=== PATIENT | female | born 1940 | race Caucasian/White ===

== ENCOUNTER 2018-07-17 14:32 | Emergency (ER) | payer OTHER, BC ==
--- OUTSIDE RECORDS SUMMARY | 2018-07-17 14:36 | XMS REPORT | Clinical Summary ---
:1940 Author Organization [facility] Address [address] [place] [address] Phone Support Name Relationship Address Phone [place]available [place] [address] Unavailable Unavailable [address] [place] [address] Care Team Providers Name Role Phone Unavailable Primary Care Provider Unavailable Allergies Active Allergy Reactions Severity Noted Date Comments [place] Anaphylaxis, Rash High 07/11/2017 Venom-Honey Bee Anaphylaxis High 07/11/2017 Shellfish Containing Products Swelling 11/29/2014 Sulfa (Sulfonamide Antibiotics) Other (See Comments) 11/29/2014 As a child Current Medications Prescription Sig. Disp. Refills Start Date End Date Status ALBUTEROL SULFATE Inhale by mouth via Active (PROAIR HFA INHL) inhaler. predniSONE (DELTASONE) Take 30 mg by mouth Active 20 MG tablet daily. aspirin 81 MG EC tablet Take 81 mg by mouth Active daily. FLUTICASONE/VILANTEROL Inhale 1 puff by Active (BREO ELLIPTA INHL) mouth via inhaler daily. ferrous sulfate 325 (65 Take 325 mg by mouth Active FE) MG tablet daily with breakfast. HYDROcodone-acetaminophe Take 1 tablet by Active n (NORCO 10-325) 10-325 mouth every 6 (six) mg per tablet hours as needed for Pain. ZOLEDRONIC Inject Active ACID/MANNITOL-WATER intravenously. (RECLAST IV) folic acid (FOLVITE) 400 Take 400 mcg by Active MCG tablet mouth daily. naproxen Take 220 mg by mouth Active (ALEVE,ANAPROX,MIDOL) 2 (two) times daily 220 MG tablet with breakfast and dinner. 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
--- OUTSIDE RECORDS SUMMARY | 2018-07-17 14:36 | XMS REPORT | Clinical Summary ---
:1940 Author Organization [facility] Address [address] [place] [address] Care Team Providers Name Role Phone Asked, No Pcp Primary Care Provider Unavailable Allergies Active Allergy Reactions Severity Noted Date Comments Bee Venom Protein (Honey Bee) Swelling 05/24/2017 Shrimp 04/09/2017 [place] 04/09/2017 Sulfa (Sulfonamide Antibiotics) 04/09/2017 Current Medications Prescription Sig. Disp. Refills Start Date End Date Status albuterol (PROAIR Inhale 2 puffs Active HFA,PROVENTIL every 6 (six) hours HFA,VENTOLIN HFA) as needed for 90 mcg/actuation wheezing. inhaler esomeprazole Take 40 mg by mouth Active (NexIUM) 40 MG daily before capsule breakfast. ferrous sulfate Take 325 mg by Active 325 (65 FE) MG mouth daily with tablet breakfast. naproxen sodium Take 220 mg by Active (ALEVE) 220 MG mouth nightly. tablet folic acid TAKE 1 TABLET EVERY 30 tablet 2 01/27/2018 Active (FOLVITE) 1 MG DAY tablet ACTEMRA 162 INJECT 1 SYRINGE 1.8 mL 0 03/31/2018 Active mg/0.9 mL syringe (162MG) SUBCUTANEOUSLY EVERY OTHER WEEK BREO ELLIPTA 03/26/2017 11/01/20 Discontinued 100-25 mcg/dose 17 blister with device powder for inhalation folic acid Take 1 tablet (1 mg 30 tablet 2 05/24/2017 08/22/20 (FOLVITE) 1 MG total) by mouth 17 tablet daily for 90 days. predniSONE Take 20 mg by mouth 11/01/20 Discontinued (DELTASONE) 20 mg daily. 1 1/2 po 17 tablet daily aspirin (ECOTRIN) Take 81 mg by mouth 02/15/20 Discontinued 81 MG enteric daily. 18 coated tablet gabapentin Take 300 mg by 11/01/20 Discontinued (NEURONTIN) 300 mouth daily. 17 mg capsule folic acid TAKE 1 TABLET EVERY 30 tablet 2 08/31/2017 01/27/20 Discontinued (FOLVITE) 1 MG DAY 18 tablet predniSONE Take 5 mg by mouth 05/09/20 Discontinued (DELTASONE) 5 mg daily. 2 1/ tab 18 tablet qod ACTEMRA 162 INJECT 162 MG (1 1.8 mL 1 12/31/2017 02/26/20 Discontinued mg/0.9 mL syringe SYRINGE) 18 SUBCUTANEOUSLY EVERY OTHER WEEK ACTEMRA 162 inject 1 syringe 1.8 mL 0 02/25/2018 03/31/20 Discontinued mg/0.9 mL syringe (162 mg) 18 subcutaneously every other week predniSONE Take 2.5 mg by 05/09/20 Discontinued (DELTASONE) 2.5 mouth daily. QOD 18 mg tablet Active Problems Problem Noted Date Osteoporosis 06/20/2017 Encounters Date Type Specialty Care Team Description 06/13/2018 Orders Only Infusion Therapy Radha Edwards RN 06/13/2018 Telephone Infusion Therapy Radha Edwards RN 05/09/2018 Office Visit Rheumatology Adolph Jones, Temporal arteritis (Primary Dx); Steroid side effects, subsequent encounter; Visit for monitoring Actemra therapy; Age-related osteoporosis without current pathological fracture 04/04/2018 Office Visit Rheumatology Adolph Jones, Temporal arteritis (Primary Dx); Steroid side effects, subsequent encounter; Visit for monitoring Actemra therapy; Age-related osteoporosis without current pathological fracture 03/31/2018 Refill Rheumatology Adolph Jones MD 02/25/2018 Refill Rheumatology Adolph Jones MD 02/14/2018 Office Visit Rheumatology Adolph Jones, Temporal arteritis (Primary Dx); Steroid side effects, subsequent encounter; Visit for monitoring Actemra therapy; Age-related osteoporosis without current pathological fracture 02/14/2018 Refill Rheumatology Devang Farfan MA 01/27/2018 Refill Rheumatology Adolph Jones MD 01/10/2018 Office Visit Rheumatology Adolph Jones, Temporal arteritis (Primary Dx); Steroid side effects, subsequent encounter; Visit for monitoring Actemra therapy 12/31/2017 Refill Rheumatology Adolph Jones MD 11/01/2017 Office Visit Rheumatology Adolph Jones, Temporal arteritis (Primary Dx); Age-related osteoporosis without current pathological fracture; Steroid side effects, subsequent encounter; Visit for monitoring Actemra therapy 08/31/2017 Refill Rheumatology Adolph Jones MD 08/09/2017 Office Visit Rheumatology Adolph Jones Temporal arteritis (Primary Dx); Osteoporosis; Steroid side effects, subsequent encounter; Visit for monitoring Actemra therapy; Dysuria-frequency syndrome after 07/16/2017 Family History Medical History Relation Name Comments Diabetes Maternal Aunt Glaucoma Maternal Aunt Diabetes Maternal Grandmother Heart disease Maternal Grandmother Cancer Mother Relation Name Status Comments Maternal Aunt Maternal Grandmother Mother Social History Tobacco Use Types Packs/Day Years Used Date Former Smoker 2 Smokeless Tobacco: Never Used Comments: quit at 52 - previous 2 packs a day Alcohol Use Drinks/Week oz/Week Comments No Sex Assigned at Date Recorded Not on file Last Filed Vital Signs Vital Sign Reading Time Taken Blood Pressure 148/79 05/09/2018 11:14 AM CDT Pulse 90 05/09/2018 11:14 AM CDT Temperature - - Respiratory Rate - - Oxygen Saturation - - Inhaled Oxygen Concentration - - Weight 57.6 kg (127 lb) 04/04/2018 9:33 AM CDT Height 152.4 cm (5') 11/01/2017 9:02 AM [employer]GRAM[employer] Body Mass Index 24.8 04/04/2018 9:33 AM CDT Plan of Treatment Date Type Specialty Care Team Description 07/18/2018 Office Visit Rheumatology Adolph Jones MD [address] [address] [phone] 07/18/2018 Infusion Infusion Therapy Health Maintenance Due Date Last Done Comments BREAST CANCER SCREENING 1992 COLON CANCER SCREENING 1992 SHINGRIX VACCINE (#1) 1992 ZOSTER VACCINE 2002 PNEUMOCOCCAL POLYSACCHARIDE VACCINE AGE 65 AND OVER 2007 INFLUENZA VACCINE 07/02/2018 09/27/2016 PNEUMOCOCCAL-13 Completed 07/04/2015 Procedures Procedure Name Priority Date/Time Associated Diagnosis Comments C-REACTIVE PROTEIN Routine 07/16/2018 10:09 Temporal arteritis AM CDT Steroid side effects, subsequent encounter Visit for monitoring Actemra therapy Age-related osteoporosis without current pathological fracture SEDIMENTATION RATE Routine 07/16/2018 10:09 Temporal arteritis Results for this AM CDT Steroid side procedure are in effects, subsequent the results encounter section. Visit for monitoring Actemra therapy Age-related osteoporosis without current pathological fracture COMPREHENSIVE Routine 07/16/2018 10:09 Temporal arteritis Results for this METABOLIC PANEL AM CDT Steroid side procedure are in effects, subsequent the results encounter section. Visit for monitoring Actemra therapy Age-related osteoporosis without current pathological fracture CBC WITH PLATELET AND Routine 07/16/2018 10:09 Temporal arteritis Results for this DIFFERENTIAL AM CDT Steroid side procedure are in effects, subsequent the results encounter section. Visit for monitoring Actemra therapy Age-related osteoporosis without current pathological fracture C-REACTIVE PROTEIN Routine 05/08/2018 2:55 Temporal arteritis Results for this PM CDT Steroid side procedure are in effects, subsequent the results encounter section. Visit for monitoring Actemra therapy Age-related osteoporosis without current pathological fracture SEDIMENTATION RATE Routine 05/08/2018 2:55 Temporal arteritis Results for this PM CDT Steroid side procedure are in effects, subsequent the results encounter section. Visit for monitoring Actemra therapy Age-related osteoporosis without current pathological fracture COMPREHENSIVE Routine 05/08/2018 2:55 Temporal arteritis Results for this METABOLIC PANEL PM CDT Steroid side procedure are in effects, subsequent the results encounter section. Visit for monitoring Actemra therapy Age-related osteoporosis without current pathological fracture CBC WITH PLATELET AND Routine 05/08/2018 2:55 Temporal arteritis Results for this DIFFERENTIAL PM CDT Steroid side procedure are in effects, subsequent the results encounter section. Visit for monitoring Actemra therapy Age-related osteoporosis without current pathological fracture COMPREHENSIVE Routine 03/24/2018 1:14 Temporal arteritis Results for this METABOLIC PANEL PM CDT Steroid side procedure are in effects, subsequent the results encounter section. Visit for monitoring Actemra therapy Age-related osteoporosis without current pathological fracture CBC WITH PLATELET AND Routine 03/24/2018 1:14 Temporal arteritis Results for this DIFFERENTIAL PM CDT Steroid side procedure are in effects, subsequent the results encounter section. Visit for monitoring Actemra therapy Age-related osteoporosis without current pathological fracture SEDIMENTATION RATE Routine 03/24/2018 1:14 Temporal arteritis Results for this PM CDT Steroid side procedure are in effects, subsequent the results encounter section. Visit for monitoring Actemra therapy Age-related osteoporosis without current pathological fracture C-REACTIVE PROTEIN Routine 03/24/2018 1:14 Temporal arteritis Results for this PM CDT Steroid side procedure are in effects, subsequent the results encounter section. 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 Visit for monitoring Actemra therapy SEDIMENTATION RATE Routine 01/10/2018 10:08 Temporal arteritis Results for this AM [employer]GRAMMER Steroid side procedure are in effects, subsequent the results encounter section. Visit for monitoring Actemra therapy COMPREHENSIVE Routine 01/10/2018 10:08 Temporal arteritis Results for this METABOLIC PANEL AM [employer] PROGRAMMER Steroid side procedure are in effects, subsequent the results encounter section. Visit for monitoring Actemra therapy CBC WITH PLATELET AND Routine 01/10/2018 10:08 Temporal arteritis Results for this DIFFERENTIAL AM [employer]GRAMMER Steroid side procedure are in effects, subsequent the results encounter section. Visit for monitoring Actemra therapy URINALYSIS, COMPLETE, Routine 08/12/2017 7:18 Dysuria-frequency Results for this WITH REFLEX TO CULTURE AM CDT syndrome procedure are in the results section. C-REACTIVE PROTEIN Routine 08/12/2017 7:18 Temporal arteritis Results for this AM CDT Steroid side procedure are in effects, subsequent the results encounter section. Visit for monitoring Actemra therapy SEDIMENTATION RATE Routine 08/12/2017 7:18 Temporal arteritis Results for this AM CDT Steroid side procedure are in effects, subsequent the results encounter section. Visit for monitoring Actemra therapy COMPREHENSIVE Routine 08/12/2017 7:18 Temporal arteritis Results for this METABOLIC PANEL AM CDT Steroid side procedure are in effects, subsequent the results encounter section. Visit for monitoring Actemra therapy CBC WITH PLATELET AND Routine 08/12/2017 7:18 Temporal arteritis Results for this DIFFERENTIAL AM CDT Steroid side procedure are in effects, subsequent the results encounter section. Visit for monitoring Actemra therapy URINE CULTURE Routine 08/12/2017 7:18 Results for this AM CDT procedure are in the results section. after 07/16/2017 Results Sedimentation rate (07/16/2018 10:09 AM)Only the most recent of5 resultswithin the time period is included. Sedimentation rate 2 < OR=30 mm/h [facility] [place] Specimen Blood Narrative Performed At FASTING:YES [facility] FASTING: YES Resulting Agency Comment Performing Organization Information: Site ID: [id number] Name: [facility] Address: [address] [place] [id number] Director: Mia Morelos Performing Organization Address City/[facility] [place] Phone Number [place] [facility] [place] [address] [place] [phone] CBC with platelet and differential (07/16/2018 10:09 AM)Only the most recent of5 resultswithin the time period is included. WBC 10.4 3.8 - 10.8 Thousand/uL [facility] [place] RBC 5.17 (H) 3.80 - 5.10 Million/uL [facility] [place] HGB 13.5 11.7 - 15.5 g/dL [facility] [place] HCT 41.7 35.0 - 45.0 % [facility] [place] MCV 80.7 80.0 - 100.0 fL [facility] [place] MCH 26.1 (L) 27.0 - 33.0 pg [facility] [place] MCHC 32.4 32.0 - 36.0 g/dL [facility] [place] RDW 12.8 11.0 - 15.0 % [facility] [place] Platelet count 213 140 - 400 Thousand/uL [facility] [employer] [place] MPV 11.7 7.5 - 12.5 fL [facility] [place] Neutrophils, absolute 6,895 1,500 - 7,800 cells/uL [facility] [place] Lymphocytes, absolute 1,882 850 - 3,900 cells/uL [facility] [place] Monocytes, absolute 1,227 (H) 200 - 950 cells/uL [facility] [place] Eosinophils, absolute 343 15 - 500 cells/uL [facility] [place] Basophils, absolute 52 0 - 200 cells/uL [facility] [place] Neutrophils 66.3 % [facility] [place] Lymphocytes 18.1 % [facility] [place] Monocytes 11.8 % [facility] [place] Eosinophils 3.3 % [facility] [place] Basophils + RC 0.5 % [facility] [place] Specimen Blood Narrative Performed At FASTING:YES [facility] FASTING: YES Resulting Agency Comment Performing Organization Information: Site ID: [id number] Name: [facility] Address: [address] [place] [phone] Director: Mia Morelos Performing Organization Address City/[facility]/Zipcode Phone Number [facility] [place] [address] [place] [address] Comprehensive metabolic panel (07/16/2018 10:09 AM)Only the most recent of5 resultswithin the time period is included. Glucose 77 65 - 99 mg/dL [facility] Comment: [place] Fasting reference interval BUN, whole blood 12 7 - 25 mg/dL [facility] [place] Creatinine 0.55 (L) 0.60 - 0.93 [facility] Comment: mg/dL [place] For patients >49 years of age, the reference limit for Creatinine is approximately 13% higher for people identified as -Togolese. EGFR Non-Afr. [place]og[place]ese 92 > OR=60 [facility] mL/min/1.73m2 [place] EGFR 106 > OR=60 [facility] mL/min/1.73m2 [place] BUN/creatinine ratio 22 6 - 22 (calc) [facility] [place] Sodium 140 135 - 146 mmol/L [facility] [place] Potassium 4.0 3.5 - 5.3 mmol/L [facility] [place] Chloride 102 98 - 110 mmol/L [facility] [place] CO2 28 20 - 32 mmol/L [facility] [place] Calcium 9.5 8.6 - 10.4 mg/dL [facility] [place] Protein 6.4 6.1 - 8.1 g/dL [facility] [place] Albumin, S 4.6 3.6 - 5.1 g/dL [facility] [place] Globulin, total 1.8 (L) 1.9 - 3.7 g/dL [facility] (calc) [place] Albumin/globulin ratio 2.6 (H) 1.0 - 2.5 (calc) [facility] [place] Total bilirubin 1.5 (H) 0.2 - 1.2 mg/dL [facility] [place] Alkaline phosphatase 77 33 - 130 U/L [facility] [place] AST 20 10 - 35 U/L [facility] [place] ALT 15 6 - 29 U/L [facility] [place] Specimen Blood Narrative Performed At FASTING:YES [facility] FASTING: YES Resulting Agency Comment Performing Organization Information: Site ID: [id number] Name: [facility] Address: [address] [place] [address] Director: Mia Morelos Performing Organization Address City/State/Zipcode Phone Number [facility] [place] [address] [place] [address] C-reactive protein (05/08/2018 2:55 PM)Only the most recent of4 resultswithin the time period is included. CRP 0.6 <8.0 mg/L [facility] [place] Specimen Blood Narrative Performed At FASTING:NO [facility] FASTING: NO Resulting Agency Comment Performing Organization Information: Site ID: [id number] Name: [facility] Address: [address] [place] [phone] Director: Mia Morelos Performing Organization Address City/[facility] Phone Number [facility] [address] [address] URINALYSIS, COMPLETE, WITH REFLEX TO CULTURE (08/12/2017 7:18 AM) Color, UA YELLOW YELLOW [facility] [place] Appearance CLEAR CLEAR [facility] [place] Specific gravity, urine 1.020 1.001 - 1.035 [facility] [place] pH, urine 5.5 5.0 - 8.0 [facility] [place] Glucose, urine NEGATIVE NEGATIVE [facility] [place] Bilirubin, UA NEGATIVE NEGATIVE [facility] [place] Ketones, UA NEGATIVE NEGATIVE [facility] [place] Occult blood, urine NEGATIVE NEGATIVE [facility] [place] Protein, UA NEGATIVE NEGATIVE [facility] [place] Nitrite, UA NEGATIVE NEGATIVE [facility] [place] Leukocyte esterase, UA 2+ (A) NEGATIVE [facility] [place] WBC, UA 40-60 (A) < OR=5 /HPF [facility] [place] RBC, UA 0-2 < OR=2 /HPF [facility] [place] Squamous epithelial 6-10 (A) < OR=5 /HPF [facility] cells, [facility] [place] Bacteria, UA FEW (A) NONE SEEN /HPF [facility] [place] Calcium oxalate FEW NONE OR FEW /HPF [facility] crystals, [facility] [place] Hyaline casts, UA NONE SEEN NONE SEEN /LPF [facility] [place] Comment FEW MUCOUS THREADS [facility] [place] Reflex CULTURE INDICATED - [facility] RESULTS TO FOLLOW [place] Narrative Performed At FASTING:NO [facility] Resulting Agency Comment Performing Organization Information: Site ID: [id number] Name: [facility] Address: [address] [place] [phone] Director: Mia Morelos MD Performing Organization Address City/[facility]/Zipcode Phone Number [facility] [place] [address] [place] [phone] Urine culture (08/12/2017 7:18 AM) Urine culture SEE NOTE [facility] [place] Comment: CULTURE, URINE, ROUTINE MICRO NUMBER:[id number] TEST STATUS: FINAL SPECIMEN SOURCE: URINE SPECIMEN QUALITY:ADEQUATE RESULT:Three or more organisms present, each greater than 10,000 cu/mL. May represent normal germania contamination from external genitalia. No further testing is required. Narrative Performed At FASTING:NO [facility] Resulting Agency Comment Performing Organization Information: Site ID: [id number] Name: [facility] Address: [address] [place] [phone] Director: Mia Morelos MD Performing Organization Address City/State/[facility] Phone Number [facility] [place] [phone] after 07/16/2017 Insurance Payer Benefit Plan / Group Subscriber ID Type Phone Address MEDICARE MEDICARE PART A AND B xxxxxxxxxx Medicare [place], [place] BCBS BCBS CHOICE PPO/[employer]ER[employer] EMPL PPO xxxxxxxxxxxx PPO Home: [phone] [place] [id number]
--- NOTE | 2018-07-17 16:00 | RAD REPORT ---
EXAM DESCRIPTION: CT - Stone Protocol - 07/17/2018 3:48 pm CLINICAL HISTORY: Flank pain. ABD PAIN COMPARISON: CTSTONE PROTOCOL dated 07/15/2014 TECHNIQUE: Axial images were obtained without oral or IV contrast. Lack of contrast limits solid org an and vascular assessment. The [id number] spans the entirety of the system partially obscuring uppermost abdomen and lung bases. Coronal reformatted images were obtained and reviewed. All CT scans are performed using dose optimization technique as appropriate and may include automated exposure control or mA/KV adjustment according to patient size. FINDINGS: The lower lung calle are clear. Small to moderate hiatal hernia. Imaged portions of the liver and spleen show no suspicious findings on non-contrast imaging.Cholecyst ectomy clips are seen. The pancreas and adrenal glands are normal. No pathologic lymphadenopathy in t he abdomen or pelvis. 5 mm stone (900 HU) is present at the left UVJ with moderate left hydronephrosis. No bowel obstruction, free air, free fluid or abscess. Appendectomy noted. High-grade compression deformity, chronic, is noted at T12 with prominent kyphosis and degenerative l evoscoliosis of the lumbar spine. IMPRESSION: 5 mm stone (900 HU) at the left UVJ resulting moderate left hydronephrosis.
--- NOTE | 2018-07-17 16:11 | EDPHYS ---
Physician Documentation [facility] Name: Lisa Cordero Age: 77 yrs Sex: Female : 1940 Arrival Date: 07/17/2018 Time: 14:35 Bed 26 Private MD: Unknown, Unknown ED Physician Isac Pérez HPI: 07/17 16:08 This 77 yrs old Female presents to ER via Wheelchair with complaints of gs Abdominal Pain - LOW. 17:18 The patient presents with abdominal pain. Onset: The symptoms/episode began/occurred gs yesterday. The symptoms do not radiate. Associated signs and symptoms: Pertinent positives: dysuria. The symptoms are described as sharp. Modifying factors: The symptoms are alleviated by nothing, the symptoms are aggravated by nothing. Severity of pain: At its worst the pain was moderate in the emergency department the pain has improved mildly. The patient has not experienced similar symptoms in the past. The patient has not recently seen a physician. Historical: - Allergies: 15:19 SHELLFISH; ed1 15:19 Strawberries; ed1 15:19 Sulfa (Sulfonamide Antibiotics); ed1 - Home Meds: 15:19 Aspirin Oral [Active]; Nexium 20 mg Oral cpDR [Active]; Prednisone Oral [Active]; ed1 ProAir HFA 90 mcg/actuation inhalation HFAA [Active]; - PMHx: 15:19 Arthritis; COPD; ed1 - PSHx: 15:19 hemrrhoid removal; R knee replacement; Cholecystectomy; Appendectomy; Hysterectomy; ed1 facial surgery; - Immunization history:: Adult Immunizations up to date. - Social history:: Smoking status: Patient/guardian denies using tobacco. - Ebola Screening: : Patient negative for fever greater than or equal to 101.5 degrees Fahrenheit, and additional compatible Ebola Virus Disease symptoms Patient denies exposure to infectious person Patient denies travel to an Ebola-affected area in the 21 days before illness onset No symptoms or risks identified at this time. ROS: 17:18 All other systems are negative. gs Exam: 17:18 Head/Face: Normocephalic, atraumatic. Eyes: Pupils equal round and reactive to light, gs extra-ocular motions intact. Lids and lashes normal. Conjunctiva and sclera are non-icteric and not injected. Cornea within normal limits. Periorbital areas with no swelling, redness, or edema. ENT: Nares patent. No nasal discharge, no septal abnormalities noted. Tympanic membranes are normal and external auditory canals are clear. Oropharynx with no redness, swelling, or masses, exudates, or evidence of obstruction, uvula midline. Mucous membranes moist. Neck: Trachea midline, no thyromegaly or masses palpated, and no cervical lymphadenopathy. Supple, full range of motion without nuchal rigidity, or vertebral point tenderness. No Meningismus. Chest/axilla: Normal chest wall appearance and motion. Nontender with no deformity. No lesions are appreciated. Cardiovascular: Regular rate and rhythm with a normal S1 and S2. No gallops, murmurs, or rubs. Normal PMI, no JVD. No pulse deficits. Respiratory: Lungs have equal breath sounds bilaterally, clear to auscultation and percussion. No rales, rhonchi or wheezes noted. No increased work of breathing, no retractions or nasal flaring. Back: No spinal tenderness. No costovertebral tenderness. Full range of motion. Skin: Warm, dry with normal turgor. Normal color with no rashes, no lesions, and no evidence of cellulitis. MS/ Extremity: Pulses equal, no cyanosis. Neurovascular intact. Full, normal range of motion. Neuro: Awake and alert, GCS 15, oriented to person, place, time, and situation. Cranial nerves II-XII grossly intact. Motor strength 5/5 in all extremities. Sensory grossly intact. Cerebellar exam normal. Normal gait. 17:18 Constitutional: The patient appears alert, awake. 17:18 Abdomen/GI: Palpation: mild abdominal tenderness, in the left lower quadrant. Vital Signs: 14:48 BP 153 / 84; Pulse 86; Resp 17; Temp 97.(TE); Pulse Ox 97% on R/A; Pain 5/10; tw2 16:21 BP 138 / 74; Pulse 86; Resp 17; Pulse Ox 100% on R/A; Pain 5/10; ed1 MDM: 15:16 Patient medically screened. gs 17:18 Differential diagnosis: diverticulitis, non-specific abd pain, Ureterolithiasis, gs urinary tract infection. Data reviewed: vital signs, nurses notes. Counseling: I had a detailed discussion with the patient and/or guardian regarding: lab results, radiology results, the need for outpatient follow up, a urologist. Response to treatment: the patient's symptoms have markedly improved after treatment, and as a result, I will discharge patient. 07/17 15:16 Order name: Urine Microscopic Only 07/17 15:26 Order name: CBC with Diff 07/17 15:16 Order name: Urine Dipstick-Ancillary (obtain specimen); Complete Time: 15:27 07/17 15:26 Order name: Basic Metabolic Panel 07/17 15:26 Order name: CT Stone Protocol; Complete Time: 16:02 07/17 15:55 Order name: Urine Dipstick--Ancillary (enter results) bd Administered Medications: No medications were administered Disposition: 07/17/18 16:10 Discharged to Home. Impression: Hydronephrosis with renal and ureteral calculous obstruction. - Condition is Stable. - Discharge Instructions: Kidney Stones, Hydronephrosis. - Prescriptions for Naprosyn 500 mg Oral Tablet - take 1 tablet by ORAL route 2 times per day As needed take with food; 30 tablet. Tylenol- Codeine #3 300-30 mg Oral Tablet - take 1 tablet by ORAL route every 6 hours As needed; 12 tablet. - Medication Reconciliation Form, Thank You Letter, Antibiotic Education, Prescription Opioid Use form. - Follow up: Dontrell Gomes MD; When: 2 - 3 days; Reason: Re-evaluation by your physician. Signatures: Dispatcher [employer] EDMS Yulisa Araujo, CHECKER CASHIER CHECKER CASHIER ed1 Isac Pérez MD MD gs Corrections: (The following items were deleted from the chart) 16:24 16:10 07/17/2018 16:10 Discharged to Home. Impression: Hydronephrosis with renal and ed1 ureteral calculous obstruction. Condition is Stable. Forms are Medication Reconciliation Form, Thank You Letter, Antibiotic Education, Prescription Opioid Use. Follow up: Dontrell Gomes; When: 2 - 3 days; Reason: Re-evaluation by your physician. gs
--- NOTE | 2018-07-17 16:11 | ER ---
Nurse's Notes [facility] Name: Lisa Cordero Age: 77 yrs Sex: Female : 1940 Arrival Date: 07/17/2018 Time: 14:35 Bed 26 Private MD: Unknown, Unknown Diagnosis: Hydronephrosis with renal and ureteral calculous obstruction Presentation: 07/17 14:48 Presenting complaint: Patient states: i am dry heaving and nauseous and having stomach tw2 pain that started around lunch. Transition of care: patient was not received from another setting of care. Onset of symptoms was July 17, 2018. Risk Assessment: Do you want to hurt yourself or someone else? Patient reports no desire to harm self or others. Initial Sepsis Screen: Does the patient meet any 2 criteria? No. Patient's initial sepsis screen is negative. Does the patient have a suspected source of infection? No. Patient's initial sepsis screen is negative. Care prior to arrival: None. 14:48 Method Of Arrival: Wheelchair tw2 14:48 Acuity: SAMUEL 3 tw2 Historical: - Allergies: 15:19 SHELLFISH; ed1 15:19 Strawberries; ed1 15:19 Sulfa (Sulfonamide Antibiotics); ed1 - Home Meds: 15:19 Aspirin Oral [Active]; Nexium 20 mg Oral cpDR [Active]; Prednisone Oral [Active]; ed1 ProAir HFA 90 mcg/actuation inhalation HFAA [Active]; - PMHx: 15:19 Arthritis; COPD; ed1 - PSHx: 15:19 hemrrhoid removal; R knee replacement; Cholecystectomy; Appendectomy; Hysterectomy; ed1 facial surgery; - Immunization history:: Adult Immunizations up to date. - Social history:: Smoking status: Patient/guardian denies using tobacco. - Ebola Screening: : Patient negative for fever greater than or equal to 101.5 degrees Fahrenheit, and additional compatible Ebola Virus Disease symptoms Patient denies exposure to infectious person Patient denies travel to an Ebola-affected area in the 21 days before illness onset No symptoms or risks identified at this time. Screenin:19 Abuse screen: Denies threats or abuse. Denies injuries from another. Nutritional ed1 screening: No deficits noted. Tuberculosis screening: No symptoms or risk factors identified. Fall Risk None identified. Assessment: 15:17 General: Appears uncomfortable, Behavior is calm, cooperative. Pain: Complains of pain ed1 in suprapubic area Pain does not radiate. Pain currently is 5 out of 10 on a pain scale. Quality of pain is described as burning, Pain began 2-3 days ago. Is continuous. Neuro: Level of Consciousness is awake, alert, obeys commands, Oriented to person, place, time, situation. Cardiovascular: Denies chest pain, Heart tones S1 S2 present. Respiratory: Airway is patent Respiratory effort is even, unlabored, Respiratory pattern is regular, symmetrical, Breath sounds are clear bilaterally. GI: Abdomen is non-distended, Bowel sounds present X 4 quads. Abd is soft and non tender X 4 quads. Reports lower abdominal pain, nausea, Patient currently denies diarrhea, vomiting. : Reports burning with urination, inability to void, urgency, urinary frequency. EENT: No signs and/or symptoms were reported regarding the EENT system. Derm: Skin is pink, warm \T\ dry. Musculoskeletal: Circulation, motion, and sensation intact. 15:20 Reassessment: I agree with previous assessment. hb 16:21 Reassessment: Patient appears in no apparent distress at this time. No changes from ed1 previously documented assessment. Patient and/or family updated on plan of care and expected duration. Pain level reassessed. Patient is alert, oriented x 3, equal unlabored respirations, skin warm/dry/pink. Vital Signs: 14:48 BP 153 / 84; Pulse 86; Resp 17; Temp 97.(TE); Pulse Ox 97% on R/A; Pain 5/10; tw2 16:21 BP 138 / 74; Pulse 86; Resp 17; Pulse Ox 100% on R/A; Pain 5/10; ed1 ED Course: 14:35 Patient arrived in ED. sb2 14:36 Unknown, Unknown is Private Physician. sb2 14:48 Triage completed. tw2 14:49 Arm band placed on. tw2 14:52 Isac Pérez MD is Attending Physician. gs 15:16 Yulisa Araujo LVN is Primary Nurse. ed1 15:19 Patient has correct armband on for positive identification. Placed in gown. Bed in low ed1 position. Call light in reach. Adult w/ patient. Pulse ox on. NIBP on. 15:30 Inserted saline lock: 20 gauge in left forearm, using aseptic technique. rv 15:48 CT Stone Protocol In Process Unspecified. EDMS 16:10 Dontrell Gomes MD is Referral Physician. gs 16:21 No provider procedures requiring assistance completed. IV discontinued, intact, ed1 bleeding controlled, No redness/swelling at site. Pressure dressing applied. Administered Medications: No medications were administered Outcome: 16:10 Discharge ordered by MD. gs 16:21 Discharged to home ambulatory, with family. ed1 16:21 Condition: good 16:21 Discharge instructions given to patient, family, Instructed on discharge instructions, follow up and referral plans. medication usage, Demonstrated understanding of instructions, follow-up care, medications, Prescriptions given X 2. 16:24 Patient left the ED. ed1 Signatures: Dispatcher [employer] EDMS Yulisa Araujo, SUBSTANCE ABUSE TECHNICIAN SUBSTANCE ABUSE TECHNICIAN ed1 Federica Cisneros, RN RN Eneida Argueta RN RN tw2 Isac Pérez MD MD Saira Kaye sb2 Lambert Jon RN RN rv
[2018-07-17 16:19] LABS: Absolute Lymphocytes (CBC) 1.4 K/uL (0.7-4.9); Absolute Monocytes 1.5 K/uL (0.1-1.3); Absolute Neutrophil 12.5 K/uL (1.8-8.0); Basophils % 0.3 % (0-1.3); Eosinophils % 1.2 % (0-4.4); Hematocrit 43.6 % (36.0-45.0); Lymphocytes % 8.7 % (15.3-44.8); MCH 26.3 pg (27.0-35.0); MCV 81.4 fL (80-100); MPV 10.7 fL (7.6-11.3); Monocytes % 9.5 % (3.3-12.3); RBC Red Blood Cell Count 5.36 M/uL (3.86-4.86)
[2018-07-17 16:35] LABS: Potassium 3.8 mmol/L (3.5-5.1)
[2018-07-17 16:44] LABS: Urine Blood 1+ (NEG); Urine Glucose NEGATIVE (NEG); Urine Protein NEGATIVE (NEG); Urine Specific Gravity 1.025 (1.005-1.030); Urine pH 5.5 (5.0-7.0)
[2018-07-17 16:44] LABS: Urine Amorphous Sediment 3+ /HPF (NONE SEEN); Urine Bacteria 20-50 /HPF (<20); Urine Culture Reflex Order REFLEXED; Urine Mucus 1+ /HPF (NONE SEEN)
== END 2018-07-17 16:24 | disposition home or self-care (01) ==
LOC: ER 14:32
DX: N13.2 Hydronephrosis with renal and ureteral calculous obstruction (principal); J44.9 Chronic obstructive pulmonary disease, unspecified; Z79.82 Long term (current) use of aspirin; Z88.2 Allergy status to sulfonamides; Z91.013 Allergy to seafood; Z91.018 Allergy to other foods
CPT/HCPCS: 36415; 74176; 76377; 80048; 81003; 81015; 85025; 87086; 87088; 99284

== ENCOUNTER 2019-04-10 08:57 | Emergency (ER) | payer OTHER, BC ==
--- OUTSIDE RECORDS SUMMARY | 2019-04-10 09:00 | XMS REPORT | Clinical Summary ---
:1940 Author Organization [facility] Address [address] [place] [address] Care Team Providers Name Role Phone Asked, No Pcp Primary Care Provider Unavailable Allergies Active Allergy Reactions Severity Noted Date Comments Bee Venom Protein (Honey Bee) Swelling 05/24/2017 Shrimp 04/09/2017 [place]oa 04/09/2017 Sulfa (Sulfonamide Antibiotics) 04/09/2017 Medications Medication Sig Dispensed Refills Start Date End Date Status esomeprazole Take 20 mg by mouth 0 Active (NexIUM) 40 MG daily before capsule breakfast. naproxen sodium Take 220 mg by 0 Active (ALEVE) 220 MG mouth nightly. tablet zoledronic Infuse 5 mg into a 0 Active acid/mannitol-zoe venous catheter. er (RECLAST IV) albuterol (PROAIR Inhale 2 puffs 0 07/18/20 Discontinued HFA,PROVENTIL every 6 (six) hours 18 HFA,VENTOLIN HFA) as needed for 90 mcg/actuation wheezing. inhaler ferrous sulfate Take 325 mg by 0 11/14/20 Discontinued 325 (65 FE) MG mouth daily with 18 tablet breakfast. predniSONE Take 5 mg by mouth 0 05/09/20 Discontinued (DELTASONE) 5 mg daily. 2 1/2 tab 18 tablet qod folic acid TAKE 1 TABLET EVERY 30 tablet 2 01/27/2018 11/14/20 Discontinued (FOLVITE) 1 MG DAY 18 tablet ACTEMRA 162 INJECT 1 SYRINGE 1.8 mL 0 03/31/2018 02/14/20 Discontinued mg/0.9 mL syringe (162MG) 19 SUBCUTANEOUSLY EVERY OTHER WEEK predniSONE Take 2.5 mg by 0 05/09/20 Discontinued (DELTASONE) 2.5 mouth daily. QOD 18 mg tablet Active Problems Problem Noted Date Osteoporosis 06/20/2017 Encounters Date Type Specialty Care Team Description 02/13/2019 Office Visit Rheumatology Adolph Jones Temporal arteritis ( [facility]) (Primary Dx); MD Davide Age-related osteoporosis without current pathological fracture; History of total right knee replacement; Primary osteoarthritis of left knee 11/14/2018 Office Visit Rheumatology Adolph Jones Temporal arteritis ( [facility]) (Primary Dx); MD Davide Visit for monitoring Actemra therapy; Age-related osteoporosis without current pathological fracture 09/22/2018 Orders Only Rheumatology Devang Farfan MA 09/19/2018 Office Visit Rheumatology Adolph Jones Temporal arteritis ( [facility]) (Primary Dx); MD Davide Visit for monitoring Actemra therapy; Age-related osteoporosis without current pathological fracture; Dysuria-frequency syndrome 07/18/2018 Infusion Infusion Therapy Age-related osteoporosis without current pathological fracture (Primary Dx) 07/18/2018 Office Visit Rheumatology Adolph Jones Temporal arterisheila ( Primary Dx); MD Davide Steroid side effects, subsequent encounter; Visit for monitoring Actemra therapy; Age-related osteoporosis without current pathological fracture 07/18/2018 Refill Rheumatology Devang Farfan MA 06/13/2018 Orders Only Infusion Therapy Radha Edwards RN 06/13/2018 Telephone Infusion Therapy Radha Edwards RN 05/09/2018 Office Visit Rheumatology Adolph Jones ( Primary Dx); MD Davide Steroid side effects, subsequent encounter; Visit for monitoring Actemra therapy; Age-related osteoporosis without current pathological fracture after 04/09/2018 Family History Medical History Relation Name Comments [...] Assigned at Date Recorded Not on file Job Start Date Occupation Industry Not on file Not on file Not on file Travel History Travel Start Travel End No recent travel history available. Last Filed Vital Signs Vital Sign Reading Time Taken Blood Pressure 154/82 02/13/2019 9:38 AM CDT Pulse 85 02/13/2019 9:38 AM CDT Temperature - - Respiratory Rate - - Oxygen Saturation - - Inhaled Oxygen Concentration - - Weight 52.2 kg (115 lb) 02/13/2019 9:38 AM CDT Height - - Body Mass Index 22.46 02/13/2019 9:38 AM CDT Plan of Treatment Date Type Specialty Care Team Description 06/05/2019 Office Visit Rheumatology Adolph Jones MD [address] [place] [address] [phone] Health Maintenance Due Date Last Done Comments SHINGLES VACCINES (#1) 1992 65+ PNEUMOCOCCAL VACCINE (2 of 2 - PPSV23) 2007 07/04/2015 PNEUMOCOCCAL POLYSACCHARIDE VACCINE AGE 65 AND OVER 2007 INFLUENZA VACCINE 07/02/2019 09/27/2016 Procedures Procedure Name Priority Date/Time Associated Diagnosis Comments C-REACTIVE PROTEIN Routine 02/13/2019 10:04 Temporal arteritis Results for this AM CDT (HCC) procedure are in Age-related the results osteoporosis without section. current pathological fracture History of total right knee replacement Primary osteoarthritis of left knee SEDIMENTATION RATE Routine 02/13/2019 10:04 Temporal arteritis Results for this AM CDT (HCC) procedure are in Age-related the results osteoporosis without section. current pathological fracture History of total right knee replacement Primary osteoarthritis of left knee COMPREHENSIVE Routine 02/13/2019 10:04 Temporal arteritis Results for this METABOLIC PANEL AM CDT (HCC) procedure are in Age-related the results osteoporosis without section. current pathological fracture History of total right knee replacement Primary osteoarthritis of left knee CBC WITH PLATELET AND Routine 02/13/2019 10:04 Temporal arteritis Results for this DIFFERENTIAL AM CDT (HCC) procedure are in Age-related the results osteoporosis without section. current pathological fracture History of total right knee replacement Primary osteoarthritis of left knee C-REACTIVE PROTEIN Routine 11/14/2018 10:19 Temporal arteritis Results for this AM [employer] (HCC) procedure are in Visit for monitoring the results Actemra therapy section. Age-related osteoporosis without current pathological fracture SEDIMENTATION RATE Routine 11/14/2018 10:19 Temporal arteritis Results for this AM [employer] (HCC) procedure are in Visit for monitoring the results Actemra therapy section. Age-related osteoporosis without current pathological fracture COMPREHENSIVE Routine 11/14/2018 10:19 Temporal arteritis Results for this METABOLIC PANEL AM [employer] (HCC) procedure are in Visit for monitoring the results Actemra therapy section. Age-related osteoporosis without current pathological fracture CBC WITH PLATELET AND Routine 11/14/2018 10:19 Temporal arteritis Results for this DIFFERENTIAL AM [employer] (HCC) procedure are in Visit for monitoring the results Actemra therapy section. Age-related osteoporosis without current pathological fracture C-REACTIVE PROTEIN Routine 09/19/2018 11:22 Temporal arteritis Results for this AM CDT (HCC) procedure are in Visit for monitoring the results Actemra therapy section. Age-related osteoporosis without current pathological fracture Dysuria-frequency syndrome SEDIMENTATION RATE Routine 09/19/2018 11:22 Temporal arteritis Results for this AM CDT (HCC) procedure are in Visit for monitoring the results Actemra therapy section. Age-related osteoporosis without current pathological fracture Dysuria-frequency syndrome COMPREHENSIVE Routine 09/19/2018 11:22 Temporal arteritis Results for this METABOLIC PANEL AM CDT (HCC) procedure are in Visit for monitoring the results Actemra therapy section. Age-related osteoporosis without current pathological fracture Dysuria-frequency syndrome CBC WITH PLATELET AND Routine 09/19/2018 11:22 Temporal arteritis Results for this DIFFERENTIAL AM CDT (HCC) procedure are in Visit for monitoring the results Actemra therapy section. Age-related osteoporosis without current pathological fracture Dysuria-frequency syndrome C-REACTIVE PROTEIN Routine 07/16/2018 10:09 Temporal arteritis Results for this AM CDT Steroid side effects, procedure are in subsequent encounter the results Visit for monitoring section. Actemra therapy Age-related osteoporosis without current pathological fracture SEDIMENTATION RATE Routine 07/16/2018 10:09 Temporal arteritis Results for this AM CDT Steroid side effects, procedure are in subsequent encounter the results Visit for monitoring section. Actemra therapy Age-related osteoporosis without current pathological fracture COMPREHENSIVE Routine 07/16/2018 10:09 Temporal arteritis Results for this METABOLIC PANEL AM CDT Steroid side effects, procedure are in subsequent encounter the results Visit for monitoring section. Actemra therapy Age-related osteoporosis without current pathological fracture CBC WITH PLATELET AND Routine 07/16/2018 10:09 Temporal arteritis Results for this DIFFERENTIAL AM CDT Steroid side effects, procedure are in subsequent encounter the results Visit for monitoring section. Actemra therapy Age-related osteoporosis without current pathological fracture C-REACTIVE PROTEIN Routine 05/08/2018 2:55 Temporal arteritis Results for this PM CDT Steroid side effects, procedure are in subsequent encounter the results Visit for monitoring section. Actemra therapy Age-related osteoporosis without current pathological fracture SEDIMENTATION RATE Routine 05/08/2018 2:55 Temporal arteritis Results for this PM CDT Steroid side effects, procedure are in subsequent encounter the results Visit for monitoring section. Actemra therapy Age-related osteoporosis without current pathological fracture COMPREHENSIVE Routine 05/08/2018 2:55 Temporal arteritis Results for this METABOLIC PANEL PM CDT Steroid side effects, procedure are in subsequent encounter the results Visit for monitoring section. Actemra therapy Age-related osteoporosis without current pathological fracture CBC WITH PLATELET AND Routine 05/08/2018 2:55 Temporal arteritis Results for this DIFFERENTIAL PM CDT Steroid side effects, procedure are in subsequent encounter the results Visit for monitoring section. Actemra therapy Age-related osteoporosis without current pathological fracture after 04/09/2018 Results Sedimentation rate (02/13/2019 10:04 AM CDT)Only the most recent of5 resultswithin the time period is included. Sedimentation rate 2 < OR=30 mm/h [facility] Fetch MD [place] Specimen Blood Narrative Performed At FASTING:YES [facility] FASTING: YES Resulting Agency Comment Performing Organization Information: Site ID: [id number] [facility] Address: [address] [place] [id number] Director: Mia Morelos Performing Organization Address City/State/Zipcode Phone Number [phone] [place] [phone] CBC with platelet and differential (02/13/2019 10:04 AM CDT)Only the most recent of5 resultswithin the time period is included. WBC 10.2 3.8 - 10.8 Thousand/uL [facility] RBC 5.42 (H) 3.80 - 5.10 Million/uL [facility] HGB 13.3 11.7 - 15.5 g/dL [employer] [facility] HCT 43.2 35.0 - 45.0 % [employer] [facility] MCV 79.7 (L) 80.0 - 100.0 fL [employer] [facility] MCH 24.5 (L) 27.0 - 33.0 pg [facility] MCHC 30.8 (L) 32.0 - 36.0 g/dL [facility] RDW 14.0 11.0 - 15.0 % [facility] Platelet count 312 140 - 400 Thousand/uL [employer] [place] MPV 11.2 7.5 - 12.5 fL [employer] [place] Neutrophils, absolute 6,681 1,500 - 7,800 cells/uL [employer] [place] Lymphocytes, absolute 2,040 850 - 3,900 cells/uL [employer] [place] Monocytes, absolute 1,265 (H) 200 - 950 cells/uL [employer] [place] Eosinophils, absolute 173 15 - 500 cells/uL [employer] [place] Basophils, absolute 41 0 - 200 cells/uL [employer] [place] Neutrophils 65.5 % [employer] [place] Lymphocytes 20.0 % [employer] [place] Monocytes 12.4 % [employer] [place] Eosinophils 1.7 % [employer] [place] Basophils + RC 0.4 % [employer] [place] Specimen Blood Narrative Performed At FASTING:YES [facility] FASTING: YES Resulting Agency Comment Performing Organization Information: Site ID: [id number] Name: [facility] Address: [address] [place] [address] Director: Mia Morelos Performing Organization Address [facility] Phone Number [phone] [place] [address] C-reactive protein (02/13/2019 10:04 AM CDT)Only the most recent of5 resultswithin the time period is included. CRP 0.7 <8.0 mg/L [employer] [place] Specimen Blood Narrative Performed At FASTING:YES [facility] FASTING: YES Resulting Agency Comment Performing Organization Information: Site ID: [id number] [facility]: [facility] Address: [address] [place] [id number] Director: Mia Morelos Performing Organization Address [facility] Phone Number [phone] [place] [address] Comprehensive metabolic panel (02/13/2019 10:04 AM CDT)Only the most recent of5 resultswithin the time period is included. Glucose 85 65 - 99 mg/dL [employer] Comment: [place] Fasting reference interval BUN, whole blood 15 7 - 25 mg/dL [employer] [place] Creatinine 0.55 (L) 0.60 - 0.93 [employer] Comment: mg/dL [place] For patients >49 years of age, the reference limit for Creatinine is approximately 13% higher for people identified as -Slovenian. EGFR Non-Afr. Slovenian 91 > OR=60 [employer] mL/min/1.73m2 [place] EGFR 106 > OR=60 [facility] mL/min/1.73m2 [place] BUN/creatinine ratio 27 (H) 6 - 22 (calc) [facility] [place] Sodium 139 135 - 146 mmol/L [employer] [place] Potassium 4.2 3.5 - 5.3 mmol/L [facility] [place] Chloride 103 98 - 110 mmol/L [employer] [place] CO2 30 20 - 32 mmol/L [facility] [place] Calcium 9.3 8.6 - 10.4 mg/dL [facility] [place] Protein 6.6 6.1 - 8.1 g/dL [facility] [place] Albumin, S 4.3 3.6 - 5.1 g/dL [facility] [place] Globulin, total 2.3 1.9 - 3.7 g/dL [employer] (calc) [place] Albumin/globulin ratio 1.9 1.0 - 2.5 (calc) [facility] [place] Total bilirubin 1.4 (H) 0.2 - 1.2 mg/dL [employer] [place] Alkaline phosphatase 74 33 - 130 U/L [employer] [place] AST 15 10 - 35 U/L [employer] [place] ALT 9 6 - 29 U/L [employer] [place] Specimen Blood Narrative Performed At FASTING:YES [facility] FASTING: YES Resulting Agency Comment Performing Organization Information: Site ID: [id number] [facility] Address: [address] [place] [phone] Director: Mia Morelos Performing Organization Address City/State/Zipcode Phone Number [phone] [place] [address] [place] [address] after 04/09/2018 Insurance Payer Benefit Plan / Group Subscriber ID Type Phone Address MEDICARE MEDICARE PART A AND B xxxxxxxxxx Medicare [place], [place] BCBS BCBS CHOICE PPO/[employer] PPO xxxxxxxxxxxx PPO Advance Directives Patient has advance care planning documents on file. For more information, please contact:[place] [address]
--- OUTSIDE RECORDS SUMMARY | 2019-04-10 09:01 | XMS REPORT | Clinical Summary ---
:1940 Author Organization [facility] Address [address] [place] [address] Care Team Providers Name Role Phone Gloria Saundra Parrish Primary Care Provider Charles Alcantara Unavailable Allergies Active Allergy Reactions Severity Noted Date Comments Shellfish Containing Products Swelling 11/29/2014 [place] Anaphylaxis, Rash High 07/11/2017 Sulfa (Sulfonamide Antibiotics) Other (See Comments) 11/29/2014 As a child Venom-Honey Bee Anaphylaxis High 07/11/2017 Medications Medication Sig Dispensed Refills Start Date End Date Status naproxen Take 220 mg by 0 Active (ALEVE,ANAPROX,MID mouth 2 (two) OL) 220 MG tablet times daily with breakfast and dinner. esomeprazole Take by mouth 0 Active magnesium (NEXIUM daily. ORAL) ALBUTEROL SULFATE Inhale by mouth 0 09/05/2018 Discontinued (PROAIR HFA INHL) via inhaler. predniSONE Take 30 mg by 0 09/05/2018 Discontinued (DELTASONE) 20 MG mouth daily. tablet aspirin 81 MG EC Take 81 mg by 0 09/05/2018 Discontinued tablet mouth daily. FLUTICASONE/VILANT Inhale 1 puff 0 09/05/2018 Discontinued VERA (BREO ELLIPTA by mouth via INHL) inhaler daily. ferrous sulfate Take 325 mg by 0 09/05/2018 Discontinued 325 (65 FE) MG mouth daily tablet with breakfast. HYDROcodone-acetam Take 1 tablet 0 09/05/2018 Discontinued inophen (NORCO by mouth every 10-325) 10-325 mg 6 (six) hours per tablet as needed for Pain. ZOLEDRONIC Inject 0 09/05/2018 Discontinued ACID/MANNITOL-WATE intravenously. R (RECLAST IV) folic acid Take 400 mcg by 0 09/05/2018 Discontinued (FOLVITE) 400 MCG mouth daily. 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 Trigger finger of left hand 11/15/2015 Trigger finger of both hands 11/30/2014 Encounters Date Type Specialty Care Team Description 12/05/2018 Hospital Encounter Magnetic Resonance Wilberto Cowart Low back pain , unspecified back pain laterality, unspecified chronicity, with sciatica presence unspecified; Imaging MD Johann Osteoporosis with pathological fracture, with delayed healing, subsequent encounter 1.5, [facility] 12/05/2018 Hospital Encounter Radiology Wilberto Cowart Right hip pain MD Johann 12/01/2018 Outside Orders Central Scheduling Wilberto Cowart Low back pain, unspecified back pain laterality, unspecified chronicity, with sciatica presence unspecified (Primary Dx); MD Johann Osteoporosis with pathological fracture, with delayed healing, subsequent encounter; Right hip pain 09/08/2018 Anesthesia Event Miri Vitale, FUEL ATTENDANT 09/08/2018 Surgery Wilberto Cowart ABLATION,RADIOFREQUE MD Johann NCY PERIPHERAL NERVE-LOWER EXTREMITY 09/08/2018 Hospital Encounter Wilberto Cowart MD 09/05/2018 Hospital Encounter Pre-Admission Wilberto Cowart Chronic pain of both Testing MD Johann knees (Primary Dx) 09/05/2018 Hospital Encounter Pre-Admission Wilberto Cowart Testing MD Johann [facility] Preadmit Phone 09/05/2018 Orders Only General Internal Medicine after 04/09/2018 Social History Tobacco Use Types Packs/Day Years [...] Vital Sign Reading Time Taken Blood Pressure 167/84 09/08/2018 11:45 AM CDT Pulse 66 09/08/2018 11:45 AM CDT Temperature 36.7 C (98 F) 09/08/2018 11:45 AM CDT Respiratory Rate 18 09/08/2018 11:45 AM CDT Oxygen Saturation 99% 09/08/2018 11:45 AM CDT Inhaled Oxygen Concentration - - Weight 55.2 kg (121 lb 11.2 oz) 09/08/2018 8:02 AM CDT Height 152.4 cm (5') 09/08/2018 8:02 AM CDT Body Mass Index 23.77 09/08/2018 8:02 AM CDT Plan of Treatment Not on file Implants Implanted Type Area Manager Client Service Device Shelf Model / Identifier Expiration Serial / Date Lot Cement Bone Kyphx Hv-R C01a - [id number] Cement/F N/A: [employer]:SPINAL C01A / Implanted: Qty: 1 on 07/15/2017 by Wilberto Cowart MD iller/Ad Sacrum BIOLOGICS / hesive [id number] Procedures Procedure Name Priority Date/Time Associated Diagnosis Comments MR SPINE LUMBAR Routine 12/05/2018 10:20 Low back pain, Results for this WITHOUT IV CONTRAST AM CARPET JACK unspecified back pain procedure are in laterality, the results unspecified section. chronicity, with sciatica presence unspecified Osteoporosis with pathological fracture, with delayed healing, subsequent encounter XR HIP RIGHT 2 VIEW Routine 12/05/2018 10:18 Right hip pain Results for this AM CARPET JACK procedure are in the results section. FL DIRECTOR CARDIOLOGY IN OR Routine 09/08/2018 10:38 Results for this 30 MINUTE AM CDT procedure are in INCREMENTS the results section. PROCEDURE W/ C-ARM 09/08/2018 8:39 Chronic pain of both AM CDT knees Special Needs (C-ARM/TECH) ABLATION,RADIOFREQUENCY PERIPHERAL 09/08/2018 8:39 AM CDT Chronic pain of both NERVE-LOWER EXTREMITY knees Special Needs (C-ARM/TECH) PLATELET COUNT Routine 09/08/2018 8:28 AM CDT ECG 12-LEAD Routine 09/05/2018 2:08 PM CDT Procedure Note - Interface, External Ris In - 09/05/2018 4:28 PM CDT Ventricular Rate 83 BPM Atrial Rate 83 BPM P-R Interval 108 ms QRS Duration 86 ms Q-T Interval 390 ms QTC Calculation(Bazett) 458 ms R Ona -13 degrees T Ona 31 degrees Sinus rhythm with short FL with frequent Premature ventricular complexes Cannot rule out Inferior infarct , age undetermined Abnormal ECG No previous ECGs available ECG 12-LEAD Routine 09/05/2018 2:08 PM CDT ELECTROLYTE PANEL Routine 09/05/2018 2:02 PM CDT GLUCOSE Routine 09/05/2018 2:02 PM CDT BUN AND CREATININE Routine 09/05/2018 2:02 PM CDT HEMOGLOBIN Routine 09/05/2018 2:02 PM CDT after 04/09/2018 Results MR spine lumbar without IV contrast (12/05/2018 10:20 AM CARPET JACK) Specimen Narrative Performed At FINAL REPORT [facility] Exam: Lumbar spine MRI without IV contrast History: Evaluate for worsening compression fracture L5. Comparison studies: MR spine MRI 10/21. Technique: Sagittal and axial T2 , sagittal T1 and IR, axialspin density oblique coronal T2. Intravenous contrast: None Findings: Number of lumbar vertebral bodies: 5. Alignment: Thoracolumbar kyphoscoliosis with apex centered at L1-L2. Mild hyperlordotic curvature. Unchanged grade 1 anterolisthesis of L5 on S1 due to chronic bilateral L5 pars interarticularis defects. Soft tissues: No T2 hyperintense inflammatory changes. Paraspinal muscles: Severe paraspinal muscle atrophy, slightly greater on the right to the L3 level and symmetrically from L4 to the sacrum. Lower thoracic cord: Normal in signal and morphology. The tip of the conus is at L1-L2. Cauda equina: No masses.No arachnoiditis. Vertebrae: No new compression fracture, evidence of infection or neoplasm. Chronic T12 compression fracture with approximately 80% height loss; no marrow edema. Chronic L5 compression fracture with minimal edema along the superior endplate and approximately 50% height loss, unchanged. No significant retropulsion. Degenerative changes: Partially imaged thoracic spine: Moderately degenerated T10-T11 and T12-L1 discs. L1-L2: Severely degenerated disc on the right due to curvature. Minimal retrolisthesis of L1 on L2 with associated disc osteophyte complex asymmetric to the right and facet arthrosis with moderate right foraminal stenosis. No significant canal or left foraminal stenosis. L2-L3: Moderately degenerated disc on the right due to curvature.. Minimal retrolisthesis of L2 on L3 with associated uncovered disc/disc osteophyte complex asymmetric to the right and facet arthrosis with moderate right foraminal stenosis. No significant canal or left foraminal stenosis. L3-L4: Loss of T2 disc signal. Minimal retrolisthesis of L3 on L4 with associated uncovered disc/disc bulge, thickened ligamentum flavum and bilateral facet arthrosis with mild bilateral foraminal stenosis. No significant canal stenosis. L4-L5: Moderately degenerated disc on the left due to curvature. Disc bulge with left foraminal disc osteophyte complex, thickened ligamentum flavum and severe left facet arthrosis with severe left foraminal stenosis. No significant canal or right foraminal stenosis. L5-S1: Loss of T2 disc signal. Grade 1 anterolisthesis of L5 on S1 with associated uncovered disc/disc bulge and severe left facet arthrosis with severe left foraminal stenosis. Pain canal and right foramen. Sacroiliac joints: Sclerotic changes in the bilateral sacral ala as sequela of previous sacral fractures status post sacral plasty. Additional findings: Subcentimeter T2 hyperintense lesions in both kidneys, likely cysts. IMPRESSION: 1.Unchanged chronic L5 and T12 compression fractures. 2.No new compression fracture. 3.Chronic sacral fracture status post sacral plasty. 4.Moderate thoracolumbar kyphoscoliosis. 5.Unchanged Grade 1 L5 isthmic spondylolisthesis. 6.Multilevel degenerative changes as detailed above with multilevel disc degeneration, listhesis, facet arthrosis and multilevel foraminal stenosis (moderate right at L1-L2 and at L2-L3 and severe left L4-5 and at L5-S1. No significant canal stenosis Signed: Farzad Carroll MD Report Verified Date/Time:12/05/2018 14:47:37 Procedure Note Interface, External Ris In - 12/05/2018 2:49 PM CARPET JACK FINAL REPORT Exam: Lumbar spine MRI without IV contrast History: Evaluate for worsening compression fracture L5. Comparison studies: MR spine MRI 10/21. Technique: Sagittal and axial T2 , sagittal T1 and IR, axial spin density oblique coronal T2. Intravenous contrast: None Findings: Number of lumbar vertebral bodies: 5. Alignment: Thoracolumbar kyphoscoliosis with apex centered at L1-L2. Mild hyperlordotic curvature. Unchanged grade 1 anterolisthesis of L5 on S1 due to chronic bilateral L5 pars interarticularis defects. Soft tissues: No T2 hyperintense inflammatory changes. Paraspinal muscles: Severe paraspinal muscle atrophy, slightly greater on the right to the L3 level and symmetrically from L4 to the sacrum. Lower thoracic cord: Normal in signal and morphology. The tip of the conus is at L1-L2. Cauda equina: No masses. No arachnoiditis. Vertebrae: No new compression fracture, evidence of infection or neoplasm. Chronic T12 compression fracture with approximately 80% height loss; no marrow edema. Chronic L5 compression fracture with minimal edema along the superior endplate and approximately 50% height loss, unchanged. No significant retropulsion. Degenerative changes: Partially imaged thoracic spine: Moderately degenerated T10-T11 and T12-L1 discs. L1-L2: Severely degenerated disc on the right due to curvature. Minimal retrolisthesis of L1 on L2 with associated disc osteophyte complex asymmetric to the right and facet arthrosis with moderate right foraminal stenosis. No significant canal or left foraminal stenosis. L2-L3: Moderately degenerated disc on the right due to curvature.. Minimal retrolisthesis of L2 on L3 with associated uncovered disc/disc osteophyte complex asymmetric to the right and facet arthrosis with moderate right foraminal stenosis. No significant canal or left foraminal stenosis. L3-L4: Loss of T2 disc signal. Minimal retrolisthesis of L3 on L4 with associated uncovered disc/disc bulge, thickened ligamentum flavum and bilateral facet arthrosis with mild bilateral foraminal stenosis. No significant canal stenosis. L4-L5: Moderately degenerated disc on the left due to curvature. Disc bulge with left foraminal disc osteophyte complex, thickened ligamentum flavum and severe left facet arthrosis with severe left foraminal stenosis. No significant canal or right foraminal stenosis. L5-S1: Loss of T2 disc signal. Grade 1 anterolisthesis of L5 on S1 with associated uncovered disc/disc bulge and severe left facet arthrosis with severe left foraminal stenosis. Pain canal and right foramen. Sacroiliac joints: Sclerotic changes in the bilateral sacral ala as sequela of previous sacral fractures status post sacral plasty. Additional findings: Subcentimeter T2 hyperintense lesions in both kidneys, likely cysts. IMPRESSION: 1.Unchanged chronic L5 and T12 compression fractures. 2.No new compression fracture. 3.Chronic sacral fracture status post sacral plasty. 4.Moderate thoracolumbar kyphoscoliosis. 5.Unchanged Grade 1 L5 isthmic spondylolisthesis. 6.Multilevel degenerative changes as detailed above with multilevel disc degeneration, listhesis, facet arthrosis and multilevel foraminal stenosis (moderate right at L1-L2 and at L2-L3 and severe left L4-5 and at L5-S1. No significant canal stenosis Signed: Farzad Carroll MD Report Verified Date/Time: 12/05/2018 14:47:37 Performing Organization Address City/State/Zipcode Phone Number [facility] XR hip 2 views right (12/05/2018 10:18 AM CARPET JACK) Specimen Narrative Performed At FINAL REPORT [facility] RIGHT HIP - TWO IMAGES HISTORY:Pain COMPARISON: None available. FINDINGS: Bones: Diffusely decreased mineralization of the osseous structures limits bone detail. Radiopaque densities bilaterally at the sacral alar, correlate for prior placement of augmentation cement. No acute displaced fracture. Joints: Mild degenerative changes of the right hip. The joint spaces are well-maintained. Soft tissues: A 6 mm nonspecific calcific density projects inferior to the right initial tuberosity. Metallic surgical clips project near the right femoral neck. IMPRESSION: 1.No acute radiographic abnormality. 2.Diffuse osseous demineralization. If there is persistent or worsening acute to subacute pain, a MRI without contrast would provide a more sensitive evaluation for an evolving insufficiency fracture. Signed: Alok Dennison MD Report Verified Date/Time:12/05/2018 11:26:48 Procedure Note Interface, External Ris In - 12/05/2018 11:28 AM CARPET JACK FINAL REPORT RIGHT HIP - TWO IMAGES HISTORY: Pain COMPARISON: None available. FINDINGS: Bones: Diffusely decreased mineralization of the osseous structures limits bone detail. Radiopaque densities bilaterally at the sacral alar, correlate for prior placement of augmentation cement. No acute displaced fracture. Joints: Mild degenerative changes of the right hip. The joint spaces are well-maintained. Soft tissues: A 6 mm nonspecific calcific density projects inferior to the right initial tuberosity. Metallic surgical clips project near the right femoral neck. IMPRESSION: 1. No acute radiographic abnormality. 2. Diffuse osseous demineralization. If there is persistent or worsening acute to subacute pain, a MRI without contrast would provide a more sensitive evaluation for an evolving insufficiency fracture. Signed: Alok Dennison MD Report Verified Date/Time: 12/05/2018 11:26:48 Performing Organization Address City/[facility] Phone Number [facility] [place] radio engineering teacher in or 30 minute increments (09/08/2018 10:38 AM CDT) Specimen Narrative Performed At FINAL REPORT [facility] Fluoroscopy nonspecific dated September 08, 2018 Comment: Fluoroscopy was provided to Dr. Cowart for intraoperative procedure. No radiologist was present during the examination. Total fluoroscopy time was 36.5 seconds. Total number of fluoroscopic images were 5. Signed: Teja Leonardo MD Report Verified Date/Time:09/08/2018 12:53:53 Reading Location: [address] Radiology Reading Room Procedure Note Interface, External Ris In - 09/08/2018 12:56 PM CDT FINAL REPORT Fluoroscopy nonspecific dated September 08, 2018 Comment: Fluoroscopy was provided to Dr. Cowart for intraoperative procedure. No radiologist was present during the examination. Total fluoroscopy time was 36.5 seconds. Total number of fluoroscopic images were 5. Signed: Teja Leonardo MD Report Verified Date/Time: 09/08/2018 12:53:53 Reading Location: [address] Radiology Reading Room Performing Organization Address City/[facility] Phone Number [employer] Platelet count (09/08/2018 8:28 AM CDT) Platelets 200 150 - 450 K/CU MM [facility] Specimen Blood Performing Organization Address City/[facility]/Zipcode Phone Number [facility] [address] CENTER ECG 12 lead (09/05/2018 2:08 PM CDT) Specimen Narrative Performed At Ventricular Rate 83 BPM GE MUSE Atrial Rate 83 BPM P-R Interval 108 ms QRS Duration 86 ms Q-T Interval 390 ms QTC Calculation(Bazett) 458 ms R Ona -13 degrees T Ona 31 degrees Sinus rhythm with short FL with frequent Premature ventricular complexes Cannot rule out Inferior infarct , age undetermined Abnormal ECG No previous ECGs available Confirmed by MD TAI MEHDI ([id number]) on 09/06/2018 4:07:01 PM Procedure Note Interface, External Ris In - 09/06/2018 4:07 PM CDT Ventricular Rate 83 BPM Atrial Rate 83 BPM P-R Interval 108 ms QRS Duration 86 ms Q-T Interval 390 ms QTC Calculation(Bazett) 458 ms R Ona -13 degrees T Ona 31 degrees Sinus rhythm with short FL with frequent Premature ventricular complexes Cannot rule out Inferior infarct , age undetermined Abnormal ECG No previous ECGs available Confirmed by MD TAI MEHDI ([id number]) on 09/06/2018 4:07:01 PM Performing Organization Address City/State/[facility] Phone Number [facility] BUN and Creatinine (09/05/2018 2:02 PM CDT) BUN 15 7 - 21 mg/dL [facility] Creatinine 0.67Comment: Specimen 0.57 - 1.25 mg/dL [facility] slightly hemolyzed [facility] EGFR 86Comment: ESTIMATED GFR IS mL/min/1.73 sq m [facility] NOT ACCURATE CREATININE [facility] CLEARANCE IN PREDICTING GLOMERULAR FILTRATION RATE. ESTIMATED GFR IS NOT APPLICABLE FOR DIALYSIS PATIENTS. Specimen Blood Performing Organization Address City/State/Zipcode Phone Number [address] [address] CENTER Hemoglobin (09/05/2018 2:02 PM CDT) Hemoglobin 13.3 11.2 - 15.7 GM/DL [facility] Specimen Blood Performing Organization Address City/[facility]/Zipcode Phone Number [address] [address] ANNA MARIA Glucose (09/05/2018 2:02 PM CDT) Glucose 84 70 - 105 mg/dL [facility] Specimen Blood Performing Organization Address City/State/Zipcode Phone Number [facility] [address] [place] [address] C[place] Electrolytes (09/05/2018 2:02 PM CDT) Sodium 138 136 - 145 meq/L [facility] Potassium 4.4Comment: Specimen slightly 3.5 - 5.1 meq/L [facility] hemolyzed [facility] Chloride 102 98 - 107 meq/L [facility] CO2 27 22 - 29 meq/L [facility] Specimen Blood Performing Organization Address City/State/Zipcode Phone Number [address] [address] CENTER after 04/09/2018 Insurance Payer Benefit Plan / Subscriber ID Type Phone Address Group MEDICARE MEDICARE A B xxxxxxxxxxx Medicare BLUE CROSS/BLUE BS INDEMNITY [place] xxxxxxxxxxxx [facility] [phone] [address] [place] [address] Advance Directives For more information, please contact:[place] [address] [address] MessiAiramLake [place], [place] [phone] Code Status Date Activated Date Inactivated Comments Full Code 07/15/2017 11:59 AM 07/15/2017 5:06 PM This code status was determined by: Patient Full Code 11/15/2015 8:57 AM 11/15/2015 3:43 PM This code status was determined by: Patient Full Code 11/30/2014 7:44 AM 11/30/2014 1:22 PM This code status was determined by: Patient
--- OUTSIDE RECORDS SUMMARY | 2019-04-10 09:01 | XMS REPORT ---
:1940 [facility] Address [address] [place] [address] Dr. Shirley [address] [place] [address] Care Team Providers Name Role Phone ROB MCDONALD Unavailable Unavailable Problems This patient has no known problems. Allergies, Adverse Reactions, Alerts This patient has no known allergies or adverse reactions. Medications This patient has no known medications. Results Test Description Test Time Test Comments Text Results Atomic Results Result Comments MR SPINE, 2018-12-05 FINAL REPORT PATIENT ID: LUMBAR, WITHOUT 14:47:00 [id number] Exam: Lumbar spine MRI IV CONTRAST without IV contrastHistory: Evaluate for worsening compression fracture L5.Comparison studies: MR spine MRI 10/21. Technique: Sagittal and axial T2 , sagittal T1 and IR, axial spin density oblique coronal T2.Intravenous contrast: None Findings: Number of lumbar vertebral [...] L1-L2. Cauda equina: No masses. No arachnoiditis. Vertebrae:No new compression fracture, evidence of infection or neoplasm. Chronic T12 compression fracture with approximately 80% height loss; no marrow edema. Chronic L5 compression fracture with minimal edema along the superior endplate and approximately 50% height loss, unchanged. No significant retropulsion. Degenerative changes: Partially imaged thoracic spine: Moderately degenerated T10-T11 and T12-L1 discs. L1-L2:Severely degenerated disc on the right due to [...] No significant canal or left foraminal stenosis. L3-L4:Loss of T2 disc signal. Minimal retrolisthesis of L3 on L4 with associated uncovered disc/disc bulge, thickened ligamentum flavum and bilateral facet arthrosis with mild bilateral foraminal stenosis. No significant canal stenosis. L4-L5:Moderately degenerated disc on the left due to curvature. Disc bulge with left foraminal disc osteophyte complex, thickened ligamentum flavum and severe left facet arthrosis with severe left foraminal stenosis. No significant canal or right foraminal stenosis. L5-S1:Loss of T2 disc signal. Grade 1 anterolisthesis of L5 on S1 with associated uncovered disc/disc bulge and severe left facet arthrosis with severe left foraminal stenosis. Pain canal and right foramen. Sacroiliac joints:Sclerotic changes in the bilateral sacral ala as sequela of previous sacral fractures status post sacral plasty. Additional findings:Subcentimeter T2 hyperintense lesions in both kidneys, likely cysts. 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 No significant canal stenosis Signed: Farzad [place] [facility] Verified Date/Time: 12/05/2018 14:47:37 , HIP, 2 2018-12-05 Reason for FINAL REPORT PATIENT ID: VIEWS, RIGHT 11:26:00 Exam:->PAIN OF [id number] RIGHT HIP - TWO IMAGES RIGHT HIP JOINT HISTORY: Pain COMPARISON: None available. FINDINGS:Bones:Diffusely decreased mineralization of the osseous structures limits bone detail.Radiopaque densities bilaterally at the sacral alar, correlate for prior placement of augmentation cement.No acute displaced fracture. Joints:Mild degenerative changes of the right hip.The joint spaces are well-maintained. Soft tissues:A 6 mm nonspecific calcific density projects inferior to the right initial tuberosity.Metallic surgical clips project near the right femoral neck. IMPRESSION: 1. No acute radiographic abnormality.2. Diffuse osseous demineralization. If there is persistent or worsening acute to subacute pain, a MRI without contrast would provide a more sensitive evaluation for an evolving insufficiency fracture. Signed: Alok Dennison Verified Date/Time: 12/05/2018 11:26:48 [facility] IN 2018-09-08 Reason for FINAL REPORT PATIENT ID: OR/30 MINUTE 12:53:00 exam:->BILATERAL [id number] Fluoroscopy nonspecific INCREMENTS GEINCULAR dated September 08, 2018 Comment: RADIOABLATION Fluoroscopy was provided to Dr. Mcdonald for intraoperative procedure. No radiologist was present during the examination. Total fluoroscopy time was 36.5 seconds. Total number of fluoroscopic images were 5. Signed: Teja Leonardo Verified Date/Time: 09/08/2018 12:53:53 Reading Location: [address] Radiology Reading Room ELET COUNT 2018-09-08 09:06:00 Test Item Value Reference Range Comments PLATELET COUNT (BEAKER) (test fzqm=460) 200 K/CU MM 150-450 [id number] 17:13:00 Test Item Value Reference Range Comments SODIUM (BEAKER) (test ygqs=346) 138 meq/L 136-145 POTASSIUM (BEAKER) (test 4.4 meq/L 3.5-5.1 Specimen slightly hemolyzed vjdw=478) CHLORIDE (BEAKER) (test 102 meq/L 98-107 quxr=877) CO2 (BEAKER) (test bvcf=395) 27 meq/L 22-29 [id number] 14:42:00 Test Item Value Reference Range Comments GLUCOSE RANDOM (BEAKER) (test ffzc=212) 84 mg/dL 70-105 BUN AND [id number] 14:42:00 Test Item Value Reference Range Comments BLOOD UREA NITROGEN 15 mg/dL 7-21 (BEAKER) (test lmqd=413) CREATININE (BEAKER) (test 0.67 mg/dL 0.57-1.25 Specimen slightly cwwk=998) hemolyzed EGFR (BEAKER) (test 86 mL/min/1.73 sq m ESTIMATED GFR IS NOT foma=9744) ACCURATE CREATININE CLEARANCE IN PREDICTING GLOMERULAR FILTRATION RATE. ESTIMATED GFR IS NOT APPLICABLE FOR DIALYSIS PATIENTS. [id number] 14:31:00 Test Item Value Reference Range Comments HEMOGLOBIN (BEAKER) (test iduk=959) 13.3 GM/DL 11.2-15.7
[2019-04-10] MEDS ORDERED: FAMOTIDINE 20 MG TAB ONE (10:19)
[2019-04-10] MEDS ORDERED: ALBUTEROL 2.5 MG/3 ML NEB SOL ONE (10:19)
[2019-04-10] MEDS ORDERED: IPRATROPIUM BROM 0.5MG/2.5ML ONE (10:19)
[2019-04-10] MEDS ORDERED: predniSONE 20 MG TAB ONE (10:23)
[2019-04-10 10:39] LABS: Absolute Lymphocytes (CBC) 1.2 K/uL (0.7-4.9); Absolute Monocytes 0.7 K/uL (0.1-1.3); Absolute Neutrophil 1.9 K/uL (1.8-8.0); Basophils % 0.9 % (0-1.3); Eosinophils % 0.3 % (0-4.4); Hematocrit 41.2 % (36.0-45.0); Lymphocytes % 32.1 % (15.3-44.8); MPV 9.3 fL (7.6-11.3); Monocytes % 17.5 % (3.3-12.3); RBC Red Blood Cell Count 5.29 M/uL (3.86-4.86)
[2019-04-10 10:50] LABS: Protime INR 1.04
[2019-04-10 10:57] LABS: ALT/SGPT 28 U/L (12-78); AST/SGOT 33 U/L (15-37); Albumin 3.8 g/dL (3.4-5.0); Alkaline Phosphatase 72 U/L (45-117); BUN Blood Urea Nitrogen 17 mg/dL (7-18); Bicarbonate 27 mmol/L (21-32); Bilirubin Direct 0.2 mg/dL (0-0.2); Bilirubin Total 0.6 mg/dL (0.2-1.0); Glucose Level 82 mg/dL (74-106); Magnesium 2.2 mg/dL (1.8-2.4); NT PRO-BNP 67 pg/mL (<450); Potassium 3.8 mmol/L (3.5-5.1); Protein, Total 6.7 g/dL (6.4-8.2); Sodium Level 136 mmol/L (136-145); Troponin (Emerg Dept Use Only) < 0.02 ng/mL (0.0-0.045)
[2019-04-10] MEDS ORDERED: ACETAMINOPHEN 325 MG TABLET ONE (11:13)
--- NOTE | 2019-04-10 11:35 | RAD REPORT ---
EXAM DESCRIPTION: RAD - Chest Single View - 04/10/2019 11:29 am CLINICAL HISTORY: COUGH Chest pain. COMPARISON: Chest Single View dated 07/18/2017; Chest Pa And Lat (2 Views) dated 02/28/2017; Chest Sin gle View dated 09/18/2016; CHEST PA AND LAT 2 VIEW dated 05/04/2015 FINDINGS: Portable technique limits examination quality. The lungs are emphysematous. Small nodular opacity in the right mid lung is unchanged. The heart is m ildly prominent size. No displaced fractures. IMPRESSION: Prominent COPD.
--- NOTE | 2019-04-10 12:46 | ER ---
Nurse's Notes [facility] Name: Lisa Cordero Age: 78 yrs Sex: Female : 1940 Arrival Date: 04/10/2019 Time: 09:00 Bed 17 Private MD: out of town, doctor Diagnosis: Influenza due to certain identified influenza viruses-B;Chronic obstructive pulmonary disease, unspecified Presentation: 04/10 09:23 Presenting complaint: Patient states: pain to right side of chest, cough, headache, iw dizziness, symptoms started Saturday, cough is nonproductive, was in bed all day Saturday and Saturday, denies fever. Transition of care: patient was not received from another setting of care. Onset of symptoms was April 08, 2019. Risk Assessment: Do you want to hurt yourself or someone else? Patient reports no desire to harm self or others. Initial Sepsis Screen: Does the patient meet any 2 criteria? No. Patient's initial sepsis screen is negative. Does the patient have a suspected source of infection? No. Patient's initial sepsis screen is negative. Care prior to arrival: None. 09:23 Method Of Arrival: Wheelchair iw 09:23 Acuity: SAMUEL 2 iw Historical: - Allergies: 09:25 SHELLFISH; iw 09:25 Strawberries; iw 09:25 Sulfa (Sulfonamide Antibiotics); iw - PMHx: 09:26 Arthritis; COPD; iw - PSHx: 09:26 hemrrhoid removal; R knee replacement; Cholecystectomy; Appendectomy; Hysterectomy; iw facial surgery; - Immunization history:: Adult Immunizations up to date. - Social history:: Smoking status: Patient/guardian denies using tobacco. - Ebola Screening: : Patient negative for fever greater than or equal to 101.5 degrees Fahrenheit, and additional compatible Ebola Virus Disease symptoms Patient denies exposure to infectious person Patient denies travel to an Ebola-affected area in the 21 days before illness onset No symptoms or risks identified at this time. Screenin:20 Abuse screen: Denies threats or abuse. Nutritional screening: No deficits noted. em Tuberculosis screening: No symptoms or risk factors identified. Fall Risk None identified. Assessment: 10:20 General: Appears in no apparent distress. comfortable, Behavior is calm, cooperative, em Denies fever. Pain: Complains of pain in diaphragm Pain currently is 10 out of 10 on a pain scale. Neuro: Level of Consciousness is awake, alert, obeys commands, Oriented to person, place, time, situation, Reports dizziness, headache weakness. Cardiovascular: Heart tones S1 S2 present Capillary refill < 3 seconds Patient's skin is warm and dry. Respiratory: Reports shortness of breath at rest cough that is non-productive, pain with cough Airway is patent Respiratory effort is even, unlabored, Respiratory pattern is regular, symmetrical, Breath sounds with wheezes in right posterior upper lobe, right posterior middle lobe and right posterior lower lobe. GI: Patient currently denies nausea, vomiting. Derm: Skin is intact, is healthy with good turgor, Skin is pink, warm \T\ dry. Musculoskeletal: Capillary refill < 3 seconds, Range of motion: intact in all extremities. 10:35 Reassessment: I agree with previous assessment. hb 10:50 Reassessment: request pain medication for headache, provider notified, new medication em orders received. 11:55 Reassessment: Patient and/or family updated on plan of care and expected duration. Pain em level reassessed. Patient is alert, oriented x 3, equal unlabored respirations, skin warm/dry/pink. headache has resolved prior to being medicated, provider notified Patient states feeling better. Patient states symptoms have improved. 13:00 Reassessment: Patient appears in no apparent distress at this time. Patient and/or em family updated on plan of care and expected duration. Pain level reassessed. Patient is alert, oriented x 3, equal unlabored respirations, skin warm/dry/pink. Vital Signs: 09:25 BP 108 / 58; Pulse 87; Resp 20 S; Temp 98.8(TE); Pulse Ox 97% on R/A; Weight 50.8 kg; iw Height 5 ft. (152.40 cm); Pain 10/10; 11:08 BP 126 / 59; Pulse 79; Resp 16; Pulse Ox 98% on R/A; em 13:13 BP 111 / 49; Pulse 71; Resp 18; Pulse Ox 93% on R/A; Pain 0/10; em 09:25 Body Mass Index 21.87 (50.80 kg, 152.40 cm) iw ED Course: 09:00 Patient arrived in ED. mr 09:01 out of town, doctor is Private Physician. mr 09:25 Triage completed. iw 09:25 Arm band placed on. iw 09:53 Uziel Linares LVN is Primary Nurse. em 09:57 Chip Lazo NP is PHCP. pm1 09:57 Edwin Cheney MD is Attending Physician. pm1 10:15 Initial lab(s) drawn, by me, sent to lab. First set of blood cultures drawn by me. ms Inserted saline lock: 20 gauge in left antecubital area, using aseptic technique. Blood collected. 10:20 Patient has correct armband on for positive identification. Bed in low position. Call em light in reach. Pulse ox on. NIBP on. 10:30 Second set of blood cultures drawn by me, Flu and/or RSV swab sent to lab. ms 11:07 EKG done, by ED staff, by technology adoption manager. reviewed by Edwin Cheney MD. ms 11:28 X-ray completed. Portable x-ray completed in exam room. Patient tolerated procedure mh1 well. 11:31 XRAY Chest (1 view) In Process Unspecified. EDMS 13:15 No provider procedures requiring assistance completed. IV discontinued, intact, em bleeding controlled, No redness/swelling at site. Pressure dressing applied. Administered Medications: 10:10 Drug: predniSONE 60 mg Route: PO; em 10:35 Drug: Albuterol 2.5 mg Route: Inhalation; em 11:56 Follow up: Response: No adverse reaction; Marked relief of symptoms em 10:35 Drug: AtroVENT Aerosol 0.5 mg Route: Inhalation; em 11:56 Follow up: Response: No adverse reaction; Marked relief of symptoms em 13:02 Not Given (Patient Refused): Tylenol 650 mg PO once em 13:05 Drug: Rocephin 1 grams Route: IV; Rate: calculated rate; Site: left antecubital; iw 13:16 Follow up: Response: No adverse reaction; IV Status: Completed infusion; IV Intake: 10mlem Intake: 13:16 IV: 10ml; Total: 10ml. em Outcome: 12:45 Discharge ordered by MD. pm1 13:15 Discharged to home ambulatory, with family. em 13:15 Condition: good 13:15 Discharge instructions given to patient, family, Instructed on discharge instructions, follow up and referral plans. medication usage, Demonstrated understanding of instructions, follow-up care, medications, Prescriptions given X 3. 13:17 Patient left the ED. em Signatures: Dispatcher [employer] ED Eitan Tere mr Khadar Jeanne mh1 Uziel Linares, QUALITY ASSURANCE MONITOR FINAL QUALITY ASSURANCE MONITOR FINAL em Vannessa Carver, TONIA RN iw Ruma Galvan ms LazoChip, CONTAINER CRANE OPERATOR CONTAINER CRANE OPERATOR pm1 Federica Cisneros RN RN Corrections: (The following items were deleted from the chart) 09:26 09:23 Acuity: SAMUEL 3 [facility]
--- NOTE | 2019-04-10 12:46 | EDPHYS ---
Physician Documentation [facility] Name: Lisa Cordero Age: 78 yrs Sex: Female : 1940 Arrival Date: 04/10/2019 Time: 09:00 Bed 17 Private MD: out of town, doctor ED Physician Edwin Cheney HPI: 04/10 11:02 This 78 yrs old Female presents to ER via Wheelchair with complaints of pm1 Cough, Headache, Dizziness, Breathing Difficulty. 11:02 The patient or guardian reports cough, with no sputum, flu symptoms. Onset: The pm1 symptoms/episode began/occurred 3 day(s) ago. Severity of symptoms: in the emergency department the symptoms are unchanged. Modifying factors: The symptoms are alleviated by nothing, the symptoms are aggravated by nothing. Associated signs and symptoms: Pertinent positives: chills, headache, right sided chest pain with coughing, Pertinent negatives: diarrhea, fever, sore throat, vomiting. The patient has not experienced similar symptoms in the past. The patient has not recently seen a physician. Patient presenting with dry cough, shortness of breath, headache, and dizziness. Has a history of COPD. She does not take any medications for COPD. Historical: - Allergies: 09:25 SHELLFISH; iw 09:25 Strawberries; iw 09:25 Sulfa (Sulfonamide Antibiotics); iw - PMHx: 09:26 Arthritis; COPD; iw - PSHx: 09:26 hemrrhoid removal; R knee replacement; Cholecystectomy; Appendectomy; Hysterectomy; iw facial surgery; - Immunization history:: Adult Immunizations up to date. - Social history:: Smoking status: Patient/guardian denies using tobacco. - Ebola Screening: : Patient negative for fever greater than or equal to 101.5 degrees Fahrenheit, and additional compatible Ebola Virus Disease symptoms Patient denies exposure to infectious person Patient denies travel to an Ebola-affected area in the 21 days before illness onset No symptoms or risks identified at this time. ROS: 11:02 Eyes: Negative for injury, pain, redness, and discharge, ENT: Negative for injury, pm1 pain, and discharge, Neck: Negative for injury, pain, and swelling. 11:02 Abdomen/GI: Negative for abdominal pain, nausea, vomiting, diarrhea, and constipation, Back: Negative for injury and pain, : Negative for injury, bleeding, discharge, and swelling, MS/Extremity: Negative for injury and deformity, Skin: Negative for injury, rash, and discoloration. 11:02 Constitutional: Positive for body aches, chills, Negative for poor PO intake. 11:02 Cardiovascular: Positive for chest pain, with cough, Negative for edema, palpitations. 11:02 Respiratory: Positive for cough, with no reported sputum, shortness of breath, Negative for sputum production. 11:02 Neuro: Positive for dizziness, headache, Negative for numbness, tingling, weakness. Exam: 11:02 Constitutional: This is a well developed, well nourished patient who is awake, alert, pm1 and in no acute distress. Head/Face: Normocephalic, atraumatic. Eyes: Pupils equal round and reactive to light, extra-ocular motions intact. Lids and lashes normal. Conjunctiva and sclera are non-icteric and not injected. Cornea within normal limits. Periorbital areas with no swelling, redness, or edema. ENT: Nares patent. No nasal discharge, no septal abnormalities noted. Tympanic membranes are normal and external auditory canals are clear. Oropharynx with no redness, swelling, or masses, exudates, or evidence of obstruction, uvula midline. Mucous membranes moist. Neck: Trachea midline, no thyromegaly or masses palpated, and no cervical lymphadenopathy. Supple, full range of motion without nuchal rigidity, or vertebral point tenderness. No Meningismus. Chest/axilla: Normal chest wall appearance and motion. Nontender with no deformity. No lesions are appreciated. Cardiovascular: Regular rate and rhythm with a normal S1 and S2. No gallops, murmurs, or rubs. Normal PMI, no JVD. No pulse deficits. Respiratory: Lungs have equal breath sounds bilaterally, clear to auscultation and percussion. No rales, rhonchi or wheezes noted. No increased work of breathing, no retractions or nasal flaring. Abdomen/GI: Soft, non-tender, with normal bowel sounds. No distension or tympany. No guarding or rebound. No evidence of tenderness throughout. Back: No spinal tenderness. No costovertebral tenderness. Full range of motion. Skin: Warm, dry with normal turgor. Normal color with no rashes, no lesions, and no evidence of cellulitis. MS/ Extremity: Pulses equal, no cyanosis. Neurovascular intact. Full, normal range of motion. 11:02 Neuro: Orientation: is normal, Cranial nerves: CN II- XII are normal as tested, Cerebellar function: normal finger to nose testing, Motor: is normal, moves all fours, Sensation: is normal, no obvious gross deficits. Vital Signs: 09:25 BP 108 / 58; Pulse 87; Resp 20 S; Temp 98.8(TE); Pulse Ox 97% on R/A; Weight 50.8 kg; iw Height 5 ft. (152.40 cm); Pain 10/10; 11:08 BP 126 / 59; Pulse 79; Resp 16; Pulse Ox 98% on R/A; em 13:13 BP 111 / 49; Pulse 71; Resp 18; Pulse Ox 93% on R/A; Pain 0/10; em 09:25 Body Mass Index 21.87 (50.80 kg, 152.40 cm) iw MDM: 09:57 Patient medically screened. pm1 12:44 Data reviewed: vital signs. Data interpreted: Pulse oximetry: on room air is 97 %. pm1 Interpretation: normal. Counseling: I had a detailed discussion with the patient and/or guardian regarding: the historical points, exam findings, and any diagnostic results supporting the discharge/admit diagnosis, lab results, radiology results, the need for outpatient follow up, to return to the emergency department if symptoms worsen or persist or if there are any questions or concerns that arise at home. 04/10 10:05 Order name: Basic Metabolic Panel; Complete Time: 10:59 pm1 04/10 10:05 Order name: CBC with Diff; Complete Time: 18:04 pm1 04/10 10:05 Order name: LFT's; Complete Time: 10:59 pm1 04/10 10:05 Order name: Magnesium; Complete Time: 10:59 pm1 04/10 10:05 Order name: NT PRO-BNP; Complete Time: 10:59 pm1 04/10 10:05 Order name: PT-INR; Complete Time: 11:05 pm1 04/10 10:05 Order name: Troponin (emerg Dept Use Only); Complete Time: 10:59 pm1 04/10 10:05 Order name: XRAY Chest (1 view); Complete Time: 12:00 pm1 04/10 10:05 Order name: Flu; Complete Time: 10:49 pm1 04/10 10:05 Order name: Blood Culture Adult (2) pm1 04/10 13:07 Order name: CBC Smear Scan; Complete Time: 18:04 EDMS 04/10 10:05 Order name: EKG; Complete Time: 10:07 pm1 04/10 10:05 Order name: Cardiac monitoring; Complete Time: 10:34 pm1 04/10 10:05 Order name: EKG - Nurse/Tech; Complete Time: 11:07 pm1 04/10 10:05 Order name: IV Saline Lock; Complete Time: 10:34 pm1 04/10 10:05 Order name: Labs collected and sent; Complete Time: 10:34 pm1 04/10 10:05 Order name: O2 Per Protocol; Complete Time: 10:34 pm1 04/10 10:05 Order name: O2 Sat Monitoring; Complete Time: 10:34 pm1 Administered Medications: 10:10 Drug: predniSONE 60 mg Route: PO; em 10:35 Drug: Albuterol 2.5 mg Route: Inhalation; em 11:56 Follow up: Response: No adverse reaction; Marked relief of symptoms em 10:35 Drug: AtroVENT Aerosol 0.5 mg Route: Inhalation; em 11:56 Follow up: Response: No adverse reaction; Marked relief of symptoms em 13:02 Not Given (Patient Refused): Tylenol 650 mg PO once em 13:05 Drug: Rocephin 1 grams Route: IV; Rate: calculated rate; Site: left antecubital; iw 13:16 Follow up: Response: No adverse reaction; IV Status: Completed infusion; IV Intake: 10mlem Disposition: 04/10/19 12:45 Discharged to Home. Impression: Influenza due to certain identified influenza viruses - B, Chronic obstructive pulmonary disease, unspecified. - Condition is Stable. - Discharge Instructions: Chronic Obstructive Pulmonary Disease, Influenza, Adult, How to Use an Inhaler. - Prescriptions for Zithromax Z- Jonh 250 mg Oral Tablet - take 1 tablet by ORAL route as directed for 5 days Day 1 - take two (2) tablets one time. Day 2, 3, 4 , 5 take one (1) tablet once daily.; 6 tablet. Medrol (Jonh) 4 mg Oral Tablets, Dose Pack - take 1 tablet by ORAL route as directed - follow package instructions; 1 packet. Albuterol Sulfate 90 mcg/actuation - inhale 1-2 puff by INHALATION route every 4-6 hours; 1 Inhaler. - Medication Reconciliation Form, Thank You Letter, Antibiotic Education, Prescription Opioid Use form. - Follow up: Emergency Department; When: As needed; Reason: Worsening of condition. Follow up: Private Physician; When: 2 - 3 days; Reason: Recheck today's complaints, Continuance of care, Re-evaluation by your physician. - Problem is new. - Symptoms have improved. Addendum: 04/11/2019 19:25 Co-signature as Attending Physician, Edwin Cheney MD I agree with the assessment and k dr plan of care. Signatures: Dispatcher [employer] EDMS Edwin Cheney MD MD [facility] Uziel Linares, ASSISTANT OCEANOGRAPHER ASSISTANT OCEANOGRAPHER em Vannessa Carver RN RN iw Chip Lazo, TONG CATALYST MANUFACTURING OPERATOR pm1 Corrections: (The following items were deleted from the chart) 04/10 13:17 12:45 04/10/2019 12:45 Discharged to Home. Impression: Influenza due to certain em identified influenza viruses - B; Chronic obstructive pulmonary disease, unspecified. Condition is Stable. Forms are Medication Reconciliation Form, Thank You Letter, Antibiotic Education, Prescription Opioid Use. Follow up: Emergency Department; When: As needed; Reason: Worsening of condition. Follow up: Private Physician; When: 2 - 3 days; Reason: Recheck today's complaints, Continuance of care, Re-evaluation by your physician. Problem is new. Symptoms have improved. pm1
[2019-04-10 13:06] LABS: Platelet Estimate DECR; Urine White Blood Cell Casts OK
[2019-04-10 13:07] LABS: Anisocytosis 1+; Blood Morphology Comment NOTED (NOT SEEN)
[2019-04-10] MEDS ORDERED: CEFTRIAXONE/SWI 1gm 1 GM/10 ML SYR ONE (13:12)
--- NOTE | 2019-04-10 14:42 | EKG ---
Test Date: 2019-04-10 Test Time: 10:59:41 Vacuum System Tester: MEASUREMENT RESULTS: Intervals: Rate: 80 CA: 152 QRSD: 96 QT: 386 QTc: 445 [place]: P: CA: 152 QRS: -39 T: 58 INTERPRETIVE STATEMENTS: Normal sinus rhythm Left axis deviation Abnormal ECG Compared to ECG 07/18/2017 15:41:09 Left-axis deviation now present Ventricular premature complex(es) no longer present Myocardial infarct finding no longer present Electronically Signed On 04-10-19 14:40:50 CDT by Ori Marshall
== END 2019-04-10 13:17 | disposition home or self-care (01) ==
LOC: ER 08:57
DX: J10.1 Influenza due to other identified influenza virus with other respiratory manifestations (principal); J44.9 Chronic obstructive pulmonary disease, unspecified; Z91.013 Allergy to seafood; Z88.2 Allergy status to sulfonamides; Z91.018 Allergy to other foods
CPT/HCPCS: 93005; 87040 ×2; 85025; 80048; 36415; 83735; 85610; 80076; 84484; 83880; 87804 ×2; 71045; 96374; 99284; J0696; J7512

== ENCOUNTER 2019-09-27 08:33 | Emergency (ER) | payer OTHER, BC ==
[2019-09-27] MEDS ORDERED: ONDANSETRON 4 MG/2 ML VIAL ONE (09:06)
[2019-09-27] MEDS ORDERED: METHYLPREDNISOLONE 125 MG INJ ONE (09:06)
[2019-09-27] MEDS ORDERED: DIPHENHYDRAMINE 50 MG/ML VIAL ONE (09:06)
[2019-09-27] MEDS ORDERED: FAMOTIDINE 20 MG/2 ML VIAL IV ONE (09:07)
[2019-09-27] MEDS ORDERED: NA CHLORIDE 0.9% 1,000 ML ONE (09:07)
--- NOTE | 2019-09-27 11:38 | ER ---
Nurse's Notes [facility] Name: Lisa Cordero Age: 79 yrs Sex: Female : 1940 Arrival Date: 09/27/2019 Time: 08:36 Bed 17 Private MD: Diagnosis: Vomiting;Allergy to seafood Presentation: 09/27 08:48 Presenting complaint: Patient states: COUGH AND FB SENSATION IN THROAT AFTER EATING bp FOOD POSSIBLY CONTAINING SHRIMP LAST PM. Transition of care: patient was not received from another setting of care. Onset of symptoms was September 27, 2019. Risk Assessment: Do you want to hurt yourself or someone else? Patient reports no desire to harm self or others. Initial Sepsis Screen: Does the patient meet any 2 criteria? No. Patient's initial sepsis screen is negative. Does the patient have a suspected source of infection? No. Patient's initial sepsis screen is negative. Care prior to arrival: None. 08:48 Method Of Arrival: Ambulatory bp 08:48 Acuity: SAMUEL 3 bp Triage Assessment: 08:57 General: Appears in no apparent distress. comfortable, Behavior is. Pain: Denies pain. bp EENT: No deficits noted. Neuro: No deficits noted. Cardiovascular: No deficits noted. Respiratory: Reports cough that is Denies cough. GI: Reports vomiting. : No signs and/or symptoms were reported regarding the genitourinary system. Derm: No deficits noted. Musculoskeletal: No deficits noted. Historical: - Allergies: 08:57 SHELLFISH; bp 08:57 Strawberries; bp 08:57 Sulfa (Sulfonamide Antibiotics); bp - Home Meds: 08:57 aspirin 81 mg oral TbEC [Active]; Nexium 20 mg Oral cpDR [Active]; ProAir HFA 90 bp mcg/actuation inhalation HFAA [Active]; Prednisone Oral [Active]; - PMHx: 08:57 Arthritis; COPD; bp - Immunization history:: Adult Immunizations up to date. - Social history:: Smoking status: Patient/guardian denies using tobacco. - Ebola Screening: : No symptoms or risks identified at this time. Screenin:00 Abuse screen: Denies threats or abuse. Denies injuries from another. Nutritional bp screening: No deficits noted. Tuberculosis screening: No symptoms or risk factors identified. Fall Risk None identified. Assessment: 08:57 General: SEE TRIAGE NOTE. GI: Abdomen is non-distended. bp 11:04 Reassessment: ALL CURRENT ORDERS COMPLETED, NO S/S ACUTE DISTRESS. bp 12:16 Reassessment: PT D/C HOME VIA W/C WITH FAMILY, DX WITH ALLERGY TO SEAFOOD. Respiratory: bp Airway is patent Respiratory effort is even, unlabored, Respiratory pattern is regular, symmetrical. Vital Signs: 08:48 BP 140 / 84; Pulse 98; Resp 19; Temp 97.6; Pulse Ox 98% ; Weight 51.71 kg; bp 09:15 BP 137 / 92; Pulse 91; Resp 14; Pulse Ox 95% ; bp 10:00 BP 133 / 87; Pulse 80; Resp 16; Pulse Ox 98% ; bp 11:00 BP 119 / 69; Pulse 83; Resp 14; Pulse Ox 95% ; bp ED Course: 08:36 Patient arrived in ED. rg4 08:41 Chip Lazo NP is PHCP. pm1 08:42 Brock Singh MD is Attending Physician. pm1 08:43 Wilberto Zuniga RN is Primary Nurse. bp 08:50 Triage completed. bp 08:59 Arm band placed on. bp 09:00 Patient has correct armband on for positive identification. Bed in low position. Call bp light in reach. Side rails up X2. Adult w/ patient. bus driver/monitor on. Pulse ox on. NIBP on. 09:00 Inserted saline lock: 20 gauge in right forearm, using aseptic technique. bp 12:16 No provider procedures requiring assistance completed. IV discontinued, intact, bp bleeding controlled, No redness/swelling at site. Pressure dressing applied. Administered Medications: 09:00 Drug: Zofran 4 mg Route: IVP; Site: right forearm; bp 12:18 Follow up: Response: Nausea is decreased bp 09:00 Drug: Pepcid 20 mg Route: IVP; Site: right forearm; bp 12:18 Follow up: Response: No adverse reaction bp 09:00 Drug: SOLU-Medrol 125 mg Route: IVP; Site: right forearm; bp 12:18 Follow up: Response: No adverse reaction bp 09:00 Drug: Benadryl 25 mg Route: IVP; Site: right forearm; bp 12:19 Follow up: Response: No adverse reaction bp 09:00 Drug: NS 0.9% 1000 ml Route: IV; Rate: 1000 ml; Site: right forearm; bp 12:17 Follow up: IV Status: Completed infusion; IV Intake: 1000ml bp Intake: 12:17 IV: 1000ml; Total: 1000ml. bp Outcome: 11:38 Discharge ordered by . pm1 12:16 Discharged to home via wheelchair, with family. bp 12:16 Condition: stable 12:16 Discharge instructions given to patient, family, Instructed on discharge instructions, follow up and referral plans. medication usage, Demonstrated understanding of instructions, follow-up care, medications, Prescriptions given X 4. 12:19 Patient left the ED. bp Signatures: Chip Lazo NP G[employer] APPLIANCE REPAIRER pm1 Zuleyma Perez rg4 Wilberto Zuniga, RN RN bp Corrections: (The following items were deleted from the chart) 09:19 09:18 BP 137 / 92; Pulse 91bpm; Resp 14bpm; Pulse Ox 95%; bp bp
--- NOTE | 2019-09-27 11:38 | EDPHYS ---
Physician Documentation [facility] Name: Lisa Cordero Age: 79 yrs Sex: Female : 1940 Arrival Date: 09/27/2019 Time: 08:36 Bed 17 Private MD: ED Physician Brock Singh HPI: 09/27 09:06 This 79 yrs old Female presents to ER via Ambulatory with complaints of pm1 Vomiting, Cough. 09:06 The patient presents to the emergency department with vomiting, foreign body sensation pm1 in throat, allergic reaction to shrimp. Onset: The symptoms/episode began/occurred last night. Possible causes: shrimp. The symptoms are aggravated by nothing. The symptoms are alleviated by. Associated signs and symptoms: Pertinent negatives: abdominal pain, fever, shortness of breath. Severity of symptoms: in the emergency department the symptoms are worse. Patient ate at a [employer] restaurant last night and ate a piece of sushi that has shrimp chopped into small piece inside of it. Patient presenting with complaints of foreign body sensation in her throat and vomiting. No shortness of breath. Historical: - Allergies: 08:57 SHELLFISH; bp 08:57 Strawberries; bp 08:57 Sulfa (Sulfonamide Antibiotics); bp - Home Meds: 08:57 aspirin 81 mg oral TbEC [Active]; Nexium 20 mg Oral cpDR [Active]; ProAir HFA 90 bp mcg/actuation inhalation HFAA [Active]; Prednisone Oral [Active]; - PMHx: 08:57 Arthritis; COPD; bp - Immunization history:: Adult Immunizations up to date. - Social history:: Smoking status: Patient/guardian denies using tobacco. - Ebola Screening: : No symptoms or risks identified at this time. ROS: 09:06 Constitutional: Negative for fever, chills, and weight loss, Eyes: Negative for injury, pm1 pain, redness, and discharge. 09:06 Neck: Negative for injury, pain, and swelling, Cardiovascular: Negative for chest pain, palpitations, and edema, Respiratory: Negative for shortness of breath, cough, wheezing, and pleuritic chest pain. 09:06 Back: Negative for injury and pain, MS/Extremity: Negative for injury and deformity, Skin: Negative for injury, rash, and discoloration. 09:06 Neuro: Negative for headache, weakness, numbness, tingling, and seizure. 09:06 ENT: Positive for foreign body sensation, Negative for difficulty swallowing, difficulty handling secretions, hoarseness. 09:06 Abdomen/GI: Positive for nausea and vomiting, Negative for abdominal pain, diarrhea, constipation. Exam: 09:06 Constitutional: This is a well developed, well nourished patient who is awake, alert, pm1 and in no acute distress. Head/Face: Normocephalic, atraumatic. ENT: Nares patent. No nasal discharge, no septal abnormalities noted. Tympanic membranes are normal and external auditory canals are clear. Oropharynx with no redness, swelling, or masses, exudates, or evidence of obstruction, uvula midline. Mucous membranes moist. Neck: Trachea midline, no thyromegaly or masses palpated, and no cervical lymphadenopathy. Supple, full range of motion without nuchal rigidity, or vertebral point tenderness. No Meningismus. Chest/axilla: Normal chest wall appearance and motion. Nontender with no deformity. No lesions are appreciated. Cardiovascular: Regular rate and rhythm with a normal S1 and S2. No gallops, murmurs, or rubs. Normal PMI, no JVD. No pulse deficits. Respiratory: Lungs have equal breath sounds bilaterally, clear to auscultation and percussion. No rales, rhonchi or wheezes noted. No increased work of breathing, no retractions or nasal flaring. Abdomen/GI: Soft, non-tender, with normal bowel sounds. No distension or tympany. No guarding or rebound. No evidence of tenderness throughout. Back: No spinal tenderness. No costovertebral tenderness. Full range of motion. Skin: Warm, dry with normal turgor. Normal color with no rashes, no lesions, and no evidence of cellulitis. MS/ Extremity: Pulses equal, no cyanosis. Neurovascular intact. Full, normal range of motion. 09:06 Neuro: Orientation: is normal, Motor: is normal, moves all fours. Vital Signs: 08:48 BP 140 / 84; Pulse 98; Resp 19; Temp 97.6; Pulse Ox 98% ; Weight 51.71 kg; bp 09:15 BP 137 / 92; Pulse 91; Resp 14; Pulse Ox 95% ; bp 10:00 BP 133 / 87; Pulse 80; Resp 16; Pulse Ox 98% ; bp 11:00 BP 119 / 69; Pulse 83; Resp 14; Pulse Ox 95% ; bp MDM: 08:43 Patient medically screened. pm1 10:32 ED course: Patient reports improvement and is drinking water without any vomiting. Will pm1 comeback to reevaluate the patient. 11:35 ED course: Patient feels ready to go home. No vomiting and foreign body sensation in pm1 throat. 11:35 Data reviewed: vital signs. Data interpreted: Pulse oximetry: on room air is 95 %. pm1 Interpretation: normal. Counseling: I had a detailed discussion with the patient and/or guardian regarding: the historical points, exam findings, and any diagnostic results supporting the discharge/admit diagnosis, the need for outpatient follow up, to return to the emergency department if symptoms worsen or persist or if there are any questions or concerns that arise at home. 09/27 08:58 Order name: IV Saline Lock; Complete Time: 09:15 pm1 Administered Medications: 09:00 Drug: Zofran 4 mg Route: IVP; Site: right forearm; bp 12:18 Follow up: Response: Nausea is decreased bp 09:00 Drug: Pepcid 20 mg Route: IVP; Site: right forearm; bp 12:18 Follow up: Response: No adverse reaction bp 09:00 Drug: SOLU-Medrol 125 mg Route: IVP; Site: right forearm; bp 12:18 Follow up: Response: No adverse reaction bp 09:00 Drug: Benadryl 25 mg Route: IVP; Site: right forearm; bp 12:19 Follow up: Response: No adverse reaction bp 09:00 Drug: NS 0.9% 1000 ml Route: IV; Rate: 1000 ml; Site: right forearm; bp 12:17 Follow up: IV Status: Completed infusion; IV Intake: 1000ml bp Disposition: 13:53 Co-signature as Attending Physician, Brock Singh MD. rn Disposition: 09/27/19 11:38 Discharged to Home. Impression: Allergy to seafood, Vomiting. - Condition is Stable. - Discharge Instructions: Nausea and Vomiting, Adult, Seafood Allergy. - Prescriptions for Pepcid 20 mg Oral Tablet - take 1 tablet by ORAL route every 12 hours for 10 days; 20 tablet. Prednisone 20 mg Oral Tablet - take 3 tablet by ORAL route once daily for 5 days; 15 tablet. Zofran 4 mg Oral Tablet - take 1 tablet by ORAL route every 12 hours As needed; 20 tablet. Benadryl 25 mg Oral Capsule - take 1 capsule by ORAL route every 6 hours As needed; 30 tablet. - Medication Reconciliation Form, Thank You Letter, Antibiotic Education, Prescription Opioid Use form. - Follow up: Emergency Department; When: As needed; Reason: Worsening of condition. Follow up: Private Physician; When: 2 - 3 days; Reason: Recheck today's complaints, Continuance of care, Re-evaluation by your physician. - Problem is new. - Symptoms have improved. Signatures: Brock Singh MD MD rn Chip Lazo NP MAGAZINE EDITOR pm1 Wilberto Zuniga RN RN bp Corrections: (The following items were deleted from the chart) 12:19 11:38 09/27/2019 11:38 Discharged to Home. Impression: Allergy to seafoodVomiting. bp Condition is Stable. Forms are Medication Reconciliation Form, Thank You Letter, Antibiotic Education, Prescription Opioid Use. Follow up: Emergency Department; When: As needed; Reason: Worsening of condition. Follow up: Private Physician; When: 2 - 3 days; Reason: Recheck today's complaints, Continuance of care, Re-evaluation by your physician. Problem is new. Symptoms have improved. pm1
[2019-09-27 12:24] VITALS: TEMP 97.6
[2019-09-27 12:28] VITALS: BP 119/69; O2SAT 95
== END 2019-09-27 12:19 | disposition home or self-care (01) ==
LOC: ER 08:33
DX: R11.10 Vomiting, unspecified (principal); J44.9 Chronic obstructive pulmonary disease, unspecified; Z79.82 Long term (current) use of aspirin; Z88.2 Allergy status to sulfonamides; Z91.013 Allergy to seafood; Z91.018 Allergy to other foods
CPT/HCPCS: 96361; 96375; 96374; 99284; J1200; J7030; J2930; J2405

== ENCOUNTER 2021-12-29 14:01 | Emergency (ER) | payer OTHER, BC ==
--- OUTSIDE RECORDS SUMMARY | 2021-12-29 14:08 | XMS REPORT | Continuity of Care Document ---
:1940 Author Organization [facility] t Address [address] [place] [address] Care Team Providers Name Role Phone SUSAN Primary Care Physician Unavailable MARY COOPER Attending Clinician Unavailable JANET CRUZ Attending Clinician Unavailable SOHAN MACK JR. Attending Clinician Unavailable GUANAKO Attending Clinician Unavailable REBECCA Attending Clinician Unavailable CHARISSE YOUNG Attending Clinician Unavailable TONA Attending Clinician Unavailable SOHAN MACK Attending Clinician Unavailable Staci TRAN Attending Clinician STACI Attending Clinician Unavailable Inderjit ANDERSEN Attending Clinician Sohan Mack MD Attending Clinician Rd Patterson MD Attending Clinician Rafael ANDERSEN Attending Clinician C-Arm, Siemens Attending Clinician Nely ANDERSEN Attending Clinician Daron Walters MD Attending Clinician Susan ANDERSEN Attending Clinician Festus Mcdonald MD Attending Clinician Adonay WALTERS Attending Clinician Unavailable FESTUS MCDONALD Attending Clinician Unavailable MARY COOPER Admitting Clinician Unavailable JANET CRUZ Admitting Clinician Unavailable Adonay WALTERS Admitting Clinician Unavailable FESTUS MCDONALD Admitting Clinician Unavailable Payers Payer Name Policy Type Policy Number Effective Date Expiration Date S khari MEDICARE A B [id number] 2007 00:00:00 [place] [id number] 2010 OS 00:00:[address] [facility] REVIEW [id number] 2020 00:00:00 MEDICARE PART A \\T\\ [id number] 2014 B - MEDICARE 00:00:00 MEDICARE SUPPLEMENT [id number] - BCBS Problems Condition Condition Condition Status Onset Resolution Last Treating Co mments Source Name Details Category Date Date Treatment Clinician Date Hiatal Hiatal Disease Active [facility] hernia hernia 9-25 College 00:00: of 00 Medicin e Chronic Chronic Disease Active [facility] diarrhea diarrhea 17 Colleg e 00:00: of 00 Medicin e Gastroesop Gastroesop Disease Active [facility] hageal hageal 517 College reflux reflux 00:00: of disease disease 00 Medicin e Numerous Numerous Disease Active [facility] skin moles skin moles 5-17 Co llege 00:00: of 00 Medicin e Incontinen Incontinen Disease Active [facility] ce of ce of 4-10 College feces with feces with 00:00: of fecal fecal 00 Medicin urgency urgency e Meningioma Meningioma Disease Active [facility] (HCCode) (HCCode) 3-19 Colleg e 00:00: of 00 Medicin e History of 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 00:00: of 00 Medicin e History of 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 00:00: of 00 Medicin e Meningioma Meningioma Disease Recurre [facility] (HCCode) (HCCode) nce 3-19 Colleg e 00:00: of 00 Medicin e 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 [facility] osteoarthr osteoarthr nce 2-10 Co llege itis of itis of 00:00: of both first both first 00 Me dicin carpometac carpometac e arpal arpal joints joints Osteoporos Osteoporos Disease Recurre [facility] is is nce 8-14 College 00:00: of 00 Medicin e History of History of Disease Recurre 2015-12 [facility] melanoma melanoma nce 12-02 Colleg e 00:00: of 00 Medicin e 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 Quit smoking at age 52, had 40 pk-yrsCXR - 04/15- vertebral comp fracture & kyphosis- ratio 65%. 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 4- [place] 00:00: of 00 Medicin e Lumbar Lumbar Disease Active [facility] radiculiti radiculiti 09 Co llege s s 00:00: of 00 Medicin e Lumbar Lumbar Disease Active [facility] radiculiti radiculiti 4-09 Co llege s s 00:00: of 00 Medicin e Spondylart Spondylart Disease Active [facility] hrosis hrosis 4 [place] 00:00: of 00 Medicin e Allergies, Adverse Reactions, Alerts Allergy Allergy Status Severity Reaction(s) Onset Inactive Treating Comm ents Source Name Type Date Date Clinician Gabapent Propensi Active Hallucinatio Other [facility] in ty to ns 08-29 reaction( [place] adverse 00:00: s): Other of reaction 00 (See Medicin s to Comments) e drug Hallucina tions Tramadol Propensi Active Other (See Hallucina [facility] ty to Comments) 08-29 tions College adverse 00:00: of reaction 00 Medicin s to e drug GABAPENT Allergy Active Other [facility] TRAMADOL Allergy Active Other 2020-[address] [facility]- [facility] PROPOXYP Allergy Active N\\T\\V 2019-[address] [facility] HENE 08-25 [facility] HYDROCOD Allergy Active N\\T\\V 2020-[address] [facility] ONE-ACET 08-25 [facility] AMINOPHE [facility] N 00 Center Codeine Propensi Active Nausea And 2020-0 [place] [facility] ty to Vomiting 08-25 College adverse 00:00: of reaction 00 Medicin s to e drug Hydrocod Propensi Active Nausea And 2020-0 [facility] one-Acet ty to Vomiting 08-25 Colleg e aminophe adverse 00:00: of n reaction 00 Medicin s to e drug Propoxyp Propensi Active Nausea And 2020-0 [facility] hene And ty to Vomiting 08-25 Colleg e Methadon adverse 00:00: of e reaction 00 Medicin s to e drug CODEINE Allergy Active N\\T\\V 2019-[address] [facility] TREE NUT Allergy Active 2020-[address] [facility] Nuts Propensi Active Anaphylaxis 2020-0 Anaphylax [facility] ty to 820 is College adverse 00:00: (Pistachi of reaction 00 os) Medicin s to e food Venomil Propensi Active Swelling 2020-0 [facility] ty to 1-24 [facility] Bee adverse 00:00: of reaction 00 Medicin s to e drug Pistachi Propensi Active Anaphylaxis 2020-0 [facility] Nut ty to 124 College (Diagnos adverse 00:00: of tic) reaction 00 Medicin s to e drug STRAWBER Allergy Active High Anaphylaxis 2017-[address] [facility] [address] [facility]10 [facility] VENOM-HO Allergy Active High Anaphylaxis 2017-[address] ANTONIO BEE 8-10 [facility] Strawber Propensi Active Rash 2017-0 [facility] ry ty to 5-09 College (Diagnos adverse 00:00: of tic) reaction 00 Medicin s to e drug Shrimp Propensi Active Other (See 2015-12 swelling [facility] ty to Comments) 0-27 College adverse 00:00: of reaction 00 Medicin s to e food Honey Propensi Active Swelling [facility] Bee ty to 08-22 College Venom adverse 00:00: of reaction 00 Medicin s to e drug SHELLFIS Allergy Active Swelling 2013-12 [facility] NG 00 Center PRODUCTS SULFA Allergy Active Other 2013-[address] [facility] (SULFONA [facility] MIDE 00:00[facility] Medical ANTIBIOT 00 Center ICS) Other Propensi Active Swelling 2013-12 [facility] ty to [place] adverse 00:00: of reaction 00 Medicin s e Zina Propensi Active Rash 2013-12 [facility] Canina ty to [place] Extract adverse 00:00: of reaction 00 Medicin s to e drug Sulfa Propensi Active Other (See As a [facility] Antibiot ty to Comments) 12-29 child [facility] ge ics adverse 00:00: of reaction 00 Medicin s to e drug Social History Social Habit Start Date Stop Date Quantity Comments Source Exposure to Not sure [facility] e SARS-CoV-2 (event) of Med icine History of tobacco Cigarette Smoker [facility] use of Medicine History [facility] Alcohol Comment of Medici ne Alcohol intake 2021-12-26 2021-12-26 .14 /d [facility] Col lege 00:00:00 00:00:00 of Medicine History [facility] 2020-06-23 2020-06-23 2 [facility] Alcohol Frequency 00:00:00 00:00:00 of Medi cine History [facility] 2020-06-23 2020-06-23 1 [facility] Alcohol Std Drinks 00:00:00 00:00:00 of Med icine History [facility] 2020-06-23 2020-06-23 1 [facility] Alcohol Binge 00:00:00 00:00:00 of Medicine Tobacco Comment 2015-04-01 2015-04-01 quit at age 52 [facility] 00:00:00 00:00:00 of Medicine Cigarettes smoked 2012-12-29 2012-12-29 [facility] current (pack per 00:00:00 00:00:00 of Medi cine day) - Reported Cigarette 2012-12-29 2012-12-29 [facility] pack-years 00:00:00 00:00:00 of Medicine Tobacco use and 2012-12-29 2012-12-29 Smokeless tobacco [facility] [place] exposure 00:00:00 00:00:00 non-user of Medicine Sex [birth year] F [facility] Co l[facility] 00:00:00 00:00:00 of Medicine Smoking Status Start Date Stop Date Source Ex-smoker 2012-12-29 00:00:00 2012-12-29 00:00:00 [facility] C ollege of Medicine Medications Ordered Filled Start Stop Current Ordering Indication Dosage Frequency Signature Comments Components Source Medication Medication Date Date Medication? Clinician (SIG) Name Name methocarbam Yes 500mg Take 1 [place] [facility] ol 1-25 Tablet by [place] (ROBAXIN) 00:00: mouth 2 of 500 MG 00 times Medicin tablet daily as e needed. rifAXIMin Yes 550mg Take 550 [place] [facility] 550 MG TABS 1-10 mg by [place] 00:00: mouth 3 of 00 times Medicin daily. e rifAXIMin 2020-12 Yes 550mg Take 550 [place] [facility] 550 MG TABS 2-30 mg by [place] 00:00: mouth 3 of 00 times Medicin daily. e dicyclomine 2020-12 Yes 10mg Take 1 [facility] (BENTYL) 10 2-30 capsule by Co llege MG capsule 00:00: mouth 4 of 00 times Medicin daily e (before meals and nightly). 1 by mouth four times a day ondansetron 2020-12 Yes 4mg Take 1 [facility] (ZOFRAN-ODT 2-30 Tablet by Col lege ) 4 mg 00:00: mouth of disintegrat 00 every 8 Medic in ing tablet hours as e needed for Nausea. dicyclomine 2020-12 Yes 10mg Take 1 [facility] (BENTYL) 10 2-30 capsule by Co llege MG capsule 00:00: mouth 4 of 00 times Medicin daily e (before meals and nightly). 1 by mouth four times a day ondansetron 2020-12 Yes 4mg Take 1 [facility] (ZOFRAN-ODT 2-30 Tablet by Col lege ) 4 mg 00:00: mouth of disintegrat 00 every 8 Medic in ing tablet hours as e needed for Nausea. diphenoxyla 2020-12 Yes [id number] 1{tbl} Take 1 [facility] te-atropine 2-10 Tablet by Col [facility] (LOMOTIL) 00:00: mouth 4 of 2.5-0.025 00 times Medicin MG per daily as e tablet needed for Diarrhea. diphenoxyla 2020-12 Yes [id number] 1{tbl} Take 1 [facility] te-atropine 2-10 Tablet by Col lege (LOMOTIL) 00:00: mouth 4 of 2.5-0.025 00 times Medicin MG per daily as e tablet needed for Diarrhea. Acetaminoph 2020-12 Yes Take by [facility] en (TYLENOL 0-29 mouth as [facility] OR) 10:13: needed. of 10 Medicin e ketotifen 2020-12 Yes 1[drp] Apply 1 [place] [facility] (ZADITOR) 0-29 Drop to College 0.025 % 10:13: eye daily. of ophthalmic 10 Medicin solution e Ascorbic 2020-12 Yes 500mg Take 500 [facility] Acid 500 MG 0-29 mg by College CHEW 10:13: mouth of 10 daily. Medicin e Cholecalcif 2020-12 Yes Take by [facility] megan 25 MCG 0-29 mouth College (1000 UT) 10:13: daily. of CHEW 10 Medicin e Multiple 2020-12 Yes 1{tbl} Take 1 [facility] Vit[facility]-Mi 0-29 Tablet by Col lege nerals 10:13: mouth of (ONCOVITE) 10 daily. Medicin TABS e Acetaminoph 2020-12 Yes Take by [facility] en (TYLENOL 0-29 mouth as [facility] OR) 10:13: needed. of 10 Medicin e ketotifen 2020-12 Yes 1[drp] Apply 1 [place] [facility] (ZADITOR) 0-29 Drop to College 0.025 % 10:13: eye daily. of ophthalmic 10 Medicin solution e Ascorbic 2020-12 Yes 500mg Take 500 [facility] Acid 500 MG 0-29 mg by College CHEW 10:13: mouth of 10 daily. Medicin e Cholecalcif 2020-12 Yes Take by [facility] megan 25 MCG 0-29 mouth College (1000 UT) 10:13: daily. of CHEW 10 Medicin e Multiple 2020-12 Yes 1{tbl} Take 1 [facility] 0-29 Tablet by Col lege nerals 10:13: mouth of (ONCOVITE) 10 daily. Medicin TABS e Acetaminoph 2020-12 Yes Take by Michi archibaldor en (TYLENOL 0-29 mouth as [facility] OR) 10:13: needed. of 10 Medicin e ketotifen 2020-12 Yes 1[drp] Apply 1 [place] [facility] (ZADITOR) 0-29 Drop to [place] 0.025 % 10:13: eye daily. of ophthalmic 10 Medicin solution e Ascorbic 2020-12 Yes 500mg Take 500 [facility] Acid 500 MG 0-29 mg by College CHEW 10:13: mouth of 10 daily. Medicin e Cholecalcif 2020-12 Yes Take by [facility] y[facility] megan 25 MCG 0-29 mouth [place] (1000 UT) 10:13: daily. of CHEW 10 Medicin e Multiple 2020-12 Yes 1{tbl} Take 1 [facility]-Mi 0-29 Tablet by Col lege nerals 10:13: mouth of (ONCOVITE) 10 daily. Medicin TABS e Acetaminoph 2020-12 Yes Take by Michi blankenship en (TYLENOL 0-25 mouth as [facility] OR) 09:46: needed. of 52 Medicin e ketotifen 2020-12 Yes 1[drp] Apply 1 [place] [facility] (ZADITOR) 0-25 Drop to [place] 0.025 % 09:46: eye daily. of ophthalmic 52 Medicin solution e Ascorbic 2020-12 Yes 500mg Take 500 [facility] Acid 500 MG 0-25 mg by [place] CHEW 09:46: mouth of 52 daily. Medicin e Cholecalcif 2020-12 Yes Take by [facility]i ylor megan 25 MCG 0-25 mouth [place] (1000 UT) 09:46: daily. of CHEW 52 Medicin e Multiple 2020-12 Yes 1{tbl} Take 1 [facility]-Mi 0-25 Tablet by Col lege nerals 09:46: mouth of (ONCOVITE) 52 daily. Medicin TABS e diphenoxyla Yes [id number] 1{tbl} Take 1 [facility] te-atropine 8-26 Tablet by Col lege (LOMOTIL) 00:00: mouth 4 of 2.5-0.025 00 times Medicin MG per daily as e tablet needed for Diarrhea. diphenoxyla Yes [id number] 1{tbl} Take 1 [facility] te-atropine 8-26 Tablet by Col lege (LOMOTIL) 00:00: mouth 4 of 2.5-0.025 00 times Medicin MG per daily as e tablet needed for Diarrhea. cholestyram 0 2020- No [id number] 1{packe Take 1 [facility] ine 8-19 10-25 t} Packet by [place] (QUESTRAN) 00:00: 00:00 mouth two o f 4 g packet 00 :00 times Medicin daily. e Acetaminoph 2019-12 Yes Take by pattie en (TYLENOL 0-14 mouth as [facility] OR) 16:30: needed. of 40 Medicin e ketotifen 2019-12 Yes 1[drp] Apply 1 [place] [facility] (ZADITOR) 0-14 Drop to College 0.025 % 16:30: eye daily. of ophthalmic 40 Medicin solution e Ascorbic 2019-12 Yes 500mg Take 500 [facility] Acid 500 MG 0-14 mg by [place] CHEW 16:30: mouth. of 40 Medicin e Cholecalcif 2019-12 Yes 1{capsu Take 1 Cap [facility] megan 25 MCG 0-14 le} by mouth. Col lege (1000 UT) 16:30: of CHEW 40 Medicin e Acetaminoph 2019-12 Yes Take by Michi archibaldor en (TYLENOL 0-14 mouth as [facility] OR) 16:30: needed. of 40 Medicin e ketotifen 2019-12 Yes 1[drp] Apply 1 [place] [facility] (ZADITOR) 0-14 Drop to [place] 0.025 % 16:30: eye daily. of ophthalmic 40 Medicin solution e Ascorbic 2019-12 Yes 500mg Take 500 [facility] Acid 500 MG 0-14 mg by College CHEW 16:30: mouth. of 40 Medicin e Cholecalcif 2019- Yes 1{capsu Take 1 Cap [facility] megan 25 MCG 0-14 le} by mouth. Col lege (1000 UT) 16:30: of CHEW 40 Medicin e famotidine 2019-12 2020- No 20mg Take 20 mg [facility] (PEPCID) 20 0-08 10-08 by mouth Col [facility]ge MG tablet 18:20: 00:00 two times of 50 :00 daily. Medicin e Lidocaine 4 2020-0 Yes 1{patch Place 1 [facility] % PTCH 9-28 } Patch onto College 00:00: the skin. of 00 Medicin e Lidocaine 4 2020-0 Yes 1{patch Place 1 [facility] % PTCH 9-28 } Patch onto College 00:00: the skin. of 00 Medicin e FAMOTIDINE 2020-0 2020- No Take by [facility] OR 9-10 09-10 mouth. College 18:19: 00:00 of 49 :00 Medicin e famotidine 2020-0 Yes 20mg Take 20 mg [facility] (PEPCID) 20 9-10 by mouth [facility] MG tablet 18:16: two times of 14 daily. Medicin e Acetaminoph 2020-0 Yes Take by [facility] en (TYLENOL 9-10 mouth as [facility] OR) 18:16: needed. of 14 Medicin e famotidine 2020-0 Yes 20mg Take 20 mg [facility] (PEPCID) 20 9-10 by mouth [facility] MG tablet 16:04: two times of 25 daily. Medicin e Acetaminoph 2020-0 Yes Take by [facility] en (TYLENOL 9-10 mouth as [facility] OR) 16:04: needed. of 25 Medicin e Acetaminoph 2020-0 Yes Take by [facility] en (TYLENOL 7-23 mouth as [facility] OR) 14:29: needed. of 18 Medicin e Acetaminoph 2020-0 Yes Take by [facility] en (TYLENOL 7-23 mouth as [facility] OR) 14:29: needed. of 18 Medicin e famotidine 2020-0 Yes 20mg Take 20 mg [facility] (PEPCID) 20 7-23 by mouth [facility] MG tablet 14:27: two times of 35 daily. Medicin e famotidine 2020-0 Yes 20mg Take 20 mg [facility] (PEPCID) 20 7-23 by mouth [facility] MG tablet 14:27: two times of 35 daily. Medicin e famotidine 2020-0 Yes 20mg Take 20 mg [facility] (PEPCID) 20 5-22 by mouth [facility] MG tablet 12:24: two times of 10 daily. Medicin e famotidine 2020-0 Yes 20mg Take 20 mg [facility] (PEPCID) 20 5-22 by mouth [facility] MG tablet 12:24: two times of 10 daily. Medicin e triamcinolo 2019-2019- No [id number] [facility] ne 04-15 [place] acetonide 13:45: 13:39 of (KENALOG-40 00 :00 Medicin ) 40 mg/mL e 40 mg, bupivacaine (PF) (MARCAINE) 0.5 % 2 mL iohexol No [id number] 1mL [facility] (OMNIPAQUE) 04-15 [place] 300 MG/ML 13:45: 13:39 of injection 1 00 :00 Medicin mL e iohexol 2019- No [id number] 1mL 1 mL, [place] [facility] (OMNIPAQUE) 04-15 Epidural, Co llege 300 MG/ML 13:45: 13:39 ONCE, 1 of injection 1 00 :00 dose, Fri Med icin mL 04/15/20 at e 0845 triamcinolo 2019- No [id number] Epidural, [facility] 04-15 ONCE, 1 [place] acetonide 13:45: 13:39 dose, Fri of (KENALOG-40 00 :00 04/15/20 at Ne dicin ) 40 mg/mL 0845 e 40 mg, bupivacaine (PF) (MARCAINE) 0.5 % 2 mL HYALGAN 20 2019- No [id number] 20mg [facility] MG/2ML 02-01 9109 College injection 18:30: 18:18 of 20 mg 00 :00 Medicin e HYALGAN 20 2019- No [id number] 2mL 20 mg (2 [facility] MG/2ML 02-01 9109 mL), [place] injection 18:30: 18:18 Intra-leslie o f 20 mg 00 :00 cular, Medicin ONCE, 1 e dose, 02/02/20 at 1230 HYALGAN 20 2019- No [id number] 20mg [facility] MG/2ML 01-25 9109 College injection 15:45: 15:43 of 20 mg 00 :00 Medicin e HYALGAN 20 2019- No [id number] 2mL 20 mg (2 [facility] MG/2ML 01-25 9109 mL), [place] injection 15:45: 15:43 Intra-leslie o f 20 mg 00 :00 culkamron, Medicin ONCE, 1 e dose, 01/25/20 at 0945 zoledronic 2020-0 2020- No [id number] Inject [facility] foley like 01-25 91 into the [facility] RECLAST, 5 15:09: 00:00 vein. of MG/100ML 05 :00 Medicin infusion e famotidine 2020-0 Yes 20mg Take 20 mg [facility] (PEPCID) 20 2-10 by mouth [facility] MG tablet 18:56: two times of 08 daily. Medicin e famotidine 2020-0 Yes 20mg Take 20 mg [facility] (PEPCID) 20 2-10 by mouth [facility] MG tablet 18:56: two times of 08 daily. Medicin e famotidine 2020-0 Yes 20mg Take 20 mg [facility] (PEPCID) 20 2-10 by mouth [facility] MG tablet 18:56: two times of 08 daily. Medicin e famotidine 2020-0 Yes 20mg Take 20 mg [facility] (PEPCID) 20 2-10 by mouth [facility] MG tablet 18:56: two times of 08 daily. Medicin e Dexlansopra 2020-0 Yes 1{capsu Take 1 Cap [facility] zole 60 MG 2-10 le} by mouth Colle ge CPDR 00:00: daily. of 00 Medicin e Dexlansopra 2020-0 2020- No 1{capsu Take 1 Cap [facility] zole 60 MG 2-10 02-24 le} by mouth [facility] CPDR 00:00: 00:00 daily. of 00 :00 Medicin e Ergocalcife 2020-0 Yes Take one [facility] rol 1.25 MG 2-04 tablet Colleg e ([id number] UT) 00:00: weekly of CAPS 00 Medicin e Ergocalcife 2020-0 2020- No Take one [facility] 1.25 MG 2-04 02-24 tablet Colle ge ([id number] UT) 00:00: 00:00 weekly of CAPS 00 :00 Medicin e olopatadine 2020-0 Yes [id number] 1[drp] 1 Drop [facility] HCl 2-03 daily. For [place] ([facility]) 00:00: allergies, of 0.2 % 00 stop if Medicin ophthalmic eyes drum drier e solution olopatadine 2020-0 Yes [id number] 1[drp] 1 Drop [facility] HCl 2-03 daily. For [place] () 00:00: allergies, of 0.2 % 00 stop if Medicin ophthalmic eyes drum drier e solution olopatadine 2020-0 Yes [id number] 1[drp] 1 Drop [facility] HCl 2-03 daily. For [place] () 00:00: allergies, of 0.2 % 00 stop if Medicin ophthalmic eyes drum drier e solution olopatadine 2020-0 Yes [id number] 1[drp] 1 Drop [facility] HCl 2-03 daily. For [place] () 00:00: allergies, of 0.2 % 00 stop if Medicin ophthalmic eyes drum drier e solution olopatadine 2020-0 Yes [id number] 1[drp] 1 Drop [facility] HCl 2-03 daily. For [place] () 00:00: allergies, of 0.2 % 00 stop if Medicin ophthalmic eyes drum drier e solution olopatadine 2020-0 Yes [id number] 1[drp] 1 Drop [facility] HCl 2-03 daily. For [place] () 00:00: allergies, of 0.2 % 00 stop if Medicin ophthalmic eyes drum drier e solution olopatadine 2020-0 Yes [id number] 1[drp] 1 Drop [facility] HCl 2-03 daily. For [place] () 00:00: allergies, of 0.2 % 00 stop if Medicin ophthalmic eyes drum drier e solution olopatadine 2020-0 Yes [id number] 1[drp] 1 Drop [facility] HCl 2-03 daily. For [place] () 00:00: allergies, of 0.2 % 00 stop if Medicin ophthalmic eyes drum drier e solution olopatadine 2020-0 Yes [id number] 1[drp] 1 Drop [facility] HCl 2-03 daily. For [place] () 00:00: allergies, of 0.2 % 00 stop if Medicin ophthalmic eyes drum drier e solution olopatadine 2020-0 Yes [id number] 1[drp] 1 Drop [facility] HCl 2-03 daily. For [place] ([facility]) 00:00: allergies, of 0.2 % 00 stop if Medicin ophthalmic eyes drum drier e solution olopatadine 2020-0 Yes [id number] 1[drp] 1 Drop [facility] HCl 2-03 daily. For [place] ([facility]) 00:00: allergies, of 0.2 % 00 stop if Medicin ophthalmic eyes drum drier e solution olopatadine 2019-0 2020- No [id number] 1[drp] 1 Drop [facility] HCl 2-03 10-08 daily. For [place] ([facility]) 00:00: 00:00 allergies, o f 0.2 % 00 :00 stop if Medicin ophthalmic eyes drum drier e solution omeprazole 2020- No 40mg Take 1 Cap [facility] (PRILOSEC) 01-01 by mouth [facility] 40 MG 00:00: 00:00 daily. of capsule 00 :00 Medicin e triamcinolo 2020- No [id number] Intra-leslie [facility] ne 12-25 [facility] acetonide 17:45: 17:35 ONCE, 1 of (KENALOG-40 00 :00 dose, Fri Med icin ) 40 mg/mL 12/25/19 at e 60 mg, 1145 lidocaine 1% (10 mg/mL) 3.5 mL triamcinolo 2020- No [id number] [facility] ne 12-25 [place] acetonide 17:45: 17:35 of (KENALOG-40 00 :00 Medicin ) 40 mg/mL e 60 mg, lidocaine 1% (10 mg/mL) 3.5 mL DUREZOL 2018-12 Yes [facility] 0.05 % 01-13 [place] ophthalmic 00:00: of emulsion 00 Medicin e DUREZOL 2018-12 2020- No [facility] 0.05 % 01-13 [place] ophthalmic 00:00: 00:00 of emulsion 00 :00 Medicin e Naproxen 2019- No Take by [facility] Sodium 08-1716 mouth. [place] (ALEVE) 220 18:04: 00:00 of MG TABS 30 :00 Medicin e methylPREDN 2018- Yes 4mg Take 1 Tab [facility] ISolone 7-17 by mouth [place] (MEDROL 00:00: See Admin of DOSEPACK) 4 00 Instructio Me dicin MG tablet ns. e methylPREDN 2019- No 4mg Take 1 Tab [facility] ISolone 7-17 09-16 by mouth [place] (MEDROL 00:00: 00:00 See Admin of DOSEPACK) 4 00 :00 Instructio Me dicin MG tablet ns. e Famotidine Yes 1{tbl} Take 1 Tab [facility] 20 MG CHEW 6-28 by mouth Colle ge 18:26: daily. of 22 Medicin e Famotidine Yes 1{tbl} Take 1 Tab [facility] 20 MG CHEW 6-28 by mouth Colle ge 18:26: daily. of 22 Medicin e Famotidine Yes 1{tbl} Take 1 Tab [facility] 20 MG CHEW 6-28 by mouth Colle ge 18:26: daily. of 22 Medicin e zoledronic Yes [id number] Inject [facility] acid, like 6-28 9102 into the Colle ge RECLAST, 5 18:24: vein. of MG/100ML 35 Medicin infusion e zoledronic Yes [id number] Inject [facility] acid, like 6-28 9102 into the [facility] RECLAST, 5 18:24: vein. of MG/100ML 35 Medicin infusion e Naproxen Yes Take by [facility] Sodium 6-28 mouth. [place] (ALEVE) 220 18:24: of MG TABS 35 Medicin e zoledronic Yes [id number] Inject [facility] acid, like 6-28 9102 into the [facility] RECLAST, 5 18:24: vein. of MG/100ML 35 Medicin infusion e zoledronic Yes [id number] Inject [facility] acid, like 6-28 9102 into the [facility] RECLAST, 5 18:24: vein. of MG/100ML 35 Medicin infusion e zoledronic Yes [id number] Inject [facility] acid, like 6-28 9102 into the [facility] RECLAST, 5 18:24: vein. of MG/100ML 35 Medicin infusion e Na 2019- No [id number] Use as [facility] Sulfate-K - 08-30 directed [facility] Sulfate-Mg 00:00: 04:59 of Sulf 00 :00 Medicin (SUPREP e BOWEL PREP KIT) 17.5-3.13-1 .6 GM/177ML SOLN ranitidine, 2018- Yes [id number] 150mg Take 1 Tab [facility] ZANTAC, 150 5-17 by mouth [facility] MG tablet 00:00: two times of 00 daily. Medicin e ranitidine, Yes [id number] 150mg Take 1 Tab [facility] ZANTAC, 150 5-17 by mouth Kem[facility] e[facility] MG tablet 00:00: two times of 00 daily. Medicin e ranitidine, 2020- No [id number] 150mg Take 1 Tab [facility] ZANTAC, 150 5-17 01-24 by mouth [facility] MG tablet 00:00: 00:00 two times of 00 :00 daily. Medicin e Lif[facility] Yes [id number] 1[drp] Place 1 [facility] 5 % SOLN 4-25 Drop into [facility] 00:00: both eyes of 00 two times Medicin daily. e Discard single use container after using. Remove contact lenses prior use and may be reinserted 15 minutes following. [facility] 2019- No [id number] 1[drp] Place 1 [facility] 5 % SOLN 4-25 09-16 Drop into [facility] 00:00: 00:00 both eyes of 00 :00 two times Medicin daily. e Discard single use container after using. Remove contact lenses prior use and may be reinserted 15 minutes following. Immunizations Ordered Immunization Filled Immunization Date Status Commen ts Source Name Name Influenza Hd 2021-09-25 Completed [facility] 00:00:00 of Medicine Influenza Hd 2021-09-25 Completed [facility] 00:00:00 of Medicine Influenza Hd 2021-09-25 Completed [facility] 00:00:00 of Medicine Influenza Hd 2021-09-25 Completed [facility] 00:00:00 of Medicine Pneumococcal 2020-09-14 Completed [facility] Polysaccharide 00:00:00 of Medicin e Pneumococcal 2020-09-14 Completed [facility] Colle ge Polysaccharide 00:00:00 of Medicin e Pneumococcal 2020-09-14 Completed [facility] Colle ge Polysaccharide 00:00:00 of Medicin e Pneumococcal 2020-09-14 Completed [facility] Colle ge Polysaccharide 00:00:00 of Medicin e Pneumococcal 2020-09-14 Completed [facility] Colle ge Polysaccharide 00:00:00 of Medicin e Influenza Hd 2020-08-29 Completed [facility] Colle ge 00:00:00 of Medicine Influenza Hd 2020-08-29 Completed [facility] 00:00:00 of Medicine Influenza Hd 2020-08-29 Completed [facility] 00:00:00 of Medicine Influenza Hd 2020-08-29 Completed [facility] 00:00:00 of Medicine Influenza Hd 2020-08-29 Completed [facility] Colle ge 00:00:00 of Medicine Influenza Hd 2020-08-29 Completed [facility] ge 00:00:00 of Medicine Influenza Hd 2020 Completed [facility] 00:00:00 of Medicine Influenza Hd 2020 Completed [facility] 00:00:00 of Medicine Influenza Hd 2020 Completed [facility] ge 00:00:00 of Medicine Influenza Hd 2020 Completed [facility] ge 00:00:00 of Medicine Influenza Hd 2020 Completed [facility] 00:00:00 of Medicine Influenza Hd 2020 Completed [facility] Colle ge 00:00:00 of Medicine Influenza Hd 2019-08-29 Completed [facility]le ge 00:00:00 of Medicine Influenza Hd 2019-08-29 Completed [facility]le ge 00:00:00 of Medicine Influenza Hd 2019-08-29 Completed [facility] ge 00:00:00 of Medicine Influenza Hd 2019-08-29 Completed [facility] ge 00:00:00 of Medicine Influenza Hd 2019-08-29 Completed [facility] ge 00:00:00 of Medicine Influenza Hd 2019-08-29 Completed [facility] ge 00:00:00 of Medicine Influenza Hd 2019-08-29 Completed [facility] 00:00:00 of Medicine Influenza Hd 2019-08-29 Completed [facility] ge 00:00:00 of Medicine Influenza Hd 2019-08-29 Completed [facility]le ge 00:00:00 of Medicine Influenza Hd 2019-08-29 Completed [facility] ge 00:00:00 of Medicine Influenza Hd 2019-08-29 Completed [facility]le ge 00:00:00 of Medicine Influenza Hd 2019-08-29 Completed [facility] 00:00:00 of Medicine Influenza Hd 2019-08-29 Completed [facility]le ge 00:00:00 of Medicine Influenza Hd 2019-08-29 Completed [facility] ge 00:00:00 of Medicine Influenza Hd 2019-08-29 Completed [facility]le ge 00:00:00 of Medicine Influenza Hd 2019-08-29 Completed [facility] Colle ge 00:00:00 of Medicine Influenza Hd 2019-08-29 Completed [facility] 00:00:00 of Medicine Influenza Hd 2019-08-29 Completed [facility] 00:00:00 of Medicine Tdap 2019-02-17 Completed [facility] 00:00:00 of Medicine Tdap 2019-02-17 Completed [facility] 00:00:00 of Medicine Tdap 2019-02-17 Completed [facility] 00:00:00 of Medicine Tdap 2019-02-17 Completed [facility] 00:00:00 of Medicine Tdap 2019-02-17 Completed [facility] 00:00:00 of Medicine Tdap 2019-02-17 Completed [facility] 00:00:00 of Medicine Tdap 2019-02-17 Completed [facility] 00:00:00 of Medicine [facility] 2019[facility]02-17 [facility]02[facility]17 [facility]ap 2019-02-17 [facility] Tdap 2019-02-17 Completed [facility] 00:00:00 of Medicine Tdap 2019-02-17 Completed [facility] 00:00:00 of Medicine Tdap 2019-02-17 Completed [facility] 00:00:00 of Medicine [facility]dap 2019[facility]02-17 [facility] Tdap 2019-02-17 Completed [facility] 00:00:00 of Medicine Tdap 2019-02-17 Completed [facility] 00:00:00 of Medicine Tdap 2019-02-17 Completed [facility] 00:00:00 of Medicine Tdap 2019-02-17 Completed [facility] 00:00:00 of Medicine Tdap 2019-02-17 Completed [facility] [employer] 00:00:00 of Medicine Influenza Quad-PF 2018-10-02 Completed [employer] 00:00:00 of Medicine Influenza Quad-PF 2018-10-02 Completed [facility] 00:00:00 of Medicine Influenza Quad-PF 2018-10-02 Completed [facility] 00:00:00 of Medicine Influenza Quad-PF 2018-10-02 Completed [facility] 00:00:00 of Medicine Influenza Quad-PF 2018-10-02 Completed [facility] 00:00:00 of Medicine Influenza Quad-PF 2018-10-02 Completed [facility] 00:00:00 of Medicine Influenza Quad-PF 2018-10-02 Completed [facility] 00:00:00 of Medicine Influenza Quad-PF 2018-10-02 Completed [facility] 00:00:00 of Medicine Influenza Quad-PF 2018-10-02 Completed [facility] 00:00:00 of Medicine Influenza Quad-PF 2018-10-02 Completed [facility] 00:00:00 of Medicine Influenza Quad-PF 2018-10-02 Completed [facility] 00:00:00 of Medicine Influenza Quad-PF 2018-10-02 Completed [facility] 00:00:00 of Medicine Influenza Quad-PF 2018-10-02 Completed [facility] 00:00:00 of Medicine Influenza Quad-PF 2018-10-02 Completed [facility] 00:00:00 of Medicine Influenza Quad-PF 2018-10-02 Completed [facility] 00:00:00 of Medicine Influenza Quad-PF 2018-10-02 Completed [facility] 00:00:00 of Medicine Influenza Quad-PF 2018-10-02 Completed [facility] 00:00:00 of Medicine Influenza Quad-PF 2018-10-02 Completed [facility] 00:00:00 of Medicine Influenza Quad-PF 2018-10-02 Completed [facility] 00:00:00 of Medicine Influenza Quad-PF 2018-10-02 Completed [facility] 00:00:00 of Medicine Influenza Hd 2016-09-27 Completed [facility] 00:00:00 of Medicine Influenza Hd 2016-09-27 Completed [facility]le ge 00:00:00 of Medicine Influenza Hd 2016-09-27 Completed [facility] 00:00:00 of Medicine Influenza Hd 2016-09-27 Completed [facility] ge 00:00:00 of Medicine Influenza Hd 2016-09-27 Completed [facility] 00:00:00 of Medicine Influenza Hd 2016-09-27 Completed [facility] ge 00:00:00 of Medicine Influenza Hd 2016-09-27 Completed [facility] 00:00:00 of Medicine Influenza Hd 2016-09-27 Completed [facility] 00:00:00 of Medicine Influenza Hd 2016-09-27 Completed [facility] 00:00:00 of Medicine Influenza Hd 2016-09-27 Completed [facility] 00:00:00 of Medicine Influenza Hd 2016-09-27 Completed [facility] 00:00:00 of Medicine Influenza Hd 2016-09-27 Completed [facility] 00:00:00 of Medicine Influenza Hd 2016-09-27 Completed [facility] 00:00:00 of Medicine Influenza Hd 2016-09-27 Completed [facility] ge 00:00:00 of Medicine Influenza Hd 2016-09-27 Completed [facility] 00:00:00 of Medicine Influenza Hd 2016-09-27 Completed [facility] 00:00:00 of Medicine Influenza Hd 2016-09-27 Completed [facility] 00:00:00 of Medicine Influenza Hd 2016-09-27 Completed [facility]le ge 00:00:00 of Medicine Influenza Hd 2016-09-27 Completed [facility] ge 00:00:00 of Medicine Influenza Hd 2016-09-27 Completed [facility] Colle ge 00:00:00 of Medicine Pneumococcal 2015-07-04 Completed [facility] Colle ge Conjugate 00:00:00 of Medicine Pneumococcal 2015-07-04 Completed [facility] Conjugate 00:00:00 of Medicine Pneumococcal 2015-07-04 Completed [facility] Colle ge Conjugate 00:00:00 of Medicine Pneumococcal 2015-07-04 Completed [facility]le ge Conjugate 00:00:00 of Medicine Pneumococcal 2015-07-04 Completed [facility] Colle ge Conjugate 00:00:00 of Medicine Pneumococcal 2015-07-04 Completed [facility] Conjugate 00:00:00 of Medicine Pneumococcal 2015-07-04 Completed [facility] Conjugate 00:00:00 of Medicine Pneumococcal 2015-07-04 Completed [facility] Colle ge Conjugate 00:00:00 of Medicine Pneumococcal 2015-07-04 Completed [facility] Conjugate 00:00:00 of Medicine Pneumococcal 2015-07-04 Completed [facility] Colle ge Conjugate 00:00:00 of Medicine Pneumococcal 2015-07-04 Completed [facility] Conjugate 00:00:00 of Medicine Pneumococcal 2015-07-04 Completed [facility] Conjugate 00:00:00 of Medicine Pneumococcal 2015-07-04 Completed [facility] Colle [facility] Conjugate 00:00:00 of Medicine Pneumococcal 2015-07-04 Completed [facility] Colle ge Conjugate 00:00:00 of Medicine Pneumococcal 2015-07-04 Completed [facility] Conjugate 00:00:00 of Medicine Pneumococcal 2015-07-04 Completed [facility] Colle ge Conjugate 00:00:00 of Medicine Pneumococcal 2015-07-04 Completed [facility] Colle ge Conjugate 00:00:00 of Medicine Pneumococcal 2015-07-04 Completed [facility] Colle ge Conjugate 00:00:00 of Medicine Pneumococcal 2015-07-04 Completed [facility] Colle [facility] Conjugate 00:00:00 of Medicine Pneumococcal 2015-07-04 Completed [facility] Colle [facility] Conjugate 00:00:00 of Medicine Vital Signs Vital Name Observation Time Observation Value Comments Source HEIGHT 2020-08-12 00:00:00 149.9 cm WEIGHT 2020-08-12 00:00:00 59.6 kg HEIGHT 2020-06-30 00:00:00 149.9 cm WEIGHT 2020-06-30 00:00:00 55.43 kg Systolic blood 2021-11-30 16:18:00 125 mm[Hg] [facility] Medicine Diastolic blood 2021-11-30 16:18:00 81 mm[Hg] [facility] Medicine Heart rate 2021-11-30 16:18:00 93 /min [facility] ol[facility] Body temperature 2021-11-30 16:18:00 36 Sudha [facility] Respiratory rate 2021-11-30 16:18:00 14 /min [facility] Body height 2021-11-30 16:18:00 152.4 cm [facility] Body weight 2021-11-30 16:18:00 47.174 [facility] 2021-11-30 16:18:00 20.31 kg/m2 [facility] Body temperature 2021-09-29 14:59:00 36.5 Sudha [facility] Respiratory rate 2021-09-29 14:59:00 15 /min [facility] Body height 2021-09-29 14:59:00 152.4 cm [facility] Body weight 2021-09-29 14:59:00 49.896 kg [facility] BMI 2021-09-29 14:59:00 21.48 kg/m2 [facility] Systolic blood 2021-09-25 14:54:00 140 mm[Hg] [facility] pressure Medicine Diastolic blood 2021-09-25 14:54:00 81 mm[Hg] [facility] pressure Medicine Heart rate 2021-09-25 14:54:00 78 /min [facility] Body temperature 2021-09-25 14:54:00 36.61 Sudha [facility] Respiratory rate 2021-09-25 14:54:00 15 /min [facility] Body height 2021-09-25 14:54:00 152.4 cm [facility] Body weight 2021-09-25 14:54:00 49.896 kg [facility] BMI 2021-09-25 14:54:00 21.48 kg/m2 [facility] Systolic blood 2020-09-14 16:28:00 128 mm[Hg] [facility] Diastolic blood 2020-09-14 16:28:00 68 mm[Hg] [facility] Medicine Heart rate 2020-09-14 16:28:00 68 /min [facility] Body temperature 2020-09-14 16:28:00 36.78 Sudha [facility] Respiratory rate 2020-09-14 16:28:00 16 /min [facility] Body height 2020-09-14 16:28:00 154.9 cm [facility] Body weight 2020-09-14 16:28:00 54.341 kg [facility] BMI 2020-09-14 16:28:00 22.64 kg/m2 [facility] Oxygen saturation in 2020-09-14 16:28:00 97 /min [facility] Arterial blood by [facility] Pulse oximetry Systolic blood 2020-09-08 18:01:00 154 mm[Hg] [facility] of pressure Medicine Diastolic blood 2020-09-08 18:01:00 77 mm[Hg] [facility] pressure Medicine Heart rate 2020-09-08 18:01:00 96 /min [facility] Body temperature 2020-09-08 18:01:00 36.89 Sudha [facility] Body height 2020-09-08 18:01:00 154.9 cm [facility] C [facility]lege of Medicine Body weight 2020-09-08 18:01:00 54.885 kg [facility] C [facility] of Medicine BMI 2020-09-08 18:01:00 22.86 kg/m2 [facility] C [facility]lege of Medicine HEIGHT 2020-08-12 00:00:00 149.9 cm WEIGHT 2020-08-12 00:00:00 59.6 kg Systolic blood 2020-08-11 18:13:00 128 mm[Hg] [facility] of pressure Medicine Diastolic blood 2020-08-11 18:13:00 69 mm[Hg] [facility] pressure Medicine Heart rate 2020-08-11 18:13:00 89 /min [facility] C ollege of [facility] Body temperature 2020-08-11 18:13:00 36.56 Sudha [facility] Body height 2020-08-11 18:13:00 154.9 cm [facility] C ollege of Medicine Body weight 2020-08-11 18:13:00 53.978 kg [facility] Medicine BMI 2020-08-11 18:13:00 22.48 kg/m2 [facility] Medicine Systolic blood 2020-08-11 16:04:00 120 mm[Hg] [facility] of pressure Medicine Diastolic blood 2020-08-11 16:04:00 74 mm[Hg] [facility] Medicine Heart rate 2020-08-11 16:04:00 68 /min [facility] C [facility] of Medicine Body temperature 2020-08-11 16:04:00 36.83 Sudha [facility] Body height 2020-08-11 16:04:00 152.4 cm [facility] C [facility]lege of Medicine Body weight 2020-08-11 16:04:00 55.339 kg [facility] C [facility]lege of Medicine BMI 2020-08-11 16:04:00 23.83 kg/m2 [facility] C [facility]lege of Medicine HEIGHT 2020-06-30 00:00:00 149.9 cm WEIGHT 2020-06-30 00:00:00 55.43 kg Systolic blood 2020-07-12 18:26:00 128 mm[Hg] [facility] of pressure Medicine Diastolic blood 2020-07-12 18:26:00 74 mm[Hg] [facility] pressure Medicine Heart rate 2020-07-12 18:26:00 93 /min [facility] C [facility]lege of Medicine Body temperature 2020-07-12 18:26:00 37.28 Sudha [facility] Body height 2020-07-12 18:26:00 152.4 cm [facility] C [facility] of Medicine Body weight 2020-07-12 18:26:00 55.702 kg [facility] Medicine BMI 2020-07-12 18:26:00 23.98 kg/m2 [facility] of Medicine Systolic blood 2020-06-23 14:29:00 153 mm[Hg] [facility] of pressure Medicine Diastolic blood 2020-06-23 14:29:00 80 mm[Hg] [facility] Medicine Heart rate 2020-06-23 14:29:00 85 /min [facility] Medicine Body temperature 2020-06-23 14:29:00 36.83 Sudha [facility] Body height 2020-06-23 14:29:00 152.4 cm [facility] Medicine Body weight 2020-06-23 14:29:00 54.885 kg [facility] Medicine BMI 2020-06-23 14:29:00 23.63 kg/m2 [facility] of Medicine Systolic blood 2020-06-23 14:29:00 153 mm[Hg] [facility] of pressure Medicine Diastolic blood 2020-06-23 14:29:00 80 mm[Hg] [facility] Medicine Heart rate 2020-06-23 14:29:00 85 /min [facility] Medicine Body temperature 2020-06-23 14:29:00 36.83 Sudha [facility] Body height 2020-06-23 14:29:00 152.4 cm [facility] C [facility] of Medicine Body weight 2020-06-23 14:29:00 54.885 kg [facility] of Medicine BMI 2020-06-23 14:29:00 23.63 kg/m2 [facility] of Medicine Systolic blood 2020-06-02 18:56:00 147 mm[Hg] [facility] of pressure Medicine Diastolic blood 2020-06-02 18:56:00 85 mm[Hg] [facility] pressure Medicine Heart rate 2020-06-02 18:56:00 88 /min [facility] C [facility] of Medicine Body temperature 2020-06-02 18:56:00 36.72 Sudha [facility] Body height 2020-06-02 18:56:00 152.4 cm [facility] C [facility] of Medicine Body weight 2020-06-02 18:56:00 56.065 kg [facility] C [facility] of Medicine BMI 2020-06-02 18:56:00 24.14 kg/m2 [facility] C ol[facility] of Medicine Systolic blood 2020-06-02 18:56:00 147 mm[Hg] [facility] of pressure Medicine Diastolic blood 2020-06-02 18:56:00 85 mm[Hg] [facility] pressure Medicine Heart rate 2020-06-02 18:56:00 88 /min [facility] C [facility]lege of Medicine Body temperature 2020-06-02 18:56:00 36.72 Sudha [facility] Body height 2020-06-02 18:56:00 152.4 cm [facility] C [facility] of Medicine Body weight 2020-06-02 18:56:00 56.065 kg [facility] of Medicine BMI 2020-06-02 18:56:00 24.14 kg/m2 [facility] of Medicine Systolic blood 2020-04-22 12:22:00 122 mm[Hg] [facility] of pressure Medicine Diastolic blood 2020-04-22 12:22:00 73 mm[Hg] [facility] pressure Medicine Heart rate 2020-04-22 12:22:00 94 /min [facility] C [facility] of Medicine Body height 2020-04-22 12:22:00 152.4 cm [facility] C [facility] of Medicine Body weight 2020-04-22 12:22:00 53.071 kg [facility] C [facility] of Medicine BMI 2020-04-22 12:22:00 22.85 kg/m2 [facility] C [facility] of Medicine Systolic blood 2020-04-22 12:22:00 122 mm[Hg] [facility] of pressure Medicine Diastolic blood 2020-04-22 12:22:00 73 mm[Hg] [facility] of pressure Medicine Heart rate 2020-04-22 12:22:00 94 /min [facility] Body height 2020-04-22 12:22:00 152.4 cm [facility] Body weight 2020-04-22 12:22:00 53.071 kg [facility] C [facility] of Medicine BMI 2020-04-22 12:22:00 22.85 kg/m2 [facility] C [facility] of Medicine Systolic blood 2020-04-15 13:04:00 120 mm[Hg] [facility] of pressure Medicine Diastolic blood 2020-04-15 13:04:00 74 mm[Hg] [facility] of pressure Medicine Heart rate 2020-04-15 13:04:00 70 /min [facility] C [facility] of Medicine Body temperature 2020-04-15 13:04:00 36.44 Sudha [facility] Body height 2020-04-15 13:04:00 152.4 cm [facility] C [facility] of Medicine Body weight 2020-04-15 13:04:00 52.164 kg [facility] C [facility] of Medicine BMI 2020-04-15 13:04:00 22.46 kg/m2 [facility] C [facility] of Medicine Systolic blood 2020-04-15 13:04:00 120 mm[Hg] [facility] of pressure Medicine Diastolic blood 2020-04-15 13:04:00 74 mm[Hg] [facility] of pressure Medicine Heart rate 2020-04-15 13:04:00 70 /min [facility] C [facility] of Medicine Body temperature 2020-04-15 13:04:00 36.44 Sudha [facility] Body height 2020-04-15 13:04:00 152.4 cm [facility] C [facility] of Medicine Body weight 2020-04-15 13:04:00 52.164 kg [facility] C [facility] of Medicine BMI 2020-04-15 13:04:00 22.46 kg/m2 [facility] C [facility] of Medicine Systolic blood 2020-02-02 17:10:00 114 mm[Hg] [facility] of pressure Medicine Diastolic blood 2020-02-02 17:10:00 70 mm[Hg] [facility] of pressure Medicine Heart rate 2020-02-02 17:10:00 88 /min [facility] C [facility] of Medicine Body temperature 2020-02-02 17:10:00 36.78 Sudha [facility] Body height 2020-02-02 17:10:00 152.4 cm [facility] C [facility] of Medicine Body weight 2020-02-02 17:10:00 52.617 kg [facility] C [facility] of Medicine BMI 2020-02-02 17:10:00 22.65 kg/m2 [facility] C [facility] of Medicine Systolic blood 2020-02-02 17:10:00 114 mm[Hg] [facility] pressure Medicine Diastolic blood 2020-02-02 17:10:00 70 mm[Hg] [facility] of pressure Medicine Heart rate 2020-02-02 17:10:00 88 /min [facility] C [facility] of Medicine Body temperature 2020-02-02 17:10:00 36.78 Sudha [facility] Body height 2020-02-02 17:10:00 152.4 cm [facility] C [facility] of Medicine Body weight 2020-02-02 17:10:00 52.617 kg [facility] of Medicine BMI 2020-02-02 17:10:00 22.65 kg/m2 [facility] of Medicine Systolic blood 2020-01-25 15:08:00 112 mm[Hg] [facility] pressure Medicine Diastolic blood 2020-01-25 15:08:00 69 mm[Hg] [facility] of pressure Medicine Heart rate 2020-01-25 15:08:00 86 /min [facility] C [facility] of Medicine Body temperature 2020-01-25 15:08:00 36.83 Sudha [facility] Body height 2020-01-25 15:08:00 152.4 cm [facility] C [facility]lege of [facility] Body weight 2020-01-25 15:08:00 52.617 kg [facility] of Medicine BMI 2020-01-25 15:08:00 22.65 kg/m2 [facility] Systolic blood 2020-01-25 15:08:00 112 mm[Hg] [facility] of pressure Medicine Diastolic blood 2020-01-25 15:08:00 69 mm[Hg] [facility] pressure Medicine Heart rate 2020-01-25 15:08:00 86 /min [facility] Body temperature 2020-01-25 15:08:00 36.83 Sudha [facility] Body height 2020-01-25 15:08:00 152.4 cm [facility] Body weight 2020-01-25 15:08:00 52.617 kg [facility] BMI 2020-01-25 15:08:00 22.65 kg/m2 [facility] Systolic blood 2020-01-11 18:56:00 110 mm[Hg] [facility] pressure Medicine Diastolic blood 2020-01-11 18:56:00 70 mm[Hg] [facility] Medicine Heart rate 2020-01-11 18:56:00 89 /min [facility] Body temperature 2020-01-11 18:56:00 36.72 Sudha [facility] Respiratory rate 2020-01-11 18:56:00 16 /min [facility] Body height 2020-01-11 18:56:00 152.4 cm [facility] Body weight 2020-01-11 18:56:00 50.803 kg [facility] BMI 2020-01-11 18:56:00 21.87 kg/m2 [facility] Systolic blood 2020-01-11 18:56:00 110 mm[Hg] [facility] pressure Medicine Diastolic blood 2020-01-11 18:56:00 70 mm[Hg] [facility] Medicine Heart rate 2020-01-11 18:56:00 89 /min [facility] Body temperature 2020-01-11 18:56:00 36.72 Sudha [facility] Respiratory rate 2020-01-11 18:56:00 16 /min [facility] Body height 2020-01-11 18:56:00 152.4 cm [facility] Body weight 2020-01-11 18:56:00 50.803 kg [facility] BMI 2020-01-11 18:56:00 21.87 kg/m2 [facility] Systolic blood 2020-01-04 14:32:00 110 mm[Hg] [facility] pressure Medicine Diastolic blood 2020-01-04 14:32:00 62 mm[Hg] [facility] Medicine Heart rate 2020-01-04 14:32:00 101 /min [facility] Body temperature 2020-01-04 14:32:00 36.56 Sudha [facility] Respiratory rate 2020-01-04 14:32:00 18 /min [facility] Body height 2020-01-04 14:32:00 152.4 cm [facility] Oxygen saturation in 2020-01-04 14:32:00 96 /min [facility] of Arterial blood by Medicine Pulse oximetry Systolic blood 2020-01-04 14:32:00 110 mm[Hg] [facility] Medicine Diastolic blood 2020-01-04 14:32:00 62 mm[Hg] [facility] Medicine Heart rate 2020-01-04 14:32:00 101 /min [facility] Body temperature 2020-01-04 14:32:00 36.56 Sudha [facility] Respiratory rate 2020-01-04 14:32:00 18 /min [facility] Body height 2020-01-04 14:32:00 152.4 cm [facility] Oxygen saturation in 2020-01-04 14:32:00 96 /min [facility] Arterial blood by Medicine Pulse oximetry Systolic blood 2019-12-25 16:26:00 126 mm[Hg] [facility] pressure Medicine Diastolic blood 2019-12-25 16:26:00 74 mm[Hg] [facility] Medicine Heart rate 2019-12-25 16:26:00 88 /min [facility] Body temperature 2019-12-25 16:26:00 36.78 Sudha [facility] Body height 2019-12-25 16:26:00 152.4 cm [facility] Body weight 2019-12-25 16:26:00 52.617 kg [facility] BMI 2019-12-25 16:26:00 22.65 kg/m2 [facility] Systolic blood 2019-12-25 16:26:00 126 mm[Hg] [facility] pressure Medicine Diastolic blood 2019-12-25 16:26:00 74 mm[Hg] [facility] pressure Medicine Heart rate 2019-12-25 16:26:00 88 /min [facility] Body temperature 2019-12-25 16:26:00 36.78 Sudha [facility] Body height 2019-12-25 16:26:00 152.4 cm [facility] Body weight 2019-12-25 16:26:00 52.617 kg [facility] BMI 2019-12-25 16:26:00 22.65 kg/m2 [facility] Systolic blood 2019-08-17 17:58:00 129 mm[Hg] [facility] pressure Medicine Diastolic blood 2019-08-17 17:58:00 78 mm[Hg] [facility] of pressure Medicine Heart rate 2019-08-17 17:58:00 95 /min [facility] Body temperature 2019-08-17 17:58:00 36.44 Sudha [facility] Body height 2019-08-17 17:58:00 152.4 cm [facility] Body weight 2019-08-17 17:58:00 49.896 kg [facility] BMI 2019-08-17 17:58:00 21.48 kg/m2 [facility] Systolic blood 2019-08-17 17:58:00 129 mm[Hg] [facility] pressure Medicine Diastolic blood 2019-08-17 17:58:00 78 mm[Hg] [facility] pressure Medicine Heart rate 2019-08-17 17:58:00 95 /min [facility] Body temperature 2019-08-17 17:58:00 36.44 Sudha [facility] Body height 2019-08-17 17:58:00 152.4 cm [facility] Body weight 2019-08-17 17:58:00 49.896 kg [facility] BMI 2019-08-17 17:58:00 21.48 kg/m2 [facility] Systolic blood 2019-07-24 15:43:00 154 mm[Hg] [facility] pressure Medicine Diastolic blood 2019-07-24 15:43:00 81 mm[Hg] [facility] of pressure Medicine Heart rate 2019-07-24 15:43:00 94 /min [facility] Body height 2019-07-24 15:43:00 152.4 cm [facility] Body weight 2019-07-24 15:43:00 52.164 kg [facility] BMI 2019-07-24 15:43:00 22.46 kg/m2 [facility] Systolic blood 2019-07-24 15:43:00 154 mm[Hg] [facility] pressure Medicine Diastolic blood 2019-07-24 15:43:00 81 mm[Hg] [facility] Medicine Heart rate 2019-07-24 15:43:00 94 /min [facility] Body height 2019-07-24 15:43:00 152.4 cm [facility] Body weight 2019-07-24 15:43:00 52.164 kg [facility] BMI 2019-07-24 15:43:00 22.46 kg/m2 [facility] Procedures Procedure Date / Time Performing Clinician Source Performed POCT URINALYSIS DIPSTICK 2021-09-25 00:00:00 [facility] COMPREHENSIVE METABOLIC 2020-01-04 15:32:00 Susan [facility] PANEL Medicine LIPID PANEL 2020-01-04 15:32:00 Susan [facility] VITAMIN B12 2020-01-04 [facility]-04 [facility] 2020-01-04 [facility]Y 2020-01-04 15:32:00 [facility] TSH REFLEX TO FREE T4 2020-01-04 [facility] Planned Activity Planned Date Details Comments Source Future Scheduled 2021-12-26 COVID-19 Vaccine (1) [facility] Test 13:07:41 [code = COVID-19 of Medicine Vaccine (1)] Future Scheduled 2021-12-26 Hepatitis C [facility] [employer] Test 13:07:41 screening of Medicine (procedure) [code = 896215991] Future Scheduled 2021-12-26 ZOSTER VACCINE (1 of [employer] Test 13:07:41 2) [code = ZOSTER of Medicin e VACCINE (1 of 2)] Future Scheduled 2021-12-26 Screening for [facility] [employer] Test 13:07:41 malignant neoplasm of Medici ne of breast (procedure) [code = 570259963] Future Scheduled 2021-12-26 MEDICARE AWV [facility] [employer] Test 13:07:41 (Subsequent) [code = of Medi cine MEDICARE AWV (Subsequent)] Future Scheduled 2021-12-26 FALL SCREEN [code = [employer] Test 13:07:41 FALL SCREEN] of Medicine Future Scheduled 2021-12-26 Screening for [facility] [employer] Test 13:07:41 malignant neoplasm of Medici ne of colon (procedure) [code = 376905940] Future Scheduled 2021-12-26 TETANUS SHOT (ADULT) [employer] Test 13:07:41 [code = TETANUS SHOT of Medi cine (ADULT)] Future Scheduled 2021-12-26 MRI LUMBAR SPINE WO 1 Occurrences [employer] Test 11:29:48 CONTRAST [code = starting of Medicine 48095-8] 12/26/2021 until 12/26/2022 Future Scheduled 2021-12-26 MRI THORACIC SPINE 1 Occurrences [employer] Test 11:29:48 WO CONTRAST [code = starting of Medic ine 04402-6] 12/26/2021 until 12/26/2022 Future Scheduled 2021-11-30 CBC W/O DIFF W PLT Ordered: [employer] Test 11:06:41 [code = 6690-2] 11/30/2021 of Medicine Future Scheduled 2021-11-30 COMPREHENSIVE Ordered: [facility] [employer] Test 11:06:41 METABOLIC PANEL 11/30/2021 of Medicine [code = 09148-4] Future Scheduled 2021-11-30 SEDIMENTATION RATE Ordered: [employer] Test 11:06:41 MODIFIED TOVA 11/30/2021 of Medic ine [code = 4537-7] Future Scheduled 2021-11-30 C-REACTIVE PROTEIN Ordered: [employer] Test 11:06:41 [code = 1987-5] 11/30/2021 of Medicine Future Scheduled 2021-11-30 VITAMIN D 25 HYDROXY Ordered: [facility] Test 11:06:41 [code = 1989-3] 11/30/2021 of Medicine Future Scheduled 2021-11-30 VITAMIN B12 [code = Ordered: [facility] [place] Test 11:06:41 2131-9] 11/30/2021 of Medicine Future Scheduled 2021-11-30 FERRITIN [code = Ordered: [facility] Test 11:06:41 29472-4] 11/30/2021 of Medicine Future Scheduled 2021-11-30 IRON+TIBC+%SAT [code Ordered: [facility] Test 11:06:41 = NOCPT] 11/30/2021 of Medicine Future Scheduled 2021-11-30 CLOSTRIDIUM Ordered: [facility] Test 10:44:58 DIFFICILE TOXIN/GDH 11/30/2021 of Medic ine WITH REFLEX TO PCR [code = 79383-2] Future Scheduled 2021-11-30 CALPROTECTIN, FECAL Ordered: [facility] Test 10:44:58 [code = 26010-3] 11/30/2021 of Medicine Future Scheduled 2021-11-30 CULTURE, STOOL [code Ordered: [facility] Test 10:44:58 = 625-4] 11/30/2021 of Medicine Future Scheduled 2021-11-30 OVA AND PARASITE Ordered: [facility] Test 10:44:58 EXAMINATION [code = 11/30/2021 of Medic ine 55257] Future Scheduled 2021-11-30 COVID-19 Vaccine (1) [facility] Test 10:20:28 [code = COVID-19 of Medicine Vaccine (1)] Future Scheduled 2021-11-30 Hepatitis C [facility] [employer] Test 10:20:28 screening of Medicine (procedure) [code = 202288476] Future Scheduled 2021-11-30 ZOSTER VACCINE (1 of [facility] Test 10:20:28 2) [code = ZOSTER of Medicin e VACCINE (1 of 2)] Future Scheduled 2021-11-30 Screening for [facility] [employer] Test 10:20:28 malignant neoplasm of Medici ne of breast (procedure) [code = 594490089] Future Scheduled 2021-11-30 MEDICARE AWV [facility] [employer] Test 10:20:28 (Subsequent) [code = of Medi cine MEDICARE AWV (Subsequent)] Future Scheduled 2021-11-30 FALL SCREEN [code = [employer] Test 10:20:28 FALL SCREEN] of Medicine Future Scheduled 2021-11-30 Screening for [facility] [employer] Test 10:20:28 malignant neoplasm of Medici ne of colon (procedure) [code = 269233490] Future Scheduled 2021-11-30 TETANUS SHOT (ADULT) [employer] Test 10:20:28 [code = TETANUS SHOT of Medi cine (ADULT)] Future Scheduled 2021-09-29 MEDICARE AWV [facility] [employer] Test 11:06:58 (Subsequent) [code = of Medi cine MEDICARE AWV (Subsequent)] Future Scheduled 2021-09-29 Hepatitis C [facility] [employer] Test 10:56:45 screening of Medicine (procedure) [code = 031921254] Future Scheduled 2021-09-29 ZOSTER VACCINE (1 of [employer] Test 10:56:45 2) [code = ZOSTER of Medicin e VACCINE (1 of 2)] Future Scheduled 2021-09-29 Screening for [facility] [employer] Test 10:56:45 malignant neoplasm of Medici ne of breast (procedure) [code = 202020064] Future Scheduled 2021-09-29 COVID-19 Vaccine (1) Postponed from [employer] Test 10:56:45 [code = COVID-19 1952 of Medicine Vaccine (1)] (Postpone Reason: Patient declined today) Future Scheduled 2021-09-29 FALL SCREEN [code = [employer] Test 10:56:45 FALL SCREEN] of Medicine Future Scheduled 2021-09-29 Screening for [facility] [employer] Test 10:56:45 malignant neoplasm of Medici ne of colon (procedure) [code = 308785063] Future Scheduled 2021-09-29 TETANUS SHOT (ADULT) [employer] Test 10:56:45 [code = TETANUS SHOT of Medi cine (ADULT)] Future Scheduled 2021-09-25 Screening for [facility] [employer] Test 10:39:57 malignant neoplasm of Medici ne of breast (procedure) [code = 173741575] Future Scheduled 2021-09-25 Hepatitis C [facility] [employer] Test 10:38:19 screening of Medicine (procedure) [code = 772149973] Future Scheduled 2021-09-25 ZOSTER VACCINE (1 of [facility] Test 10:38:19 2) [code = ZOSTER of Medicin e VACCINE (1 of 2)] Future Scheduled 2021-09-25 MEDICARE AWV [facility] [employer] Test 10:38:19 (Subsequent) [code = of Medi cine MEDICARE AWV (Subsequent)] Future Scheduled 2021-09-25 COVID-19 Vaccine (1) Postponed from [facility] [employer] Test 10:38:19 [code = COVID-19 1952 of Medicine Vaccine (1)] (Postpone Reason: Patient declined today) Future Scheduled 2021-09-25 FALL SCREEN [code = [employer] Test 10:38:19 FALL SCREEN] of Medicine Future Scheduled 2021-09-25 Screening for [facility] [employer] Test 10:38:19 malignant neoplasm of Medici ne of colon (procedure) [code = 220247931] Future Scheduled 2021-09-25 TETANUS SHOT (ADULT) [facility] Test 10:38:19 [code = TETANUS SHOT of Medi cine (ADULT)] Future Scheduled 2021-09-25 URINALYSIS, COMPLETE Ordered: [facility] Test 10:38:17 W/REFLEX TO CULTURE 09/25/2021 of Medic ine [code = 59145-6] Diagnostic Test 2021-09-25 MAMMO 3D SCREENING Expected: [facility] Pending 00:00:00 BILATERAL [code = 09/25/2021, of Medicin e 13122] Expires: 03/26/2023 Future Scheduled MAMMOGRAM EVERY 2 [facility] Test YEARS [code = of Medicine MAMMOGRAM EVERY 2 YEARS] Future Scheduled MEDICARE AWV [code = [employer] Test MEDICARE AWV] of Medicine Future Scheduled PNEUMOVAX >=65 [facility] [employer] Test (PPSV23) [code = of Medicine PNEUMOVAX >=65 (PPSV23)] Future Scheduled MEDICARE AWV [facility] [employer] Test (Subsequent) [code = of Medi cine MEDICARE AWV (Subsequent)] Future Scheduled FALL SCREEN [code = [employer] [facility] FALL SCREEN] of Medicine Future Scheduled COLON CANCER [facility] [employer] Test SCREENING: of Medicine COLONOSCOPY [code = COLON CANCER SCREENING: COLONOSCOPY] Future Scheduled TETANUS SHOT (ADULT) [facility] Test [code = TETANUS SHOT of Medi cine (ADULT)] Future Scheduled MAMMOGRAM EVERY 2 [facility] Test YEARS [code = of Medicine MAMMOGRAM EVERY 2 YEARS] Future Scheduled PNEUMOVAX >=65 [facility] [employer] Test (PPSV23) [code = of Medicine PNEUMOVAX >=65 (PPSV23)] Future Scheduled MEDICARE AWV [facility] [employer] Test (Subsequent) [code = of Medi cine MEDICARE AWV (Subsequent)] Future Scheduled FALL SCREEN [code = [employer] [facility] FALL SCREEN] of Medicine Future Scheduled COLON CANCER [facility] [employer] Test SCREENING: of Medicine COLONOSCOPY [code = COLON CANCER SCREENING: COLONOSCOPY] Future Scheduled TETANUS SHOT (ADULT) [employer] Test [code = TETANUS SHOT of Medi cine (ADULT)] Future Scheduled MAMMOGRAM EVERY 2 [facility] Test YEARS [code = of Medicine MAMMOGRAM EVERY 2 YEARS] Future Scheduled PNEUMOVAX >=65 [facility] [employer] Test (PPSV23) [code = of Medicine PNEUMOVAX >=65 (PPSV23)] Future Scheduled MEDICARE AWV [facility] [employer] Test (Subsequent) [code = of Medi cine MEDICARE AWV (Subsequent)] Future Scheduled FALL SCREEN [code = [employer] [facility] FALL SCREEN] of Medicine Future Scheduled COLON CANCER [facility] [employer] Test SCREENING: of Medicine COLONOSCOPY [code = COLON CANCER SCREENING: COLONOSCOPY] Future Scheduled TETANUS SHOT (ADULT) [employer] Test [code = TETANUS SHOT of Medi cine (ADULT)] Future Scheduled MAMMOGRAM EVERY 2 [facility] Test YEARS [code = of Medicine MAMMOGRAM EVERY 2 YEARS] Future Scheduled PNEUMOVAX >=65 [facility] [employer] Test (PPSV23) [code = of Medicine PNEUMOVAX >=65 (PPSV23)] Future Scheduled MEDICARE AWV [facility] [employer] Test (Subsequent) [code = of Medi cine MEDICARE AWV (Subsequent)] Future Scheduled FALL SCREEN [code = [employer] [facility] FALL SCREEN] of Medicine Future Scheduled COLON CANCER [facility] [employer] Test SCREENING: of Medicine COLONOSCOPY [code = COLON CANCER SCREENING: COLONOSCOPY] Future Scheduled TETANUS SHOT (ADULT) [employer] Test [code = TETANUS SHOT of Medi cine (ADULT)] Future Scheduled MAMMOGRAM EVERY 2 [facility] Test YEARS [code = of Medicine MAMMOGRAM EVERY 2 YEARS] Future Scheduled PNEUMOVAX >=65 [facility] [employer] Test (PPSV23) [code = of Medicine PNEUMOVAX >=65 (PPSV23)] Future Scheduled MEDICARE AWV [facility] [employer] Test (Subsequent) [code = of Medi cine MEDICARE AWV (Subsequent)] Future Scheduled FALL SCREEN [code = [employer] [facility] FALL SCREEN] of Medicine Future Scheduled COLON CANCER [facility] [employer] Test SCREENING: of Medicine COLONOSCOPY [code = COLON CANCER SCREENING: COLONOSCOPY] Future Scheduled TETANUS SHOT (ADULT) [employer] Test [code = TETANUS SHOT of Medi cine (ADULT)] Future Scheduled MAMMOGRAM EVERY 2 [facility] Test YEARS [code = of Medicine MAMMOGRAM EVERY 2 YEARS] Future Scheduled PNEUMOVAX >=65 [facility] [employer] Test (PPSV23) [code = of Medicine PNEUMOVAX >=65 (PPSV23)] Future Scheduled MEDICARE AWV [facility] [employer] Test (Subsequent) [code = of Medi cine MEDICARE AWV (Subsequent)] Future Scheduled FLU VACCINE > 6 [facility] Test MONTHS [code = FLU of Medici ne VACCINE > 6 MONTHS] Future Scheduled FALL SCREEN [code = [employer] [facility] FALL SCREEN] of Medicine Future Scheduled COLON CANCER [facility] [employer] Test SCREENING: of Medicine COLONOSCOPY [code = COLON CANCER SCREENING: COLONOSCOPY] Future Scheduled TETANUS SHOT (ADULT) [employer] Test [code = TETANUS SHOT of Medi cine (ADULT)] Future Scheduled OR DESTRUC Ordered: [facility] [employer] Test PREMALIGNANT, FIRST 04/22/2020 of Medic ine LESION(48359) [code = 59682] Future Scheduled MAMMOGRAM EVERY 2 [facility] Test YEARS [code = of Medicine MAMMOGRAM EVERY 2 YEARS] Future Scheduled PNEUMOVAX >=65 [facility] [employer] Test (PPSV23) [code = of Medicine PNEUMOVAX >=65 (PPSV23)] Future Scheduled MEDICARE AWV [facility] [employer] Test (Subsequent) [code = of Medi cine MEDICARE AWV (Subsequent)] Future Scheduled FLU VACCINE > 6 [facility] Test MONTHS [code = FLU of Medici ne VACCINE > 6 MONTHS] Future Scheduled FALL SCREEN [code = [employer] [facility] FALL SCREEN] of Medicine Future Scheduled COLON CANCER [facility] [employer] Test SCREENING: of Medicine COLONOSCOPY [code = COLON CANCER SCREENING: COLONOSCOPY] Future Scheduled TETANUS SHOT (ADULT) [employer] Test [code = TETANUS SHOT of Medi cine (ADULT)] Future Scheduled OR ESOPHAGEAL Ordered: [facility] [employer] [facility] MOTILITY STUDY, 06/02/2020 of Medicine MANOMETRY [code = 73287] Future Scheduled OR GERD TST W/ MUCOS Ordered: [facility] Test IMPEDE ELECTROD,>1HR 06/02/2020 of [email or web address] [code = 09964] Future Scheduled MAMMOGRAM EVERY 2 [facility] Test YEARS [code = of Medicine MAMMOGRAM EVERY 2 YEARS] Future Scheduled PNEUMOVAX >=65 [facility] [employer] Test (PPSV23) [code = of Medicine PNEUMOVAX >=65 (PPSV23)] Future Scheduled MEDICARE AWV [facility] [employer] Test (Subsequent) [code = of Medi cine MEDICARE AWV (Subsequent)] Future Scheduled FLU VACCINE > 6 [facility] [employer] Test MONTHS [code = FLU of Medici ne VACCINE > 6 MONTHS] Future Scheduled FALL SCREEN [code = [employer] [facility] FALL SCREEN] of Medicine Future Scheduled COLON CANCER [facility] [employer] Test SCREENING: of Medicine COLONOSCOPY [code = COLON CANCER SCREENING: COLONOSCOPY] Future Scheduled TETANUS SHOT (ADULT) [facility] Test [code = TETANUS SHOT of Medi [employer] (ADULT)] Future Scheduled MAMMOGRAM EVERY 2 [facility] Test YEARS [code = of Medicine MAMMOGRAM EVERY 2 YEARS] Future Scheduled PNEUMOVAX >=65 [facility] [employer] Test (PPSV23) [code = of Medicine PNEUMOVAX >=65 (PPSV23)] Future Scheduled MEDICARE AWV [facility] [employer] Test (Subsequent) [code = of Medi cine MEDICARE AWV (Subsequent)] Future Scheduled FLU VACCINE > 6 [facility] Test MONTHS [code = FLU of Medici ne VACCINE > 6 MONTHS] Future Scheduled FALL SCREEN [code = [employer] [facility] FALL SCREEN] of Medicine Future Scheduled COLON CANCER [facility] [employer] Test SCREENING: of Medicine COLONOSCOPY [code = COLON CANCER SCREENING: COLONOSCOPY] Future Scheduled TETANUS SHOT (ADULT) [employer] Test [code = TETANUS SHOT of Medi [employer] (ADULT)] Future Scheduled MAMMOGRAM EVERY 2 [facility] Test YEARS [code = of Medicine MAMMOGRAM EVERY 2 YEARS] Future Scheduled ZOSTER VACCINE (1 of [facility] Test 2) [code = ZOSTER of Medicin e VACCINE (1 of 2)] Future Scheduled PNEUMOVAX >=65 [facility] [employer] Test (PPSV23) [code = of Medicine PNEUMOVAX >=65 (PPSV23)] Future Scheduled MEDICARE V [facility] [employer] Test (Subsequent) [code = of Medi cine MEDICARE AWV (Subsequent)] Future Scheduled FLU VACCINE > 6 [facility] [employer] Test MONTHS [code = FLU of Medici ne VACCINE > 6 MONTHS] Future Scheduled FALL SCREEN [code = [employer] [facility] FALL SCREEN] of Medicine Future Scheduled COLON CANCER [facility] [employer] Test SCREENING: of Medicine COLONOSCOPY [code = COLON CANCER SCREENING: COLONOSCOPY] Future Scheduled TETANUS SHOT (ADULT) [employer] Test [code = TETANUS SHOT of Medi cine (ADULT)] Future Scheduled MAMMOGRAM EVERY 2 [facility] Test YEARS [code = of Medicine MAMMOGRAM EVERY 2 YEARS] Future Scheduled ZOSTER VACCINE (1 of [employer] Test 2) [code = ZOSTER of Medicin e VACCINE (1 of 2)] Future Scheduled PNEUMOVAX >=65 [facility] [employer] Test (PPSV23) [code = of Medicine PNEUMOVAX >=65 (PPSV23)] Future Scheduled MEDICARE AWV [facility] [employer] Test (Subsequent) [code = of Medi [employer] MEDICARE AWV (Subsequent)] Future Scheduled FLU VACCINE > 6 [facility] [employer] Test MONTHS [code = FLU of Medici ne VACCINE > 6 MONTHS] Future Scheduled FALL SCREEN [code = [employer] [facility] FALL SCREEN] of Medicine Future Scheduled COLON CANCER [facility] [employer] Test SCREENING: of Medicine COLONOSCOPY [code = COLON CANCER SCREENING: COLONOSCOPY] Future Scheduled TETANUS SHOT (ADULT) [employer] Test [code = TETANUS SHOT of Medi cine (ADULT)] Future Scheduled MAMMOGRAM EVERY 2 [facility] [employer] Test YEARS [code = of Medicine MAMMOGRAM EVERY 2 YEARS] Future Scheduled ZOSTER VACCINE (1 of [employer] Test 2) [code = ZOSTER of Medicin e VACCINE (1 of 2)] Future Scheduled PNEUMOVAX >=65 [facility] [employer] Test (PPSV23) [code = of Medicine PNEUMOVAX >=65 (PPSV23)] Future Scheduled MEDICARE AWV [facility] [employer] Test (Subsequent) [code = of Medi [employer] MEDICARE AWV (Subsequent)] Future Scheduled FLU VACCINE > 6 [facility] Test MONTHS [code = FLU of Medici ne VACCINE > 6 MONTHS] Future Scheduled FALL SCREEN [code = [employer] FALL SCREEN] of Medicine Future Scheduled COLON CANCER [facility] [employer] Test SCREENING: of Medicine COLONOSCOPY [code = COLON CANCER SCREENING: COLONOSCOPY] Future Scheduled TETANUS SHOT (ADULT) [employer] Test [code = TETANUS SHOT of Medi cine (ADULT)] Future Scheduled MAMMOGRAM EVERY 2 [facility] [employer] Test YEARS [code = of Medicine MAMMOGRAM EVERY 2 YEARS] Future Scheduled MEDICARE AWV [code = [employer] MEDICARE AWV] of Medicine Future Scheduled HEPATITIS C [facility] [employer] Test SCREENING [code = of Medicin e HEPATITIS C SCREENING] Future Scheduled ZOSTER VACCINE (1 of [employer] Test 2) [code = ZOSTER of Medicin e VACCINE (1 of 2)] Future Scheduled MAMMOGRAM EVERY 2 [facility] [employer] Test YEARS [code = of Medicine MAMMOGRAM EVERY 2 YEARS] Future Scheduled PNEUMOVAX >=65 [facility] [employer] Test (PPSV23) [code = of Medicine PNEUMOVAX >=65 (PPSV23)] Future Scheduled FALL SCREEN [code = [employer] FALL SCREEN] of Medicine Future Scheduled MEDICARE AWV [facility] [employer] Test (Subsequent) [code = of Medi cine MEDICARE AWV (Subsequent)] Future Scheduled COLON CANCER [facility] [employer] SCREENING: of Medicine COLONOSCOPY [code = COLON CANCER SCREENING: COLONOSCOPY] Future Scheduled TETANUS SHOT (ADULT) [employer] Test [code = TETANUS SHOT of Medi cine (ADULT)] Future Scheduled FLU VACCINE > 6 [facility] [employer] Test MONTHS [code = FLU of Medici ne VACCINE > 6 MONTHS] Future Scheduled FALL SCREEN [code = [employer] FALL SCREEN] of Medicine Future Scheduled HEPATITIS C [facility] [employer] Test SCREENING [code = of Medicin e HEPATITIS C SCREENING] Future Scheduled COLON CANCER [facility] [employer] SCREENING: of Medicine COLONOSCOPY [code = COLON CANCER SCREENING: COLONOSCOPY] Future Scheduled ZOSTER VACCINE (1 of [employer] Test 2) [code = ZOSTER of Medicin e VACCINE (1 of 2)] Future Scheduled MAMMOGRAM EVERY 2 [facility] [employer] Test YEARS [code = of Medicine MAMMOGRAM EVERY 2 YEARS] Future Scheduled FALL SCREEN [code = [employer] FALL SCREEN] of Medicine Future Scheduled MEDICARE AWV [facility] [employer] Test (Subsequent) [code = of Medi cine MEDICARE AWV (Subsequent)] Future Scheduled COLON CANCER [facility] [employer] SCREENING: of Medicine COLONOSCOPY [code = COLON CANCER SCREENING: COLONOSCOPY] Future Scheduled TETANUS SHOT (ADULT) [employer] Test [code = TETANUS SHOT of Medi cine (ADULT)] Future Scheduled TETANUS SHOT (ADULT) [employer] Test [code = TETANUS SHOT of Medi cine (ADULT)] Future Scheduled OR TANGENTIAL BIOPSY Ordered: [employer] Test SKIN SINGLE LESION 08/17/2019 of Medici ne [code = 53651] Future Scheduled OR DESTRUC Ordered: [facility] [employer] Test PREMALIGNANT, FIRST 08/17/2019 of Medic ine LESION(09125) [code = 92604] Future Scheduled OR DESTRUC Ordered: [facility] ege Test PREMALIGNANT,2-14 08/17/2019 of Medicin e LESIONS(94086) [code = 84068] Future Scheduled MAMMOGRAM EVERY 2 [facility] Test YEARS [code = of Medicine MAMMOGRAM EVERY 2 YEARS] Future Scheduled MEDICARE AWV [code = [place] [facility] Test MEDICARE AWV] of Medicine Future Scheduled PNEUMOVAX >=65 [facility] [employer] Test (PPSV23) [code = of Medicine PNEUMOVAX >=65 (PPSV23)] Future Scheduled FLU VACCINE > 6 [facility] [employer] Test MONTHS [code = FLU of Medici ne VACCINE > 6 MONTHS] Future Scheduled FALL SCREEN [code = [employer] FALL SCREEN] of Medicine Future Scheduled COLON CANCER [facility] [employer] Test SCREENING: of Medicine COLONOSCOPY [code = COLON CANCER SCREENING: COLONOSCOPY] Future Scheduled TETANUS SHOT (ADULT) [employer] Test [code = TETANUS SHOT of Medi cine (ADULT)] Future Scheduled FL ESOPHAGRAM 1 Occurrences [facility] llege Test COMPLETE [code = starting of Medicine 90677-3] 06/02/2020 until 12/03/2021 Future Scheduled XR CHEST PA AND 1 Occurrences [facility] [employer] Test LATERAL [code = starting of Medicine 55813-3] 09/14/2020 until 04/14/2021 Future Scheduled MRI LUMBAR SPINE WO 1 Occurrences [facility] Test CONTRAST [code = starting of Medicine 86454-8] 01/25/2020 until 08/25/2020 Encounters Start End Encounter Admission Attending Care Care Encounter Source Date/Time Date/Time Type Type Clinicians Facility Department ID 2021-09-06 Inpatient [facility] Surgery [id number] [facility] 06:45:31 OVIDIO 2021-09-06 [facility] [id number] [facility] 01:57:21 LUPE 2021-09-06 [facility] [id number] [facility] 01:34:27 LUPE 2021-12-26 2021-12-26 Office FAITH MACK JR. [id number] [facility] 10:57:18 13:45:50 Visit SHAAN AMBULATOR 350.1.13.21 College Y 0.2.7.2.686 of [id number] [facility] amanda 805 e 2021-12-13 2021-12-13 Outpatient [facility] [id number] Branch 00:00:00 00:00:00 [address] 2021-11-30 2021-11-30 Office FAITH FERNANDEZ 1.2.840.114 [id number] [facility] 10:13:06 15:33:21 Visit ANA PAULA AMBULATOR 350.1.13.21 College Y 0.2.7.2.686 of [id number] [facility] amanda 325 e 2021-11-16 2021-11-16 Outpatient NATASHA YOUNGBESS [facility] [id number] [facility] 00:00:00 00:00:00 JODI 2021-11-14 2021-11-14 Outpatient [facility] [id number] Branch 00:00:00 00:00:00 JENNIFER 026 Method i 2021-10-13 2021-10-13 Outpatient [facility] [id number] Branch 00:00:00 00:00:00 JENNIFER 807 Method i 2021-10-13 2021-10-13 Outpatient [facility] [id number] Branch 00:00:00 00:00:00 JENNIFER [address] 2021-09-29 2021-09-29 Office FAITH CARBONE 1.2.840.114 [id number] [facility] 09:35:11 11:10:25 Visit LOUIS AMBULATOR 350.1.13.21 College Y 0.2.7.2.686 of [id number] [facility] amanda 800 e 2021-09-25 2021-09-25 Office TONA, FAITH 1.2.840.114 [id number] [facility] 09:43:39 10:44:58 Visit LOUIS AMBULATOR 350.1.13.21 College Y 0.2.7.2.686 of [id number] [facility] amanda 800 e 2021-08-22 2021-08-22 Outpatient GUANAKO [facility] [id number] Branch 00:00:00 00:00:00 JENNIFER [address] 2021-06-13 2021-06-13 Outpatient RUFINO ACUÑA, [facility] [id number] [facility] 08:36:52 12:07:36 SHAAN Hilton e of Medicin e 2021-04-11 2021-04-11 Outpatient RUFINO ACUÑA, [facility] [id number] [facility] 08:19:37 16:01:41 SHAAN Hilton e of Medicin e 2021-04-03 2021-04-03 Outpatient NATASHA MACK [facility] [id number] SLE 00:00:00 00:00:00 MARQUAND 2020-09-14 2020-09-14 Office FAITH Vergara 1.2.840.114 [id number] [facility] 11:23:24 11:53:24 Visit Franchesca AMBULATOR 350.1.13.21 College Y 0.2.7.2.686 of [id number] [facility] amanda 300 e 2020-09-14 2020-09-14 Outpatient NATASHA VERGARA [facility] [id number] [facility] 00:00:00 00:00:00 FRANCHESCA 2020-09-08 2020-09-08 Office Inderjit [facility] 1.2.840.114 [id number] [facility] 12:58:44 15:34:31 Visit Ovidio AMBULATOR 350.1.13.21 College Y 0.2.7.2.686 of [id number] [facility] amanda 810 e 2020-08-25 2020-08-25 Outpatient EL [facility] [id number] [facility] 00:00:00 00:00:00 2020-08-22 2020-08-22 Outpatient [facility]H [facility] [id number] [facility] 00:00:00 00:00:00 2020-08-22 2020-08-22 Outpatient SLE [facility] [id number] [facility] 00:00:00 00:00:00 2020-08-18 2020-08-18 Outpatient [facility] [id number] Branch 00:00:00 00:00:[address] 2020-08-11 2020-08-11 Office Inderjit, BC 1.2.840.114 [id number] [facility] 12:10:11 16:41:00 Visit Ovidio AMBULATOR 350.1.13.21 College Y 0.2.7.2.686 of [id number] Medi amanda 810 e 2020-08-11 2020-08-11 Office Mack, BC 1.2.840.114 [id number] [facility] 10:54:07 11:24:07 Visit Shaan Ray AMBULATOR 350.1.13.21 College Y 0.2.7.2.686 of [id number] Medi amanda 800 e 2020-07-18 2020-07-18 [facility] [id number] [facility] 00:00:00 00:00:00 2020-07-18 2020-07-18 Outpatient EL SLE SLE [id number] [facility] 00:00:00 00:00:00 2020-07-18 2020-07-18 Outpatient [facility], [facility] [id number] Branch 00:00:00 00:00:00 JENNIFER [address] 2020-07-18 2020-07-18 Outpatient GUANAKO, [facility] [id number] Branch 00:00:00 00:00:[address] 2020-07-12 2020-07-12 Office Robert [facility] 1.2.840.114 [id number] [facility] 13:14:00 15:25:39 Visit Latricia jacinto AMBULATOR 350.1.13.21 College G Y 0.2.7.2.686 of [id number] Medi amanda 800 e 2020-06-23 2020-06-23 Office Inderjit, BC 1.2.840.114 [id number] [facility] 09:06:25 14:36:10 Visit Ovidio AMBULATOR 350.1.13.21 College Y 0.2.7.2.686 of [id number] Medi amanda 810 e 2020-06-23 2020-06-23 Office FAITH Cooper 1.2.840.114 [id number] 09:06:25 14:36:10 Visit Ovidio AMBULATOR 350.1.13.21 Y 0.2.7.2.686 [id number] 810 2020-06-02 2020-06-02 Office Robert ÁLVAREZM 1.2.840.114 [id number] [facility] 13:30:39 13:50:39 Visit es, Latricia AMBULATOR 350.1.13.21 College G Y 0.2.7.2.686 of [id number] Medi amanda 800 e 2020-06-02 2020-06-02 Office Robert BCM 1.2.840.114 [id number] 13:30:39 13:50:39 Visit es, Latricia AMBULATOR 350.1.13.21 G Y 0.2.7.2.686 [id number] 800 2020-04-22 2020-04-22 Office FAITH Hall 1.2.840.114 [id number] [facility] 07:04:14 07:45:18 Visit Fareed AMBULATOR 350.1.13.21 College Y 0.2.7.2.686 of [id number] Medi amanda 300 e 2020-04-22 2020-04-22 Office Rafael, BCHiwot 1.2.840.114 [id number] 07:04:14 07:45:18 Visit Fareed AMBULATOR 350.1.13.21 Y 0.2.7.2.686 [id number] 300 2020-04-15 2020-04-15 Office Rufino Shaannancy Parry [facility] 1.2.840. 114 [id number] [facility] 07:37:25 08:07:25 Visit C-Arm, Pmr Siemens AMBULATOR 350.1.13. 21 College Y 0.2.7.2.686 of [id number] Medi amanda 800 e 2020-04-15 2020-04-15 Office Rufino Shaannancy Parry BCM 1.2.840. 114 [id number] 07:37:25 08:07:25 Visit C-Arm, Pmr Siemens AMBULATOR 350.1.13. 21 Y 0.2.7.2.686 [id number] 800 2020-02-02 2020-02-02 Office Josue Mckay 1.2.840.114 [id number] [facility] 10:52:33 12:11:24 Visit AMBULATOR 350.1.13.21 College Y 0.2.7.2.686 of [id number] Medi amanda 800 e 2020-02-02 2020-02-02 Office Josue Mckay 1.2.840.114 [id number] 10:52:33 12:11:24 Visit AMBULATOR 350.1.13.21 Y 0.2.7.2.686 [id number] 800 2020-01-25 2020-01-25 Office Josue Mckay 1.2.840.114 [id number] [facility] 08:56:32 09:16:32 Visit AMBULATOR 350.1.13.21 College Y 0.2.7.2.686 of [id number] Medi amanda 800 e 2020-01-25 2020-01-25 Office Josue Mckay PREETIHiwot 1.2.840.114 [id number] 08:56:32 09:16:32 Visit AMBULATOR 350.1.13.21 Y 0.2.7.2.686 [id number] 800 2020-01-11 2020-01-11 Office FAITH Walters 1.2.840.[id number] [place] [address] 12:32:36 13:02:36 Visit Suneal K AMBULATOR 350.1.13.21 College Y 0.2.7.2.686 of [id number] Medi amanda 325 e 2020-01-11 2020-01-11 Office FAITH Walters 1.2.840.114 [id number] [facility] 12:32:36 13:02:36 Visit Suneal K AMBULATOR 350.1.13.21 Y 0.2.7.2.686 [id number] 325 2020-01-04 2020-01-04 Office FAITH Shah 1.2.840.[id number] [place] [address] 08:14:41 16:09:42 Visit Aisha AMBULATOR 350.1.13.21 College Y 0.2.7.2.686 of [id number] Medi amanda 300 e 2020-01-04 2020-01-04 Office SusanFAITH castro 1.2.840.114 [id number] 08:14:41 16:09:42 Visit Aisha AMBULATOR 350.1.13.21 Y 0.2.7.2.686 [id number] 300 2019-12-25 2019-12-25 Office Josue Mckay 1.2.840.114 [id number] [facility] 10:20:12 11:35:16 Visit AMBULATOR 350.1.13.21 College Y 0.2.7.2.686 of [id number] Medi amanda 800 e 2019-12-25 2019-12-25 Office Josue Mckay 1.2.840.114 [id number] 10:20:12 11:35:16 Visit AMBULATOR 350.1.13.21 Y 0.2.7.2.686 [id number] 800 2019-08-17 2019-08-17 Office FAITH Hall 1.2.840.[id number] [place] [address] 12:51:13 13:06:13 Visit Fareed AMBULATOR 350.1.13.21 College Y 0.2.7.2.686 of [id number] Medi amanda 300 e 2019-08-17 2019-08-17 Office FAITH Hall 1.2.840.114 [id number] 12:51:13 13:06:13 Visit Fareed AMBULATOR 350.1.13.21 Y 0.2.7.2.686 [id number] 300 2019-07-24 2019-07-24 Office FAITH Mcdonald 1.2.840.[id number] [place] [address] 10:29:15 12:54:50 Visit Wilberto AMBULATOR 350.1.13.21 College [place] Y 0.2.7.2.686 of [id number] Medi amanda 800 e 2019-07-24 2019-07-24 Office FAITH Mcdonald 1.2.840.114 [id number] 10:29:15 12:54:50 Visit Wilberto AMBULATOR 350.1.13.21 [place] Y 0.2.7.2.686 [id number] 800 2017-07-11 2017-07-11 Outpatient EL [facility] [id number] [facility] 00:00:00 00:00:00 Results Test Description Test Time Test Comments Results Result Comments Source POCT URINALYSIS DIPSTICK 2021-09-25 00:00:00 Test Item Value Reference Range Interpretation Comme nts COLOR UA (test code = 5778-6) Ashley YELLOW/STRAW CLARITY UA (test code = 47419-0) Clear CLEAR GLUCOSE UA (test code = 5792-7) Negative NEGATIVE BILIRUBIN UA (test code = 5770-3) Negative NEGATIVE KETONES UA (test code = 60730-6) Negative NEGATIVE SPECIFIC GRAVITY UA (test code = 5811-5) 1.005-1.035 BLOOD UA (test code = 5794-3) Negative NEGATIVE PH UA (test code = 5803-2) 5.0-9.0 PROTEIN UA (test code = 5804-0) Negative NEGATIVE UROBILINOGEN UA (test code = 5818-0) 0.2 E.U./dL NORMAL MG/DL LEUKOCYTE ESTERASE UA (test code = 5799-2) Negative NEGATIVE NITRITE UA (test code = 5802-4) Negative NEGATIVE REDUCING SUBSTANCES URINE (test code = 75924-4) [facility], WITHOUT [id number] 07:36:00 Unlisted Reason for Exam - Click Yes and Enter Reason Below->Yes Unlisted Reason for Exam->SCOLIOSIS AND KYPHOSCOLIOSIS IDIOPATHIC, OSTEOPOROSIS Anesthesia:->None Deos the patient have an implanted electronic device?->[facility] : 1940 Sex: FFINAL REPORT MR, SPINE, LUMBAR, WITHOUT CONTRAST INDICATION: Unlisted Reason for ExamSCOLIOSIS AND KYPHOSCOLIOSIS IDIOPATHIC, OSTEOPOROSIS COMPARISON: December 05, 2018 TECHNIQUE: Multiplanar, multisequence MR images of the lumbar spine without contrast. FINDINGS: Numbering: Last fully formed disc space is designated L5-S1. Spinal cord: The conus medullaris is normalis size, signal intensity, and position, terminating at the L1 level. Osseous structures: Redemonstration of severe levoscoliotic curvature and chronic anterior height loss at the T12 vertebral body.Compensatory degenerative endplate and facet changes at resulted and are similar in appearance to the prior examination. No vertebral body height is preserved in the lumbar spine. Pseudarthrosis is deve loping in multiple spinous process levels. No aggressive osseous lesions are identified. Discs: There is multilevel disc dessication with associated loss of disc space height. Evaluation of the individual levels demonstrates: L1/L2: Broad disc protrusion without canal narrowing. Severe right foraminal stenosis. L2/L3: No canal narrowing. Facet hypertrophy. Severe right foraminal stenosis. L3/L4: Mild canal narrowing as a consequence of ligamentous redundancy and facet hypertrophy. Severe bilateralforaminal stenosis. L4/L5: No canal narrowing. Advanced degenerative changes in the facet joints. Severe left and moderate to severe right foraminal narrowing. L5/S1: Bilateral spondylolysis and grade 1 spondylolisthesis. Pseudobulge of subluxation without canal narrowing. Severe left and moderate right foraminal narrowing. Paraspinal soft tissues: Marked asymmetric deconditioning of the posterior paraspinal musculature. Hydronephrosis is moderate to severe on the right. Cystic changes in the left ki dney are incompletely viewed. Aortic caliber is within normal limits. IMPRESSION: Advanced degenerative changes and scoliotic deformity without significant interval change from the prior examination. Moderate to severe right hydronephrosis, incompletely characterized. Signed: JR Mason Robert MDReport Verified Date/Time: 04/04/2021 07:36:06 Reading Location: [facility] C013V Neuro Reading Room RAD, CHEST, 2 [id number] 13:36:00Left upper chest wall pain [id number] for Exam:->Neck pain on left side; left-sided chest wall pain [facility] : 1940 Sex: FFINAL REPORT EXAMINATION: PA and lateral views of the chest. JEREMIAH RISON: August 29, 2020 CLINICAL HISTORY: Left-sided chest wall pain DISCUSSION: Lines/tubes: None. Lungs: The lungs are well inflated and clear. No pneumonia or pulmonary edema. Pleura: No pleural effusion or pneumothorax. Heart and mediastinum: The cardiomediastinal silhouette is normal. Bones and soft tissues: No acute bony abnormalities. Focal kyphosis at the thoracolumbar junction. IMPRESSION: No acute cardiopulmonary abnormalities. Signed: Jeremy Paige MDReport Verified Date/Time: 09/14/2020 13:36:14 Reading Location: [facility] Reading Room [address] [place] [address] [facility] [id number] 11:11:00Surgical Pathology Report Case: [id number] Authorizing Provider: Ovidio Cooper MD Collected: 08/26/2020 11:31 AM Ordering Location: [facility] Received: 08/26/2020 01:02 PM PERIOPERATIVE SERVICES Pathologist: Naomy Coelho MD Specimen: Gastrostomy, LEFT WEDGE GASTRECTOMY A. STOMACH, WEDGEGASTRECTOMY: - OXYNTIC MUCOSA WITH NO SIGNIFICANT DIAGNOSTIC ALTERATION. - NEGATIVE FOR HELICOBACTER PYLORI ORGANISMS (BY H&E EXAMINATION). - NEGATIVE FOR INTESTINAL METAPLASIA, DYSPLASIA, MALIGNANCY. Signing Pathologist Direct Phone Line: [phone] signed by Naomy Coelho MD on 08/31/2020 at 11:11 [id number] diagnosis: Gastroesophageal reflux disease, esophagitis presence not specified, hiatal hernia, esophagitis. GastrostomyReceived in formalin labeled with the patient's name, accession number and "left wedge gastrectomy" are two unoriented stomach wedges that range from 2.5 to 4.5 cm in greatest dimension. The serosa is soto-pink, smooth to shaggy and hyperemic. The specimen is opened to reveal a soto-pink mucosa that displays normal rugal folds. No discrete lesions are identified. Inverter And Clipper sections are submitted in A1-A2. PA/pl Performed.[facility], Department of Pathology, [address] [place] [address], [facility] of [facility], [address] [place] [address], [facility], Department of [facility], [address] [place] [address], DMP, CHEST, 1 VIEW, NON DEPT 2020-08-29 02:22:00Reason for exam:->s/p hiatal hernia repairShould this be performed at the bedside?->YesFINAL REPORT RAD, CHEST, 1 VIEW, NON DEPT INDICATION: s/p hiatal hernia repair COMPARISON: August 28, 2020 FINDINGS: Portable frontal view of the chest. IMPRESSION: SupportLines: No significant change. Lungs and pleura: Reduced interstitial opacities and stable small bilateral pleural effusions and basilar atelectasis. No pneumothorax.Heart and mediastinum: Stable contours. Additional findings: None. Signed: Dereck Barragan MDReport Verified Date/Time: 08/29/2020 02:22:19 [id number] 02:03:00 Test Item Value Reference Range Interpretation Comments MAGNESIUM (BEAKER) (test code = 2.2 mg/dL 1.6-2.6 627) Internal Control Consultant ID - PIAYA LBASIC METABOLIC [id number] 02:03:00 Test Item Value Reference Range Interpretation Comments SODIUM (BEAKER) 138 meq/L 136-145 (test code = 381) POTASSIUM (BEAKER) 3.6 meq/L 3.5-5.1 (test code = 379) CHLORIDE (BEAKER) 105 meq/L 98-107 (test code = 382) CO2 (BEAKER) (test 22 meq/L 22-29 code = 355) BLOOD UREA NITROGEN 7 mg/dL 7-21 (BEAKER) (test code = 354) CREATININE (BEAKER) 0.62 mg/dL 0.57-1.25 (test code = 358) GLUCOSE RANDOM 107 mg/dL 70-105 H (BEAKER) (test code = 652) CALCIUM (BEAKER) 8.2 mg/dL 8.4-10.2 L (test code = 697) EGFR (BEAKER) (test 93 mL/min/1.73 ESTIMA DOMINICK GFR IS code = 1092) sq m NOT ACCURATE CREATININE CLEARANCE IN PREDICTING GLOMERULAR FILTRATION RATE . ESTIMATED GFR I S NOT APPLICABLE FOR DIALYSIS PATIEN TS. Internal Control Consultant ID - PIAYA LCBC W/PLT COUNT & AUTO [id number] 01:49:00 Test Item Value Reference Range Interpretation Comments WHITE BLOOD CELL COUNT (BEAKER) 9.6 K/ L 3.5-10.5 (test code = 775) RED BLOOD CELL COUNT (BEAKER) 4.74 M/ L 3.93-5.22 (test code = 761) HEMOGLOBIN (BEAKER) (test code = 10.1 GM/DL 11.2-15.7 L 410) HEMATOCRIT (BEAKER) (test code = 34.8 % 34.1-44.9 411) MEAN CORPUSCULAR VOLUME (BEAKER) 73.4 fL 79.4-94.8 L (test code = 753) MEAN CORPUSCULAR HEMOGLOBIN 21.3 pg 25.6-32.2 L (BEAKER) (test code = 751) MEAN CORPUSCULAR HEMOGLOBIN CONC 29.0 GM/DL 32.2-35.5 L (BEAKER) (test code = 752) RED CELL DISTRIBUTION WIDTH 21.3 % 11.7-14.4 H (BEAKER) (test code = 412) PLATELET COUNT (BEAKER) (test 244 K/CU MM 150-450 code = 756) MEAN PLATELET VOLUME (BEAKER) 10.4 fL 9.4-12.3 (test code = 754) NUCLEATED RED BLOOD CELLS 0 /100 WBC 0-0 (BEAKER) (test code = 413) NEUTROPHILS RELATIVE PERCENT 63 % (BEAKER) (test code = 429) LYMPHOCYTES RELATIVE PERCENT 21 % (BEAKER) (test code = 430) MONOCYTES RELATIVE PERCENT 13 % (BEAKER) (test code = 431) EOSINOPHILS RELATIVE PERCENT 2 % (BEAKER) (test code = 432) BASOPHILS RELATIVE PERCENT 0 % (BEAKER) (test code = 437) NEUTROPHILS ABSOLUTE COUNT 6.10 K/ L 1.56-6.13 (BEAKER) (test code = 670) LYMPHOCYTES ABSOLUTE COUNT 2.02 K/ L 1.18-3.74 (BEAKER) (test code = 414) MONOCYTES ABSOLUTE COUNT (BEAKER) 1.20 K/ L 0.24-0.36 H (test code = 415) EOSINOPHILS ABSOLUTE COUNT 0.23 K/ L 0.04-0.36 (BEAKER) (test code = 416) BASOPHILS ABSOLUTE COUNT (BEAKER) 0.03 K/ L 0.01-0.08 (test code = 417) IMMATURE GRANULOCYTES-RELATIVE 0 % 0-1 PERCENT (BEAKER) (test code = 2801) POCT-GLUCOSE [id number] 00:29:00 Test Item Value Reference Range Interpretation Comments POC-GLUCOSE METER 88 mg/dL 70-110 : TESTED A T [facility] 6720 (BEAKER) (test code = [facility], 1538) [address]159: Internal Control Consultant/Techni marysol ID = [id number] for RAGL AND, RITA POCT-GLUCOSE [id number] 13:20:00 Test Item Value Reference Range Interpretation Comments POC-GLUCOSE METER 95 mg/dL 70-110 : TESTED A T [facility] 6720 (BEAKER) (test code = [facility] [employer] [facility], 1538) [address]: Internal Control Consultant/Techni marysol ID = [id number] for Amus a, [place], [id number] 10:20:00Reason for exam:->s/p hiatal hernia repairpls perform before noonFINAL REPORT ESOPHAGRAM HISTORY: Status post hiatal hernia repair COMPARISON:No comparison imaging of the esophagus or stomach is available TECHNIQUE: Examination was performed using water-soluble Gastrografin contrast. Spot images of the distal esophagus were obtained in multiple projections. FINDINGS: No esophageal leak was identified. No leak was identified at the esophagogastric junction at the level of the hiatal hernia repair. There was some retention of contrast proximal to the hernia repair, with intermittent flow of contrast through the esophagogastric junction, which can be normal this soon after surgical repair. There were a few nonspecific tertiary contractions in the esophagus. No aspiration was observed. Fluoroscopy time: 1.9 minutes Fluoroscopic images: 25IMPRESSION: No evidence of a leak. Signed: Hanh Smith Verified Date/Time: 08/28/2020 10:20:06 Reading Location: [address] Transitional Reading Room POCT-GLUCOSE [id number] 05:56:00 Test Item Value Reference Range Interpretation Comments POC-GLUCOSE METER 77 mg/dL 70-110 : TESTED A T [facility] 6720 (BEAKER) (test code = JUDERYLEY Fu [facility], 1538) [address]: Internal Control Consultant/Techni marysol ID = [id number] for UEMA RU, CARLOS RAD, CHEST, 1 VIEW, NON [id number] 03:22:00Reason for exam:->s/p hiatal hernia repairShould this be performed at the bedside?->YesFINAL REPORT RAD, CHEST, 1 VIEW, NON DEPT INDICATION: s/p hiatal hernia repair COMPARISON: Prior day's exam FINDINGS: Portable frontal view of the chest. IMPRESSION: Support Lines: Interval removal of enteric tube. Lungs and pleura: Unchanged airspace and pleural opacities. No pneumothorax.Heart and mediastinum: Stable contours. Additional findings: None. Signed: Dereck Barraganort Verified Date/Time: 08/28/2020 03:22:45 BASIC METABOLIC [id number] 03:09:00 Test Item Value Reference Range Interpretation Comments SODIUM (BEAKER) 135 meq/L 136-145 L (test code = 381) POTASSIUM (BEAKER) 4.2 meq/L 3.5-5.1 Specimen slightly (test code = 379) hemolyzed CHLORIDE (BEAKER) 106 meq/L 98-107 (test code = 382) CO2 (BEAKER) (test 21 meq/L 22-29 L code = 355) BLOOD UREA NITROGEN 11 mg/dL 7-21 (BEAKER) (test code = 354) CREATININE (BEAKER) 0.57 mg/dL 0.57-1.25 Specimen slightly (test code = 358) hemolyzed GLUCOSE RANDOM 76 mg/dL 70-105 (BEAKER) (test code = 652) CALCIUM (BEAKER) 7.6 mg/dL 8.4-10.2 L (test code = 697) EGFR (BEAKER) (test 103 mL/min/1.73 ESTIM ATED GFR IS code = 1092) sq m NOT ACCURATE CREATININE CLEARANCE IN PREDICTING GLOMERULAR FILTRATION RATE . ESTIMATED GFR I S NOT APPLICABLE FOR DIALYSIS PATIEN TS. Internal Control Consultant ID - PIAYA [id number] 02:55:00 Test Item Value Reference Range Interpretation Comments MAGNESIUM (BEAKER) 2.2 mg/dL 1.6-2.6 Specimen slightly (test code = 627) hemolyzed Internal Control Consultant ID - PIAYA LCBC W/PLT COUNT & AUTO [id number] 02:29:00 Test Item Value Reference Range Interpretation Comments WHITE BLOOD CELL COUNT (BEAKER) 10.9 K/ L 3.5-10.5 H (test code = 775) RED BLOOD CELL COUNT (BEAKER) 4.18 M/ L 3.93-5.22 (test code = 761) HEMOGLOBIN (BEAKER) (test code = 8.9 GM/DL 11.2-15.7 L 410) HEMATOCRIT (BEAKER) (test code = 30.4 % 34.1-44.9 L 411) MEAN CORPUSCULAR VOLUME (BEAKER) 72.7 fL 79.4-94.8 L (test code = 753) MEAN CORPUSCULAR HEMOGLOBIN 21.3 pg 25.6-32.2 L (BEAKER) (test code = 751) MEAN CORPUSCULAR HEMOGLOBIN CONC 29.3 GM/DL 32.2-35.5 L (BEAKER) (test code = 752) RED CELL DISTRIBUTION WIDTH 21.3 % 11.7-14.4 H (BEAKER) (test code = 412) PLATELET COUNT (BEAKER) (test 192 K/CU MM 150-450 code = 756) MEAN PLATELET VOLUME (BEAKER) 10.3 fL 9.4-12.3 (test code = 754) NUCLEATED RED BLOOD CELLS 0 /100 WBC 0-0 (BEAKER) (test code = 413) NEUTROPHILS RELATIVE PERCENT 75 % (BEAKER) (test code = 429) LYMPHOCYTES RELATIVE PERCENT 12 % (BEAKER) (test code = 430) MONOCYTES RELATIVE PERCENT 12 % (BEAKER) (test code = 431) EOSINOPHILS RELATIVE PERCENT 1 % (BEAKER) (test code = 432) BASOPHILS RELATIVE PERCENT 0 % (BEAKER) (test code = 437) NEUTROPHILS ABSOLUTE COUNT 8.17 K/ L 1.56-6.13 H (BEAKER) (test code = 670) LYMPHOCYTES ABSOLUTE COUNT 1.31 K/ L 1.18-3.74 (BEAKER) (test code = 414) MONOCYTES ABSOLUTE COUNT (BEAKER) 1.30 K/ L 0.24-0.36 H (test code = 415) EOSINOPHILS ABSOLUTE COUNT 0.05 K/ L 0.04-0.36 (BEAKER) (test code = 416) BASOPHILS ABSOLUTE COUNT (BEAKER) 0.03 K/ L 0.01-0.08 (test code = 417) IMMATURE GRANULOCYTES-RELATIVE 0 % 0-1 PERCENT (BEAKER) (test code = 2801) POCT-GLUCOSE [id number] 00:01:00 Test Item Value Reference Range Interpretation Comments POC-GLUCOSE METER 88 mg/dL 70-110 : TESTED A T [facility] 6720 (BEAKER) (test code = [facility], 1538) [id number]: Internal Control Consultant/Techni marysol ID = [id number] for NANCY PAGEI POCT-GLUCOSE [id number] 18:06:00 Test Item Value Reference Range Interpretation Comments POC-GLUCOSE METER 97 mg/dL 70-110 : TESTED A T [facility] 6720 (BEAKER) (test code = [facility], 153) [id number]: Internal Control Consultant/Techni marysol ID = [id number] for CAPRICE RUTH RAD, CHEST, 1 VIEW, NON [id number] 12:19:00Reason for exam:->CT removal FINAL REPORT History: Status post chest tube removal Comparison: 2020 at 0234 hours Findings: Interval removal of the left- sided chest tube. No definite left pneumothorax.Skin folds overlie the chest bilaterally. Mild bibasilar pulmonary opacities are unchanged in appearance and likely represent subsegmental atelectasis or pneumonitis. Minimal left pleural effusion. Cardiac shadow normal in size. Nasogastric tube passes below the diaphragm, with the tip not imaged. Signed: Hanh Smith MDReport Verified Date/Time: 2020 12:19:05 Reading Location: [address] Transitional Reading Room POCT-GLUCOSE [id number] 12:18:00 Test Item Value Reference Range Interpretation Comments POC-GLUCOSE METER 93 mg/dL 70-110 : TESTED A T [facility] ([facility] (test code = BIBI Fu [facility], 1538) [id number]: Internal Control Consultant/Techni marysol ID = [id number] for CAPRICE RUTH CBC W/PLT COUNT & AUTO [id number] 07:52:00 Test Item Value Reference Range Interpretation Comments WHITE BLOOD CELL COUNT (BEAKER) 12.9 K/ L 3.5-10.5 H (test code = 775) RED BLOOD CELL COUNT (BEAKER) 4.32 M/ L 3.93-5.22 (test code = 761) HEMOGLOBIN (BEAKER) (test code = 9.2 GM/DL 11.2-15.7 L 410) HEMATOCRIT (BEAKER) (test code = 31.2 % 34.1-44.9 L 411) MEAN CORPUSCULAR VOLUME (BEAKER) 72.2 fL 79.4-94.8 L (test code = 753) MEAN CORPUSCULAR HEMOGLOBIN 21.3 pg 25.6-32.2 L (BEAKER) (test code = 751) MEAN CORPUSCULAR HEMOGLOBIN CONC 29.5 GM/DL 32.2-35.5 L (BEAKER) (test code = 752) RED CELL DISTRIBUTION WIDTH 21.3 % 11.7-14.4 H (BEAKER) (test code = 412) PLATELET COUNT (BEAKER) (test 227 K/CU MM 150-450 code = 756) MEAN PLATELET VOLUME (BEAKER) 10.2 fL 9.4-12.3 (test code = 754) NUCLEATED RED BLOOD CELLS 0 /100 WBC 0-0 (BEAKER) (test code = 413) (CELLAVISION MANUAL DIFF)2020 07:52:00 Test Item Value Reference Range Interpretation Comments NEUTROPHILS - REL 80 % (CELLAVISION)(BEAKER) (test code = 2816) LYMPHOCYTES - REL 8 % (CELLAVISION)(BEAKER) (test code = 2817) MONOCYTES - REL 7 % (CELLAVISION)(BEAKER) (test code = 2818) BANDS - REL (CELLAVISION)(BEAKER) 5 % 0-10 (test code = 2826) NEUTROPHILS - ABS 10.32 K/ul 1.56-6.13 H (CELLAVISION)(BEAKER) (test code = 2830) LYMPHOCYTES - ABS 1.03 K/ul 1.18-3.74 L (CELLAVISION)(BEAKER) (test code = 2831) MONOCYTES - ABS 0.90 K/uL 0.24-0.36 H (CELLAVISION)(BEAKER) (test code = 2832) BANDS - ABS (CELLAVISION)(BEAKER) 0.65 K/uL 0.00-0.80 (test code = 2840) TOTAL COUNTED (BEAKER) (test code 100 = 1351) WBC MORPHOLOGY (BEAKER) (test Normal code = 487) GIANT PLATELETS (BEAKER) (test Present code = 313) LARGE PLT(BEAKER) (test code = Present 2156) HYPOCHROMIA (BEAKER) (test code = 1+ few 963) ANISOCYTOSIS (BEAKER) (test code 2+ moderate = 961) MICROCYTES (BEAKER) (test code = 2+ moderate 965) MACROCYTES (BEAKER) (test code = 1+ few 964) POIKILOCYTES (BEAKER) (test code 1+ few = 966) ELLIPTOCYTES (BEAKER) (test code 1+ few = 962) OVALOCYTES (BEAKER) (test code = 1+ few 477) ARTIFACT (CELLAVISION)(BEAKER) Present (test code = 3432) PLATELET CONCENTRATION Adequate (CELLAVISION)(BEAKER) (test code = 3438) Internal Control Consultant ID - Maite Stanford comments: Slide comments:BASIC METABOLIC PANEL 2020 06:35:00 Test Item Value Reference Range Interpretation Comments SODIUM (BEAKER) 138 meq/L 136-145 (test code = 381) POTASSIUM (BEAKER) 4.6 meq/L 3.5-5.1 Specimen slightly (test code = 379) hemolyzed CHLORIDE (BEAKER) 107 meq/L 98-107 (test code = 382) CO2 (BEAKER) (test 25 meq/L 22-29 code = 355) BLOOD UREA NITROGEN 14 mg/dL 7-21 (BEAKER) (test code = 354) CREATININE (BEAKER) 0.64 mg/dL 0.57-1.25 Specimen slightly (test code = 358) hemolyzed GLUCOSE RANDOM 88 mg/dL 70-105 (BEAKER) (test code = 652) CALCIUM (BEAKER) 7.4 mg/dL 8.4-10.2 L (test code = 697) EGFR (BEAKER) (test 90 mL/min/1.73 ESTIMA DOMINICK GFR IS code = 1092) sq m NOT ACCURATE CREATININE CLEARANCE IN PREDICTING GLOMERULAR FILTRATION RATE . ESTIMATED GFR I S NOT APPLICABLE FOR DIALYSIS PATIEN TS. Internal Control Consultant ID - [id number] 06:07:00 Test Item Value Reference Range Interpretation Comments MAGNESIUM (BEAKER) 2.5 mg/dL 1.6-2.6 Specimen slightly (test code = 627) hemolyzed Internal Control Consultant ID - EDASIPOCT-GLUCOSE [id number] 05:55:00 Test Item Value Reference Range Interpretation Comments POC-GLUCOSE METER 81 mg/dL 70-110 : TESTED A T [facility] 67[address] (BEAKER) (test code = [place], 1538) [id number]: Internal Control Consultant/Techni marysol ID = [id number] for CHUYITA FRASER RAD, CHEST, 1 VIEW, NON [id number] 04:34:00Reason for exam:->s/p hiatal hernia repairShould this be performed at the bedside?->YesFINAL REPORT RAD, CHEST, 1 VIEW, NON DEPT INDICATION: s/p hiatal hernia repair COMPARISON: 13 hours prior. FINDINGS: Portable frontal view of the chest. IMPRESSION: Support Lines: No significant change. Lungs and pleura: Unchanged airspace and pleural opacities. No pneumothorax.Heart and mediastinum: Stable contours. Additional findings: None. Signed: Dereck Barragan MDReport Verified Date/Time: 2020 04:34:21 POCT-GLUCOSE [id number] 23:58:00 Test Item Value Reference Range Interpretation Comments POC-GLUCOSE METER 110 mg/dL 70-110 : TESTED A T [facility] 6720 (BEAKER) (test code = [facility] [employer] [facility], 1538) [id number]: Internal Control Consultant/Techni marysol ID = [id number] for CHUYITA GRANDE POCT-GLUCOSE [id number] 19:38:00 Test Item Value Reference Range Interpretation Comments POC-GLUCOSE METER 108 mg/dL 70-110 : TESTED A T [facility] 6720 (BEAKER) (test code = [facility] [employer] [facility], 1538) [id number]: Internal Control Consultant/Techni marysol ID = [id number] for CHUYITA GRANDE BASIC METABOLIC [id number] 14:29:00 Test Item Value Reference Range Interpretation Comments SODIUM (BEAKER) 138 meq/L 136-145 (test code = 381) POTASSIUM (BEAKER) 4.4 meq/L 3.5-5.1 (test code = 379) CHLORIDE (BEAKER) 109 meq/L 98-107 H (test code = 382) CO2 (BEAKER) (test 24 meq/L 22-29 code = 355) BLOOD UREA NITROGEN 16 mg/dL 7-21 (BEAKER) (test code = 354) CREATININE (BEAKER) 0.81 mg/dL 0.57-1.25 (test code = 358) GLUCOSE RANDOM 156 mg/dL 70-105 H (BEAKER) (test code = 652) CALCIUM (BEAKER) 7.2 mg/dL 8.4-10.2 L (test code = 697) EGFR (BEAKER) (test 69 mL/min/1.73 ESTIMA DOMINICK GFR IS code = 1092) sq m NOT ACCURATE CREATININE CLEARANCE IN PREDICTING GLOMERULAR FILTRATION RATE . ESTIMATED GFR I S NOT APPLICABLE FOR DIALYSIS PATIEN TS. Internal Control Consultant ID - KOTA [id number] 14:13:00 Test Item Value Reference Range Interpretation Comments MAGNESIUM (BEAKER) (test code = 1.8 mg/dL 1.6-2.6 627) Internal Control Consultant ID - KOTA CCBC W/PLT COUNT & AUTO [id number] 13:55:00 Test Item Value Reference Range Interpretation Comments WHITE BLOOD CELL COUNT (BEAKER) 14.9 K/ L 3.5-10.5 H (test code = 775) RED BLOOD CELL COUNT (BEAKER) 4.22 M/ L 3.93-5.22 (test code = 761) HEMOGLOBIN (BEAKER) (test code = 9.3 GM/DL 11.2-15.7 L 410) HEMATOCRIT (BEAKER) (test code = 31.3 % 34.1-44.9 L 411) MEAN CORPUSCULAR VOLUME (BEAKER) 74.2 fL 79.4-94.8 L (test code = 753) MEAN CORPUSCULAR HEMOGLOBIN 22.0 pg 25.6-32.2 L (BEAKER) (test code = 751) MEAN CORPUSCULAR HEMOGLOBIN CONC 29.7 GM/DL 32.2-35.5 L (BEAKER) (test code = 752) RED CELL DISTRIBUTION WIDTH 21.3 % 11.7-14.4 H (BEAKER) (test code = 412) PLATELET COUNT (BEAKER) (test 215 K/CU MM 150-450 code = 756) MEAN PLATELET VOLUME (BEAKER) 10.5 fL 9.4-12.3 (test code = 754) NUCLEATED RED BLOOD CELLS 0 /100 WBC 0-0 (BEAKER) (test code = 413) NEUTROPHILS RELATIVE PERCENT 89 % (BEAKER) (test code = 429) LYMPHOCYTES RELATIVE PERCENT 5 % (BEAKER) (test code = 430) MONOCYTES RELATIVE PERCENT 5 % (BEAKER) (test code = 431) EOSINOPHILS RELATIVE PERCENT 0 % (BEAKER) (test code = 432) BASOPHILS RELATIVE PERCENT 0 % (BEAKER) (test code = 437) NEUTROPHILS ABSOLUTE COUNT 13.28 K/ L 1.56-6.13 H (BEAKER) (test code = 670) LYMPHOCYTES ABSOLUTE COUNT 0.80 K/ L 1.18-3.74 L (BEAKER) (test code = 414) MONOCYTES ABSOLUTE COUNT (BEAKER) 0.67 K/ L 0.24-0.36 H (test code = 415) EOSINOPHILS ABSOLUTE COUNT 0.01 K/ L 0.04-0.36 L (BEAKER) (test code = 416) BASOPHILS ABSOLUTE COUNT (BEAKER) 0.03 K/ L 0.01-0.08 (test code = 417) IMMATURE GRANULOCYTES-RELATIVE 1 % 0-1 PERCENT (BEAKER) (test code = 2801) RAD, CHEST, 1 VIEW, NON [id number] 13:44:00Reason for exam:->s/p hiatal hernia repairin PACUShould this be performed at the bedside?->YesFINAL REPORT RAD, CHEST, 1 VIEW, NON DEPT INDICATION: s/p hiatal hernia repair COMPARISON: 08/22/2020 FINDINGS: Portable frontal view of the chest. IMPRESSION: Support Lines: NG tube descends below the diaphragm. Left- sided chest tube. Lungs and pleura: Bibasilar atelectasis. No pneumothorax.Heart and mediastinum: Stable contours. Additional findings: None. Signed: Estefany Abdi MDRepalber Verified Date/Time: 08/26/2020 13:44:11 Reading Location: [facility] Radiology Reading Room CALCIUM, [id number] 13:34:00 Test Item Value Reference Range Interpretation Comments CALCIUM IONIZED (BEAKER) (test 1.05 mmol/L 1.12-1.27 L code = 698) PH, BLOOD (BEAKER) (test code = 7.28 1810) GLUCOSE-STAT [id number] 09:10:00 Test Item Value Reference Range Interpretation Comments GLUCOSE RANDOM (BEAKER) (test code 102 mg/dL 70-110 = 652) SODIUM NA-STAT [id number] 09:10:00 Test Item Value Reference Range Interpretation Comments SODIUM (BEAKER) (test code = 381) 136 meq/L 136-145 POTASSIUM-STAT [id number] 09:10:00 Test Item Value Reference Range Interpretation Comments POTASSIUM (BEAKER) (test code = 4.0 meq/L 3.6-5.5 379) BLOOD GAS, [id number] 09:10:00 Test Item Value Reference Range Interpretation Comments PH ARTERIAL (BEAKER) (test code = 7.46 7.35-7.45 H 383) PCO2 ARTERIAL (BEAKER) (test code 34 mmHg 35-45 L = 384) PO2 ARTERIAL (BEAKER) (test code 211 mmHg 80-90 H = 385) O2 SATURATION ARTERIAL (BEAKER) 99.5 % 96.0-97.0 H (test code = 386) HCO3 ARTERIAL (BEAKER) (test code 24 mmol/L 21-29 = 388) BASE EXCESS ARTERIAL (BEAKER) -0.3 mmol/L -2.0-3.0 (test code = 387) PATIENT TEMPERATURE (BEAKER) 35.0 C (test code = 1818) FIO2 (BEAKER) (test code = 1819) 63.0 % HGB/HCT (H&H) - STAT [id number] 09:10:00 Test Item Value Reference Range Interpretation Comments HEMOGLOBIN (BEAKER) (test code = 10.1 g/dL 12.0-15.0 L 410) HEMATOCRIT (BEAKER) (test code = 30.0 % 36.0-45.0 L 411) POCT-GLUCOSE [id number] 06:20:00 Test Item Value Reference Range Interpretation Comments POC-GLUCOSE METER 80 mg/dL 70-110 : TESTED A T [facility] 6720 (BEAKER) (test code = [facility], 1538) [address]: Internal Control Consultant/Techni marysol ID = [id number] for JORD AN, LACRYSTAL SARS-COV2/RT-PCR ([facility])2020-08-22 20:59:00 Test Item Value Reference Range Interpretation Comments SARS-COV2/RT-PCR (test Negative Not Detected, Negative, code = 0079380) See external report for linked test SARS-COV-2 PERFORMING LAB [facility] M[facility] JANE (test code = 7523727) Negative result for this test determines that SARS-CoV-2 RNA was not present in the specimen above the Limit of Detection (LOD). However, Negative results do not preclude SARS-CoV-2 infection and should not be used as the sole basis for treatment or patient management decisions. Negative results mustbe combined with clinical observations, patient history, and epidemiological information. A false negative result may occur if a specimen is improperly collected, transported or handled. A false negative result should be considered if patient's recent exposures or clinical presentation indicate that COVID-19 (SARS-CoV-2) is likely and diagnostic tests for other causes of illness are negative. Re-testing should be considered in cases of suspected false negatives.The limit of detection for this assay is 800 copies/mL.This SARS CoV-2 test is a real-time RT-PCR test intended for the qualitative detection of nucleic acid from SARS-CoV-2 in a nasopharyngeal swab specimen collected from individuals susp ected of COVID-19 by their healthcare provider.This test has not been Food and Drug Administration (FDA) cleared or approved. This is a modified version of an approved Emergency Use Authorization (EUA) and is in the process of review by the FDA. Once authorized by the FDA, the issued EUA will be effective until the declaration that circumstances exist justifying the authorization of the emergency use of in vitro diagnostic tests for detection and/or diagnosis of COVID-19 is terminated under Section 564(b)(2) of the Act or the EUA is revoked under Section 564(g) of the Act.Fact Sheet for Healthcare Providers:https://www.[employer]/sites/default/files/product/documents/Fact_Shee a_TG_Vtrwynfsp_Qgkj_IBPT-NdR-4.pdfFact Sheet for Healthcare Patients:https://www.[employer].com/sites/default/files/product/ documents/Ykom_Mswny_Oozwzmvj_Tzwe_GXSF-SiM-3.pdfPerforming Laboratory:[facility], [place] [address]RMADUPCHIXYSE METABOLIC [id number] 12:48:00 Test Item Value Reference Range Interpretation Comments TOTAL PROTEIN 6.9 gm/dL 6.0-8.3 Specimen sligh tly (BEAKER) (test code = hemoly zed 770) ALBUMIN (BEAKER) 4.2 g/dL 3.5-5.0 Specimen sl ightly (test code = 1145) hemolyzed ALKALINE PHOSPHATASE 75 U/L 40-150 (BEAKER) (test code = 346) BILIRUBIN TOTAL 1.1 mg/dL 0.2-1.2 Specimen sli ghtly (BEAKER) (test code = hemoly zed 377) SODIUM (BEAKER) (test 136 meq/L 136-145 code = 381) POTASSIUM (BEAKER) 4.2 meq/L 3.5-5.1 Specimen slightly (test code = 379) hemolyzed CHLORIDE (BEAKER) 101 meq/L 98-107 (test code = 382) CO2 (BEAKER) (test 26 meq/L 22-29 code = 355) BLOOD UREA NITROGEN 11 mg/dL 7-21 (BEAKER) (test code = 354) CREATININE (BEAKER) 0.68 mg/dL 0.57-1.25 Specimen slightly (test code = 358) hemolyzed GLUCOSE RANDOM 69 mg/dL 70-105 L (BEAKER) (test code = 652) CALCIUM (BEAKER) 8.8 mg/dL 8.4-10.2 (test code = 697) AST (SGOT) (BEAKER) 20 U/L 5-34 Specimen slightly (test code = 353) hemolyzed ALT (SGPT) (BEAKER) 10 U/L 6-55 Specimen slightly (test code = 347) hemolyzed EGFR (BEAKER) (test 84 mL/min/1.73 ESTIMA DOMINICK GFR IS code = 1092) sq m NOT ACCURATE CREATININE CLEARANCE IN PREDICTING GLOMERULAR FILTRATION RATE . ESTIMATED GFR I S NOT APPLICABLE FOR DIALYSIS PATIEN TS. Internal Control Consultant [facility] FCBC W/PLT COUNT & AUTO [id number] 12:47:00 Test Item Value Reference Range Interpretation Comments WHITE BLOOD CELL COUNT (BEAKER) 9.9 K/ L 3.5-10.5 (test code = 775) RED BLOOD CELL COUNT (BEAKER) 5.08 M/ L 3.93-5.22 (test code = 761) HEMOGLOBIN (BEAKER) (test code = 10.7 GM/DL 11.2-15.7 L 410) HEMATOCRIT (BEAKER) (test code = 36.6 % 34.1-44.9 411) MEAN CORPUSCULAR VOLUME (BEAKER) 72.0 fL 79.4-94.8 L (test code = 753) MEAN CORPUSCULAR HEMOGLOBIN 21.1 pg 25.6-32.2 L (BEAKER) (test code = 751) MEAN CORPUSCULAR HEMOGLOBIN CONC 29.2 GM/DL 32.2-35.5 L (BEAKER) (test code = 752) RED CELL DISTRIBUTION WIDTH 22.5 % 11.7-14.4 H (BEAKER) (test code = 412) PLATELET COUNT (BEAKER) (test 269 K/CU MM 150-450 code = 756) MEAN PLATELET VOLUME (BEAKER) 10.3 fL 9.4-12.3 (test code = 754) NUCLEATED RED BLOOD CELLS 0 /100 WBC 0-0 (BEAKER) (test code = 413) NEUTROPHILS RELATIVE PERCENT 66 % (BEAKER) (test code = 429) LYMPHOCYTES RELATIVE PERCENT 18 % (BEAKER) (test code = 430) MONOCYTES RELATIVE PERCENT 13 % (BEAKER) (test code = 431) EOSINOPHILS RELATIVE PERCENT 2 % (BEAKER) (test code = 432) BASOPHILS RELATIVE PERCENT 1 % (BEAKER) (test code = 437) NEUTROPHILS ABSOLUTE COUNT 6.54 K/ L 1.56-6.13 H (BEAKER) (test code = 670) LYMPHOCYTES ABSOLUTE COUNT 1.78 K/ L 1.18-3.74 (BEAKER) (test code = 414) MONOCYTES ABSOLUTE COUNT (BEAKER) 1.24 K/ L 0.24-0.36 H (test code = 415) EOSINOPHILS ABSOLUTE COUNT 0.21 K/ L 0.04-0.36 (BEAKER) (test code = 416) BASOPHILS ABSOLUTE COUNT (BEAKER) 0.05 K/ L 0.01-0.08 (test code = 417) IMMATURE GRANULOCYTES-RELATIVE 0 % 0-1 PERCENT (BEAKER) (test code = 2801) RAD, CHEST, 2 [id number] 12:38:00Reason for exam:->Gastroesophageal reflux disease, esophagitis presence not specified [K21.9],Hiatal hernia [K44.9],Esophagitis [K20.9]FINAL REPORT History: Gastroesophageal reflux disease, esophagitis, hiatal hernia Comparison: MRI lumbar spine of 12/05/2018; no comparison chest imaging Findings: There are calcif ied granulomas in the right hilum and right lung. There are small foci of linear likely scar at the bilateral lung bases. A small moderate hiatal hernia projects in the retrocardiac region. No pleural effusions or pneumothorax. The heart shadow is normal in size. The thoracic aorta is tortuous and calcified. Moderate scoliotic and kyphotic changes are present in the lower thoracic/upper lumbar spine.A chronic T12 compression fracture is difficult to visualize due to the severity of the scoliosis. Amild age-indeterminate T7 superior endplate compression fracture is noted. IMPRESSION: 1. No evidence of active pneumonia. 2. Hiatal hernia. 3. Prior pulmonary granulomatous disease. 4. Age indeterminate mild T7 compression fracture. Limited visualization of the patient's known T12 compression fracture due to the underlying scoliosis/kyphosis in the spine. Signed: Hanh Smith MDReport Verified Date/Time: 08/22/2020 12:38:54 Reading Location: [facility] Radiology Reading Room PT/[id number] 12:37:00 Test Item Value Reference Range Interpretation Comments PROTIME (BEAKER) (test code = 13.1 seconds 11.9-14.2 759) INR (BEAKER) (test code = 370) 1.02 <=5.90 PARTIAL THROMBOPLASTIN TIME 30.3 seconds 22.5-36.0 (BEAKER) (test code = 760) Effective 04/29/2019: PT Reference Range ChangeNew: 11.9-14.2 Previous: 11.7- 14.7RECOMMENDED COUMADIN/WARFARIN INR THERAPY RANGESSTANDARD DOSE: 2.0-3.0 Includes: PROPHYLAXIS for venous thrombosis, systemic embolization; TREATMENT for venous thrombosis and/or pulmonary embolus.HIGH RISK: Target INR is2.5-3.5 for patients wiht mechanical heart valves.TISSUE [id number] 16:08:00Surgical Pathology Report Case: [id number] Authorizing Provider: Lupe Cruz MD Collected: 07/22/2020 12:06 PM Ordering Location: [facility] Endoscopy Received: 07/22/2020 02:33 PM Services Pathologist: Naomy Coelho MD Specimens: A) - Biopsy, Gastric B) -Biopsy, Gastroesophageal Junction A. STOMACH, BIOPSY: - GASTRIC OXYNTIC AND ANTRAL MUCOSA WITH NO SIGNIFICANT DIAGNOSTIC ALTERATION. - NEGATIVE FOR HELICOBACTER PYLORI ORGANISMS BY WARTHIN STARRY STAIN. - NEGATIVE FOR INTESTINAL METAPLASIA, DYSPLASIA OR MALIGNANCY.B. GASTROESOPHAGEAL JUNCTION, BIOPSY: - SQUAMOUS EPITHELIUM WITH BASAL CELL HYPERPLASIA AND FOCAL VASCULAR LAKES. - NEGATIVE FOR INTRA-EPITHELIAL INFLAMMATORY CELLS. - NEGATIVE FOR SPECIALIZED METAPLASTIC EPITHELIUM. - NEGATIVE FOR GASTRIC COLUMNAR MUCOSA. - NEGATIVE FOR DYSPLASIA OR MALIGNANCY. Signing Pathologist Direct Phone Line: [phone] signed by Naomy Coelho MD on 07/25/2020 at 4:08 PMPart B. Basal cell hyperplasia and vascular lakes are among the non-specific features of reflux. Focal spongiosis is also present. No inflammation is seen. Clinical correlation is suggested.[id number] x 2, [id number] diagnosis: Gastroesophageal reflux disease, esophagitis.Procedure: Upper endoscopy, biopsy.A. Gastric biopsyB. Gastroesophageal junctionPart A. Received in formalin labeled with the patient's name, accession number and "gastric biopsy" aretwo soto-white soft tissue fragments measuring in aggregate 0.5 x 0.4 x 0.3 cm. The specimen is entirely submitted as A1.Part B. Received in formalin labeled with the patient's name, accession number and "gastroesophageal junction biopsy" are two soto-white soft tissue fragments measuring in aggregate 0.3 x 0.2 x 0.2 cm. The specimen is entirely submitted as B1. MH/ewPerformed.The interpretation of this case included the use of immunohistochemistry or special stains.A1. Warthin starry, negativeControlSlides Examined: In-house known positive controls were evaluated along with the test tissue. Thesecontrol slides run alongside of the patients sample show appropriate staining. Internal positive andnegative controls when available are evaluated Immunohistochemistry technical testing was performed at [facility], Pathology Laboratory where it was developed and its performance characteristics were determined. It has not been cleared or approved by the U.S. Food and Drug Administration. The FDA has determined that such clearance or approval is not necessary. The test is used fo r clinical purposes. It should not be regarded as investigational or for research. This laboratory is certified under the Clinical Laboratory Improvement Amendments of 1988 (CLIA-88) as qualified to perform high complexity clinical laboratory testing.[facility], Department of Pathology, [address] [place], [place] [id number], [facility], Department of Pathology, [address] [place] [address], [facility], Department of Pathology, [address] [place] [address], OOWQ-COV2/RT-PCR (HS & REF LABS)2020-07-19 14:27:00 Test Item Value Reference Range Interpretation Comments SARS-COV2/RT-PCR (test Negative Not Detected, Negative, code = 4021042) See external report for linked test SARS-COV-2 PERFORMING LAB [facility] (test code = 7928675) Negative result for this test determines that SARS-CoV-2 RNA was not present in the specimen above the Limit of Detection (LOD). However, Negative results do not preclude SARS-CoV-2 infection and should not be used as the sole basis for treatment or patient management decisions. Negative results mustbe combined with clinical observations, patient history, and epidemiological information. A false negative result may occur if a specimen is improperly collected, transported or handled. A false negative result should be considered if patient's recent exposures or clinical presentation indicate that COVID-19 (SARS-CoV-2) is likely and diagnostic tests for other causes of illness are negative. Re-testing should be considered in cases of suspected false negatives.The limit of detection for this assay is 800 copies/mL.This SARS CoV-2 test is a real-time RT-PCR test intended for the qualitative detection of nucleic acid from SARS-CoV-2 in a nasopharyngeal swab specimen collected from individuals suspected of COVID-19 by their healthcare provider.This test has not been Food and Drug Administration (FDA) cleared or approved. This is a modified version of an approved Emergency Use Authorization (EUA) and is in the process of review by the FDA. Once authorized by the FDA, the issued EUA will be effective until the declaration that circumstances exist justifying the authorization of the emergency use of in vitro diagnostic tests for detection and/or diagnosis of COVID-19 is terminated under Section 564(b)(2) of the Act or the EUA is revoked under Section 564(g) of the Act.Fact Sheet for Healthcare Providers:https://www.[place]/sites/default/files/product/documents/Fact_Shejavier xavierl_CA_Odlfqfpzf_Zyhj_GQKD-AwZ-4.pdfFact Sheet for Healthcare Patients:https://www.[place]/sites/default/files/product/ documents/Zyts_Lddbn_Vjestogo_Lhyy_TVSX-LlK-7.pdfPerforming Laboratory:[facility], [place] [address]JTVZVJV D 25 HYDROXY 2020-01-05 13:12:31 Test Item Value Reference Range Interpretation Comments VITAMIN D 25-HYDROXY SEE BELOW NG/ML L NOT E: (test code = 1989-01) 25-HYDR OXYVITAMIN D ASSAY INCLUDES 25-HYDROXYVITAM IN D2 AND D3. METH ODOLOGY IS CHEMILUMINES CENT IMMUNOASSAY. $$$$$ INTE RPRETIVE RANGES $$$$$PED IATRIC (<17 YEARS) . . . . . . . . . . . NG/ML 20-100ADULT: INSUFFICIENT . . . . . . . . . . . . . . NG/ML <20 SUBOPTIMAL . . . . . . . . . . . . . . . NG/ML 20-29 OPTIMAL . . . . . . . . . . . . . . . . . NG/ML 30-100 Unless Otherwise Indic ated, All Testing Per formed At: [facility], [address] [place] [address] Laboratory Dire ctor: Silvestre huddleston M.D. CLIA Numb er [id number] Cap Accreditation N o. Lab Interpretation Abnormal (test code = 82921-8) [facility] REFLEX TO FREE [id number] 10:15:59 Test Item Value Reference Range Interpretation Comments THYROID STIMULATING See_Comment Unless Otherwise HORMONE (test code = Indicat ed, All Testing 75706-3) Performed At: [facility], [address] [place] [address] Laboratory D irector: Silvestre huddleston M.D. CLIA Number [id number] Cap Accreditation N o. [Auto mated message] The sy stem which generated this result transmitted ref erence range: 0.400 - 4.100 UIU/ML. The ref erence range was not u sed to interpret this result as normal/abnormal . [facility]59 Test Item Value Reference Range Interpretation Comments FERRITIN (test code = See_Comment Unless Otherwise 53763-5) Indicated, All Testing Performed At: [facility], [address] [place] [address] Laboratory Di nichole: Silvestre huddleston M.D. CLIA Number [id number] Cap Accreditati on No. [Auto mated message] The sy stem which generated this result transmitted ref erence range: 13 - 200 NG/ML. The reference range was not used to interpr et this result as azalia l/abnormal. [facility]IT[facility]IN [id number] 10:15:59 Test Item Value Reference Range Interpretation Comments VITAMIN B-12 (test 388 PG/ML 200-950 Unless Otherwise code = 2132-9) Indicated, Al l Testing Performed At: [facility], [address] [place] [address] Laboratory D irector: Silvestre huddleston M.D. CLIA Number [id number] Cap Accreditation N o. [facility]/AUTO DIFF WITH [id number] 09:26:59 Test Item Value Reference Range Interpretation Comments WHITE BLOOD CELL COUNT See_Comment [Aut omated message] (test code = 31345-9) The sy stem which generated this result transmitted ref erence range: 4.0 - 11 .0 K/UL. The refer ence range was not u sed to interpret this result as normal/abnor mal. RED BLOOD CELL COUNT See_Comment H [Autom ated message] (test code = 80011-5) The sy stem which generated this result transmitted ref erence range: 3.80 - 5 .10 M/UL. The refer ence range was not u sed to interpret this result as normal/abnor mal. HEMOGLOBIN (test code = See_Comment [Au tomated message] 718-7) The system [employer] generated this result transmitted ref erence range: 11.5 - 1 5.5 G/DL. The refer ence range was not u sed to interpret this result as normal/abnor mal. HEMATOCRIT (test code = 37.9 % 34-45 87476-7) MEAN CORPUSCULAR VOLUME 71.9 fL 80-100 L (test code = 76589-3) MEAN CORPUSCULAR 22.6 PG 27-34 L HEMOGLOBIN (test code = 72618-2) MEAN CORPUSCULAR See_Comment L [Automated message] HEMOGLOBIN CONC (test The sy stem which code = 58398-0) generated th is result transmitted ref erence range: 32.0 - 3 5.5 G/DL. The refer ence range was not u sed to interpret this result as normal/abnor mal. RED CELL DISTRIBUTION 20.0 % 11-15 H WIDTH (test code = 44936-6) NEUTROPHILS % (test 60.0 % 40-74 code = 36336-9) LYMPHOCYTES % (test 21.3 % 19-48 code = 06845-3) MONOCYTES % (test code 16.6 % 4-13 H = 19644-9) EOSINOPHILS % (test 1.6 % 0-7 code = 89554-8) BASOPHILS % (test code 0.5 % 0-2 = 61889-9) PLATELET COUNT (test See_Comment Unless code = 34576-2) Otherwise In dicated, All Testing Per formed At: [facility], [address] [place] [address] Laboratory Dire ctor: Silvestre huddleston M.D. CLIA Num taya [id number] Cap Accreditation N o. [id number] [Auto mated message] The sy stem which generated this result transmit dominick reference range : 130 - 400 K/UL. The reference range was not used to int erpret this result as normal/abnormal . Lab Interpretation Abnormal (test code = 46528-6) [facility] METABOLIC [id number] 09:16:15 Test Item Value Reference Range Interpretation Comments GLUCOSE (test code = See_Comment [Autom ated message] 2345-7) The system whic h generated this result transmitted ref erence range: 70 - 99 MG/DL. The reference r shelley was not used to interpret this result as normal/abnor mal. BLOOD UREA NITROGEN See_Comment [Automa dominick message] (test code = 3091-6) The s tem which generated this result transmitted ref erence range: 8 - 23 M G/DL. The reference r shelley was not used to interpret this result as normal/abnor mal. CREATININE (test code = See_Comment L [Au tomated message] 2160-0) The system [employer] generated this result transmitted ref erence range: 0.60 - 1 .30 MG/DL. The refe rence range was not u sed to interpret this result as normal/abnor mal. EGFR AA (test code = See_Comment [Autom ated message] 15910-2) The system [employer] generated this result transmitted ref erence range: >60 ML/MIN/1.73. Th e reference range was not used to int erpret this result as normal/abnormal . EGFR (test code = See_Comment [Automate d message] 33922-7) The system [employer] generated this result transmitted ref erence range: >60 ML/MIN/1.73. Th e reference range was not used to int erpret this result as normal/abnormal . BUN/CREAT RATIO (test See_Comment [Auto mated message] code = 3097-3) The system [facility] generated this result transmitted ref erence range: 6 - 28 R ATIO. The reference r shelley was not used to interpret this result as normal/abnor mal. SODIUM (test code = See_Comment [Automa dominick message] 2951-2) The system [employer] generated this result transmitted ref erence range: 133 - 14 6 MEQ/L. The refe rence range was not u sed to interpret this result as normal/abnor mal. POTASSIUM (test code = See_Comment [Aut omated message] 3573-3) The system [employer] generated this result transmitted ref erence range: 3.5 - 5. 4 MEQ/L. The refe rence range was not u sed to interpret this result as normal/abnor mal. CHLORIDE (test code = See_Comment [Auto mated message] 8468-0) The system [employer] generated this result transmitted ref erence range: 95 - 107 MEQ/L. The reference r shelley was not used to interpret this result as normal/abnor mal. CO2 (test code = See_Comment [Automated message] 7950-8) The system [employer] generated this result transmitted ref erence range: 19 - 31 MEQ/L. The reference r shelley was not used to interpret this result as normal/abnor mal. CALCIUM (test code = See_Comment [Autom ated message] 21105-0) The system [employer] generated this result transmitted ref erence range: 8.5 - 10 .5 MG/DL. The refe rence range was not u sed to interpret this result as normal/abnor mal. PROTEIN TOTAL (test See_Comment [Automa dominick message] code = 2885-2) The system [employer] generated this result transmitted ref erence range: 6.1 - 8. 3 G/DL. The reference r shelley was not used to interpret this result as normal/abnor mal. ALBUMIN (test code = See_Comment [Autom ated message] 11236-2) The system [employer] generated this result transmitted ref erence range: 3.5 - 5. 2 G/DL. The reference r shelley was not used to interpret this result as normal/abnor mal. GLOBULINS, SERUM, TOTAL See_Comment [Au tomated message] (test code = 24827-7) The sy stem which generated this result transmitted ref erence range: 1.9 - 3. 7 G/DL. The reference r shelley was not used to interpret this result as normal/abnor mal. A/G RATIO (test code = See_Comment [Aut omated message] 1759-0) The system [employer] generated this result transmitted ref erence range: 1.0 - 2. 6 RATIO. The refe rence range was not u sed to interpret this result as normal/abnor mal. BILIRUBIN TOTAL (test See_Comment [Auto mated message] code = 1975-2) The system [employer] generated this result transmitted ref erence range: <=1.2 MG /DL. The reference r shelley was not used to interpret this result as normal/abnor mal. ALKALINE PHOSPHATASE 78 U/L 40-142 (test code = 6768-6) AST (SGOT) (test code = 13 U/L 9-40 1920-8) ALT (SGPT) (test code = 10 U/L 5-40 Unless 1744-2) Otherwise Indic ated, All Testing Per formed At: [facility], [address] [place] [address] Laboratory Dire ctor: Silvestre huddleston M.D. CLIA Num taya [id number] Cap Accreditation N o. Lab Interpretation Abnormal (test code = 90182-6) [facility] HospitalLIPID [id number] 09:16:15 Test Item Value Reference Range Interpretation Comments CHOLESTEROL (test code See_Comment [Aut omated message] = 2093-3) The system [facility] [employer] generated this result transmitted ref erence range: <200 MG/ DL. The reference range was not used to int erpret this result as normal/abnormal . TRIGLYCERIDES (test See_Comment H [Automa dominick message] code = 2571-8) The system [employer] generated this result transmitted ref erence range: <150 MG/ DL. The reference range was not used to int erpret this result as normal/abnormal . HDL CHOLESTEROL (test See_Comment [Auto mated message] code = 2085-9) The system [employer] generated this result transmitted ref erence range: >39 MG/D L. The reference range was not used to int erpret this result as normal/abnormal . LDL CHOLESTEROL See_Comment [Automated message] CALCULATED (test code = The system which 80488-2) generated this result transmitted ref erence range: <100 MG/ DL. The reference range was not used to int erpret this result as normal/abnormal . LDL/HDL RATIO, SERUM See_Comment Unless (test code = 33171-4) Otherw ise Indicated, All Testing Per formed At: [facility], [address] [place] [address] Laboratory Dire ctor: William Wilkes Num taya [id number] Cap Accreditation N o. [Auto mated message] The sy stem which generated this result transmit dominick reference range : <3.22 RATIO. The refe rence range was not u sed to interpret this result as normal/abnor mal. Lab Interpretation Abnormal (test code = 74947-5) [facility] HospitalIRON+TIBC+[id number] 09:16:15 Test Item Value Reference Range Interpretation Comments IRON (test code = See_Comment [Automate d message] 2498-4) The system [employer] generated this result transmitted ref erence range: 37 - 145 UG/DL. The reference r shelley was not used to interpret this result as normal/abnor mal. UIBC (test code = See_Comment [Automate d message] 2501-5) The system [employer] generated this result transmitted ref erence range: 112 - 34 7 UG/DL. The refe rence range was not u sed to interpret this result as normal/abnor mal. TIBC (test code = See_Comment [Automate d message] 27137-2) The system [employer] generated this result transmitted ref erence range: 250 - 45 0 UG/DL. The refe rence range was not u sed to interpret this result as normal/abnor mal. IRON SATURATION % (test 13 % 20-50 L Unless code = 2502-3) Otherwise Ind icated, All Testing Per formed At: [facility], [address] [place] [address] Laboratory Dire ctor: Silvestre huddleston M.D. CLIA Num taya [id number] Cap Accreditation N o. [id number] Lab Interpretation Abnormal (test code = 95821-2) [facility] HospitalTISSUE [id number] 18:09:00Surgical Pathology Report Case: [id number] Authorizing Provider: Pauline Walters MD Collected: 06/12/2019 0831 Ordering Location: [facility] Received: 06/12/2019 1149 SERVICES Pathologist: Elsy Chin MD Specimens: A) - Stomach, stomach biopsy B) -Polyp, Colon - Right/Ascending A. STOMACH, BIOPSY: - MILD REACTIVE CHANGE - MILD CHRONIC INFLAMMATION - NO HELICOBACTER PYLORI MICROORGANISMS IDENTIFIEDB. RIGHT ASCENDING COLON POLYP, BIOPSY: - PIECE OF TUBULAR ADENOMA - NO HIGH GRADE DYSPLASIA CC/pl Signing Pathologist Direct Phone Line: [phone] signed by Elsy Chin MD on 06/17/2019 at 6:09 [id number] x2; 90141 [id number] diarrhea, weight loss, encounter for diagnostic c olonoscopy due to change in bowel habits, early satiety, gastroesophageal reflux disease, esophagitis presence not specified A. Stomach biopsy. B. Polyp, colon- right ascendingThe case is received in two parts both labeled with the patient's name, Lisa Hammer, date of 1940, and accession number, [id number], which corresponds to the accompanying requisition page labeled with the same nameand accession number.Part A. Received in formalin labeled "stomach" are six white-soto irregular pieces of tissue ranging from 0.3 x 0.2 x 0.1 cm to 0.6 x 0.3 x 0.2 cm. The specimen is submitted in totofollowing filtration in cassette A1.Part B. Received in formalin labeled "polyp, colon-right/ascending" are three white-soto irregular pieces of tissue ranging from 0.2 x 0.2 x 0.1 cm to 0.5 x 0.3 x 0.1cm. The specimen is submitted in toto following filtration in cassette B1. RP/ew A. The stomach biopsy consists of two pieces of oxyntic mucosa and three pieces of antral mucosa with mild lymphoplasmacytic infiltrate in the lamina propria and smooth muscle stranding into lamina propria. No acute infla mmation, intestinal metaplasia or dysplasia is present. No Helicobacter pylori is identified by Warthin-starry stain. B. The right ascending colon polyp, deeper x2 show three pieces of colonic mucosa with focal adenomatous change, suggestive of tubular adenoma. No high grade dysplasia is seen. The inte rpretation of this case included the use of immunohistochemistry or special stains.Control Slides Examined: In-house known positive controls were evaluated along with the test tissue. These control slides run alongside of the patients sample show appropriate staining. Internal positive and negative controls when available are evaluated Immunohistochemistry technical testing was performed at [facility], Pathology Laboratory where it was developed and its performance characteristics were determined. It has not been cleared or approved by the U.S. Food and Drug Administration. The FDA has determined that such clearance or approval is not necessary. The test is used for clinical purposes. It should not be regarded as investigational or for research. This laboratory is certified under the Clinical Laboratory Improvement Amendments of 1988 (CLIA-88) as qualified to perform highcomplexity clinical laboratory testing.RAD, KNEE, 3 VIEWS, [id number] 12:25:00Reason for Exam:->KNEE INJURYFINAL REPORT Exam: Left and right knee three views History: Pain Comparison: None. Findings: No acute fracture. Degenerative arthrosis of the left knee with narrowing most prominent lateral compartment. Right total knee arthroplasty with cemented components. No loosening. Impr ession: Mild degenerative arthrosis of the left knee Total knee arthroplasty right knee, no complication Signed: Jeremy Paige Verified Date/Time: 05/20/2019 12:25:05 Reading Location: [email or web address] Reading Room [address] [place] [address] RAD, KNEE, 3 VIEWS, [id number] 12:25:00Reason for Exam:->KNEE INJURYFINAL REPORT Exam: Left and right knee three views History: Pain Comparison: None. Findings: No acute fracture. Degenerative arthrosis of the left knee with narrowing most prominent lateral compartment. Right total knee arthroplasty with cemented components. No loosening. Impression: Mild degenerative arthrosis of the left knee Total knee arthroplasty right knee, no complication Signed: Jeremy Paige Verified Date/Time: 05/20/2019 12:25:05 Reading Location: [email or web address] Reading Room [address] [place] [address] MR, SPINE, LUMBAR, WITHOUT IV [id number] 14:47:00FINAL REPORT Exam: Lumbar spine MRI without IV contrastHistory: Evaluate for w orsening compression fracture L5.Comparison studies: MR spine MRI 10/21. Technique: Sagittal and axial T2 , sagittal T1 and IR, axial spin density oblique coronal T2.Intravenous contrast: None Findings: Number of lumbar vertebral bodies: 5. Alignment: Thoracolumbar kyphoscoliosis with apexcentered at L1-L2. Mild hyperlordotic curvature. Unchanged grade 1 anterolisthesis of L5 on S1 due to chronic bilateral L5 pars interarticularis defects. Soft tissues: No T2 hyperintense inflammatory changes. Paraspinal muscles: Severe paraspinal muscle atrophy, slightly greater on the right to the B2oaalf and symmetrically from L4 to the sacrum. Lower thoracic cord: Normal in signal and morphology.The tip of the conus is at L1-L2. [...] No significant canal or left foraminal stenosis. L2- L3: Moderately degenerated disc on the right due [...] bilateral foraminal stenosis. No significant canal stenosis. L4- L5:Moderately degenerated disc on the left due to curvature. Disc bulge with left foraminal disc osteophyte complex,thickened ligamentum flavum and severe left facet arthrosis [...] as detailed above with multilevel disc degeneration, listhesis,facet arthrosis and multilevel foraminal stenosis (moderate right at L1-L2 and at L2-L3 and severe left L4-5 and at L5- S1. No significant canal stenosis Signed: Hanh Carroll Verified Date/Time: 12/05/2018 14:47:37 RAD, HIP, 2 VIEWS, [id number] 11:26:00Reason for Exam:->PAIN OF RIGHT HIP JOINTFINAL REPORT RIGHT HIP - TWO IMAGES HISTORY: Pain COMPARISON: None available. FINDINGS:Bones:Diffusely decreased mineralization of the osseous structures limits bone detail.Radiopaque densities bilaterally at the sacral alar, correlate for prior placement of augmentation cement.No acute displaced fracture. Joints:Mild degenerative changes of the right hip.The joint spaces are well-maintained. Soft tissues:A 6 mm nonspecific calcific density projects inferior to theright initial tuberosity.Metallic surgical clips project near the right femoral neck. IMPRESSION: 1. No acute radiographic abnormality.2. Diffuse osseous demineralization. If there is persistent or worsening acute to subacute pain, a MRI without contrast would provide a more sensitive evaluation for an evolving insufficiency fracture. 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 Mcdonald for intraoperative procedure. No radiologist was present during the examination. Total fluoroscopy time was 36.5 seconds. Total number of fluoroscopic images were 5. Signed:Teja Leonardo Verified Date/Time: 09/08/2018 12:53:53 Reading Location: [address] [facility] Reading Room PLATELET [id number] 09:06:00 Test Item Value Reference Range Interpretation Comments PLATELET COUNT (BEAKER) (test 200 K/CU MM 150-450 code = 756) [id number] 17:13:00 Test Item Value Reference Range Interpretation Comments SODIUM (BEAKER) (test 138 meq/L 136-145 code = 381) POTASSIUM (BEAKER) 4.4 meq/L 3.5-5.1 Specimen slightly (test code = 379) hemolyzed CHLORIDE (BEAKER) 102 meq/L 98-107 (test code = 382) CO2 (BEAKER) (test 27 meq/L 22-29 code = 355) [id number] 14:42:00 Test Item Value Reference Range Interpretation Comments GLUCOSE RANDOM (BEAKER) (test code = 84 mg/dL 70-105 652) BUN AND [id number] 14:42:00 Test Item Value Reference Range Interpretation Comments BLOOD UREA NITROGEN 15 mg/dL 7-21 (BEAKER) (test code = 354) CREATININE (BEAKER) 0.67 mg/dL 0.57-1.25 Specimen slightly (test code = 358) hemolyzed EGFR (BEAKER) (test 86 mL/min/1.73 ESTIMA DOMINICK GFR IS code = 1092) sq m NOT ACCURATE CREATININE CLEARANCE IN PREDICTING GLOMERULAR FILTRATION RATE . ESTIMATED GFR I S NOT APPLICABLE FOR DIALYSIS PATIEN TS. [id number] 14:31:00 Test Item Value Reference Range Interpretation Comments HEMOGLOBIN (BEAKER) (test code = 13.3 GM/DL 11.2-15.7 410)
[2021-12-29] MEDS ORDERED: HYDROCODONE/APAP 5/325 MG TAB ONE (15:51)
[2021-12-29] MEDS ORDERED: DIAZEPAM 5 MG TABLET ONE (15:51)
[2021-12-29] MEDS ORDERED: MORPHINE 4 MG/ML SYR ONE (15:58)
--- NOTE | 2021-12-29 17:59 | RAD REPORT ---
EXAM DESCRIPTION: MRI - Lumbar Spine Wo Con - 12/29/2021 5:27 pm CLINICAL HISTORY: Fall with back pain. COMPARISON: [address] TECHNIQUE: Sagittal T1, T2 and STIR weighted sequences were obtained. Axial T1 and T2 sequences were obtained through the lumbar disc levels. FINDINGS: Marked old compression deformity T12 vertebral body. It does demonstrate areas of abnormal signal which may indicate edema. The anterior aspect of the T12 vertebral body is in contact with th e anterior inferior aspect of the T11 vertebral body. Area of increased signal within this location o f the T11 vertebral body also probably indicates edema. Mild old compression deformity L5 vertebral body. Mild posterior subluxation L4 on L5. Mild anterior subluxation L5 on S1. No acute fracture is seen involving lumbar spine. Mild posterior subluxation L1 on L2. Spondylosis L3-4 resulting in mild to moderate central spinal stenosis. Marked chronic kyphosis involves lower thoracic/upper lumbar spine IMPRESSION: Marked old compression deformity T12 vertebral body. Abnormal signal within the T11 and T12 vertebral body likely indicates an an acute/subacute process p erhaps edema related to the recent trauma. No acute fracture visualized
--- NOTE | 2021-12-29 17:59 | RAD REPORT ---
EXAM DESCRIPTION: MRI - Thoracic Spine Wo Contr - 12/29/2021 5:00 pm CLINICAL HISTORY: Fall with back pain. COMPARISON: 2018 CT TECHNIQUE: Sagittal T1 weighted, T2 weighted and T2 STIR weighted sequences were obtained. Axial T2 weighted images were obtained through each disc level. FINDINGS: Mild compression deformity involves T6 vertebral body. It demonstrates normal signal which indicates it is chronic. No acute fracture or dislocation is seen involving T1 through T11. A disc herniation is not seen. No significant central/ foraminal stenosis. . Spinal cord is normal caliber and signal IMPRESSION: Mild chronic compression deformity T6 vertebral body T12 will be discussed on the lumbar spine on the same date
--- NOTE | 2021-12-29 18:46 | EDPHYS ---
Physician Documentation [facility] Name: Lisa Cordero Age: 81 yrs Sex: Female : 1940 Arrival Date: 12/29/2021 Time: 14:02 Bed 23 Private MD: ED Physician Edwin Cheney HPI: 12/29 18:55 This 81 yrs old Female presents to ER via Wheelchair with complaints of Back Pain. kdr 18:55 The patient presents with pain that is acute. The symptoms are located in the lumbar kdr area. Onset: The symptoms/episode began/occurred suddenly, 10 day(s) ago. The pain does not radiate. Associated signs and symptoms: The patient has no apparent associated signs or symptoms. The problem was sustained during a fall, while standing. Modifying factors: The patient symptoms are alleviated by nothing, the patient symptoms are aggravated by any movement, bending. Severity of symptoms: At their worst the symptoms were mild, in the emergency department the symptoms are unchanged. The patient has not experienced similar symptoms in the past. The patient has been recently seen by a physician: the patient's primary care provider, PCP wanted the patient to get an MRI of her thoracic and lumbar spine however she has not been unable to get that accomplished at this time. PCP then instructed her to come to the emergency department. Historical: - Allergies: 14:21 Sulfa (Sulfonamide Antibiotics); ap3 14:21 Strawberries; ap3 14:21 SHELLFISH; ap3 14:21 oral steroids; ap3 - PMHx: 14:21 Arthritis; COPD; ap3 - PSHx: 14:21 hernia repair; ap3 - Immunization history:: Client reports having NOT received the Covid vaccine. - Social history:: Smoking status: Patient denies any tobacco usage or history of. ROS: 18:55 Constitutional: Negative for fever, chills, and weight loss, Eyes: Negative for injury, kdr pain, redness, and discharge, ENT: Negative for injury, pain, and discharge, Neck: Negative for injury, pain, and swelling, Cardiovascular: Negative for chest pain, palpitations, and edema, Respiratory: Negative for shortness of breath, cough, wheezing, and pleuritic chest pain, Abdomen/GI: Negative for abdominal pain, nausea, vomiting, diarrhea, and constipation, : Negative for injury, bleeding, discharge, and swelling, MS/Extremity: Negative for injury and deformity, Skin: Negative for injury, rash, and discoloration, Neuro: Negative for headache, weakness, numbness, tingling, and seizure activity. Psych: Negative for depression, anxiety, suicide ideation, homicidal ideation, and hallucinations, Allergy/Immunology: Negative for hives, rash, and allergies, Endocrine: Negative for neck swelling, polydipsia, polyuria, polyphagia, and marked weight changes, Hematologic/Lymphatic: Negative for swollen nodes, abnormal bleeding, and unusual bruising. 18:55 Back: Positive for injury or acute deformity, decreased range of motion, pain at rest, pain with movement, of the lumbar area, Negative for Exam: 18:55 Constitutional: This is a well developed, well nourished patient who is awake, alert, kdr and in no acute distress. Head/Face: Normocephalic, atraumatic. Eyes: Pupils equal round and reactive to light, extra-ocular motions intact. Lids and lashes normal. Conjunctiva and sclera are non-icteric and not injected. Cornea within normal limits. Periorbital areas with no swelling, redness, or edema. 18:55 Back: pain, that is moderate, of the lumbar area, ROM is painful, normal spinal alignment noted, CVA tenderness, is absent, vertebral tenderness, is appreciated at T11, T12, L1, L2 and L3, muscle spasm, is appreciated in the left low back, left mid back, right mid back and right low back. Vital Signs: 14:18 Pulse 93; Resp 23; Temp 98.4; Pulse Ox 100% on R/A; Weight 46.72 kg; Height 4 ft. 10 ap3 in. (147.32 cm); Pain 10/10; 14:38 BP 159 / 58; Pulse 86; Resp 20; Pulse Ox 100% ; jh6 16:00 BP 124 / 60; Pulse 84; Resp 18; jh6 17:10 BP 136 / 70; Pulse 76; Resp 17; Pulse Ox 99% ; Pain 4/10; jh6 18:30 BP 132 / 76; Pulse 74; Resp 16; Pulse Ox 98% ; Pain 2/10; jh6 14:18 Body Mass Index 21.53 (46.72 kg, 147.32 cm) ap3 MDM: 18:46 Patient medically screened. kdr 18:55 Data reviewed: vital signs, radiologic studies. Counseling: I had a detailed discussion kdr with the patient and/or guardian regarding: the historical points, exam findings, and any diagnostic results supporting the discharge/admit diagnosis, radiology results, the need for outpatient follow up. 12/29 15:18 Order name: MRI Lumbar Spine wo Con; Complete Time: 18:29 kdr 12/29 16:05 Order name: Thoracic Spine Wo Contr; Complete Time: 18:29 EDMS Administered Medications: 16:00 Drug: Valium (diazepam) 5 mg Route: PO; jh6 16:00 Drug: morphine 2 mg Route: IVP; Site: right antecubital; jh6 16:21 Follow up: Response: Pain is decreased jh6 19:18 Follow up: Response: Pain is decreased jh6 16:04 CANCELLED (pt reports that she is allergic to codein ): HYDROcodone-acetaminophen 5 jh6 mg-325 mg 1 tabs PO once; RASS on ADMIN: Combtv4, Very Agttd3, Agttd2, Rstlss1, AlertClm0, Drwsy-1, Lt Sdtn-2, Mod Sdtn-3, Dp Sdtn-4, UnArsble-5 16:19 Drug: morphine 2 mg Route: IVP; Site: right antecubital; jh6 16:21 Follow up: Response: Pain is decreased jh6 17:10 Follow up: Response: Anxiety decreased jh6 Disposition Summary: 12/29/21 18:46 Discharge Ordered Location: Home kdr Problem: an ongoing problem kdr Symptoms: are unchanged kdr Condition: Stable kdr Diagnosis - Thoracic (T10 and T11) back pain, status post fall; kdr - Thoracic (T10 and T11) back pain, status post fall with acute/subacute process: No kdr fractures visualized Followup: kdr - With: Private Physician - When: 2 - 3 days - Reason: If symptoms return, Further diagnostic work-up, Recheck today's complaints, Continuance of care, Re-evaluation by your physician Discharge Instructions: - Discharge Summary Sheet kdr - Acute Back Pain, Adult kdr Forms: - Medication Reconciliation Form kdr - Thank You Letter kdr Prescriptions: - Ibuprofen 600 mg Oral Tablet - take 1 tablet by ORAL route every 6 hours As needed take with food; 30 tablet; kdr Refills: 0, Product Selection Permitted Signatures: Dispatcher [employer] EDEdwin Whiteside MD MD kdr Annabelle Mendez RN RN ap3 Teresa Ashford RN RN 6 Corrections: (The following items were deleted from the chart) 14: 14:21 Home Meds: aspirin 81 mg Oral TbEC; ap3 ap3 14: 14:21 Home Meds: Nexium 20 mg Oral cpDR; ap3 ap3 14: 14:21 Home Meds: Prednisone Oral; ap3 ap3 14: 14:21 Home Meds: ProAir HFA 90 mcg/actuation inhalation HFAA; ap3 ap3 16:04 15:46 HYDROcodone-acetaminophen 5 mg-325 mg 1 tabs PO once; RASS on ADMIN: Combtv4, jh6 Very Agttd3, Agttd2, Rstlss1, AlertClm0, Drwsy-1, Lt Sdtn-2, Mod Sdtn-3, Dp Sdtn-4, UnArsble-5 ordered. kdr
--- NOTE | 2021-12-29 18:46 | ER ---
Nurse's Notes [facility] Name: Lisa Cordero Age: 81 yrs Sex: Female : 1940 Arrival Date: 12/29/2021 Time: 14:02 Bed 23 Private MD: Diagnosis: Thoracic (T10 and T11) back pain, status post fall;;Thoracic (T10 and T11) back pain, status post fall with acute/subacute process: No fractures visualized Presentation: 12/29 14:18 Chief complaint: Patient states: she fell approx 10 days ago and fell on her back and ap3 neck. She was recently seen by her PCP at [facility] who believes she may have some hairline fractures, the patient has been unable to get into to get the MRI and was informed that they needed to come here to be seen and admitted. Coronavirus screen: At this time, the client does not indicate any symptoms associated with coronavirus-19. Ebola Screen: No symptoms or risks identified at this time. Risk Assessment: Do you want to hurt yourself or someone else? Patient reports no desire to harm self or others. Onset of symptoms was December 19, 2021. 14:18 Method Of Arrival: Wheelchair ap3 14:18 Acuity: SAMUEL 3 ap3 14:25 Initial Sepsis Screen: Does the patient meet any 2 criteria? No. Patient's initial ap3 sepsis screen is negative. Does the patient have a suspected source of infection? No. Patient's initial sepsis screen is negative. Triage Assessment: 14:23 General: Appears uncomfortable, Behavior is anxious, restless. Pain: Complains of pain ap3 in back. Neuro: Level of Consciousness is awake, alert, obeys commands, Oriented to person, place, time, situation, Appropriate for age. Cardiovascular: Patient's skin is warm and dry. Respiratory: Airway is patent Respiratory effort is even, unlabored. Musculoskeletal: patient is unable to get comfortable from sever back pain. Historical: - Allergies: 14:21 Sulfa (Sulfonamide Antibiotics); ap3 14:21 Strawberries; ap3 14:21 SHELLFISH; ap3 14:21 oral steroids; ap3 - PMHx: 14:21 Arthritis; COPD; ap3 - PSHx: 14:21 hernia repair; ap3 - Immunization history:: Client reports having NOT received the Covid vaccine. - Social history:: Smoking status: Patient denies any tobacco usage or history of. Screenin:24 Abuse screen: Denies threats or abuse. Nutritional screening: No deficits noted. ap3 Tuberculosis screening: No symptoms or risk factors identified. Fall Risk Fall in past 12 months (25 points). Secondary diagnosis (15 points) Ambulatory Aid- None/Bed Rest/Nurse Assist (0 pts). Gait- Weak (10 pts.). Mental Status- Oriented to own ability (0 pts). Assessment: 14:36 General: Appears uncomfortable, slender, well groomed, Behavior is calm, cooperative. jh6 Pain: Complains of pain in thoracic area and lumbar area Pain currently is 6 out of 10 on a pain scale. Quality of pain is described as shooting, gnawing, Pain began a little over a wk ago Is continuous, Aggravated by increased activity, repositioning, sitting. Neuro: No deficits noted. 16:38 Reassessment: MRI called and is requesting more pain meds. jh6 17:10 Reassessment: Patient and/or family updated on plan of care and expected duration. Pain jh6 level reassessed. Patient is alert, oriented x 3, equal unlabored respirations, skin warm/dry/pink. PT ABLE TO TOLERATE MRI AFTER SECOND DOSE OF MORPHINE GIVEN. PT RESTING WITH DAUGHTER AT BEDSIDE. Patient states feeling better. 17:10 Pain: Pain currently is 4 out of 10 on a pain scale. jh6 18:30 Reassessment: Patient and/or family updated on plan of care and expected duration. Pain jh6 level reassessed. STATES THAT SHE IS FEELING BETTER AND LONG SHE DOES NOT MOVE SHE DOESN'T HURT. PT S DAUGHTER AT BEDSIDE. Patient states feeling better. Patient states symptoms have improved. Vital Signs: 14:18 Pulse 93; Resp 23; Temp 98.4; Pulse Ox 100% on R/A; Weight 46.72 kg; Height 4 ft. 10 ap3 in. (147.32 cm); Pain 10/10; 14:38 BP 159 / 58; Pulse 86; Resp 20; Pulse Ox 100% ; jh6 16:00 BP 124 / 60; Pulse 84; Resp 18; jh6 17:10 BP 136 / 70; Pulse 76; Resp 17; Pulse Ox 99% ; Pain 4/10; jh6 18:30 BP 132 / 76; Pulse 74; Resp 16; Pulse Ox 98% ; Pain 2/10; jh6 14:18 Body Mass Index 21.53 (46.72 kg, 147.32 cm) ap3 ED Course: 14:02 Patient arrived in ED. ds1 14:12 Edwin Cheney MD is Attending Physician. kdr 14:21 Triage completed. ap3 14:24 Arm band placed on right wrist. ap3 14:27 Teresa Ashford, TONIA is Primary Nurse. jh6 14:39 Bed in low position. Call light in reach. Side rails up X2. Adult w/ patient. jh6 16:05 Patient moved to MRI via stretcher. jh6 16:06 Inserted saline lock: 22 gauge in right antecubital area, using aseptic technique. jh6 17:01 Thoracic Spine Wo Contr In Process Unspecified. EDMS 17:27 MRI Lumbar Spine wo Con In Process Unspecified. EDMS 19:18 IV discontinued, intact, bleeding controlled, No redness/swelling at site. jh6 19:18 No provider procedures requiring assistance completed. jh6 Administered Medications: 16:00 Drug: Valium (diazepam) 5 mg Route: PO; jh6 16:00 Drug: morphine 2 mg Route: IVP; Site: right antecubital; 6 16:21 Follow up: Response: Pain is decreased jh6 19:18 Follow up: Response: Pain is decreased jh6 16:04 CANCELLED (pt reports that she is allergic to codein ): HYDROcodone-acetaminophen 5 jh6 mg-325 mg 1 tabs PO once; RASS on ADMIN: Combtv4, Very Agttd3, Agttd2, Rstlss1, AlertClm0, Drwsy-1, Lt Sdtn-2, Mod Sdtn-3, Dp Sdtn-4, UnArsble-5 16:19 Drug: morphine 2 mg Route: IVP; Site: right antecubital; 6 16:21 Follow up: Response: Pain is decreased jh6 17:10 Follow up: Response: Anxiety decreased 6 Outcome: 18:46 Discharge ordered by . kdr 19:17 Discharged to home via wheelchair. jh6 19:17 Condition: improved 19:17 Discharge instructions given to patient, family, Instructed on discharge instructions, follow up and referral plans. Demonstrated understanding of instructions, follow-up care, medications, Prescriptions given X 1. 19:22 Patient left the ED. jh6 Signatures: Dispatcher [employer] EDMS Edwin Cheney MD MD kdr Sanford, Demi ds1 Annabelle Mendez RN RN ap3 Teresa Ashford RN RN jh6 Corrections: (The following items were deleted from the chart) 14: 14:21 Home Meds: aspirin 81 mg Oral TbEC; ap3 ap3 14:23 14:21 Home Meds: Nexium 20 mg Oral cpDR; ap3 ap3 14:23 14:21 Home Meds: Prednisone Oral; ap3 ap3 14:23 14:21 Home Meds: ProAir HFA 90 mcg/actuation inhalation HFAA; ap3 ap3
[2021-12-29 19:45] VITALS: TEMP 98.4
[2021-12-29 19:52] VITALS: BP 132/76; O2SAT 98
== END 2021-12-29 19:22 | disposition home or self-care (01) ==
LOC: ER 14:01
DX: M54.6 Pain in thoracic spine (principal); W18.30XA Fall on same level, unspecified, initial encounter; Z88.2 Allergy status to sulfonamides; Z88.8 Allergy status to other drugs, medicaments and biological substances; Z91.013 Allergy to seafood; Z91.018 Allergy to other foods
CPT/HCPCS: 72146; 72148; 96374; 99284

== ENCOUNTER 2023-02-04 16:03 | Emergency (ER) | payer OTHER, BC ==
--- OUTSIDE RECORDS SUMMARY | 2023-02-04 16:12 | XMS REPORT | Continuity of Care Document ---
:1940 Author Organization [facility] t Address [address] [place] [address] [address] [place] [address] Care Team Providers Name Role Phone SUSAN, AISHA Primary Care Physician Unavailable OVIDIO JANSEN Attending Clinician Unavailable LUPE EMERSON Attending Clinician Unavailable AHSAN FLOREZ Attending Clinician Unavailable NOLBERTO HAYWARD Attending Clinician Unavailable Devang Farfan MA Attending Clinician Unavailable JODI MEZA Attending Clinician Unavailable Zack Leonard MD Attending Clinician Jodi eMza Attending Clinician Jace Hernandez MD Attending Clinician Richi Walker MA Attending Clinician Unavailable Adolph Jones MD Attending Clinician Jamilah Jarrett MD Attending Clinician CAMPOS CACERES Attending Clinician Unavailable CAMPOS CACERES Attending Clinician Unavailable SHAAN JOY JR. Attending Clinician Unavailable ANA PAULA FERNANDEZ Attending Clinician Unavailable LOUIS MCNALLY Attending Clinician Unavailable SHAAN JOY Attending Clinician Unavailable Franchesca Small PA-C Attending Clinician FRANCHESCA SMALL Attending Clinician Unavailable Ovidio Jansen MD Attending Clinician Rufino ANDERSEN, Shaan Parry Attending Clinician Yesenia ANDERSEN, Latricia Sultana Attending Clinician [phone] Rafael ANDERSEN, Fareed Attending Clinician C-Arm, Pmr Siemens Attending Clinician Nely ANDERSEN, Josue Attending Clinician Selena ANDERSEN, Pauline Neri Attending Clinician Susan ANDERSEN, Aisha Attending Clinician Sofya ANDERSEN, Wilberto Wills Attending Clinician PAULINE CHATTERJEE Attending Clinician Unavailable WILBERTO MCDONALD Attending Clinician Unavailable OVIDIO JANSEN Admitting Clinician Unavailable LUPE EMERSON Admitting Clinician Unavailable PAULINE CHATTERJEE Admitting Clinician Unavailable WILBERTO MCDONALD Admitting Clinician Unavailable Payers Payer Name Policy Type Policy Number Effective Date Expiration Date S khari MEDICARE A B [id number] 2007 00:00:00 [place] [id number] 2010 OS 00:00:00 CDC REVIEW [id number] 2020 00:00:00 MEDICARE PART A \\T\\ [id number] 2014 B - MEDICARE 00:00:00 MEDICARE SUPPLEMENT [id number] - BCBS Problems Condition Condition Condition Status Onset Resolution Last Treating Co mments Source Name Details Category Date Date Treatment Clinician Date Hearing Hearing Disease Active [facility] loss loss 7-[facility] 00:[facility]: Hospita 00 l Low back Low back Disease Active 2020-12 Metho di pain pain 2-14 st 00:00: Hospita 00 l Neurogenic Neurogenic Disease Active 2020-12 M ethodi claudicati claudicati 2-14 st on on 00:00: Hospita 00 l Pain in Pain in Disease Active 2020-12 [facility] right knee right knee 2-14 st 00:00: Hospita 00 l GERD GERD Disease Active [facility] (gastroeso (gastroeso 9-25 st phageal phageal 00:00: Hospita reflux reflux 00 l disease) disease) Hiatal Hiatal Disease Active [facility] hernia hernia 9-25 st 00:00: Hospita 00 l Chronic Chronic Disease Active [facility] diarrhea diarrhea 5-17 Colleg e 00:00: of 00 Medicin e Gastroesop Gastroesop Disease Active [facility] hageal hageal 5-17 [place] reflux reflux 00:00: of disease disease 00 Medicin e Numerous Numerous Disease Active [place] [facility] skin moles skin moles 5-17 Co llege 00:00: of 00 Medicin e Incontinen Incontinen Disease Active [facility] ce of ce of 4-10 College feces with feces with 00:00: of fecal fecal 00 Medicin urgency urgency e 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 00:00: Hosp renetta 00 l Meningioma Meningioma Disease Active M ethodi 3-19 st 00:00: Hospita 00 l Meningioma Meningioma Disease Active [facility] (HCCode) (HCCode) 3-19 Colleg e 00:00: of 00 Medicin e History of History of Disease Active [facility] temporal temporal 3-19 Colleg e arteritis arteritis 00:00: of 00 Medicin e Primary Primary Disease Active 2017-12 [facility] osteoarthr osteoarthr 2-10 st itis of itis of 00:00: Hospita both first both first 00 l carpometac carpometac arpal arpal joints joints Osteoporos Osteoporos Disease Active [facility] Sacral Sacral Disease Active [facility] insufficie insufficie 8-14 [facility] ncy ncy 00:00: Hospita fracture fracture 00 l Osteoporos Osteoporos Disease Active M ethodi is is 7-20 st 00:00: Hospita 00 l History of History of Disease Recurre 2015-12 [facility] melanoma melanoma nce 1-01 Colleg e 00:00: of 00 Medicin e Trigger Trigger Disease Active 2014-[address] [facility] finger of finger of 2-15 [facility] left hand left hand 00:[facility]: [facility] Center Carpal Carpal Disease Active 2014-12 [facility] 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 Last Assessmen t & Plan: Formattin g of this note might be different from the original. Quit smoking at age 52, had 40 pk-yrsCXR - 04/15- vertebral comp fracture & kyphosis- ratio 65%. 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 03-10 st 00:00: Hospita 00 l Spondylart Spondylart Disease Active [facility] hrosis hrosis 4-09 College 00:00: of 00 Medicin e Lumbar Lumbar Disease Active [facility] radiculiti radiculiti 4-09 Co llege s s 00:00: of 00 Medicin e Trigger Trigger Disease Active 2013-12 [facility] finger of finger of 2-30 st both hands both hands 00:00: Ho spita 00 l Allergies, Adverse Reactions, Alerts Allergy Allergy Status Severity Reaction(s) Onset Inactive Treating Comm ents Source Name Type Date Date Clinician Gabapent Propensi Active Other (See Hallucina [facility] in ty to Comments) 08-[address] adverse 00:00: Hospita reaction 00 l s to drug Tramadol Propensi Active Other (See Hallucina Methodi ty to Comments) 08-[address] adverse 00:00: uc[facility] Hospit a reaction 00 s l s to drug GABAPENT Allergy Active Other 2020-[address] [facility] [place] 08-29 [facility] TRAMADOL Allergy Active Other 2019-[address] 08[facility]29 [facility] Gabapent Propensi Active Hallucinatio Other [facility] in ty to ns 08-29 reaction( College adverse 00:00: s): Other of reaction 00 (See Medicin s to Comments) e drug Hallucina tions Tramadol Drug Active Other (See [address] Intolera Comments) 08-29 tions [facility] Center Gabapent Propensi Active Other (See Hallucina [facility] in ty to Comments) 08-29 [facility]ions [facility] adverse 00:00: Medical reaction 00 Center s Codeine Propensi Active Other (See 2019-0 Met hodi ty to Comments) 08-25 st adverse 00:00: Hospita reaction 00 l s to drug Hydrocod Propensi Active Other (See 2019-0 Me thodi one-Acet ty to Comments) 08-25 st aminophe adverse 00:00: Hospita n reaction 00 l s to drug Propoxyp Propensi Active Other (See 2019-0 Me thodi hene ty to Comments) 08-25 st adverse 00:00: Hospita reaction 00 l s to drug CODEINE Allergy Active N\\T\\V 2019-[address] [facility] 08[facility] PROPOXYP Allergy Active N\\T\\V 2019-[address] [facility] HENE 08-25 [facility] HYDROCOD Allergy Active N\\T\\V 2019-[address] ONE-ACET 08-25 [facility] AMINOPHE 00:[facility]: Medical N 00 Center Hydrocod Propensi Active Nausea And 2020-0 [facility] one-Acet ty to Vomiting 08-25 Colleg e aminophe adverse 00:00: of n reaction 00 Medicin s to e drug Propoxyp Propensi Active Nausea And 2019-0 [facility] hene And ty to Vomiting 08-25 Colleg e Methadon adverse 00:00: of e reaction 00 Medicin s to e drug Codeine Propensi Active Nausea And 2019-[address] ty to Vomiting 08-25 [facility] adverse 00:[facility]: Medical reaction 00 Center s Propoxyp Propensi Active Nausea And 2020-[address] hene ty to Vomiting 924 [facility] adverse 00:00: Medical reaction 00 Center s Hydrocod Propensi Active Nausea And 2020-[address] one-Acet ty to Vomiting 9-24 [facility] aminophe adverse 00:00: Medical n reaction 00 Center s Tree Nut Propensi Active Swelling 2019-0 Anaphylax M ethodi ty to 8-[address] adverse 00:00: ([place] a reaction 00 os) l s to drug TREE NUT Allergy Active 2019-[address] 8[facility] Nuts Propensi Active Anaphylaxis 2019-0 Anaphylax Willie ty to 8-20 is College adverse 00:00: ([place] of reaction 00 os) Medicin s to e food Tree Nut Propensi Active 2019-[address] ty to 8-20 is [facility] adverse 00:00: ([place] Medica l reaction 00 os) Center s [place] Propensi Active Anaphylaxis 2019-0 M ethodi o Nut ty to 12-25 st adverse 00:00: Hospita reaction 00 l s to drug Venomil Propensi Active Swelling 2019-0 [facility] Honey ty to 24 College Bee adverse 00:00: of reaction 00 Medicin s to e drug Pistachi Propensi Active Anaphylaxis 2019-0 [facility] o Nut ty to 1-24 College (Diagnos adverse 00:00: of tic) reaction 00 Medicin s to e drug STRAWBER Allergy Active High Anaphylaxis [facility] VENOM-HO Allergy Active High Anaphylaxis [facility] ANTONIO BEE 8-10 [facility] Venom-Ho Drug Active Anaphylaxis 2016-[address] antonio Bee Allergy 8-10 [facility] Center Strawber Drug Active Anaphylaxis, 2016- [facility] ry Allergy Rash 8-10 [facility] Bee Propensi Active Swelling Method i Venom ty to 05-24 st Protein adverse 00:00: Hospita (Honey reaction 00 l Bee) s to drug Shrimp Propensi Active Methodi ty to 04-09 st adverse 00:00: Hospita reaction 00 l s to drug Strawber Propensi Active Rash Method i ry ty to 04-09 st adverse 00:00: Hospita reaction 00 l s to drug Strawber Propensi Active Rash [facility] ry ty to 04-09 College (Diagnos adverse 00:00: of tic) reaction 00 Medicin s to e drug Shrimp Propensi Active Other (See 2015-12 swelling [facility] ty to Comments) 0 College adverse 00:00: of reaction 00 Medicin s to e food Honey Propensi Active Swelling [facility] Bee ty to 08-22 College Venom adverse 00:00: of reaction 00 Medicin s to e drug Sulfa Propensi Active Other (See 2013-[address] (Sulfona ty to Comments) child [facility] mide adverse 00:00: Medical Antibiot reaction 00 Center ics) s SHELLFIS Allergy Active Swelling 2013-12 [facility] CONTAINI 00[facility] Medical NG 00 Center PRODUCTS SULFA Allergy Active Other 2013-[address] (SULFONA [facility] MIDE 00:00: Medical ANTIBIOT 00 Center ICS) Other Propensi Active Swelling 2013-12 [facility] ty to College adverse 00:00: of reaction 00 Medicin s e Zina Propensi Active Rash 2013-12 [facility] Canina ty to College Extract adverse 00:00: of reaction 00 Medicin s to e drug Shellfis Propensi Active Swelling 2013-[address] [facility] ty to [facility] Containi adverse 00:00: Medical ng reaction 00 Center Products s Sulfa Propensi Active Other (See As a Meth yovana (Sulfona ty to Comments) 12-[address] mide adverse 00:00: Hospita Antibiot reaction 00 l ics) s to drug Sulfa Propensi Active Other (See As a [facility] or Antibiot ty to Comments) 12-29 child Colle ge ics adverse 00:00: of reaction 00 Medicin s to e drug Family History Family Member Diagnosis Comments Start Date Stop Date Source Maternal aunt [facility] Maternal aunt Gl[facility] M[facility] Maternal grandmother Heart disease [facility] Natural mother Cancer [facility] Social History Social Habit Start Date Stop Date Quantity Comments Source History of tobacco Current smoker [facility] Exposure to Not sure [facility] e of SARS-CoV-2 (event) Medici ne History [facility] ge of Alcohol Comment Medicine Alcohol intake 2022-11-21 2022-11-21 Current Jew 00:00:00 00:00:00 non-drinker of Hospital alcohol (finding) Cigarettes smoked 2022-09-03 2022-09-[address] current (pack per 00:00:00 00:00:00 Hospita l day) - Reported Tobacco Comment 2022-09-03 2022-09-03 quit at 52 - [facility]i st 00:00:00 00:00:00 previous 2 packs Hospital a day History [facility] 2020-06-23 2020-06-23 2 [facility] ge of Alcohol Frequency 00:00:00 00:00:00 Medicin e History [facility] 2020-06-23 2020-06-23 1 [facility] ge of Alcohol Std Drinks 00:00:00 00:00:00 Medici ne History [facility] 2020-06-23 2020-06-23 1 [facility] ge of Alcohol Binge 00:00:00 00:00:00 Medicine Cigarette 2017-07-11 2017-07-[address] [facility] pack-years 00:00:00 00:00:00 [facility] Tobacco use and 2017-07-11 2017-07-[address] [facility] [facility] exposure 00:00:00 00:00:00 [facility] Sex Assigned At 1940 [address] [facility] 00:00:00 00:00:00 [facility] Smoking Status Start Date Stop Date Source Ex-smoker 2022-09-03 00:00:00 2022-09-03 00:00:00 [facility] Medications Ordered Filled Start Stop Current Ordering Indication Dosage Frequency Signature Comments Components Source Medication Medication Date Date Medication? Clinician (SIG) Name Name romosozumab 2021-12- No [id number] 210mg [facility] ([facility]) 01-22 st 210mg/2.34m 16:45: 16:33 Hospi ta L ( 00 :00 l 105mg/1.17m Lx2) subcutaneou s injection (RESTRICTED ) 210 mg romosozumab 2021-12 Yes Inject Meth yovana ([facility]) 2-[address] 210mg/2.34m 10:32: skin once. Hospita L ( 15 l 105mg/1.17m Lx2) cholecalcif 2021-12 Yes QD Chew Method i megan, 2-[address] vitamin D3, 10:32: Hospit a 25 mcg 15 l (1,000 unit) tablet,chew able lifitegrast 2021-12 Yes 1[drp] Q.5D Apply 1 M ethodi (Xiidra) 5 0-[address] % 00:00: eye 2 Hospita dropperette 00 (two) l times a day. romosozumab 2021-12- No [id number] 210mg [facility] ([facility]) 003 10-03 st 210mg/2.34m 15:30: 15:16 Hospi ta L ( 00 :00 l 105mg/1.17m Lx2) subcutaneou s injection (RESTRICTED ) 210 mg romosozumab 2021- No [id number] 210mg [facility] (EVENITY) 07-02 08- st 210mg/2.34m 16:00: 15:50 Hospi ta L ( 00 :00 l 105mg/1.17m Lx2) subcutaneou s injection (RESTRICTED ) 210 mg diphenoxyla Yes Method i te-atropine 7-20 st (LOMOTIL) 00:00: Hospita 2.5-0.025 00 l mg per tablet romosozumab 2021- No [id number] 210mg [facility] ([facility]ENITY) 6 06-06 st 210mg/2.34m 16:15: 16:09 Hospi ta L ( 00 :00 l 105mg/1.17m Lx2) subcutaneou s injection (RESTRICTED ) 210 mg zoledronic 2021- No 5mg Infuse 5 Me thodi acid/mannit 5-09 05-[address] ol-water 09:57: 00:00 venous Hospit a (RECLAST 46 :00 catheter. l IV) romosozumab 2021- No [id number] 210mg [facility] ([facility]) 03-12 04-11 st 210mg/2.34m 16:45: 16:34 Hospi ta L ( 00 :00 l 105mg/1.17m Lx2) subcutaneou s injection (RESTRICTED ) 210 mg ketotifen 2021- No 1[drp] QD Apply 1 Me thodi (ZADITOR) 03-[address] 0.025 % 10:43: 00:00 eye daily. Hos joss (0.035 %) 36 :00 l ophthalmic solution aluminum 2021- No 1{tbl} Chew 1 Meth yovana hydrox-magn 03-12 tablet. esium carb 10:43: 00:00 Hospit a 160-105 mg 36 :00 l tablet,chew able acetaminoph 2021- No Take by Nm thodi en (TYLENOL 03-[address] ARTHRITIS 10:43: 00:00 Hospita ORAL) 36 :00 l multivitami 2021- No 1{tbl} QD Take 1 M ethodi n tablet 03-12 tablet by 10:43: 00:00 mouth Hospita 36 :00 daily. l ascorbic 2021- No 500mg QD Chew 500 Met hodi acid, 03-12 04-11 mg daily. vitamin C, 10:43: 00:00 Hospit a 500 mg 36 :00 l tablet,chew able ascorbic 2021- No 500mg QD Take 500 Met hodi acid, 03-12 04-11 mg by vitamin C, 10:43: 00:00 mouth Hospi ta (VITAMIN C) 36 :00 daily. l 500 MG tablet capsaicin 2021- No Apply Method i 0.025 % 03-[address] adhesive 10:43: 00:00 Hospita patch,medic 36 :00 l ated Acetaminoph Yes .5{tbl} Take 0.5 Willie en (TYLENOL 3-18 Tablets by [facility]) 12:38: mouth of 48 every 3 Medicin hours. e ketotifen Yes 1[drp] Apply 1 [place] br[place] (ZADITOR) 3-18 Drop to College 0.025 % 12:38: eye daily. of ophthalmic 48 Medicin solution e Ascorbic 2022-0 Yes 500mg Take 500 [facility] Acid 500 MG 3-18 mg by [place] CHEW 12:38: mouth of 48 daily. Medicin e Cholecalcif 0 Yes Take by [place] bronson megan 25 MCG 3-18 mouth [place] (1000 UT) 12:38: daily. of CHEW 48 Medicin e Multiple 0 Yes 1{tbl} Take 1 [facility] Vitamins-Mi 3-18 Tablet by Col lege nerals 12:38: mouth of (ONCOVITE) 48 daily. Medicin TABS e albuterol Yes 1{puff} Take Metho di (PROAIR 3-18 90-[address] HFA) 90 00:00: by mouth. Hospi ta mcg/actuati 00 l on inhaler albuterol Yes [id number] 90ug Inhale 1-2 [facility] 108 (90 3-18 Puffs by [place] base) 00:00: mouth of mcg/act 00 every 4 Medicin inhaler hours as e needed for Wheezing. Acetaminoph 0 Yes .5{tbl} Take 0.5 Willie en (TYLENOL 2-14 Tablets by Co llege OR) 09:02: mouth of 03 every 3 Medicin hours. e ketotifen 0 Yes 1[drp] Apply 1 [place] bronson (ZADITOR) 2-14 Drop to [place] 0.025 % 09:02: eye daily. of ophthalmic 03 Medicin solution e Ascorbic Yes 500mg Take 500 [facility] or Acid 500 MG 2-14 mg by [place] CHEW 09:02: mouth of 03 daily. Medicin e Cholecalcif 0 Yes Take by [place] bronson megan 25 MCG 2-14 mouth [place] (1000 UT) 09:02: daily. of CHEW 03 Medicin e Multiple 0 Yes 1{tbl} Take 1 [facility] Vitamins-Mi 2-14 Tablet by Col lege nerals 09:02: mouth of (ONCOVITE) 03 daily. Medicin TABS e hydrocodone 0 Yes 1{tbl} Take 1 [facility] -acetaminop 2-08 Tablet by Col lege hen (NORCO) 00:00: mouth of 5-325 mg 00 every 8 Medicin tablet hours as e needed. HYDROcodone 2021-0 2021- No 1{tbl} Q8H Take 1 M ethodi -acetaminop 2- 04-[address] hen (NORCO) 00:00: 00:00 mouth Hosp renetta 5-325 mg 00 :00 every 8 l per tablet (eight) hours as needed. hydrocodone 2021- No 1{tbl} Take 1 [facility] -acetaminop 2 03-18 Tablet by Co jose franciscoege hen (NORGrivy) 00:00: 00:00 mouth of 5-325 mg 00 :00 every 8 Medicin tablet hours as e needed. ibuprofen 2021- No TAKE 1 Metho di (ADVIL) 600 12-29 04-[address] MG tablet 00:00: 00:00 MOUTH Hospit a 00 :00 EVERY 6 l HOURS NEEDED FOR PAIN.TAKE WITH FOOD methocarbam 2021-0 Yes 500mg Take 1 [place] bronson ol 1-25 Tablet by [place] (ROBAXIN) 00:00: mouth 2 of 500 MG 00 times Medicin tablet daily as e needed. methocarbam 0 Yes 500mg Take 1 [place] bronson ol 1-25 Tablet by [place] (ROBAXIN) 00:00: mouth 2 of 500 MG 00 times Medicin tablet daily as e needed. methocarbam 2021- No 500mg Take 500 Methodi oL 1-25 04-11 mg by (ROBAXIN) 00:00: 00:00 mouth. Hospi ta 500 MG 00 :00 l tablet romosozumab 2021- No [id number] 210mg Q30D [facility] ([facility]EN[facility]) 12-13 12-08 st 210mg/2.34m 18:57: 14:59 Hospi ta L ( 00 :00 l 105mg/1.17m Lx2) subcutaneou s injection (RESTRICTED ) 210 mg rifAXIMin 2021-0 Yes 550mg Take 550 [place] bronson 550 MG TABS 1-10 mg by College 00:00: mouth 3 of 00 times Medicin daily. e rifAXIMin 2021-0 Yes 550mg Take 550 [place] bronson 550 MG TABS 1-10 mg by [place] 00:00: mouth 3 of 00 times Medicin daily. e riFAXimin 2021-0 2021- No 550mg Take 550 Me thodi (XIFAXAN) 1-10 04-[address] 550 mg 00:00: 00:00 mouth. Hospita tablet 00 :00 l rifAXIMin 2020-12 Yes 550mg Take 550 [place] bronson 550 MG TABS 2-30 mg by College 00:00: mouth 3 of 00 times Medicin [...] tablet hours as e needed for Nausea. ondansetron 2020-12 Yes 4mg Take 1 [facility] (ZOFRAN-ODT 2-30 Tablet by Col lege ) 4 mg 00:00: mouth of disintegrat 00 every 8 Medic in ing tablet hours as e needed for Nausea. amoxicillin 2020-12- No Metho di -pot - st clavulanate 00:00: 00:00 Hospi ta (AUGMENTIN) 00 :00 l 875-125 mg per tablet dicyclomine 2020-12- No 10mg Take 10 mg [facility] (BENTYL) 10 -31 03-[address] MG capsule 00:00: 00:00 Hospit a 00 :00 l dicyclomine 2020-12- No Metho di (BENTYL) 10 -11 st MG capsule 00:00: 00:00 Hospit a 00 :00 l ondansetron 2020-122- No 1{tbl} Q8H Take 1 M ethodi ODT 2-30 04-[address] (ZOFRAN-ODT 00:00: 00:00 mouth Hosp renetta ) 4 MG 00 :00 every 8 l disintegrat (eight) ing tablet hours as needed. diphenoxyla 2020-12 Yes [id number] 1{tbl} Take 1 Willie te-atropine 2-10 Tablet by Col lege (LOMOTIL) 00:00: mouth 4 of 2.5-0.025 00 times Medicin MG per daily as e tablet needed for Diarrhea. diphenoxyla 2020-12 Yes [id number] 1{tbl} Take 1 Willie te-atropine 2-10 Tablet by Col lege (LOMOTIL) 00:00: mouth 4 of 2.5-0.025 00 times Medicin MG per daily as e tablet needed for Diarrhea. diphenoxyla 2020-12 Yes [id number] 1{tbl} Take 1 Willie te-atropine 2-10 Tablet by Col lege (LOMOTIL) 00:00: mouth 4 of 2.5-0.025 00 times Medicin MG per daily as e tablet needed for Diarrhea. diphenoxyla 2020-12 Yes [id number] 1{tbl} Take 1 Willie te-atropine 2-10 Tablet by Col lege (LOMOTIL) 00:00: mouth 4 of 2.5-0.025 00 times Medicin MG per daily as e tablet needed for Diarrhea. Acetaminoph 2020-12 Yes Take by [place] bronson en (TYLENOL 0-29 mouth as Kemal ege OR) 10:13: needed. of 10 Medicin e ketotifen 2020-12 Yes 1[drp] Apply 1 [place] bronson (ZADITOR) 0-29 Drop to [place] 0.025 % 10:13: eye daily. of ophthalmic 10 Medicin solution e Ascorbic 2020-12 Yes 500mg Take 500 [facility] or Acid 500 MG 0-29 mg by [place] CHEW 10:13: mouth of 10 daily. Medicin e Cholecalcif 2020-12 Yes Take by [place] bronson megan 25 MCG 0-29 mouth College (1000 UT) 10:13: daily. of CHEW 10 Medicin e Multiple 2021-1 Yes 1{tbl} Take 1 [facility] Vitamins-Mi 0-29 Tablet by Col lege nerals 10:13: mouth of (ONCOVITE) 10 daily. Medicin TABS e Acetaminoph 2020-12 Yes Take by [place] bronson en (TYLENOL 0-29 mouth as Kemal ege OR) 10:13: needed. of 10 Medicin e ketotifen 2020-12 Yes 1[drp] Apply 1 [place] bronson (ZADITOR) 0-29 Drop to College 0.025 % 10:13: eye daily. of ophthalmic 10 Medicin solution e Ascorbic 2020-12 Yes 500mg Take 500 [facility] or Acid 500 MG 0-29 mg by College CHEW 10:13: mouth of 10 daily. Medicin e Cholecalcif 2020-12 Yes Take by [place] bronson megan 25 MCG 0-29 mouth [place] (1000 UT) 10:13: daily. of CHEW 10 Medicin e Multiple 2020-12 Yes 1{tbl} Take 1 [facility] Vitamins-Mi 0-29 Tablet by Col lege nerals 10:13: mouth of (ONCOVITE) 10 daily. Medicin TABS e Acetaminoph 2020-12 Yes Take by [place] bronson en (TYLENOL 0-29 mouth as Kemal ege OR) 10:13: needed. of 10 Medicin e ketotifen 2020-12 Yes 1[drp] Apply 1 [place] bronson (ZADITOR) 0-29 Drop to [place] 0.025 % 10:13: eye daily. of ophthalmic 10 Medicin solution e Ascorbic 2020-12 Yes 500mg Take 500 [facility] or Acid 500 MG 0-29 mg by College CHEW 10:13: mouth of 10 daily. Medicin e Cholecalcif 2020-12 Yes Take by [place] bronson megan 25 MCG 0-29 mouth [place] (1000 UT) 10:13: daily. of CHEW 10 Medicin e Multiple 2020-12 Yes 1{tbl} Take 1 [facility] Vitamins-Mi 0-29 Tablet by Col lege nerals 10:13: mouth of (ONCOVITE) 10 daily. Medicin TABS e Acetaminoph 2020-12 Yes Take by [place] bronson en (TYLENOL 0-25 mouth as Kemal ege OR) 09:46: needed. of 52 Medicin e ketotifen 2020-12 Yes 1[drp] Apply 1 [place] bronson (ZADITOR) 0-25 Drop to [place] 0.025 % 09:46: eye daily. of ophthalmic 52 Medicin solution e Ascorbic 2020-12 Yes 500mg Take 500 Bayl or Acid 500 MG 0-25 mg by [place] CHEW 09:46: mouth of 52 daily. Medicin e Cholecalcif 2020-12 Yes Take by [place] bronson megan 25 MCG 0-25 mouth [place] (1000 UT) 09:46: daily. of CHEW 52 Medicin e Multiple 2020-12 Yes 1{tbl} Take 1 [facility] Vitamins-Mi 0-25 Tablet by Col lege nerals 09:46: mouth of (ONCOVITE) 52 daily. Medicin TABS e diphenoxyla 2020-12- No Metho di te-atropine 0-09 04-11 st (LOMOTIL) 00:00: 00:00 Hospita 2.5-0.025 00 :00 l mg per tablet diphenoxyla Yes [id number] 1{tbl} Take 1 Willie te-atropine 8-26 Tablet by Col lege (LOMOTIL) 00:00: mouth 4 of 2.5-0.025 00 times Medicin MG per daily as e tablet needed for Diarrhea. diphenoxyla Yes [id number] 1{tbl} Take 1 [facility] te-atropine 8-26 Tablet by [facility] (LOMOTIL) 00:00: mouth 4 of 2.5-0.025 00 times Medicin MG per daily as e tablet needed for Diarrhea. diphenoxyla 2021- No 1{tbl} Q.25D Take 1 Methodi te-atropine 8-26 04-[address] (LOMOTIL) 00:00: 00:00 mouth 4 [facility]osp renetta 2.5-0.025 00 :00 (four) l mg per times a tablet day as needed. cholestyram 2020- No [id number] 1{packe Take 1 [facility] ine 8-19 10-25 t} Packet by [place] (QUESTRAN) 00:00: 00:00 mouth two o f 4 g packet 00 :00 times Medicin daily. e Acetaminoph 2019-12 Yes Take by [facility] en (TYLENOL 0-14 mouth as [facility] e[facility] OR) 16:30: needed. of 40 Medicin e ketotifen 2020- Yes 1[drp] Apply 1 [facility] bronson (ZADITOR) 0-14 Drop to College 0.025 % 16:30: eye daily. of ophthalmic 40 Medicin solution e Ascorbic 2020-1 Yes 500mg Take 500 [facility] Acid 500 MG 0-14 mg by College CHEW 16:30: mouth. of 40 Medicin e Cholecalcif 2020- Yes 1{capsu Take 1 Cap Willie megan 25 MCG 0-14 le} by mouth. [facility] (1000 UT) 16:30: of CHEW 40 Medicin e Acetaminoph 2019- Yes Take by [facility] en (TYLENOL 0-14 mouth as Kemal ege OR) 16:30: needed. of 40 Medicin e ketotifen 2020- Yes 1[drp] Apply 1 [facility] bronson (ZADITOR) 0-14 Drop to [place] 0.025 % 16:30: eye daily. of ophthalmic 40 Medicin solution e Ascorbic 2019- Yes 500mg Take 500 [facility] Acid 500 MG 0-14 mg by College CHEW 16:30: mouth. of 40 Medicin e Cholecalcif 2020 Yes 1{capsu Take 1 Cap [facility] megan 25 MCG 0-14 le} by mouth. [facility] (1000 UT) 16:30: of CHEW 40 Medicin e famotidine 2019-12 2020- No 20mg Take 20 mg [facility] (PEPCID) 20 0-08 10-08 by mouth [facility] MG tablet 18:20: 00:00 two times of 50 :00 daily. Medicin e multivit-mi 2020-0 Yes QD Take by [facility]oli 9-28 [facility] acid 12:09: daily. Medical (ADULT 37 Center MULTIVITAMI N GUMMIES ORAL) cholecalcif 2020-0 Yes 1{capsu QD Take [address] megan, 9-28 le} capsule by [employer] vitamin D3, 12:09: mouth Medic al (VITAMIN D3 37 daily 2 Cente r ORAL) Chewables daily. ascorbic 2020-0 Yes 500mg QD Take [address] acid, 9-28 mg by [employer] vitamin C, 12:09: mouth Medica l (ASCORBIC 37 daily. Center ACID WITH ROBER HIPS) 500 MG tablet aluminum 2020-0 Yes 1{tbl} QD Take 1 [facility] hydrox-magn 9-28 tablet by Jami esium carb 12:09: mouth Medica l (GAVISCON 37 daily Center EXTRA Gaviscon . STRENGTH) 160-105 mg Chew capsaicin 2020-[address] [facility] (SALONPAS-H 9-28 topically. Ladi kes OT) 0.025 % 12:09: Medica l PtMd 37 Center lidocaine 2020-0 Yes 1{patch Place [address] [facility] (SALONPAS, 9- } patch onto Jami LIDOCAINE,) 00:00: the skin Me dical 4 % patch 00 daily as Center needed. lansoprazol 2020-0 Yes 15mg QD 5 mLs ([address] e 9-28 mg total) [facility] (PREVACID) 00:00: by Feed Medi tyler 3 mg/ml 00 Tube route Center Susp oral daily. suspension Lidocaine 4 2020-0 Yes 1{patch Place 1 Willie % PTCH 9-28 } Patch onto College 00:00: the skin. of 00 Medicin e Lidocaine 4 2020-0 Yes 1{patch Place 1 Willie % PTCH 9-28 } Patch onto College 00:00: the skin. of 00 Medicin e lidocaine 4 2020-0 2- No 1{patch Place 1 Methodi % adhesive 9- 04-11 } patch on st patch,medic 00:00: 00:00 the skin. Hospita ated 00 :00 l FAMOTIDINE 2020-0 2020- No Take by [facility] bronson OR 9-10 09-10 mouth. College 18:19: 00:00 of 49 :00 Medicin e famotidine 2020-0 Yes 20mg Take 20 mg [facility] (PEPCID) 20 9-10 by mouth [facility] e[facility] MG tablet 18:16: two times of 14 daily. Medicin e Acetaminoph 2020-0 Yes Take by [facility] en (TYLENOL 9-10 mouth as Kemal ege OR) 18:16: needed. of 14 Medicin e famotidine 2020-0 Yes 20mg Take 20 mg [facility] (PEPCID) 20 9-10 by mouth [facility] MG tablet 16:04: two times of 25 daily. Medicin e Acetaminoph 2020-0 Yes Take by [facility] en (TYLENOL 9-10 mouth as [facility] ege OR) 16:04: needed. of 25 Medicin e Acetaminoph 2020-0 Yes Take by [facility] br[facility] en (TYLENOL 7-23 mouth as Kemal ege OR) 14:29: needed. of 18 Medicin e Acetaminoph 2020-0 Yes Take by [facility] bronson en (TYLENOL 7-23 mouth as Kemal ege [...] times of 10 daily. Medicin e triamcinolo 2020-0 2020- No [id number] [facility] ne -15 04-15 College acetonide 13:45: 13:39 of (KENALOG-40 00 :00 Medicin ) 40 mg/mL e 40 mg, bupivacaine (PF) (MARCAINE) 0.5 % 2 mL iohexol 2020-0 2020- No [id number] 1mL [facility] (OMNIPAQUE) 04-15-15 College 300 MG/ML 13:45: 13:39 of injection 1 00 :00 Medicin mL e iohexol 2020-0 2020- No [id number] 1mL 1 mL, [facility] bronson (OMNIPAQUE) 04-15-15 Epidural, Co llege 300 MG/ML 13:45: 13:39 ONCE, 1 of injection 1 00 :00 dose, Fri Med icin mL 04/15/20 at e 0845 triamcinolo 2020-0 2020- No [id number] Epidural, Willie ne - 05-15 ONCE, 1 College acetonide 13:45: 13:39 dose, Fri of (KENALOG-40 00 :00 04/15/20 at Me dicin ) 40 mg/mL 0845 e 40 mg, bupivacaine (PF) (MARCAINE) 0.5 % 2 mL HYALGAN 20 2020-0 2020- No [id number] 20mg [facility] MG/2ML 02-01 9109 College injection 18:30: 18:18 of 20 mg 00 :00 Medicin e HYALGAN 20 2020-0 2020- No [id number] 2mL 20 mg (2 [facility] MG/2ML 02-01 9109 mL), [place] injection 18:30: 18:18 Intra-leslie o f 20 mg 00 :00 cular, Medicin ONCE, 1 e dose, 02/02/20 at 1230 HYALGAN 20 2020-0 2020- No [id number] 20mg [facility] MG/2ML 01-25 9109 College injection 15:45: 15:43 of 20 mg 00 :00 Medicin e HYALGAN 20 2020-0 2020- No [id number] 2mL 20 mg (2 Willie MG/2ML 01-25 9109 mL), [place] injection 15:45: 15:43 Intra-leslie o f 20 mg 00 :00 cular, Medicin ONCE, 1 e dose, 01/25/20 at 0945 zoledronic 2020-0 2020- No [id number] Inject Willie acid, like 01-25 91 into the Kemal ege [...] Dexlansopra 2020-0 Yes 1{capsu Take 1 Cap Willie zole 60 MG 2-10 le} by mouth Colle ge CPDR 00:00: daily. of 00 Medicin e Dexlansopra 2020-0 2020- No 1{capsu Take 1 Cap [facility] zole 60 MG 2-10 02-24 le} by mouth Kemal ege CPDR 00:00: 00:00 daily. of 00 :00 Medicin e Ergocalcife 2020-0 Yes Take one [facility]lor rol 1.25 MG 2-04 tablet Colleg e ([id number] UT) 00:00: weekly of CAPS 00 Medicin e Ergocalcife 2020-0 2020- No Take one B aylor rol 1.25 MG 2-04 02-24 tablet Colle ge ([id number] UT) 00:00: 00:00 weekly of CAPS 00 :00 Medicin e olopatadine 2020-0 Yes [id number] 1[drp] 1 Drop [facility] HCl 2-03 daily. 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 of capsule 00 :00 Medicin e triamcinolo 2020-0 2020- No [id number] Intra-leslie [facility] ne 12-25 jose [place] acetonide 17:45: 17:35 ONCE, 1 of (KENALOG-40 00 :00 dose, Fri Med icin ) 40 mg/mL 12/25/19 at e 60 mg, 1145 lidocaine 1% (10 mg/mL) 3.5 mL triamcinolo 2020- No [id number] [facility] ne 12-25 [place] acetonide 17:45: 17:35 of (KENALOG-40 00 :00 Medicin ) 40 mg/mL e 60 mg, lidocaine 1% (10 mg/mL) 3.5 mL DUREZOL 2018-12 Yes [facility] 0.05 % 01-13 College ophthalmic 00:00: of emulsion 00 Medicin e DUREZOL 2018-12 2020- No [facility] 0.05 % 01-13 [place] ophthalmic 00:00: 00:00 of emulsion 00 :00 Medicin e Naproxen 2019- No Take by [facility] Sodium 08-17 mouth. [place] (ALERUDI) 220 18:04: 00:00 of MG TABS 30 :00 Medicin e methylPREDN Yes 4mg Take 1 Tab [facility] ISolone 7-17 by mouth [place] (MEDROL 00:00: See Admin of DOSEPACK) 4 00 Instructio Me dicin MG tablet ns. e methylPREDN 2019- No 4mg Take 1 Tab [facility] ISolone 7-17 08-17 by mouth [place] (MEDROL 00:00: 00:00 See Admin of DOSEPACK) [...] daily. of 22 Medicin e zoledronic Yes [id number] Inject [facility] acid, like 6-28 9102 into the Colle ge RECLAST, 5 18:24: vein. of MG/100ML 35 Medicin infusion e zoledronic 2018- Yes [id number] Inject [facility] acid, like 6-28 9102 into the Colle ge RECLAST, 5 18:24: vein. of MG/100ML 35 Medicin infusion e Naproxen Yes Take by Willie Sodium 6-28 mouth. College (ALE) 220 18:24: of MG TABS 35 Medicin e zoledronic Yes [id number] Inject [facility] acid, like 05-29 9102 into the Colle ge RECLAST, 5 18:24: vein. of MG/100ML 35 Medicin infusion e zoledronic Yes [id number] Inject [facility] acid, like 6 9102 into the Colle ge RECLAST, 5 18:24: vein. of MG/100ML 35 Medicin infusion e zoledronic Yes [id number] Inject [facility] acid, like 6- 9102 into the Colle ge RECLAST, 5 18:24: vein. of MG/100ML 35 Medicin infusion e Na 2019- No [id number] Use as [facility] Sulfate-K 05-01 directed Colle ge Sulfate-Mg 00:00: 04:59 of Sulf 00 :00 Medicin (SUPREP e BOWEL PREP KIT) 17.5-3.13-1 .6 GM/177ML SOLN ranitidine, Yes [id number] 150mg Take 1 Tab [facility] ZANTAC, 150 5-17 by mouth Kemal ege MG tablet 00:00: two times of 00 daily. Medicin e ranitidine, Yes [id number] 150mg Take 1 Tab Willie ZANTAC, 150 5-17 by mouth Kemal ege MG tablet 00:00: two times of 00 daily. Medicin e ranitidine, 2020- No [id number] 150mg Take 1 Tab Willie ZANTAC, 150 5-17 24 by mouth Col [facility] MG tablet 00:00: 00:00 two times of 00 :00 daily. Medicin e Lifitegrast Yes [id number] 1[drp] Place 1 [facility] 5 % SOLN 4-25 Drop into Colleg e 00:00: both eyes of 00 two times Medicin daily. e Discard single use container after using. Remove contact lenses prior use and may be reinserted 15 minutes following. Lifitegrast 2019- No [id number] 1[drp] Place 1 [facility] 5 % SOLN 4-25 08-17 Drop into Colle ge 00:00: 00:00 both eyes of 00 :00 two times Medicin daily. e Discard single use container after using. Remove contact lenses prior use and may be reinserted 15 minutes following. Immunizations Ordered Immunization Filled Immunization Date Status Commen ts Source Name Name Influenza Trivalent 2021-09-25 Completed [facility] 00:[facility]:00 [facility] Influenza Hd 2021-09-25 Completed [facility] Colle ge 00:00:00 of Medicine Influenza Hd 2021-09-25 Completed [facility] Colle ge 00:00:00 of Medicine Influenza Hd 2021-09-25 Completed [facility] Colle ge 00:00:00 of Medicine Influenza Hd 2021-09-25 Completed [facility] Colle ge 00:00:00 of Medicine Influenza Hd 2021-09-25 Completed [facility] Colle ge 00:00:00 of Medicine Influenza Hd 2021-09-25 Completed [facility] Colle ge 00:00:00 of Medicine Pneumococcal 2020-09-14 Completed [facility] Polysaccharide 00:00:00 Hospital Pneumococcal 2020-09-14 Completed [facility] Colle ge Polysaccharide 00:00:00 of Medicin e Pneumococcal 2020-09-14 Completed Willie Colle ge Polysaccharide 00:00:00 of Medicin e Pneumococcal 2020-09-14 Completed [facility] Colle ge Polysaccharide 00:00:00 of Medicin e Pneumococcal 2020-09-14 Completed [facility]le [facility] Polysaccharide 00:00:00 of Medicin e Pneumococcal 2020-09-14 Completed [facility] Colle ge Polysaccharide 00:00:00 of Medicin e Pneumococcal 2020-09-14 Completed [facility] Colle ge Polysaccharide 00:00:00 of Medicin e Pneumococcal 2020-09-14 Completed [facility] Colle ge Polysaccharide 00:00:00 of Medicin e Influenza Trivalent 2020-08-29 Completed [facility] 00:00:00 Hospital Influenza Hd 2020-08-29 Completed [facility] Colle ge 00:00:00 of Medicine Influenza Hd 2020-08-29 Completed [facility] Colle ge 00:00:00 of Medicine Influenza Hd 2020-08-29 Completed [facility] Colle ge 00:00:00 of Medicine Influenza Hd 2020-08-29 Completed [facility] Colle ge 00:00:00 of Medicine Influenza Hd 2020-08-29 Completed [facility]le ge 00:00:00 of Medicine Influenza Hd 2020-08-29 Completed [facility]le ge 00:00:00 of Medicine Influenza Hd 2020-08-29 Completed [facility]le ge 00:00:00 of Medicine Influenza Hd 2020-08-29 Completed [facility] Colle ge 00:00:00 of Medicine INFLUENZA QIV [address] [facility] ADJUVANTED [facility] ([id number]) FLUZONE QUAD 2020 Completed [facility] 00:00:00 Hospital FLUZONE HIGH-DOSE PF 2020 Completed [facility] 00:00:00 Hospital Influenza Hd 2020 Completed [facility]le ge 00:00:00 of Medicine Influenza Hd 2020 Completed [facility]le ge 00:00:00 of Medicine Influenza Hd 2020 Completed [facility]le ge 00:00:00 of Medicine Influenza Hd 2020 Completed [facility] Colle ge 00:00:00 of Medicine Influenza Hd 2020 Completed [facility] Colle ge 00:00:00 of Medicine Influenza Hd 2020 Completed [facility] Colle ge 00:00:00 of Medicine Influenza Hd 2020 Completed [facility] Colle ge 00:00:00 of Medicine Influenza Hd 2020 Completed [facility] Colle ge 00:00:00 of Medicine FLUZONE HIGH-DOSE PF 2019-08-29 Completed [facility] 00:00:00 Hospital Influenza Hd 2019-08-29 Completed [facility] Colle ge 00:00:00 of Medicine Influenza Hd 2019-08-29 Completed [facility] Colle ge 00:00:00 of Medicine Influenza Hd 2019-08-29 Completed [facility] Colle ge 00:00:00 of Medicine Influenza Hd 2019-08-29 Completed [facility] Colle ge 00:00:00 of Medicine Influenza Hd 2019-08-29 Completed [facility] Colle ge 00:00:00 of Medicine Influenza Hd 2019-08-29 Completed [facility] Colle ge 00:00:00 of Medicine Influenza Hd 2019-08-29 Completed Willie Colle ge 00:00:00 of Medicine Influenza Hd 2019-08-29 Completed [facility] Colle ge 00:00:00 of Medicine Influenza Hd 2019-08-29 Completed [facility] Colle ge 00:00:00 of Medicine Influenza Hd 2019-08-29 Completed [facility]le ge 00:00:00 of Medicine Influenza Hd 2019-08-29 Completed [facility]le ge 00:00:00 of Medicine Influenza Hd 2019-08-29 Completed [facility] Colle ge 00:00:00 of Medicine Influenza Hd 2019-08-29 Completed [facility] Colle ge 00:00:00 of Medicine Influenza Hd 2019-08-29 Completed [facility] Colle ge 00:00:00 of Medicine Influenza Hd 2019-08-29 Completed [facility] Colle ge 00:00:00 of Medicine Influenza Hd 2019-08-29 Completed [facility] Colle ge 00:00:00 of Medicine Influenza Hd 2019-08-29 Completed Willie Colle ge 00:00:00 of Medicine Influenza Hd 2019-08-29 Completed [facility] Colle ge 00:00:00 of Medicine Influenza Hd 2019-08-29 Completed [facility] Colle ge 00:00:00 of Medicine Influenza Hd 2019-08-29 Completed [facility] Colle ge 00:00:00 of Medicine Tdap 2019-02-17 Completed [facility] 00:00:00 Hospital Tdap 2019-02-17 Completed [facility] College 00:00:00 of Medicine Tdap 2019-02-17 Completed [facility] 00:00:00 of Medicine Tdap 2019-02-17 Completed [facility] College 00:00:00 of Medicine Tdap 2019-02-17 Completed [facility] College 00:00:00 of Medicine Tdap 2019-02-17 Completed [facility] College 00:00:00 of Medicine Tdap 2019-02-17 Completed [facility] College 00:00:00 of Medicine Tdap 2019-02-17 Completed [facility] College 00:00:00 of Medicine Tdap 2019-02-17 Completed [facility] College 00:00:00 of Medicine Tdap 2019-02-17 Completed [facility] College 00:00:00 of Medicine Tdap 2019-02-17 Completed [facility] College 00:00:00 of Medicine Tdap 2019-02-17 Completed [facility] College 00:00:00 of Medicine Tdap 2019-02-17 Completed [facility] 00:00:00 of Medicine Tdap 2019-02-17 Completed [facility] College 00:00:00 of Medicine Tdap 2019-02-17 Completed [facility] 00:00:00 of Medicine Tdap 2019-02-17 Completed [facility] College 00:00:00 of Medicine Tdap 2019-02-17 Completed [facility] 00:00:00 of Medicine Tdap 2019-02-17 Completed [facility] College 00:00:00 of Medicine Tdap 2019-02-17 Completed [facility] College 00:00:00 of Medicine Tdap 2019-02-17 Completed [facility] 00:00:00 of Medicine Tdap 2019-02-17 Completed [facility] 00:00:00 of Medicine Tdap 2019-02-17 Completed [facility] 00:00:00 of Medicine Tdap 2019-02-17 Completed [facility] 00:00:00 of Medicine Influenza, 2018-10-02 Completed [facility] Unspecified 00:00:00 Hospital Influenza Quad-PF 2018-10-02 Completed [facility] 00:00:00 of Medicine Influenza Quad-PF 2018-10-02 Completed [facility] 00:00:00 of Medicine Influenza Quad-PF 2018-10-02 Completed [facility] 00:00:00 of Medicine Influenza Quad-PF 2018-10-02 Completed [facility] 00:00:00 of Medicine Influenza Quad-PF 2018-10-02 Completed [facility] 00:00:00 of Medicine Influenza Quad-PF 2018-10-02 Completed [facility] 00:00:00 of Medicine Influenza Quad-PF 2018-10-02 Completed [facility] 00:00:00 of Medicine Influenza Quad-PF 2018-10-02 Completed [facility] 00:00:00 of Medicine Influenza Quad-PF 2018-10-02 Completed [facility] 00:00:00 of Medicine Influenza Quad-PF 2018-10-02 Completed [facility] 00:00:00 of Medicine Influenza Quad-PF 2018-10-02 Completed [facility] 00:00:00 of Medicine Influenza Quad-PF 2018-10-02 Completed [facility] 00:00:00 of Medicine Influenza Quad-PF 2018-10-02 Completed [facility] 00:00:00 of Medicine Influenza Quad-PF 2018-10-02 Completed [facility] 00:00:00 of Medicine Influenza Quad-PF 2018-10-02 Completed [facility] 00:00:00 of Medicine Influenza Quad-PF 2018-10-02 Completed [facility] 00:00:00 of Medicine Influenza Quad-PF 2018-10-02 Completed [facility] 00:00:00 of Medicine Influenza Quad-PF 2018-10-02 Completed [facility] 00:00:00 of Medicine Influenza Quad-PF 2018-10-02 Completed [facility] 00:00:00 of Medicine Influenza Quad-PF 2018-10-02 Completed [facility] 00:00:00 of Medicine Influenza Quad-PF 2018-10-02 Completed [facility] 00:00:00 of Medicine Influenza Quad-PF 2018-10-02 Completed [facility] 00:00:00 of Medicine Influenza Trivalent 2016-09-27 Completed [facility] Influenza Hd 2016-09-27 Completed [facility] 00:00:00 of Medicine Influenza Hd 2016-09-27 Completed [facility] 00:00:00 of Medicine Influenza Hd 2016-09-27 Completed [facility] 00:00:00 of Medicine Influenza Hd 2016-09-27 Completed [facility] Colle ge 00:00:00 of Medicine Influenza Hd 2016-09-27 Completed [facility] Colle ge 00:00:00 of Medicine Influenza Hd 2016-09-27 Completed [facility]le ge 00:00:00 of Medicine Influenza Hd 2016-09-27 Completed [facility] Colle ge 00:00:00 of Medicine Influenza Hd 2016-09-27 Completed [facility] Colle ge 00:00:00 of Medicine Influenza Hd 2016-09-27 Completed [facility] Colle ge 00:00:00 of Medicine Influenza Hd 2016-09-27 Completed [facility]le ge 00:00:00 of Medicine Influenza Hd 2016-09-27 Completed [facility] Colle ge 00:00:00 of Medicine Influenza Hd 2016-09-27 Completed [facility] Colle ge 00:00:00 of Medicine Influenza Hd 2016-09-27 Completed [facility]le ge 00:00:00 of Medicine Influenza Hd 2016-09-27 Completed [facility] Colle ge 00:00:00 of Medicine Influenza Hd 2016-09-27 Completed [facility] Colle ge 00:00:00 of Medicine Influenza Hd 2016-09-27 Completed [facility] Colle ge 00:00:00 of Medicine Influenza Hd 2016-09-27 Completed [facility] [place] [facility] 00:00:00 of Medicine Influenza Hd 2016-09-27 Completed [facility] [place] [facility] 00:00:00 of Medicine Influenza Hd 2016-09-27 Completed [facility] [place] [facility] 00:00:00 of Medicine Influenza Hd 2016-09-27 Completed [facility] [place] [facility] 00:00:00 of Medicine Influenza Hd 2016-09-27 Completed [facility] [place] [facility] 00:00:00 of Medicine Influenza Hd 2016-09-27 Completed [place] [facility] 00:00:00 of Medicine Pneumococcal 2015-07-04 Completed [facility] Conjugate 13-Valent 00:00:00 Hospi denny Pneumococcal 2015-07-04 Completed [facility] [place] [facility] 00:00:00 of Medicine Pneumococcal 2015-07-04 Completed [place] [facility] 00:00:00 of Medicine Pneumococcal 2015-07-04 Completed [facility] [place] [facility] 00:00:00 of Medicine Pneumococcal 2015-07-04 Completed [place] [facility] 00:00:00 of Medicine Pneumococcal 2015-07-04 Completed [facility] [place] [facility] 00:00:00 of Medicine Pneumococcal 2015-07-04 Completed [facility] 00:00:00 of Medicine Pneumococcal 2015-07-04 Completed [facility] 00:00:00 of Medicine Pneumococcal 2015-07-04 Completed [facility] 00:00:00 of Medicine Pneumococcal 2015-07-04 Completed [facility] [place] [facility] 00:00:00 of Medicine Pneumococcal 2015-07-04 Completed [place] [facility] 00:00:00 of Medicine Pneumococcal 2015-07-04 Completed [facility] 00:00:00 of Medicine Pneumococcal 2015-07-04 Completed [place] [facility] 00:00:00 of Medicine Pneumococcal 2015-07-04 Completed [facility] [place] [facility] 00:00:00 of Medicine Pneumococcal 2015-07-04 Completed [facility] [place] [facility] 00:00:00 of Medicine Pneumococcal 2015-07-04 Completed [facility] [place] [facility]jug[facility] 00:00:00 of Medicine Pneumococcal 2015-07-04 Completed [place] [facility] 00:00:00 of Medicine Pneumococcal 2015-07-04 Completed [facility] 00:00:00 of Medicine Pneumococcal 2015-07-04 Completed [facility] 00:00:00 of Medicine Pneumococcal 2015-07-04 Completed [facility] [place] [facility] 00:00:00 of Medicine Pneumococcal 2015-07-04 Completed [place] [facility] 00:00:00 of Medicine Pneumococcal 2015-07-04 Completed [facility] [place] [facility] 00:00:00 of Medicine Pneumococcal 2015-07-04 Completed [facility] [place] [facility] 00:00:00 of Medicine Vital Signs Vital Name Observation Time Observation Value Comments Source WEIGHT 2020-08-12 00:00:00 59.6 kg HEIGHT 2020-08-12 00:00:00 149.9 cm HEIGHT 2020-06-30 00:00:00 149.9 cm WEIGHT 2020-06-30 00:00:00 55.43 kg Systolic blood 2022-02-16 17:34:00 95 mm[Hg] [facility] pressure Medicine Diastolic blood 2022-02-16 17:34:00 63 mm[Hg] [facility] pressure Medicine Heart rate 2022-02-16 17:34:00 98 /min [facility] Body temperature 2022-02-16 17:34:00 36.5 Sudha [facility] Respiratory rate 2022-02-16 17:34:00 16 /min [facility] Body height 2022-02-16 17:34:00 154.9 cm [facility] Body weight 2022-02-16 17:34:00 49.896 kg [facility] BMI 2022-02-16 17:34:00 20.78 kg/m2 [facility] [place] Systolic blood 2022-01-15 14:56:00 157 mm[Hg] [facility] pressure Medicine Diastolic blood 2022-01-15 14:56:00 81 mm[Hg] [facility] Medicine Heart rate 2022-01-15 14:56:00 93 /min [facility] Body temperature 2022-01-15 14:56:00 36.17 Sudha [facility] Respiratory rate 2022-01-15 14:56:00 16 /min [facility] Body height 2022-01-15 14:56:00 152.4 cm [facility] Body weight 2022-01-15 14:56:00 48.988 kg [facility] BMI 2022-01-15 14:56:00 21.09 kg/m2 [facility] Systolic blood 2021-11-30 16:18:00 125 mm[Hg] [facility] pressure Medicine Diastolic blood 2021-11-30 16:18:00 81 mm[Hg] [facility] pressure Medicine Heart rate 2021-11-30 16:18:00 93 /min [facility] Body temperature 2021-11-30 16:18:00 36 Sudha [facility] Respiratory rate 2021-11-30 16:18:00 14 /min [facility] Body height 2021-11-30 16:18:00 152.4 cm [facility] [place] [facility] Body weight 2021-11-30 16:18:00 47.174 kg [facility] [place] [facility] BMI 2021-11-30 16:18:00 20.31 kg/m2 [facility] [place] [facility] Body temperature 2021-09-29 14:59:00 36.5 Sudha [facility] Respiratory rate 2021-09-29 14:59:00 15 /min [facility] Body height 2021-09-29 14:59:00 152.4 cm [facility] Body weight 2021-09-29 14:59:00 49.896 kg [facility] BMI 2021-09-29 14:59:00 21.48 kg/m2 [facility] Systolic blood 2021-09-25 14:54:00 140 mm[Hg] [facility] of pressure Medicine Diastolic blood 2021-09-25 14:54:00 81 mm[Hg] [facility] of pressure Medicine Heart rate 2021-09-25 14:54:00 78 /min [facility] Body temperature 2021-09-25 14:54:00 36.61 Sudha [facility] Respiratory rate 2021-09-25 14:54:00 15 /min [facility] Body height 2021-09-25 14:54:00 152.4 cm [facility] Body weight 2021-09-25 14:54:00 49.896 kg [facility] BMI 2021-09-25 14:54:00 21.48 kg/m2 [facility] Systolic blood 2020-09-14 16:28:00 128 mm[Hg] [facility] pressure Medicine Diastolic blood 2020-09-14 16:28:00 68 mm[Hg] [facility] of pressure Medicine Heart rate 2020-09-14 16:28:00 68 /min [facility] Body temperature 2020-09-14 16:28:00 36.78 Sudha [facility] Respiratory rate 2020-09-14 16:28:00 16 /min [facility] Body height 2020-09-14 16:28:00 154.9 cm [facility] [place] [facility] Body weight 2020-09-14 16:28:00 54.341 kg [facility] [place] [facility] BMI 2020-09-14 16:28:00 22.64 kg/m2 [facility] of Medicine Oxygen saturation in 2020-09-14 16:28:00 97 /min [facility] blood by [facility] Pulse oximetry Systolic blood 2020-09-08 18:01:00 154 mm[Hg] [facility] of pressure Medicine Diastolic blood 2020-09-08 18:01:00 77 mm[Hg] [facility] pressure Medicine Heart rate 2020-09-08 18:01:00 96 /min [facility] Body temperature 2020-09-08 18:01:00 36.89 Sudha [facility] Body height 2020-09-08 18:01:00 154.9 cm [facility] Body weight 2020-09-08 18:01:00 54.885 kg [facility] BMI 2020-09-08 18:01:00 22.86 kg/m2 [facility] WEIGHT 2020-08-12 00:00:00 59.6 kg HEIGHT 2020-08-12 00:00:00 149.9 cm Systolic blood 2020-08-11 18:13:00 128 mm[Hg] [facility] of pressure Medicine Diastolic blood 2020-08-11 18:13:00 69 mm[Hg] [facility] pressure Medicine Heart rate 2020-08-11 18:13:00 89 /min [facility] Body temperature 2020-08-11 18:13:00 36.56 Sudha [facility] Body height 2020-08-11 18:13:00 154.9 cm [facility] Body weight 2020-08-11 18:13:00 53.978 kg [facility] BMI 2020-08-11 18:13:00 22.48 kg/m2 [facility] Medicine Systolic blood 2020-08-11 16:04:00 120 mm[Hg] [facility] of pressure Medicine Diastolic blood 2020-08-11 16:04:00 74 mm[Hg] [employer] of pressure Medicine Heart rate 2020-08-11 16:04:00 68 /min [facility] [place] [facility] Body temperature 2020-08-11 16:04:00 36.83 Sudha [facility] Body height 2020-08-11 16:04:00 152.4 cm [facility] [place] [facility] Body weight 2020-08-11 16:04:00 55.339 kg [facility] [place] [facility] BMI 2020-08-11 16:04:00 23.83 kg/m2 [facility] [place] [facility] HEIGHT 2020-06-30 00:00:00 149.9 cm WEIGHT 2020-06-30 00:00:00 55.43 kg Systolic blood 2020-07-12 18:26:00 128 mm[Hg] [facility] pressure Medicine Diastolic blood 2020-07-12 18:26:00 74 mm[Hg] [facility] pressure Medicine Heart rate 2020-07-12 18:26:00 93 /min [facility] [place] [facility] Body temperature 2020-07-12 18:26:00 37.28 Sudha [facility] Body height 2020-07-12 18:26:00 152.4 cm [facility] [place] [facility] Body weight 2020-07-12 18:26:00 55.702 kg [facility] BMI 2020-07-12 18:26:00 23.98 kg/m2 [facility] [place] [facility] Systolic blood 2020-06-23 14:29:00 153 mm[Hg] [facility] pressure Medicine Diastolic blood 2020-06-23 14:29:00 80 mm[Hg] [facility] Medicine Heart rate 2020-06-23 14:29:00 85 /min [facility] [place] [facility] Body temperature 2020-06-23 14:29:00 36.83 Sudha [facility] Body height 2020-06-23 14:29:00 152.4 cm [facility] [place] [facility] Body weight 2020-06-23 14:29:00 54.885 kg [facility] [place] [facility] BMI 2020-06-23 14:29:00 23.63 kg/m2 [facility] [place] [facility] Systolic blood 2020-06-23 14:29:00 153 mm[Hg] [facility] of pressure Medicine Diastolic blood 2020-06-23 14:29:00 80 mm[Hg] [facility] Medicine Heart rate 2020-06-23 14:29:00 85 /min [facility] Medicine Body temperature 2020-06-23 14:29:00 36.83 Sudha [facility] Body height 2020-06-23 14:29:00 152.4 cm [facility] [place] [facility] Body weight 2020-06-23 14:29:00 54.885 kg [facility] [place] [facility] BMI 2020-06-23 14:29:00 23.63 kg/m2 [facility] Medicine Systolic blood 2020-06-02 18:56:00 147 mm[Hg] [facility] of pressure Medicine Diastolic blood 2020-06-02 18:56:00 85 mm[Hg] [facility] Medicine Heart rate 2020-06-02 18:56:00 88 /min [facility] Body temperature 2020-06-02 18:56:00 36.72 Sudha [facility] Body height 2020-06-02 18:56:00 152.4 cm [facility] [place] [facility] Body weight 2020-06-02 18:56:00 56.065 kg [facility] BMI 2020-06-02 18:56:00 24.14 kg/m2 [facility] Systolic blood 2020-06-02 18:56:00 147 mm[Hg] [facility] of pressure Medicine Diastolic blood 2020-06-02 18:56:00 85 mm[Hg] [facility] Medicine Heart rate 2020-06-02 18:56:00 88 /min [facility] Medicine Body temperature 2020-06-02 18:56:00 36.72 Sudha [facility] Body height 2020-06-02 18:56:00 152.4 cm [facility] [place] [facility] Body weight 2020-06-02 18:56:00 56.065 kg [facility] BMI 2020-06-02 18:56:00 24.14 kg/m2 [facility] Medicine Systolic blood 2020-04-22 12:22:00 122 mm[Hg] [facility] [place] [facility] pressure Medicine Diastolic blood 2020-04-22 12:22:00 73 mm[Hg] [facility] pressure Medicine Heart rate 2020-04-22 12:22:00 94 /min [facility] [place] [facility] Body height 2020-04-22 12:22:00 152.4 cm [facility] [place] [facility] Body weight 2020-04-22 12:22:00 53.071 kg [facility] [place] [facility] BMI 2020-04-22 12:22:00 22.85 kg/m2 [facility] [place] [facility] Systolic blood 2020-04-22 12:22:00 122 mm[Hg] [facility] of pressure Medicine Diastolic blood 2020-04-22 12:22:00 73 mm[Hg] [facility] pressure Medicine Heart rate 2020-04-22 12:22:00 94 /min [facility] [place] [facility] Body height 2020-04-22 12:22:00 152.4 cm [facility] [place] [facility] Body weight 2020-04-22 12:22:00 53.071 kg [facility] [place] [facility] BMI 2020-04-22 12:22:00 22.85 kg/m2 [facility] [place] [facility] Systolic blood 2020-04-15 13:04:00 120 mm[Hg] [facility] of pressure Medicine Diastolic blood 2020-04-15 13:04:00 74 mm[Hg] [facility] of pressure Medicine Heart rate 2020-04-15 13:04:00 70 /min [facility] [place] [facility] Body temperature 2020-04-15 13:04:00 36.44 Sudha [facility] Body height 2020-04-15 13:04:00 152.4 cm [facility] [place] [facility] Body weight 2020-04-15 13:04:00 52.164 kg [facility] [place] [facility] BMI 2020-04-15 13:04:00 22.46 kg/m2 [facility] [place] [facility] Systolic blood 2020-04-15 13:04:00 120 mm[Hg] [facility] of pressure Medicine Diastolic blood 2020-04-15 13:04:00 74 mm[Hg] [facility] of pressure Medicine Heart rate 2020-04-15 13:04:00 70 /min [facility] [place] [facility] Body temperature 2020-04-15 13:04:00 36.44 Sudha [facility] Body height 2020-04-15 13:04:00 152.4 cm [facility] [place] [facility] Body weight 2020-04-15 13:04:00 52.164 kg [facility] [place] [facility] BMI 2020-04-15 13:04:00 22.46 kg/m2 [facility] [place] [facility] Systolic blood 2020-02-02 17:10:00 114 mm[Hg] [facility] of pressure Medicine Diastolic blood 2020-02-02 17:10:00 70 mm[Hg] [facility] of pressure Medicine Heart rate 2020-02-02 17:10:00 88 /min [facility] [place] [facility] Body temperature 2020-02-02 17:10:00 36.78 Sudha [facility] Body height 2020-02-02 17:10:00 152.4 cm [facility] [place] [facility] Body weight 2020-02-02 17:10:00 52.617 kg [facility] Medicine BMI 2020-02-02 17:10:00 22.65 kg/m2 [facility] [place] [facility] Systolic blood 2020-02-02 17:10:00 114 mm[Hg] [facility] of pressure Medicine Diastolic blood 2020-02-02 17:10:00 70 mm[Hg] [facility] of pressure Medicine Heart rate 2020-02-02 17:10:00 88 /min [facility] [place] [facility] Body temperature 2020-02-02 17:10:00 36.78 Sudha [facility] Body height 2020-02-02 17:10:00 152.4 cm [facility] [place] [facility] Body weight 2020-02-02 17:10:00 52.617 kg [facility] [place] [facility] BMI 2020-02-02 17:10:00 22.65 kg/m2 [facility] [place] [facility] Systolic blood 2020-01-25 15:08:00 112 mm[Hg] [facility] [place] [facility] pressure Medicine Diastolic blood 2020-01-25 15:08:00 69 mm[Hg] [facility] of pressure Medicine Heart rate 2020-01-25 15:08:00 86 /min [facility] [place] [facility] Body temperature 2020-01-25 15:08:00 36.83 Sudha [facility] Body height 2020-01-25 15:08:00 152.4 cm [facility] [place] [facility] Body weight 2020-01-25 15:08:00 52.617 kg [facility] [place] [facility] BMI 2020-01-25 15:08:00 22.65 kg/m2 [facility] Systolic blood 2020-01-25 15:08:00 112 mm[Hg] [facility] pressure Medicine Diastolic blood 2020-01-25 15:08:00 69 mm[Hg] [facility] Medicine Heart rate 2020-01-25 15:08:00 86 /min [facility] Body temperature 2020-01-25 15:08:00 36.83 Sudha [facility] Body height 2020-01-25 15:08:00 152.4 cm [facility] Medicine Body weight 2020-01-25 15:08:00 52.617 kg [facility] BMI 2020-01-25 15:08:00 22.65 kg/m2 [facility] Medicine Systolic blood 2020-01-11 18:56:00 110 mm[Hg] [facility] pressure Medicine Diastolic blood 2020-01-11 18:56:00 70 mm[Hg] [facility] Medicine Heart rate 2020-01-11 18:56:00 89 /min [facility] Body temperature 2020-01-11 18:56:00 36.72 Sudha [facility] Respiratory rate 2020-01-11 18:56:00 16 /min [facility] Body height 2020-01-11 18:56:00 152.4 cm [facility] Body weight 2020-01-11 18:56:00 50.803 kg [facility] BMI 2020-01-11 18:56:00 21.87 kg/m2 [facility] Systolic blood 2020-01-11 18:56:00 110 mm[Hg] [facility] pressure Medicine Diastolic blood 2020-01-11 18:56:00 70 mm[Hg] [facility] pressure Medicine Heart rate 2020-01-11 18:56:00 89 /min [facility] Body temperature 2020-01-11 18:56:00 36.72 Sudha [facility] Respiratory rate 2020-01-11 18:56:00 16 /min [facility] Body height 2020-01-11 18:56:00 152.4 cm [facility] Body weight 2020-01-11 18:56:00 50.803 kg [facility] BMI 2020-01-11 18:56:00 21.87 kg/m2 [facility] Systolic blood 2020-01-04 14:32:00 110 mm[Hg] [facility] Medicine Diastolic blood 2020-01-04 14:32:00 62 mm[Hg] [facility] Medicine Heart rate 2020-01-04 14:32:00 101 /min [facility] [place] Body temperature 2020-01-04 14:32:00 36.56 Sudha [facility] Respiratory rate 2020-01-04 14:32:00 18 /min [facility] Body height 2020-01-04 14:32:00 152.4 cm [facility] Oxygen saturation in 2020-01-04 14:32:00 96 /min [facility] Arterial blood by Medicine Pulse oximetry Systolic blood 2020-01-04 14:32:00 110 mm[Hg] [facility] Medicine Diastolic blood 2020-01-04 14:32:00 62 mm[Hg] [facility] Medicine Heart rate 2020-01-04 14:32:00 101 /min [facility] Body temperature 2020-01-04 14:32:00 36.56 Sudha [facility] Respiratory rate 2020-01-04 14:32:00 18 /min [facility] Body height 2020-01-04 14:32:00 152.4 cm [facility] Oxygen saturation in 2020-01-04 14:32:00 96 /min [facility] Arterial blood by Medicine Pulse oximetry Systolic blood 2019-12-25 16:26:00 126 mm[Hg] [facility] of pressure Medicine Diastolic blood 2019-12-25 16:26:00 74 mm[Hg] [facility] pressure Medicine Heart rate 2019-12-25 16:26:00 88 /min [facility] [place] [facility] Body temperature 2019-12-25 16:26:00 36.78 Sudha [facility] Body height 2019-12-25 16:26:00 152.4 cm [facility] [place] [facility] Body weight 2019-12-25 16:26:00 52.617 kg [facility] BMI 2019-12-25 16:26:00 22.65 kg/m2 [facility] Systolic blood 2019-12-25 16:26:00 126 mm[Hg] [facility] of pressure Medicine Diastolic blood 2019-12-25 16:26:00 74 mm[Hg] [facility] of pressure Medicine Heart rate 2019-12-25 16:26:00 88 /min [facility] Body temperature 2019-12-25 16:26:00 36.78 Sudha [facility] Body height 2019-12-25 16:26:00 152.4 cm [facility] Body weight 2019-12-25 16:26:00 52.617 kg [facility] BMI 2019-12-25 16:26:00 22.65 kg/m2 [facility] [employer] Systolic blood 2019-08-17 17:58:00 129 mm[Hg] [facility] of pressure Medicine Diastolic blood 2019-08-17 17:58:00 78 mm[Hg] [facility] pressure Medicine Heart rate 2019-08-17 17:58:00 95 /min [facility] Body temperature 2019-08-17 17:58:00 36.44 Sudha [facility] Body height 2019-08-17 17:58:00 152.4 cm [facility] [employer] Body weight 2019-08-17 17:58:00 49.896 kg [facility] [employer] BMI 2019-08-17 17:58:00 21.48 kg/m2 [facility] [employer] Systolic blood 2019-08-17 17:58:00 129 mm[Hg] [facility] of pressure Medicine Diastolic blood 2019-08-17 17:58:00 78 mm[Hg] [facility] pressure Medicine Heart rate 2019-08-17 17:58:00 95 /min [facility] [employer] Body temperature 2019-08-17 17:58:00 36.44 Sudha [facility] Body height 2019-08-17 17:58:00 152.4 cm [facility] [employer] Body weight 2019-08-17 17:58:00 49.896 kg [facility] [employer] BMI 2019-08-17 17:58:00 21.48 kg/m2 [facility] [employer] Systolic blood 2019-07-24 15:43:00 154 mm[Hg] [facility] Medicine Diastolic blood 2019-07-24 15:43:00 81 mm[Hg] [facility] Medicine Heart rate 2019-07-24 15:43:00 94 /min [facility] [employer] Body height 2019-07-24 15:43:00 152.4 cm [facility] [employer] Body weight 2019-07-24 15:43:00 52.164 kg [facility] [employer] BMI 2019-07-24 15:43:00 22.46 kg/m2 [facility] [employer] Systolic blood 2019-07-24 15:43:00 154 mm[Hg] [facility] Medicine Diastolic blood 2019-07-24 15:43:00 81 mm[Hg] [facility] Medicine Heart rate 2019-07-24 15:43:00 94 /min [facility] [employer] Body height 2019-07-24 15:43:00 152.4 cm [facility] [employer] Body weight 2019-07-24 15:43:00 52.164 kg [facility] [employer] BMI 2019-07-24 15:43:00 22.46 kg/m2 [facility] [employer] Systolic blood 2022-11-21 16:31:00 136 mm[Hg] [facility] blood 2022-11-21 16:31:00 78 mm[Hg] [facility] pressure Heart rate 2022-11-21 16:31:00 75 /min [facility] Body height 2022-11-21 16:31:[address] [facility] Body weight 2022-11-21 16:31:[address] [facility] BMI 2022-11-21 16:31:00 24.49 kg/m2 [facility] Procedures Procedure Date / Time Performing Clinician Source Performed AMB REF TO ENT [facility] 2023-01-18 09:34:28 [facility] AMB REF TO GERIATRICS 2023-01-18 09:34:28 [facility] AMB REF TO PHYSICAL MED 2022-11-22 09:40:36 [facility] AMB REF TO OPHTHALMOLOGY 2022-11-22 09:37:09 [facility] URINALYSIS, AUTOMATED 2022-10-17 06:00:00 [facility] WITH MICROSCOPY CBC WITH PLATELET AND 2022-10-17 06:00:00 [facility] DIFFERENTIAL COMPREHENSIVE METABOLIC 2022-10-17 06:00:00 [facility] PANEL SEDIMENTATION RATE 2022-10-17 06:00:00 [facility] C-REACTIVE PROTEIN 2022-10-17 06:00:00 [facility] AUTOMATED VISUAL FIELD, 2022-09-04 16:30:19 [facility] EXTENDED - OU - BOTH EYES AUTOMATED VISUAL FIELD, 2022-09-04 16:30:07 [facility] EXTENDED - OU - BOTH EYES CBC WITH PLATELET AND 2022-06-05 15:52:00 [facility] DIFFERENTIAL COMPREHENSIVE METABOLIC 2022-06-05 15:52:00 [facility] PANEL C-REACTIVE PROTEIN 2022-06-05 15:52:00 [facility] SEDIMENTATION RATE 2022-06-05 15:52:00 [facility] URINALYSIS, AUTOMATED 2022-06-05 15:52:00 [facility] WITH MICROSCOPY CBC WITH PLATELET AND 2022-02-16 16:07:00 Adolph Jones [facility] DIFFERENTIAL COMPREHENSIVE METABOLIC 2022-02-16 16:07:00 Adolph Jones [facility] PANEL SEDIMENTATION RATE 2022-02-16 16:07:00 Adolph Jones [facility] C-REACTIVE PROTEIN 2022-02-16 16:07:00 Adolph Jones [facility] POCT URINALYSIS DIPSTICK 2021-09-25 00:00:00 Louis Mcnally [facility] COMPREHENSIVE METABOLIC 2020-01-04 15:32:00 [facility] Medicine LIPID PANEL 2020-01-04 [facility] W/AUTO DIFF WITH 2020-01-04 15:32:00 [facility] VITAMIN D 25 HYDROXY 2020-01-04 15:32:00 [facility] TSH REFLEX TO FREE T4 2020-01-04 15:32:00 [facility] Plan of Care Planned Activity Planned Date Details Comments Source Future Scheduled 2029-02-17 DTAP/TDAP/TD [facility] 00:[facility]:00 VACCINES (2 - Td or Medical Center Tdap) [code = DTAP/TDAP/TD VACCINES (2 - Td or Tdap)] Future Scheduled 2023-01-24 COVID-[address] Test 06:47:08 (#1) [code = Hospital COVID-19 VACCINE (#1)] Future Scheduled 2023-01-24 SHINGLES VACCINES (1 [facility] 06:47:08 of 2) [code = Hospital SHINGLES VACCINES (1 of 2)] Future Scheduled 2023-01-24 INFLUENZA VACCINE Method ist Test 06:47:08 [code = INFLUENZA Hospital VACCINE] Future Scheduled 2022-12-[address] [facility] Test 00:00:00 (12+) [code = Medical Center DEPRESSION SCREENING (12+)] Future Scheduled 2022-12-02 FALLS RISK SCREENING [facility] Test 00:00:00 [code = FALLS RISK Medical C enter SCREENING] Future Scheduled 2022-08-[address] [facility] Test 00:00:00 (#1) [code = Medical Center INFLUENZA VACCINE (#1)] Future Scheduled 2022-02-16 Hepatitis C [facility] [employer] Test 12:51:13 screening of Medicine (procedure) [code = 516490394] Future Scheduled 2022-02-16 ZOSTER VACCINE (1 of [employer] Test 12:51:13 2) [code = ZOSTER of Medicin e VACCINE (1 of 2)] Future Scheduled 2022-02-16 Screening for [facility] [employer] Test 12:51:13 malignant neoplasm of Medici ne of breast (procedure) [code = 947105433] Future Scheduled 2022-02-16 MEDICARE AWV [facility] [employer] Test 12:51:13 (Subsequent) [code = of Medi cine MEDICARE AWV (Subsequent)] Future Scheduled 2022-02-16 FALL SCREEN [code = [employer] Test 12:51:13 FALL SCREEN] of Medicine Future Scheduled 2022-02-16 Screening for [facility] [employer] Test 12:51:13 malignant neoplasm of Medici ne of colon (procedure) [code = 665683070] Future Scheduled 2022-02-16 TETANUS SHOT (ADULT) [employer] Test 12:51:13 [code = TETANUS SHOT of Medi cine (ADULT)] Future Scheduled 2022-01-15 XR SCOLIOSIS 2 VIEWS 1 Occurrences [employer] Test 09:18:44 [code = 67255-9] starting of Medicine 01/15/2022 until 01/15/2023 Future Scheduled 2022-01-15 XR LUMBAR SPINE AP 1 Occurrences [employer] Test 09:18:44 LATERAL OBLIQUES starting of Medicine FLEXION AND 01/15/2022 until EXTENSION [code = 01/15/2023 79077-8] Future Scheduled 2022-01-15 XR THORACIC SPINE 1 Occurrences [employer] Test 09:18:44 (COMPLETE) [code = [place] [address]-8] 01/15/2022 until 01/15/2023 Future Scheduled 2022-01-15 COVID-19 Vaccine (1) [employer] Test 09:01:22 [code = COVID-19 of Medicine Vaccine (1)] Future Scheduled 2022-01-15 Hepatitis C [facility] [employer] Test 09:01:22 screening of Medicine (procedure) [code = 083454660] Future Scheduled 2022-01-15 ZOSTER VACCINE (1 of [employer] Test 09:01:22 2) [code = ZOSTER of Medicin e VACCINE (1 of 2)] Future Scheduled 2022-01-15 Screening for [facility] [employer] Test 09:01:22 malignant neoplasm of Medici ne of breast (procedure) [code = 802235480] Future Scheduled 2022-01-15 MEDICARE AWV [facility] [employer] Test 09:01:22 (Subsequent) [code = of Medi cine MEDICARE AWV (Subsequent)] Future Scheduled 2022-01-15 FALL SCREEN [code = [employer] Test 09:01:22 FALL SCREEN] of Medicine Future Scheduled 2022-01-15 Screening for [facility] [employer] Test 09:01:22 malignant neoplasm of Medici ne of colon (procedure) [code = 642997883] Future Scheduled 2022-01-15 TETANUS SHOT (ADULT) [employer] Test 09:01:22 [code = TETANUS SHOT of Medi [email or web address] (ADULT)] Future Scheduled 2021-12-26 COVID-19 Vaccine (1) [employer] Test 13:07:41 [code = COVID-19 of Medicine Vaccine (1)] Future Scheduled 2021-12-26 Hepatitis C [facility] [employer] Test 13:07:41 screening of Medicine (procedure) [code = 978902525] Future Scheduled 2021-12-26 ZOSTER VACCINE (1 of [employer] Test 13:07:41 2) [code = ZOSTER of Medicin e VACCINE (1 of 2)] Future Scheduled 2021-12-26 Screening for [facility] [employer] Test 13:07:41 malignant neoplasm of Medici ne of breast (procedure) [code = 862382128] Future Scheduled 2021-12-26 MEDICARE AWV [facility] [employer] Test 13:07:41 (Subsequent) [code = of Medi cine MEDICARE AWV (Subsequent)] Future Scheduled 2021-12-26 FALL SCREEN [code = [employer] Test 13:07:41 FALL SCREEN] of Medicine Future Scheduled 2021-12-26 Screening for [facility] [employer] Test 13:07:41 malignant neoplasm of Medici ne of colon (procedure) [code = 579262853] Future Scheduled 2021-12-26 TETANUS SHOT (ADULT) [facility] Test 13:07:41 [code = TETANUS SHOT of Medi cine (ADULT)] Future Scheduled 2021-12-26 MRI LUMBAR SPINE WO 1 Occurrences [facility] Test 11:29:48 CONTRAST [code = starting of Medicine 54091-1] 12/26/2021 until 12/26/2022 Future Scheduled 2021-12-26 MRI THORACIC SPINE 1 Occurrences [facility] [place] Test 11:29:48 WO CONTRAST [code = starting of Medic ine 51038-0] 12/26/2021 until 12/26/2022 Future Scheduled 2021-11-30 CBC W/O DIFF W PLT Ordered: [facility] [place] Test 11:06:41 [code = 6690-2] 11/30/2021 of Medicine Future Scheduled 2021-11-30 COMPREHENSIVE Ordered: [facility] [employer] Test 11:06:41 METABOLIC PANEL 11/30/2021 of Medicine [code = 31997-5] Future Scheduled 2021-11-30 SEDIMENTATION RATE Ordered: [facility] Test 11:06:41 MODIFIED WESTERGREN 11/30/2021 of Medic ine [code = 4537-7] Future Scheduled 2021-11-30 C-REACTIVE PROTEIN Ordered: [facility] Test 11:06:41 [code = 1987-] 11/30/2021 of Medicine Future Scheduled 2021-11-30 VITAMIN D 25 HYDROXY Ordered: [facility] Test 11:06:41 [code = 1988-3] 11/30/2021 of Medicine Future Scheduled 2021-11-30 VITAMIN B12 [code = Ordered: [facility] Test 11:06:41 2131-9] 11/30/2021 of Medicine Future Scheduled 2021-11-30 FERRITIN [code = Ordered: [facility] Test 11:06:41 10815-1] 11/30/2021 of Medicine Future Scheduled 2021-11-30 IRON+TIBC+%SAT [code Ordered: [facility] Test 11:06:41 = NOCPT] 11/30/2021 of Medicine Future Scheduled 2021-11-30 CLOSTRIDIUM Ordered: [facility] [employer] Test 10:44:58 DIFFICILE TOXIN/GDH 11/30/2021 of Medic ine WITH REFLEX TO PCR [code = 27563-0] Future Scheduled 2021-11-30 CALPROTECTIN, FECAL Ordered: [employer] Test 10:44:58 [code = 36178-0] 11/30/2021 of Medicine Future Scheduled 2021-11-30 CULTURE, STOOL [code Ordered: [employer] Test 10:44:58 = 625-4] 11/30/2021 of Medicine Future Scheduled 2021-11-30 OVA AND PARASITE Ordered: [facility] [employer] Test 10:44:58 EXAMINATION [code = 11/30/2021 of Medic ine 79727] Future Scheduled 2021-11-30 COVID-19 Vaccine (1) [employer] Test 10:20:28 [code = COVID-19 of Medicine Vaccine (1)] Future Scheduled 2021-11-30 Hepatitis C [facility] [employer] Test 10:20:28 screening of Medicine (procedure) [code = 183810865] Future Scheduled 2021-11-30 ZOSTER VACCINE (1 of [employer] Test 10:20:28 2) [code = ZOSTER of Medicin e VACCINE (1 of 2)] Future Scheduled 2021-11-30 Screening for [facility] [employer] Test 10:20:28 malignant neoplasm of Medici ne of breast (procedure) [code = 101955658] Future Scheduled 2021-11-30 MEDICARE AWV [facility] [employer] Test 10:20:28 (Subsequent) [code = of [facility] MEDICARE AWV (Subsequent)] Future Scheduled 2021-11-30 FALL SCREEN [code = [employer] Test 10:20:28 FALL SCREEN] of Medicine Future Scheduled 2021-11-30 Screening for [facility] [employer] Test 10:20:28 malignant neoplasm of Medici ne of colon (procedure) [code = 903297752] Future Scheduled 2021-11-30 TETANUS SHOT (ADULT) [employer] Test 10:20:28 [code = TETANUS SHOT of [employer] (ADULT)] Future Scheduled 2021-09-29 MEDICARE AWV [facility] [employer] Test 11:06:58 (Subsequent) [code = of [facility] MEDICARE AWV (Subsequent)] Future Scheduled 2021-09-29 Hepatitis C [facility] [employer] Test 10:56:45 screening of Medicine (procedure) [code = 229919005] Future Scheduled 2021-09-29 ZOSTER VACCINE (1 of [employer] Test 10:56:45 2) [code = ZOSTER of Medicin e VACCINE (1 of 2)] Future Scheduled 2021-09-29 Screening for [facility] [employer] Test 10:56:45 malignant neoplasm of Medici ne of breast (procedure) [code = 881318479] Future Scheduled 2021-09-29 COVID-19 Vaccine (1) Postponed from [employer] Test 10:56:45 [code = COVID-19 1954 of Medicine Vaccine (1)] (Postpone Reason: Patient declined today) Future Scheduled 2021-09-29 FALL SCREEN [code = [employer] Test 10:56:45 FALL SCREEN] of Medicine Future Scheduled 2021-09-29 Screening for [facility] [employer] Test 10:56:45 malignant neoplasm of Medici ne of colon (procedure) [code = 985798787] Future Scheduled 2021-09-29 TETANUS SHOT (ADULT) [employer] Test 10:56:45 [code = TETANUS SHOT of Medi cine (ADULT)] Future Scheduled 2021-09-25 Screening for [facility] [employer] Test 10:39:57 malignant neoplasm of Medici ne of breast (procedure) [code = 268316994] Future Scheduled 2021-09-25 Hepatitis C [facility] [employer] Test 10:38:19 screening of Medicine (procedure) [code = 154845773] Future Scheduled 2021-09-25 ZOSTER VACCINE (1 of [employer] Test 10:38:19 2) [code = ZOSTER of Medicin e VACCINE (1 of 2)] Future Scheduled 2021-09-25 MEDICARE AWV [facility] [employer] Test 10:38:19 (Subsequent) [code = of Medi cine MEDICARE AWV (Subsequent)] Future Scheduled 2021-09-25 COVID-19 Vaccine (1) Postponed from [employer] Test 10:38:19 [code = COVID-19 1954 of Medicine Vaccine (1)] (Postpone Reason: Patient declined today) Future Scheduled 2021-09-25 FALL SCREEN [code = [employer] Test 10:38:19 FALL SCREEN] of Medicine Future Scheduled 2021-09-25 Screening for [facility] [employer] Test 10:38:19 malignant neoplasm of Medici ne of colon (procedure) [code = 579461551] Future Scheduled 2021-09-25 TETANUS SHOT (ADULT) [facility] Test 10:38:19 [code = TETANUS SHOT of Medi cine (ADULT)] Future Scheduled 2021-09-25 URINALYSIS, COMPLETE Ordered: [facility] Test 10:38:17 W/REFLEX TO CULTURE 09/25/2021 of Medic ine [code = 00620-4] Diagnostic Test 2021-09-25 MAMMO 3D SCREENING Expected: [facility] Pending 00:00:00 BILATERAL [code = 09/25/2021, of Medicin e 10688] Expires: 03/26/2023 Future Scheduled 2021-08-[address] [facility] Test 00:00:00 [facility] r Screening (12+) [code = Tobacco Cessation Counseling and Screening (12+)] Future Scheduled 2008-08-[address] [facility] Test 00:00:00 WELLNESS (YEAR 2 or Medical Center FIRST YEAR if no IPPE) [code = MEDICARE ANNUAL WELLNESS (YEAR 2 or FIRST YEAR if no IPPE)] Future Scheduled 1992 SHINGLES VACCINES ([address] [facility] Test 00:00:00 of 2) [code = [facility] SHINGLES VACCINES (1 of 2)] Future Scheduled 1943-02-24 COVID-[address] [facility] Test 00:00:00 (#1) [code = [facility] COVID-19 VACCINE (#1)] Future Scheduled 1942 DXA SCAN [code = DXA [facility] Test 00:00:00 SCAN] [facility] Future Scheduled MAMMOGRAM EVERY 2 [facility] Test YEARS [code = of Medicine MAMMOGRAM EVERY 2 YEARS] Future Scheduled MEDICARE AWV [code = [facility] Test MEDICARE AWV] of Medicine Future Scheduled PNEUMOVAX >=65 [facility] [employer] Test (PPSV23) [code = of Medicine PNEUMOVAX >=65 (PPSV23)] Future Scheduled MEDICARE AWV [facility] [employer] Test (Subsequent) [code = of Medi cine MEDICARE AWV (Subsequent)] Future Scheduled FALL SCREEN [code = [facility] Test FALL SCREEN] of Medicine Future Scheduled COLON CANCER [facility] [employer] Test SCREENING: of Medicine COLONOSCOPY [code = COLON CANCER SCREENING: COLONOSCOPY] Future Scheduled TETANUS SHOT (ADULT) [facility] Test [code = TETANUS SHOT of Medi cine (ADULT)] Future Scheduled MAMMOGRAM EVERY 2 [facility] Test YEARS [code = of Medicine MAMMOGRAM EVERY 2 YEARS] Future Scheduled PNEUMOVAX >=65 [facility] [employer] Test (PPSV23) [code = of Medicine PNEUMOVAX >=65 (PPSV23)] Future Scheduled MEDICARE AWV [facility] [employer] Test (Subsequent) [code = of Medi cine MEDICARE AWV (Subsequent)] Future Scheduled FALL SCREEN [code = [employer] Test FALL SCREEN] of Medicine Future Scheduled COLON CANCER [facility] [employer] Test SCREENING: of Medicine COLONOSCOPY [code = COLON CANCER SCREENING: COLONOSCOPY] Future Scheduled TETANUS SHOT (ADULT) [employer] Test [code = TETANUS SHOT of Medi cine (ADULT)] Future Scheduled MAMMOGRAM EVERY 2 [facility] Test YEARS [code = of Medicine MAMMOGRAM EVERY 2 YEARS] Future Scheduled PNEUMOVAX >=65 [facility] [employer] Test (PPSV23) [code = of Medicine PNEUMOVAX >=65 (PPSV23)] Future Scheduled MEDICARE AWV [facility] [employer] Test (Subsequent) [code = of Medi cine MEDICARE AWV (Subsequent)] Future Scheduled FALL SCREEN [code = [employer] Test FALL SCREEN] of Medicine Future Scheduled COLON CANCER [facility] [employer] Test SCREENING: of Medicine COLONOSCOPY [code = COLON CANCER SCREENING: COLONOSCOPY] Future Scheduled TETANUS SHOT (ADULT) [employer] Test [code = TETANUS SHOT of Medi cine (ADULT)] Future Scheduled MAMMOGRAM EVERY 2 [facility] Test YEARS [code = of Medicine MAMMOGRAM EVERY 2 YEARS] Future Scheduled PNEUMOVAX >=65 [employer] Test (PPSV23) [code = of Medicine PNEUMOVAX >=65 (PPSV23)] Future Scheduled MEDICARE AWV [facility] [employer] Test (Subsequent) [code = of Medi cine MEDICARE AWV (Subsequent)] Future Scheduled FALL SCREEN [code = [employer] Test FALL SCREEN] of Medicine Future Scheduled COLON CANCER [facility] [employer] Test SCREENING: of Medicine COLONOSCOPY [code = COLON CANCER SCREENING: COLONOSCOPY] Future Scheduled TETANUS SHOT (ADULT) [employer] Test [code = TETANUS SHOT of Medi cine (ADULT)] Future Scheduled MAMMOGRAM EVERY 2 [facility] Test YEARS [code = of Medicine MAMMOGRAM EVERY 2 YEARS] Future Scheduled PNEUMOVAX >=65 [employer] Test (PPSV23) [code = of Medicine PNEUMOVAX >=65 (PPSV23)] Future Scheduled MEDICARE AWV [facility] [employer] Test (Subsequent) [code = of Medi cine MEDICARE AWV (Subsequent)] Future Scheduled FALL SCREEN [code = [employer] Test FALL SCREEN] of Medicine Future Scheduled COLON CANCER [facility] [employer] Test SCREENING: of Medicine COLONOSCOPY [code = COLON CANCER SCREENING: COLONOSCOPY] Future Scheduled TETANUS SHOT (ADULT) [employer] Test [code = TETANUS SHOT of Medi cine (ADULT)] Future Scheduled MAMMOGRAM EVERY 2 [facility] Test YEARS [code = of Medicine MAMMOGRAM EVERY 2 YEARS] Future Scheduled PNEUMOVAX >=65 [facility] [employer] Test (PPSV23) [code = of Medicine PNEUMOVAX >=65 (PPSV23)] Future Scheduled MEDICARE AWV [facility] [employer] Test (Subsequent) [code = of Medi cine MEDICARE AWV (Subsequent)] Future Scheduled FLU VACCINE > 6 [facility] [employer] Test MONTHS [code = FLU of Medici ne VACCINE > 6 MONTHS] Future Scheduled FALL SCREEN [code = [employer] Test FALL SCREEN] of Medicine Future Scheduled COLON CANCER [facility] [employer] Test SCREENING: of Medicine COLONOSCOPY [code = COLON CANCER SCREENING: COLONOSCOPY] Future Scheduled TETANUS SHOT (ADULT) [employer] Test [code = TETANUS SHOT of Medi cine (ADULT)] Future Scheduled CT DESTRUC Ordered: [facility] ege Test PREMALIGNANT, FIRST 04/22/2020 of Medic ine LESION(66760) [code = 94642] Future Scheduled MAMMOGRAM EVERY 2 [facility] Test YEARS [code = of Medicine MAMMOGRAM EVERY 2 YEARS] Future Scheduled PNEUMOVAX >=65 [facility] [employer] Test (PPSV23) [code = of Medicine PNEUMOVAX >=65 (PPSV23)] Future Scheduled MEDICARE AWV [facility] [employer] Test (Subsequent) [code = of Medi cine MEDICARE AWV (Subsequent)] Future Scheduled FLU VACCINE > 6 [facility] [employer] Test MONTHS [code = FLU of Medici ne VACCINE > 6 MONTHS] Future Scheduled FALL SCREEN [code = [employer] Test FALL SCREEN] of Medicine Future Scheduled COLON CANCER [facility] [employer] Test SCREENING: of Medicine COLONOSCOPY [code = COLON CANCER SCREENING: COLONOSCOPY] Future Scheduled TETANUS SHOT (ADULT) [employer] Test [code = TETANUS SHOT of Medi cine (ADULT)] Future Scheduled CT ESOPHAGEAL Ordered: [facility] [employer] Test MOTILITY STUDY, 06/02/2020 of Medicine MANOMETRY [code = 31078] Future Scheduled CT GERD TST W/ MUCOS Ordered: [facility] Test IMPEDE ELECTROD,>1HR 06/02/2020 of [facility]B Access [code = 85534] Future Scheduled MAMMOGRAM EVERY 2 [facility] Test YEARS [code = of Medicine MAMMOGRAM EVERY 2 YEARS] Future Scheduled PNEUMOVAX >=65 [facility] [employer] Test (PPSV23) [code = of Medicine PNEUMOVAX >=65 (PPSV23)] Future Scheduled MEDICARE AWV [facility] [employer] Test (Subsequent) [code = of [employer] MEDICARE AWV (Subsequent)] Future Scheduled FLU VACCINE > 6 [facility] C ollege Test MONTHS [code = FLU of Medici ne VACCINE > 6 MONTHS] Future Scheduled FALL SCREEN [code = [place] [employer] Test FALL SCREEN] of Medicine Future Scheduled COLON CANCER [facility] [employer] Test SCREENING: of Medicine COLONOSCOPY [code = COLON CANCER SCREENING: COLONOSCOPY] Future Scheduled TETANUS SHOT (ADULT) [facility] Test [code = TETANUS SHOT of [email or web address] [email or web address] (ADULT)] Future Scheduled MAMMOGRAM EVERY 2 [facility] Test YEARS [code = of Medicine MAMMOGRAM EVERY 2 YEARS] Future Scheduled PNEUMOVAX >=65 [facility] Co llege Test (PPSV23) [code = of Medicine PNEUMOVAX >=65 (PPSV23)] Future Scheduled MEDICARE AWV [facility] [employer] Test (Subsequent) [code = of Medi [email or web address] MEDICARE AWV (Subsequent)] Future Scheduled FLU VACCINE > 6 [facility] C ollege Test MONTHS [code = FLU of Medici ne VACCINE > 6 MONTHS] Future Scheduled FALL SCREEN [code = [employer] Test FALL SCREEN] of Medicine Future Scheduled COLON CANCER [facility] [employer] Test SCREENING: of Medicine COLONOSCOPY [code = COLON CANCER SCREENING: COLONOSCOPY] Future Scheduled TETANUS SHOT (ADULT) [employer] Test [code = TETANUS SHOT of [email or web address] [email or web address] (ADULT)] Future Scheduled MAMMOGRAM EVERY 2 [facility] Test YEARS [code = of Medicine MAMMOGRAM EVERY 2 YEARS] Future Scheduled ZOSTER VACCINE (1 of [facility] Test 2) [code = ZOSTER of Medicin e VACCINE (1 of 2)] Future Scheduled PNEUMOVAX >=65 [facility] [employer] llege Test (PPSV23) [code = of Medicine PNEUMOVAX >=65 (PPSV23)] Future Scheduled MEDICARE V [facility] [employer] Test (Subsequent) [code = of Medi cine MEDICARE AWV (Subsequent)] Future Scheduled FLU VACCINE > 6 [facility] C [employer]lege Test MONTHS [code = FLU of Medici ne VACCINE > 6 MONTHS] Future Scheduled FALL SCREEN [code = [employer] Test FALL SCREEN] of Medicine Future Scheduled COLON CANCER [facility] [employer] Test SCREENING: of Medicine COLONOSCOPY [code = COLON CANCER SCREENING: COLONOSCOPY] Future Scheduled TETANUS SHOT (ADULT) [employer] Test [code = TETANUS SHOT of Medi cine (ADULT)] Future Scheduled MAMMOGRAM EVERY 2 [facility] College Test YEARS [code = of Medicine MAMMOGRAM EVERY 2 YEARS] Future Scheduled ZOSTER VACCINE (1 of [employer] Test 2) [code = ZOSTER of Medicin e VACCINE (1 of 2)] Future Scheduled PNEUMOVAX >=65 [facility] [employer] llege Test (PPSV23) [code = of Medicine PNEUMOVAX >=65 (PPSV23)] Future Scheduled MEDICARE AWV [facility] [employer] Test (Subsequent) [code = of Medi [email or web address] MEDICARE AWV (Subsequent)] Future Scheduled FLU VACCINE > 6 [employer] Test MONTHS [code = FLU of Medici ne VACCINE > 6 MONTHS] Future Scheduled FALL SCREEN [code = [employer] Test FALL SCREEN] of Medicine Future Scheduled COLON CANCER [facility] [employer] Test SCREENING: of Medicine COLONOSCOPY [code = COLON CANCER SCREENING: COLONOSCOPY] Future Scheduled TETANUS SHOT (ADULT) [employer] Test [code = TETANUS SHOT of Medi cine (ADULT)] Future Scheduled MAMMOGRAM EVERY 2 [facility] College Test YEARS [code = of Medicine MAMMOGRAM EVERY 2 YEARS] Future Scheduled ZOSTER VACCINE (1 of [employer] Test 2) [code = ZOSTER of Medicin e VACCINE (1 of 2)] Future Scheduled PNEUMOVAX >=65 [employer] Test (PPSV23) [code = of Medicine PNEUMOVAX >=65 (PPSV23)] Future Scheduled MEDICARE AWV [facility] [employer] Test (Subsequent) [code = of Medi [email or web address] MEDICARE AWV (Subsequent)] Future Scheduled FLU VACCINE > 6 [employer] Test MONTHS [code = FLU of Medici ne VACCINE > 6 MONTHS] Future Scheduled FALL SCREEN [code = [employer] FALL SCREEN] of Medicine Future Scheduled COLON CANCER [facility] [employer] Test SCREENING: of Medicine COLONOSCOPY [code = COLON CANCER SCREENING: COLONOSCOPY] Future Scheduled TETANUS SHOT (ADULT) [employer] Test [code = TETANUS SHOT of Medi cine (ADULT)] Future Scheduled MAMMOGRAM EVERY 2 [facility] College Test YEARS [code = of Medicine MAMMOGRAM EVERY 2 YEARS] Future Scheduled MEDICARE AWV [code = [employer] MEDICARE AWV] of Medicine Future Scheduled HEPATITIS C [facility] [employer] Test SCREENING [code = of Medicin e HEPATITIS C SCREENING] Future Scheduled ZOSTER VACCINE (1 of [employer] Test 2) [code = ZOSTER of Medicin e VACCINE (1 of 2)] Future Scheduled MAMMOGRAM EVERY 2 [facility] College Test YEARS [code = of Medicine MAMMOGRAM EVERY 2 YEARS] Future Scheduled PNEUMOVAX >=65 [facility] [employer]lege Test (PPSV23) [code = of Medicine PNEUMOVAX >=65 (PPSV23)] Future Scheduled FALL SCREEN [code = [employer] Test FALL SCREEN] of Medicine Future Scheduled MEDICARE AWV [facility] [employer] Test (Subsequent) [code = of Medi cine MEDICARE AWV (Subsequent)] Future Scheduled COLON CANCER [facility] [employer] Test SCREENING: of Medicine COLONOSCOPY [code = COLON CANCER SCREENING: COLONOSCOPY] Future Scheduled TETANUS SHOT (ADULT) [employer] Test [code = TETANUS SHOT of Medi cine (ADULT)] Future Scheduled FLU VACCINE > 6 [facility] C [employer] Test MONTHS [code = FLU of Medici ne VACCINE > 6 MONTHS] Future Scheduled FALL SCREEN [code = [employer] Test FALL SCREEN] of Medicine Future Scheduled HEPATITIS C [facility] [employer] Test SCREENING [code = of Medicin e HEPATITIS C SCREENING] Future Scheduled COLON CANCER [facility] [employer] Test SCREENING: of Medicine COLONOSCOPY [code = COLON CANCER SCREENING: COLONOSCOPY] Future Scheduled ZOSTER VACCINE (1 of [employer] Test 2) [code = ZOSTER of Medicin e VACCINE (1 of 2)] Future Scheduled MAMMOGRAM EVERY 2 [facility] College Test YEARS [code = of Medicine MAMMOGRAM EVERY 2 YEARS] Future Scheduled FALL SCREEN [code = [employer] Test FALL SCREEN] of Medicine Future Scheduled MEDICARE AWV [facility] [employer] Test (Subsequent) [code = of Medi cine MEDICARE AWV (Subsequent)] Future Scheduled COLON CANCER [facility] [employer] Test SCREENING: of Medicine COLONOSCOPY [code = COLON CANCER SCREENING: COLONOSCOPY] Future Scheduled TETANUS SHOT (ADULT) [employer] Test [code = TETANUS SHOT of Medi cine (ADULT)] Future Scheduled TETANUS SHOT (ADULT) [employer] Test [code = TETANUS SHOT of Medi cine (ADULT)] Future Scheduled CT TANGENTIAL BIOPSY Ordered: [employer] Test SKIN SINGLE LESION 08/17/2019 of Medici ne [code = 42894] Future Scheduled CT DESTRUC Ordered: [facility] [employer] Test PREMALIGNANT, FIRST 08/17/2019 of Medic ine LESION(26722) [code = 42481] Future Scheduled CT DESTRUC Ordered: [facility] ege Test PREMALIGNANT,2-14 08/17/2019 of Medicin e LESIONS(77454) [code = 78367] Future Scheduled MAMMOGRAM EVERY 2 [facility] Test YEARS [code = of Medicine MAMMOGRAM EVERY 2 YEARS] Future Scheduled MEDICARE AWV [code = [place] [facility] [employer] Test MEDICARE AWV] of Medicine Future Scheduled PNEUMOVAX >=65 [facility] Co llege Test (PPSV23) [code = of Medicine PNEUMOVAX >=65 (PPSV23)] Future Scheduled FLU VACCINE > 6 [facility] C [employer]lege Test MONTHS [code = FLU of Medici ne VACCINE > 6 MONTHS] Future Scheduled FALL SCREEN [code = [employer] FALL SCREEN] of Medicine Future Scheduled COLON CANCER [facility] [employer] Test SCREENING: of Medicine COLONOSCOPY [code = COLON CANCER SCREENING: COLONOSCOPY] Future Scheduled TETANUS SHOT (ADULT) [employer] Test [code = TETANUS SHOT of Medi cine (ADULT)] Future Scheduled FL ESOPHAGRAM 1 Occurrences [facility] [employer] Test COMPLETE [code = starting of Medicine 01607-5] 06/02/2020 until 12/03/2021 Future Scheduled XR CHEST PA AND 1 Occurrences [employer] Test LATERAL [code = starting of Medicine 55695-2] 09/14/2020 until 04/14/2021 Future Scheduled MRI LUMBAR SPINE WO [address] [facility] College Test CONTRAST [code = starting of Medicine 19207-1] 01/25/2020 until 08/25/2020 Encounters Start End Encounter Admission Attending Care Care Encounter Source Date/Time Date/Time Type Type Clinicians Facility Department ID 2021-09-06 Inpatient [facility], [facility] Surgery [id number] [facility] 06:45:31 OVIDIO 2021-09-06 [facility] [id number] [facility] 01:57:21 LUPE 2021-09-06 [facility] [id number] [facility] 01:34:27 LUPE 2023-01-18 2023-01-18 Outpatient AHSAN FLOREZ [facility] [id number] [facility] 08:19:30 15:37:05 Colleg e of Medicin e 2022-12-14 2022-12-14 Outpatient YESY [facility] [id number] [facility] 07:32:14 11:08:04 NOLBERTO [employer] 2022-11-22 2022-11-22 Outpatient AHSAN FLOREZ [facility] [id number] [facility] 08:56:27 10:30:56 Colleg e [employer] Medicin e 2022-11-21 2022-11-21 Clinical 1.2.840.1 [id number] Methodi 10:00:00 10:15:[address] 3.430.2.7 Hospit a .3.381215 l .8 2022-11-21 2022-11-21 Travel 1.2.840.1 1.2.064.273 9069 911157 [facility]i 00:00:00 00:00:[address] 3.430.2.7 0.2.7.3.698 Ho spita .3.645675 084.8 l .8 2022-11-21 2022-11-21 Outpatient [facility] [id number] [place] 00:00:00 00:00:[address] 2022-10-17 2022-10-17 Clinical 1.2.840.1 [id number] 10427 Methodi 11:00:00 14:40:[address] 3.430.2.7 Hospit a .3.578496 l .8 2022-10-17 2022-10-17 Orders Naheed, 1.2.840.1 [id number] [id number] 1694 Methodi 00:00:00 00:00:00 Only Devang 93901.1.[address] 3.430.2.7 Hospit a .3.364481 l .8 2022-10-17 2022-10-17 Travel 1.2.840.1 1.2.819.561 1136 088937 Methodi 00:00:00 00:00:[address] 3.430.2.7 0.2.7.3.698 Ho spita .3.847824 084.8 l .8 2022-10-17 2022-10-17 Outpatient [facility] [id number] [place] 00:00:00 00:00:[address] 2022-09-05 2022-09-05 Outpatient NATASHA MEZA, [facility] [id number] [facility] 00:00:00 00:00:00 JODI 2022-09-04 2022-09-04 Office Grabiel, 1.2.840.1 [id number] 5052 Methodi 10:00:00 12:02:48 [address] Zack 35866.1.[address] 3.430.2.7 Hospit a .3.662297 l .8 2022-09-04 2022-09-04 [facility] [id number] [place] 00:00:00 00:00:[address] Z[address] 2022-09-03 2022-09-03 Clinical 1.2.840.1 [id number] 84792 Methodi 10:30:00 10:50:[address] 3.430.2.7 Hospit a .3.286012 l .8 2022-09-03 2022-09-03 Travel 1.2.840.1 1.2.332.341 8388 717308 Methodi 00:00:00 00:00:[address] 3.430.2.7 0.2.7.3.698 Ho spita .3.384756 084.8 l .8 2022-09-03 2022-09-03 Outpatient [facility] [id number] [place] 00:00:00 00:00:[address] 2022-08-15 2022-08-15 Telephone Grabiel, 1.2.840.1 [id number] 2100 345201 Methodi 00:00:00 00:00:[address] 3.430.2.7 Hospit a .3.567060 l .8 2022-08-15 2022-08-15 Outside [facility] [id number] 00:00:00 00:00:00 Orders Jodi Wren [facility] 2022-08-07 2022-08-07 Travel 1.2.840.1 1.2.007.428 6229 319621 Methodi 00:00:00 00:00:[address] 3.430.2.7 0.2.7.3.698 Ho spita .3.824618 084.8 l .8 2022-08-07 2022-08-07 Outpatient [facility] [id number] [place] 00:00:00 00:00:[address] 2022-07-16 2022-07-16 Office , 1.2.840.1 [id number] 9987 Methodi 09:00:00 09:58:20 Visit Jace 29323.1.[address] [place] 3.430.2.7 Hospit a .3.407556 l .8 2022-07-16 2022-07-16 Travel 1.2.840.1 1.2.558.362 0077 765698 Methodi 00:00:00 00:00:[address] 3.430.2.7 0.2.7.3.698 Ho spita .3.479612 084.8 l .8 2022-07-16 2022-07-16 Orders Walker, 1.2.840.1 [id number] [id number] 2936 Methodi 00:00:00 00:00:00 Only Richi 20282.1.[address] 3.430.2.7 Hospit a .3.812454 l .8 2022-07-16 2022-07-16 Outpatient [facility] [id number] [place] 00:00:00 00:00:[address] 2022-07-02 2022-07-02 Clinical [place], 1.2.840.1 [id number] 578 [id number] Methodi 10:30:00 10:50:00 Support Adolph Augustine 57757.1.[address] 3.430.2.7 Hospit a .3.144720 l .8 2022-07-02 2022-07-02 Travel 1.2.840.1 1.2.231.777 8611 386682 Methodi 00:00:00 00:00:[address] 3.430.2.7 0.2.7.3.698 Ho spita .3.752250 084.8 l .8 2022-07-02 2022-07-02 Outpatient [facility] [place] 00:00:00 00:00:00 ADOL[address] 2022-06-05 2022-06-12 Clinical [place], 1.2.840.1 [id number] 803 [id number] Methodi 10:30:00 05:38:22 Support Adolph Augustine 28170.1.[address] 3.430.2.7 Hospit a .3.354293 l .8 2022-06-05 2022-06-05 Office Jarrett, 1.2.840.1 [id number] 214546 5644 Methodi 10:00:00 11:04:48 Visit Jamilah Thacker 16197.1.1 [address] 3.430.2.7 Hospit a .3.325635 l .8 2022-06-05 2022-06-05 Outpatient [facility] [place] 00:00:00 00:00:[address] ADOLPH [address] 2022-06-05 2022-06-05 Travel 1.2.840.1 1.2.342.390 5306 512325 Methodi 00:00:00 00:00:[address] 3.430.2.7 0.2.7.3.698 Ho spita .3.246198 084.8 l .8 2022-06-05 2022-06-05 Outpatient JARRETT, [facility] [id number] [place] 00:00:00 00:00:00 JAMIL[address] 2022-05-07 2022-05-07 Clinical 1.2.840.1 [id number] 86307 01004 Methodi 10:50:00 11:10:[address] 3.430.2.7 Hospit a .3.306560 l .8 2022-05-07 2022-05-07 Travel 1.2.840.1 1.2.195.531 1630 120132 Methodi 00:00:00 00:00:[address] 3.430.2.7 0.2.7.3.698 Ho spita .3.595470 084.8 l .8 2022-05-07 2022-05-07 Outpatient [facility] [id number] [address] [place] [address] 00:00:00 00:00:[address] 2022-05-02 2022-05-02 Outpatient [facility] [id number] [facility] 10:15:45 14:16:30 Shanice 2022-04-09 2022-04-16 Clinical [place], 1.2.840.1 [id number] Methodi 10:30:00 12:44:24 Support Adolph Augustine 94266.1.[address] 3.430.2.7 Hospit a .3.508760 l .8 2022-04-09 2022-04-09 Travel 1.2.840.1 1.2.874.960 4905 683255 Methodi 00:00:00 00:00:[address] 3.430.2.7 0.2.7.3.698 Ho spita .3.525404 084.8 l .8 2022-04-09 2022-04-09 Outpatient GUANAKO, [facility] [place] 00:00:00 00:00:[address] 2022-03-12 2022-03-12 Clinical [place], 1.2.840.1 [id number] Methodi 10:30:00 10:50:00 Support Adolph Augustine 15116.1.[address] 3.430.2.7 Hospit a .3.371722 l .8 2022-03-12 2022-03-12 Orders Naheed, 1.2.840.1 [id number] 036111 4466 Methodi 00:00:00 00:00:00 Only Devang 39578.1.[address] 3.430.2.7 Hospit a .3.425704 l .8 2022-03-12 2022-03-12 Travel 1.2.840.1 1.2.544.423 8040 598722 Methodi 00:00:00 00:00:[address] 3.430.2.7 0.2.7.3.698 Ho spita .3.381198 084.8 l .8 2022-03-12 2022-03-12 Outpatient [facility], [facility] [place] 00:00:00 00:00:[address] 2022-02-16 2022-02-16 Office AHSAN FLOREZ [facility] 1.2.840.114 [id number] [facility] 12:30:23 15:27:58 Visit AMBULATOR 350.1.13.21 College Y 0.2.7.2.686 of [id number] [facility] amanda 800 e 2022-02-16 2022-02-16 Clinical 1.2.840.1 [id number] 62297 00081 Methodi 10:30:00 11:16:[address] 3.430.2.7 Hospit a .3.617829 l .8 2022-02-16 2022-02-16 Orders Naheed, 1.2.840.1 [id number] 5580 Methodi 00:00:00 00:00:00 Only Devang 07846.1.[address] 3.430.2.7 Hospit a .3.424015 l .8 2022-02-16 2022-02-16 Travel 1.2.840.1 1.2.928.888 2943 688489 Methodi 00:00:00 00:00:[address] 3.430.2.7 0.2.7.3.698 Ho spita .3.999195 084.8 l .8 2022-02-16 2022-02-16 Outpatient [facility] [id number] [place] 00:00:00 00:00:[address] 2022-02-09 2022-02-09 Outpatient NICKI [facility] [id number] [facility] 09:28:35 14:04:22 [place]AMP[place] [employer] 2022-02-09 2022-02-09 Outpatient [facility] [id number] [facility] 10:16:49 10:16:49 [employer]in [employer] 2022-01-09 2022-02-02 Outpatient YESY [facility] [id number] [facility] 00:00:00 19:53:36 NOLBERTO [employer] 2022-01-15 2022-01-15 [facility] [id number] [facility] 09:59:10 23:59:00 CAMPOS 2022-01-15 2022-01-15 Office PREETI CACERES 1.2.840.114 [id number] [facility] 08:25:46 12:52:00 Visit CAMPOS AMBULATOR 350.1.13.21 College Y 0.2.7.2.686 [id number] Medi amanda 300 e 2022-01-15 2022-01-15 [facility] [id number] [facility] 09:58:41 09:58:41 CAMPOS 2022-01-15 2022-01-15 Outpatient [facility] [id number] SLE 09:56:12 09:57:00 CAMPOS 2022-01-15 2022-01-15 Outpatient GUANAKO [facility] [id number] [place] 00:00:00 00:00:00 ADOL[address] 2021-12-26 2021-12-26 Office RUFINO ACUÑA, BCH[facility] 1.2.934.448 3906 3749 [facility] 10:57:18 13:45:50 Visit SHAAN AMBULATOR 350.1.13.21 College Y 0.2.7.2.686 of [id number] Medi amanda 805 e 2021-12-13 2021-12-13 Outpatient [facility] [id number] [place] 00:00:00 00:00:00 ADOLPH [address] 2021-11-30 2021-11-30 Office FAITH FERNANDEZ 1.2.840.114 [id number] [facility] 10:13:06 15:33:21 Visit ANA PAULA AMBULATOR 350.1.13.21 College Y 0.2.7.2.686 of [id number] [facility] amanda 325 e 2021-11-16 2021-11-16 Outpatient NATASHA MEZA, [facility] [id number] [facility] 00:00:00 00:00:00 JODI 2021-11-14 2021-11-14 Outpatient [facility] [id number] [place] 00:00:00 00:00:00 ADOLPH 026 Method i 2021-10-13 2021-10-13 Outpatient [facility] [id number] [place] 00:00:00 00:00:00 ADOLPH 807 Method i 2021-10-13 2021-10-13 Outpatient [facility] [id number] [place] 00:00:00 00:00:00 ADOLPH [address] 2021-09-29 2021-09-29 Office TONA, FAITH 1.2.840.114 [id number] [facility] 09:35:11 11:10:25 Visit LOUIS AMBULATOR 350.1.13.21 College Y 0.2.7.2.686 of [id number] Medi amanda 800 e 2021-09-25 2021-09-25 Office TONA, PREETIM 1.2.840.114 [id number] [facility] 09:43:39 10:44:58 Visit LOUIS AMBULATOR 350.1.13.21 College Y 0.2.7.2.686 of [id number] Medi amanda 800 e 2021-08-22 2021-08-22 Outpatient GUANAKO [facility] [id number] [place] 00:00:00 00:00:00 ADOLPH [address] 2021-06-13 2021-06-13 Outpatient RUFINO ACUÑA, [facility] [id number] [facility] 08:36:52 12:07:36 SHAAN [facility] 2021-04-11 2021-04-11 Outpatient RUFINO ACUÑA, [facility] [id number] [facility] 08:19:37 16:01:41 SHAAN [facility] [employer] [employer] 2021-04-03 2021-04-03 Outpatient NATASHA JOY [facility] SLE [id number] [facility] 00:00:00 00:00:00 SHAAN 2020-09-14 2020-09-14 Office FAITH Small 1.2.840.114 [id number] [facility] 11:23:24 11:53:24 Visit Franchesca AMBULATOR 350.1.13.21 College Y 0.2.7.2.686 of [id number] [facility] 300 e 2020-09-14 2020-09-14 Outpatient NATASHA SMALL [facility] SLE [id number] [facility] 00:00:00 00:00:00 FRANCHESCA 2020-09-08 2020-09-08 Office Inderjit [facility] 1.2.840.114 [id number] [facility] 12:58:44 15:34:31 Visit Ovidio AMBULATOR 350.1.13.21 College Y 0.2.7.2.686 of [id number] [facility] amanda 810 e 2020-08-25 2020-08-25 Outpatient EL [facility] SLE [id number] [facility] 00:00:00 00:00:00 2020-08-22 2020-08-22 Outpatient [facility] [id number] [facility] 00:00:00 00:00:00 2020-08-22 2020-08-22 Outpatient SLE [facility] [id number] [facility] 00:00:00 00:00:00 2020-08-18 2020-08-18 Outpatient [facility] [id number] [place] 00:00:00 00:00:[address] 2020-08-11 2020-08-11 Office Inderjit, BCM 1.2.840.114 [id number] [facility] 12:10:11 16:41:00 Visit Ovidio AMBULATOR 350.1.13.21 College Y 0.2.7.2.686 of [id number] Medi amanda 810 e 2020-08-11 2020-08-11 Office Joy, BCM 1.2.840.114 [id number] [facility] 10:54:07 11:24:07 Visit Shaan Ray AMBULATOR 350.1.13.21 College Y 0.2.7.2.686 of [id number] Medi amanda 800 e 2020-07-18 2020-07-18 Outpatient EL [facility] SLE [id number] [facility] 00:00:00 00:00:00 2020-07-18 2020-07-18 Outpatient EL [facility] SLE [id number] [facility] 00:00:00 00:00:00 2020-07-18 2020-07-18 Outpatient [facility], [facility] [id number] [place] 00:00:00 00:00:00 ADOLPH [address] 2020-07-18 2020-07-18 Outpatient [facility], [facility] [id number] [place] 00:00:00 00:00:00 ADOLPH [address] 2020-07-12 2020-07-12 Office Robert [facility] 1.2.840.114 [id number] [facility] 13:14:00 15:25:39 Visit [place] Latricia AMBULATOR 350.1.13.21 College G Y 0.2.7.2.686 of [id number] Medi amanda 800 e 2020-06-23 2020-06-23 Office Inderjit, BCM 1.2.840.114 [id number] 09:06:25 14:36:10 Visit Ovidio AMBULATOR 350.1.13.21 Y 0.2.7.2.686 [id number] 2020-06-23 2020-06-23 Office Inderjit, BCM 1.2.840.114 [id number] [facility] 09:06:25 14:36:10 Visit Ovidio AMBULATOR 350.1.13.21 College Y 0.2.7.2.686 of [id number] [facility] amanda 810 e 2020-06-02 2020-06-02 Office Robert [facility] 1.2.840.114 [id number] 13:30:39 13:50:39 Visit es, Latricia AMBULATOR 350.1.13.21 G Y 0.2.7.2.686 [id number] 800 2020-06-02 2020-06-02 Office Robert M 1.2.840.114 [id number] [facility] 13:30:39 13:50:39 Visit es, Latricia AMBULATOR 350.1.13.21 College G Y 0.2.7.2.686 of [id number] [facility] 800 e 2020-04-22 2020-04-22 Office [facility] 1.2.840.114 [id number] 07:04:14 07:45:18 Visit Fareed AMBULATOR 350.1.13.21 Y 0.2.7.2.686 [id number] 300 2020-04-22 2020-04-22 Office [facility] 1.2.840.[id number] [place] [address] 07:04:14 07:45:18 Visit Fareed AMBULATOR 350.1.13.21 College Y 0.2.7.2.686 of [id number] [facility] 300 e 2020-04-15 2020-04-15 Office Shaan Joy [facility] 1.2.840. 114 [id number] 07:37:25 08:07:25 Visit C-Arm, Pmr Siemens AMBULATOR 350.1.13. 21 Y 0.2.7.2.686 [id number] 800 2020-04-15 2020-04-15 Office Shaan Joy [facility] 1.2.840. 114 [id number] [facility] 07:37:25 08:07:25 Visit C-Arm, Pmr Siemens AMBULATOR 350.1.13. 21 College Y 0.2.7.2.686 of [id number] [facility] amanda 800 e 2020-02-02 2020-02-02 Office Nely Josue [facility] 1.2.840.114 [id number] 10:52:33 12:11:24 Visit AMBULATOR 350.1.13.21 Y 0.2.7.2.686 [id number] 800 2020-02-02 2020-02-02 Office Josue Mckay 1.2.840.114 [id number] [facility] 10:52:33 12:11:24 Visit AMBULATOR 350.1.13.21 College Y 0.2.7.2.686 of [id number] [facility] amanda 800 e 2020-01-25 2020-01-25 Office Nely Josue FAITH 1.2.840.114 73 [id number] 08:56:32 09:16:32 Visit AMBULATOR 350.1.13.21 Y 0.2.7.2.686 [id number] 800 2020-01-25 2020-01-25 Office Josue Mckay 1.2.840.114 [id number] [facility] 08:56:32 09:16:32 Visit AMBULATOR 350.1.13.21 College Y 0.2.7.2.686 of [id number] [facility] amanda 800 e 2020-01-11 2020-01-11 Office FAITH Chatterjee 1.2.840.114 [id number] [facility] 12:32:36 13:02:36 Visit Suneal K AMBULATOR 350.1.13.21 Y 0.2.7.2.686 [id number] 325 2020-01-11 2020-01-11 Office ChatterjeeFAITH samson 1.2.840.[address] [place] [address] 12:32:36 13:02:36 Visit Suneal K AMBULATOR 350.1.13.21 College Y 0.2.7.2.686 of [id number] [facility] amanda 325 e 2020-01-04 2020-01-04 Office FAITH Shah 1.2.840.114 [id number] [facility] 08:14:41 16:09:42 Visit Aisha AMBULATOR 350.1.13.21 Y 0.2.7.2.686 [id number] 300 2020-01-04 2020-01-04 Office SusanFAITH castro 1.2.840.114 [id number] [facility] 08:14:41 16:09:42 Visit Aisha AMBULATOR 350.1.13.21 College Y 0.2.7.2.686 of [id number] [facility] amanda 300 e 2019-12-25 2019-12-25 Office Josue Mckay 1.2.840.114 [id number] 10:20:12 11:35:16 Visit AMBULATOR 350.1.13.21 Y 0.2.7.2.686 [id number] 800 2019-12-25 2019-12-25 Office Josue Mckay 1.2.840.114 [id number] [facility] 10:20:12 11:35:16 Visit AMBULATOR 350.1.13.21 College Y 0.2.7.2.686 of [id number] [facility] amanda 800 e 2019-08-17 2019-08-17 Office [facility] 1.2.840.114 [id number] 12:51:13 13:06:13 Visit Fareed AMBULATOR 350.1.13.21 Y 0.2.7.2.686 [id number] 300 2019-08-17 2019-08-17 Office [facility] 1.2.840.[id number] [place] [address] 12:51:13 13:06:13 Visit Fareed AMBULATOR 350.1.13.21 College Y 0.2.7.2.686 of [id number] [facility] amanda 300 e 2019-07-24 2019-07-24 Office FAITH Mcdonald 1.2.840.114 [id number] 10:29:15 12:54:50 Visit Wilberto AMBULATOR 350.1.13.21 [place] Y 0.2.7.2.686 [id number] 800 2019-07-24 2019-07-24 Office FAITH Mcdonald 1.2.840.[id number] [place] [address] 10:29:15 12:54:50 Visit Wilberto AMBULATOR 350.1.13.21 College [place] Y 0.2.7.2.686 of [id number] [facility] amanda 800 e 2017-07-11 2017-07-11 Outpatient [facility] [id number] [facility] 00:00:00 00:00:00 Results Test Description Test Time Test Comments Results Result Comments Source Comprehensive metabolic panel 2022-10-18 20:14:00 Test Item Value Reference Range Interpretation Comme nts Glucose (test code = 82 mg/dL 65-139 Non-fa sting reference 2345-7) interval BUN (test code = 3094-0) 10 mg/dL 7-25 Creatinine (test code = 0.57 mg/dL 0.60-0.95 L 2160-0) eGFR (test code = 8257) 92 See_Comment The eGFR is based on the CKD-EPI 202 1 equation. To ca lculate the new eGFR fr om a previous Creati nine or Cystatin Cresul t, go to https://www.kid antonio.org /professionals/ kdoqi/g fr%5Fcalculator [Automated mess age] The system [employer] generated this result transmitted ref erence range: > OR = 6 0 mL/min/1.73m2. The reference range was not used to int erpret this result as normal/abnormal . BUN/creatinine ratio (test 18 See_Comment [Automated message] code = 3097-3) The system [employer] generated this result transmitted ref erence range: 6 - 22 ( calc). The reference r shelley was not used to interpret this result as normal/abnor mal. Sodium (test code = 140 mmol/L 292-719 7047-2) Potassium (test code = 4.0 mmol/L 3.5-5.3 2823-3) Chloride (test code = 104 mmol/L 98-110 2075-0) CO2 (test code = 2027-) 29 mmol/L 20-32 Calcium (test code = 9.4 mg/dL 8.6-10.4 87319-8) Protein (test code = 6.4 g/dL 6.1-8.1 2885-2) Albumin, S (test code = 4.4 g/dL 3.6-5.1 1751-7) Globulin, total (test code 2.0 See_Comment [Automated message] = 68687-7) The system [employer] generated this result transmitted ref erence range: 1.9 - 3. 7 g/dL (calc). The ref erence range was not u sed to interpret this result as normal/abnor mal. Albumin/globulin ratio 2.2 See_Comment [Aut omated message] (test code = 1759-0) The s tem which generated this result transmitted ref erence range: 1.0 - 2. 5 (calc). The ref erence range was not u sed to interpret this result as normal/abnor mal. Total bilirubin (test code 1.3 mg/dL 0.2-1.2 H = 1974-) Alkaline phosphatase (test 78 U/L 37-153 code = 6768-6) AST (test code = 1920-8) 18 U/L 10-35 ALT (test code = 1742-6) 14 U/L 6-29 PERRY (test code = PERRY) FASTING:NO FASTING: NO RAC (test code = RAC) Performing Organization Information: Site ID: [facility] Name: [facility] Lab Address: [address] [place] [address] Director: Lynda Cleveland Lab Interpretation (test Abnormal code = 19383-0) [facility]-reactive [id number] 20:14:00 Test Item Value Reference Range Interpretation Comments CRP (test code = 0.5 mg/L <=8.0 1988-04) PERRY (test code = FASTING:NO FASTING: NO PERRY) RAC (test code = Performing Organization RAC) Information: Site ID: [facility] Name: [facility] Lab Address: [address] [place] [address] Director: Lynda Cleveland [facility] with platelet and [id number] 20:14:00 Test Item Value Reference Range Interpretation Comments WBC (test code = 7.4 See_Comment [Automated 6690-2) message] The system which generated this result transmitted reference range : 3.8 - 10.8 Thousand/uL. Th e reference range was not used to interpret this result as normal/abnormal . RBC (test code = 5.14 See_Comment H [Automated 829-8) message] The system which generated this result transmitted reference range : 3.80 - 5.10 Million/uL. The reference range was not used to interpret this result as normal/abnormal . HGB (test code = 13.2 g/dL 11.7-15.5 718-7) HCT (test code = 41.4 % 35.0-45.0 4544-3) MCV (test code = 80.5 fL 80.0-100.0 787-2) MCH (test code = 25.7 pg 27.0-33.0 L 785-6) MCHC (test code = 31.9 g/dL 32.0-36.0 L 786-4) RDW (test code = 12.9 % 11.0-15.0 788-0) Platelet count (test 270 See_Comment [Autom ated code = 777-3) message] The system which generated this result transmitted reference range : 140 - 400 Thousand/uL. Th e reference range was not used to interpret this result as normal/abnormal . MPV (test code = 10.7 fL 7.5-12.5 776-5) Neutrophils, 5062 See_Comment [Automated absolute (test code message] The = 751-8) system which generated this result transmitted reference range : 1,500 - 7,800 cells/uL. The reference range was not used to interpret this result as normal/abnormal . Lymphocytes, 1332 See_Comment [Automated absolute (test code message] The = 731-0) system which generated this result transmitted reference range : 850 - 3,900 cells/uL. The reference range was not used to interpret this result as normal/abnormal . Monocytes, absolute 762 See_Comment [Automa dominick (test code = 742-7) message] The system which generated this result transmitted reference range : 200 - 950 cells/uL. The reference range was not used to interpret this result as normal/abnormal . Eosinophils, 215 See_Comment [Automated absolute (test code message] The = 711-2) system which generated this result transmitted reference range : 15 - 500 cells/uL. The reference range was not used to interpret this result as normal/abnormal . Basophils, absolute 30 See_Comment [Automa dominick (test code = 704-7) message] The system which generated this result transmitted reference range : 0 - 200 cells/u L. The reference range was not used to interpr et this result as normal/abnormal . Neutrophils (test 68.4 % code = 770-8) Lymphocytes (test 18.0 % code = 736-9) Monocytes (test code 10.3 % = 5905-5) Eosinophils (test 2.9 % code = 713-8) Basophils + RC (test 0.4 % code = 706-2) PERRY (test code = FASTING:NO PERRY) FASTING: NO RAC (test code = Performing RAC) Organization Information: Site ID: [facility] Name: [email or web address] Lab Address: [address] [place] [phone] Director: Lynda Cleveland Lab Interpretation Abnormal (test code = 11090-1) [facility] [id number] 20:14:00 Test Item Value Reference Range Interpretation Comments Sedimentation rate 2 mm/h See_Comment [Automat ed (test code = 4537-7) message ] The system which generated this result transmitted reference range : < OR = 30. The reference range was not used to interpret this result as normal/abnormal . PERRY (test code = FASTING:NO PERRY) FASTING: NO RAC (test code = Performing RAC) Organization Information: Site ID: A Name: [email or web address] Lab Address: [address] [place] [phone] Director: Lynda Cleveland [facility] automated with [id number] 20:14:00 Test Item Value Reference Range Interpretation Comments Color, UA (test code YELLOW YELLOW = 5778-6) Appearance (test CLEAR CLEAR code = 5767-9) Specific gravity, 1.028 1.001-1.035 urine (test code = 5811-5) pH, urine (test code 6.0 5.0-8.0 = 5803-2) Glucose, urine (test NEGATIVE NEGATIVE code = 84956-2) Bilirubin, UA (test NEGATIVE NEGATIVE code = 5770-3) Ketones, UA (test NEGATIVE NEGATIVE code = 2514-8) Occult blood, urine 1+ NEGATIVE A (test code = 5794-3) Protein, UA (test TRACE NEGATIVE A code = 43650-7) Nitrite, UA (test NEGATIVE NEGATIVE code = 5802-4) Leukocyte esterase, NEGATIVE NEGATIVE UA (test code = 5799-2) WBC, UA (test code = 0-5 See_Comment [Autom ated 5821-4) message] The system which generated this result transmitted reference range : < OR = 5 /HPF. The reference range was not used to interpr et this result as normal/abnormal . RBC, UA (test code = 10-20 See_Comment A [Autom ated 50524-0) message] The system which generated this result transmitted reference range : < OR = 2 /HPF. The reference range was not used to interpr et this result as normal/abnormal . Squamous epithelial NONE SEEN See_Comment [Automa dominick cells, UA (test code message ] The = 54797-1) system which generated this result transmitted reference range : < OR = 5 /HPF. The reference range was not used to interpr et this result as normal/abnormal . Bacteria, UA (test NONE SEEN NONE SEEN /HPF code = 5769-5) Calcium oxalate MODERATE NONE OR FEW A crystals, UA (test /HPF code = 56623-0) Hyaline casts, UA NONE SEEN NONE SEEN /LPF (test code = 5796-8) Note: (test code = This urin e was 8251-1) analyzed for th e presence of WBC , RBC, bacteria, casts, and othe r formed elements . Only those elements seen were reported. PERRY (test code = FASTING:NO PERRY) FASTING: NO RAC (test code = Performing RAC) Organization Information: Site ID: [facility] Name: [facility] Lab Address: [address] [place] [phone] Director: Lynda Cleveland Lab Interpretation Abnormal (test code = 71783-7) [facility] 2 [id number] 11:53:00Reason for Exam:->Compression fracture of T12 vertebra, initial encounter ([facility]) [facility] : 1940 Sex: FFINAL REPORT EXAMINATION: RAD, SPINE, SCOLIOSIS STUDY, 2 OR 3 VIEWS, RAD, SPINE, THORACIC, 2 VIEWS, RAD, SPINE, LUMBAR, COMPLETE, WITH FLEX \\T\\ EXTENSION - MIN. 6 VIEWS INDICATION: Compression fracture of T12 vertebra COMPARISON: None DISCUSSION:Evaluation of the superior thoracic spine and thoracolumbar junction are partially limited on lateral views by overlying bones/soft tissues. Redemonstrated chronic T12 compression fracture deformity with near complete vertebral body height loss.Additional chronic compression deformities along the T6, L4 and L5 superior endplates with mild height loss.Status post augmentation of the bilateral sacral ala. Diffuse osseous demineralization. Severe levoconvex curvature centered at L2 with Major angle measuring approximately 50 degrees. Associated negative coronal imbalance with plumbline 2.4 cm to the left of midline.Markedly exaggerated kyphosis at the thoracolumbar junction results in severe positive sagittal imbalance with plumbline approximately 10 cm anterior to the S1 superior endplate. No dynamic motion of the lumbar spine noted on flexion-extension views. Multilevel degenerative disc changes, most notably moderate at the thoracolumbar junction. Advanced inferior lumbar facet arthropathy. Surgical clips in the right upper abdominalquadrant and adjacent to the right hip. IMPRESSION:Chronic T12 compression fracture deformity with near complete vertebral body height loss. Additional chronic compression deformities with mild height loss along the T6, L4, and L5 superior endplates. Severe levoconvex curvature centered at L2 with negative coronal imbalance. Markedly exaggerated kyphosis at the thoracolumbar junction results in severe positive sagittal imbalance. Multilevel degenerative changes as described above. Signed: Melchor Lafleur MDReport Verified Date/Time: 01/15/2022 11:53:23 Reading Location: [facility] Reading Room [address] [place] [address] RAD, SPINE, SCOLIOSIS STUDY, 2 OR 3 [id number] 11:53:00Reason for Exam:- >Compression fracture of T12 vertebra, initial encounter ([facility]) [facility] 1940 Sex: FFINAL REPORT EXAMINATION: RAD, SPINE, SCOLIOSIS STUDY, 2 OR 3 VIEWS, RAD, SPINE, THORACIC, 2 VIEWS, RAD, SPINE, LUMBAR, COMPLETE, WITH FLEX \\T\\ EXTENSION - MIN. 6 VIEWS INDICATION: Compression fracture of T12 vertebra COMPARISON: None DISCUSSION:Evaluation of the superior thoracic spine and thoracolumbar junction are partially limited on lateral views by overlying bones/soft tissues. Redemonstrated chronic T12 compression fracture deformity with near complete vertebral body height loss.Additional chronic compression deformities along the T6, L4 and L5 superior endplates with mild height loss.Status post augmentation of the bilateral sacral ala. Diffuse osseous demineralization. Severe levoconvex curvature centered at L2 with Major angle measuring approximately 50 degrees. Associated negative coronal imbalance with plumbline 2.4 cm to the left of midline.Markedly exaggerated kyphosis at the thoracolumbar junction results in severe positive sagittal imbalance with plumbline approximately 10 cm anterior to the S1 superior endplate. No dynamic motion of the lumbar spine noted on flexion-extension views. Multilevel degenerative disc changes, most notably moderate at the thoracolumbar junction. Advanced inferior lumbar facet arthropathy. Surgical clips in the right upper abdominalquadrant and adjacent to the right hip. IMPRESSION:Chronic T12 compression fracture deformity with near complete vertebral body height loss. Additional chronic compression deformities with mild height loss along the T6, L4, and L5 superior endplates. Severe levoconvex curvature centered at L2 with negative coronal imbalance. Markedly exaggerated kyphosis at the thoracolumbar junction results in severe positive sagittal imbalance. Multilevel degenerative changes as described above. Signed: Melchor Lafleureport Verified Date/Time: 01/15/2022 11:53:23 Reading Location: [facility] Reading Room 1 - B01.627 RAD, SPINE, LUMBAR, COMPLETE, WITH [id number] 11:53:00Reason for Exam:- >Compression fracture of T12 vertebra, initial encounter ([facility]) [facility] : 1940 Sex: FFINAL REPORT EXAMINATION: RAD, SPINE, SCOLIOSIS STUDY, 2 OR 3 VIEWS, RAD, SPINE, THORACIC, 2 VIEWS, RAD, SPINE, LUMBAR, COMPLETE, WITH FLEX \\T\\ EXTENSION - MIN. 6 VIEWS INDICATION: Compression fracture of T12 vertebra COMPARISON: None DISCUSSION:Evaluation of the superior thoracic spine and thoracolumbar junction are partially limited on lateral views by overlying bones/soft tissues. Redemonstrated chronic T12 compression fracture deformity with near complete vertebral body height loss.Additional chronic compression deformities along the T6, L4 and L5 superior endplates with mild height loss.Status post augmentation of the bilateral sacral ala. Diffuse osseous demineralization. Severe levoconvex curvature centered at L2 with Major angle measuring approximately 50 degrees. Associated negative coronal imbalance with plumbline 2.4 cm to the left of midline.Markedly exaggerated kyphosis at the thoracolumbar junction results in severe positive sagittal imbalance with plumbline approximately 10 cm anterior to the S1 superior endplate. No dynamic motion of the lumbar spine noted on flexion-extension views. Multilevel degenerative disc changes, most notably moderate at the thoracolumbar junction. Advanced inferior lumbar facet arthropathy. Surgical clips in the right upper abdominalquadrant and adjacent to the right hip. IMPRESSION:Chronic T12 compression fracture deformity with near complete vertebral body height loss. Additional chronic compression deformities with mild height loss along the T6, L4, and L5 superior endplates. Severe levoconvex curvature centered at L2 with negative coronal imbalance. Markedly exaggerated kyphosis at the thoracolumbar junction results in severe positive sagittal imbalance. Multilevel degenerative changes as described above. Signed: Melchor Lafleur MDReport Verified Date/Time: 01/15/2022 11:53:23 Reading Location: [facility] Reading Room [address] [place] [address] POCT URINALYSIS [id number] 00:00:00 Test Item Value Reference Range Interpretation Comments COLOR UA (test code = 5778-6) Ashley YELLOW/STRAW CLARITY UA (test code = 35694-6) Clear CLEAR GLUCOSE UA (test code = 5792-7) Negative NEGATIVE BILIRUBIN UA (test code = 5770-3) Negative NEGATIVE KETONES UA (test code = 23630-3) Negative NEGATIVE SPECIFIC GRAVITY UA (test code = 1.005-1.035 5811-5) BLOOD UA (test code = 5794-3) Negative NEGATIVE PH UA (test code = 5803-2) 5.0-9.0 PROTEIN UA (test code = 5804-0) Negative NEGATIVE UROBILINOGEN UA (test code = 0.2 E.U./dL NORMAL MG/DL 5818-0) LEUKOCYTE ESTERASE UA (test code Negative NEGATIVE = 5799-2) NITRITE UA (test code = 5802-4) Negative NEGATIVE REDUCING SUBSTANCES URINE (test code = 74764-4) [facility], [facility], WITHOUT [id number] 07:36:00 Unlisted Reason for Exam - Click Yes and Enter Reason Below->Yes Unlisted Reason for Exam->SCOLIOSIS AND KYPHOSCOLIOSIS IDIOPATHIC, OSTEOPOROSIS Anesthesia:->None Deos the patient have an implanted electronic device?->[facility]: 1940 Sex: FFINAL REPORT MR, SPINE, LUMBAR, WITHOUT CONTRAST INDICATION: Unlisted Reason for ExamSCOLIOSIS AND KYPHOSCOLIOSIS IDIOPATHIC, OSTEOPOROSIS COMPARISON: December 05, 2018 TECHNIQUE: Multiplanar, multisequence MR images of the lumbar spine without contrast. FINDINGS: Numbering: Last fullyformed disc space is designated L5-S1. Spinal cord: The conus medullaris is normal is size, signal in tensity, and position, terminating at the L1 level. Osseous structures: Redemonstration of severe levoscoliotic curvature and chronic anterior height loss at the T12 vertebral body. Compensatory degenerative endplate and facet changes at resulted and are similar in appearance to the prior examination.No vertebral body height is preserved in the lumbar spine. Pseudarthrosis is developing in multiple spinous process levels. No aggressive osseous lesions are identified. Discs: There is multilevel discdessication with associated loss of disc space height. Evaluation of the individual levels demonstrates: L1/L2: Broad disc protrusion without canal narrowing. Severe right foraminal stenosis. L2/L3: Nocanal narrowing. Facet hypertrophy. Severe right foraminal stenosis. L3/L4: Mild canal narrowing as a consequence of ligamentous redundancy and facet hypertrophy. Severe bilateral foraminal stenosis. L4/L5: No canal narrowing. Advanced degenerative changes in the facet joints. Severe left and moderateto severe right foraminal narrowing. L5/S1: Bilateral spondylolysis and grade 1 spondylolisthesis. Pseudobulge of subluxation without canal narrowing. Severe left and moderate right foraminal narrowing. Paraspinal soft tissues: Marked asymmetric deconditioning of the posterior paraspinal musculature. H ydronephrosis is moderate to severe on the right. Cystic changes in the left kidney are incompletelyviewed. Aortic caliber is within normal limits. IMPRESSION: Advanced degenerative changes and scoliotic deformity without significant interval change from the prior examination. Moderate to severe right hydronephrosis, incompletely characterized. Signed: JR Mason Robert I[facility]70 COMMUNITY HOSPITALeport Verified Date/Time: 04/04/2021 07:36:06 Reading Location: [facility] C013 Neuro Reading Room RAD, CHEST, 2 [id number] 13:36:00Left upper chest wall pain q6Cquukv for Exam:->Neck pain on left side; left-sided chest wall pain [facility] 1940 Sex: FFINAL REPORT EXAMINATION: PA and lateral views of the chest. COMPARISON: 2019 CLINICAL HISTORY: Left-sided chest wall pain DISCUSSION: Lines/tubes: None. Lungs: The lungs are well inflated and clear. No pneumonia or pulmonary edema. Pleura: No pleural effusion or pneumothorax. Heart and mediastinum: The cardiomediastinal silhouette is normal. Bones and soft tissues: Noacute bony abnormalities. Focal kyphosis at the thoracolumbar junction. IMPRESSION: No acute cardiopulmonary abnormalities. Signed: Jeremy Paige Verified Date/Time: 09/14/2020 13:36:14 Reading Location: [facility] Reading Room [address] [place] [address] Electronically signed by: Jeremy Paige on 2019 01:36 PMTISSUE [id number] 11:11:00Surgical Pathology Report Case: [id number] Authorizing Provider: Ovidio Jansen MD Collected:08/26/2020 11:31 AM Ordering Location: [facility] Received: 08/26/2020 01:02 PM PERIOPERATIVE SERVICES Pathologist: Naomy Coelho MD Specimen: Gastrostomy, LEFT WEDGE GASTRECTOMY A. STOMACH, WEDGE GASTRECTOMY: - OXYNTIC MUCOSA WITH NO SIGNIFICANT DIAGNOSTIC ALTERATION. - NEGATIVE FOR HELICOBACTER PYLORI ORGANISMS (BY H&E EXAMINATION). - NEGATIVE FOR INTESTINAL METAPLASIA, DYSPLASIA, MALIGNANCY. Signing Pathologist Direct Phone Line: [phone] signed by Naomy Coelho MD on 08/31/2020 at 11:11 [id number] diagnosis: Gastroesophageal reflux disease, esophagitis presence not specified, hiatal hernia, esophagitis. GastrostomyReceived in formalin labeled with the patient's name, accession number and "left wedge gastrectomy" are two unoriented stomach wedges that range from 2.5 to4.5 cm in greatest dimension. The serosa is soto-pink, smooth to shaggy and hyperemic. The specimen is opened to reveal a soto-pink mucosa that displays normal rugal folds. No discrete lesions are identified. Manager Emergency sections are submitted in A1-A2. PA/pl Performed.[facility], Department of Pathology, [address] [place] [address], [facility]uuUniversity [facility], [facility] of [facility], [address] [place] [address], [facility], [facility] of [facility], [address] [place] [address], Tel RAD, CHEST, 1 VIEW, NON [id number] 02:22:00Reason for exam:- >s/p hiatal hernia repairShould this be performed at the bedside?->Yes FINAL REPORT RAD, CHEST, 1 VIEW, NON DEPT INDICATION: s/p hiatal hernia repair COMPARISON: August 28, 2020 FINDINGS: Portable frontal view of the chest. IMPRESSION: Support Lines: No significant change. Lungs and pleura: Reduced interstitial opacities and stable small bilateralpleural effusions and basilar atelectasis. No pneumothorax.Heart and mediastinum: Stable contours. Additional findings: None. Signed: Dereck Joe MDReport Verified Date/Time: 08/29/2020 02:22:19 [id number] 02:03:00 Test Item Value Reference Range Interpretation Comments MAGNESIUM (BEAKER) (test code = 2.2 mg/dL 1.6-2.6 627) Rod Puller ID - PIAYA LBASIC METABOLIC [id number] 02:03:00 Test Item Value Reference Range Interpretation [...] S NOT APPLICABLE FOR DIALYSIS PATIEN TS. Rod Puller ID - PIAYA LCBC W/PLT COUNT & AUTO [id number] 01:49:00 Test Item Value Reference Range Interpretation [...] PERCENT (BEAKER) (test code = 2801) POCT-GLUCOSE [id number] 00:29:00 Test Item Value Reference Range Interpretation Comments POC-GLUCOSE METER 88 mg/dL 70-110 : TESTED A T [facility] 6720 (BEAKER) (test code = [facility], 1538) 46563: Rod Puller/Techni marysol ID = [id number] for RAGL AND, RITA POCT-GLUCOSE [id number] 13:20:00 Test Item Value Reference Range Interpretation Comments POC-GLUCOSE METER 95 mg/dL 70-110 : TESTED A T [facility] 6720 (BEAKER) (test code = [facility], 1538) 55805: Rod Puller/Techni marysol ID = [id number] for Amus a, [place], [id number] 10:20:00Reason for exam:->s/p hiatal hernia repairpls perform before noonFINAL REPORT ESOPHAGRAM HISTORY: Status post hiatal hernia repair COMPARISON: No comparison imaging of the esophagus or stomach is available TECHNIQUE: Examination was performed using water-soluble Gastrografin contrast. Spot images of the distal esophagus were obtained in multiple projections. FINDINGS: No esophageal leak was identified. No leak was identified at the esophagogastric junction at the level of the hiatal hernia repair. There was some retention of contrast proximalto the hernia repair, with intermittent flow of contrast through the esophagogastric junction, whichcan be normal this soon after surgical repair. There were a few nonspecific tertiary contractions inthe esophagus. No aspiration was observed. Fluoroscopy time: 1.9 minutes Fluoroscopic images: 25 IMPRESSION: No evidence of a leak. Signed: Hanh Smith Verified Date/Time: 08/28/2020 10:20:06Reading Location: [address] Transitional Reading Room Electronically signed by: Shyam LEIVA 08/28/2020 10:20 AMPOCT-GLUCOSE [id number] 05:56:00 Test Item Value Reference Range Interpretation Comments POC-GLUCOSE METER 77 mg/dL 70-110 : TESTED A T [facility] 6720 ([facility]) (test code = BIBI Fu [facility], 1538) [address]: Rod Puller/Techni marysol ID = [id number] for UEMA RU, CARLOS RAD, CHEST, 1 VIEW, NON [id number] 03:22:00Reason for exam:->s/p hiatal hernia repairShould this be performed at the bedside?->YesFINAL REPORT RAD, CHEST, 1 VIEW, NON DEPT INDICATION: s/p hiatal hernia repair COMPARISON: Prior day's exam FINDINGS: Portable frontal view of the chest. IMPRESSION: Support Lines:Interval removal of enteric tube. Lungs and pleura: Unchanged airspace and pleural opacities. No pneumothorax.Heart and mediastinum: Stable contours. Additional findings: None. Signed: Dereck Joe MDReport Verified Date/Time: 08/28/2020 03:22:45 BASIC METABOLIC [id number] 03:09:00 Test Item Value Reference Range Interpretation [...] S NOT APPLICABLE FOR DIALYSIS PATIEN TS. Rod Puller ID - PIAYA [id number] 02:55:00 Test Item Value Reference Range Interpretation Comments MAGNESIUM (BEAKER) 2.2 mg/dL 1.6-2.6 Specimen slightly (test code = 627) hemolyzed Rod Puller ID - PIGUILLERMO LCBC W/PLT COUNT & AUTO [id number] 02:29:00 Test Item Value Reference Range Interpretation [...] PERCENT (BEAKER) (test code = 2801) POCT-GLUCOSE [id number] 00:01:00 Test Item Value Reference Range Interpretation Comments POC-GLUCOSE METER 88 mg/dL 70-110 : [facility] (BEAKER) (test code = [facility], 1538) 35593: Rod Puller/Techni marysol ID = [id number] for DRE JOLLYCARLOS POCT-GLUCOSE [id number] 18:06:00 Test Item Value Reference Range Interpretation Comments POC-GLUCOSE METER 97 mg/dL 70-110 : [facility] 67[facility] (BEAKER) (test code = [facility] Nickie [facility], 1538) 80044: Rod Puller/Techni marysol ID = [id number] for CAPRICE RUTH RAD, CHEST, 1 VIEW, NON [id number] 12:19:00Reason for exam:->CT removal FINAL REPORT History: Status post chest tube removal Comparison: 2020 at 0234 hours Findings: Interval removal of the left-sided chest tube. No definite left pneumothorax. Skin folds overlie the chest bilaterally. Mild bibasilar pulmonary opacities are unchanged in appearanceand likely represent subsegmental atelectasis or pneumonitis. Minimal left pleural effusion. Cardiacshadow normal in size. Nasogastric tube passes below the diaphragm, with the tip not imaged. Signed:Hanh Smitheport Verified Date/Time: 2020 12:19:05 Reading Location: [address] Transitional Reading Room -GLUCOSE [id number] 12:18:00 Test Item Value Reference Range Interpretation Comments POC-GLUCOSE METER 93 mg/dL 70-110 : TESTED A T [facility] 6720 (BEAKER) (test code = [facility] Nickie [facility], 1538) 54788: Rod Puller/Techni marysol ID = [id number] for CAPRICE RUTH CBC W/PLT COUNT & AUTO [id number] 07:52:00 Test Item Value Reference Range Interpretation [...] CONCENTRATION Adequate (CELLAVISION)(BEAKER) (test code = 3438) Rod Puller ID - Maite Stanford comments: Slide comments:BASIC [...] S NOT APPLICABLE FOR DIALYSIS PATIEN TS. Rod Puller ID - [id number] 06:07:00 Test Item Value Reference Range Interpretation Comments MAGNESIUM (BEAKER) 2.5 mg/dL 1.6-2.6 Specimen slightly (test code = 627) hemolyzed Rod Puller ID - EDASIPOCT-GLUCOSE [id number] 05:55:00 Test Item Value Reference Range Interpretation Comments POC-GLUCOSE METER 81 mg/dL 70-110 : TESTED A T [facility] 6720 (BEAKER) (test code = [facility] [place], 1538) [address]: Rod Puller/Techni marysol ID = [id number] for CHUYITA FRASER RAD, CHEST, 1 VIEW, NON [id number] 04:34:00Reason for exam:->s/p hiatal hernia repairShould this be performed at the bedside?->YesFINAL REPORT RAD, CHEST, 1 VIEW, NON DEPT INDICATION: s/p hiatal hernia repair COMPARISON: 13 hours prior. FINDINGS: Portable frontal view of the chest. IMPRESSION: Support Lines: No significant change. Lungs and pleura: Unchanged airspace and pleural opacities. No pneumothorax.Heart and mediastinum: Stable contours. Additional findings: None. Signed: Dereck Joe MDReport Verified Date/Time: 2020 04:34:21 04:34 AMPOCT-GLUCOSE [id number] 23:58:00 Test Item Value Reference Range Interpretation Comments POC-GLUCOSE METER 110 mg/dL 70-110 : TESTED A T [facility] 6720 (BEAKER) (test code = [facility], 1538) 17352: Rod Puller/Techni marysol ID = [id number] for CHUYITA GRANDE POCT-GLUCOSE [id number] 19:38:00 Test Item Value Reference Range Interpretation Comments POC-GLUCOSE METER 108 mg/dL 70-110 : TESTED A T [facility] 6720 (BEAKER) (test code = [facility], 1538) 96217: Rod Puller/Techni marysol ID = [id number] for CHUYITA GRANDE BASIC METABOLIC [id number] 14:29:00 Test Item Value Reference Range Interpretation [...] S NOT APPLICABLE FOR DIALYSIS PATIEN TS. Rod Puller ID - KOTA [id number] 14:13:00 Test Item Value Reference Range Interpretation Comments MAGNESIUM (BEAKER) (test code = 1.8 mg/dL 1.6-2.6 627) Rod Puller ID - KOTA CCBC W/PLT COUNT & AUTO [id number] 13:55:00 Test Item Value Reference Range Interpretation [...] = 2801) RAD, CHEST, 1 VIEW, NON [id number] 13:44:00Reason for exam:->s/p hiatal hernia repairin PACUShould this be performed at the bedside?->YesFINAL REPORT RAD, CHEST, 1 VIEW, NON DEPT INDICATION: s/p hiatal hernia repair COMPARISON: 08/22/2020 FINDINGS: Portable frontal view of the chest. IMPRESSION: Support Lines: NG tube descends below the diaphragm. Left-sided chest tube. Lungs and pleura: Bibasilar atelectasis. No pneumothorax.Heart and mediastinum: Stable contours. Additional findings: None. Signed: Estefany Harding MDRepalber Verified Date/Time: 08/26/2020 13:44:11 Reading Location: [facility] Radiology Reading Room CALCIUM, [id number] 13:34:00 Test Item Value Reference Range Interpretation Comments CALCIUM IONIZED (BEAKER) (test 1.05 mmol/L 1.12-1.27 L code = 698) PH, BLOOD (BEAKER) (test code = 7.28 1810) GLUCOSE-STAT [id number] 09:10:00 Test Item Value Reference Range Interpretation Comments GLUCOSE RANDOM (BEAKER) (test code 102 mg/dL 70-110 = 652) SODIUM NA-STAT [id number] 09:10:00 Test Item Value Reference Range Interpretation Comments SODIUM (BEAKER) (test code = 381) 136 meq/L 136-145 POTASSIUM-STAT [id number] 09:10:00 Test Item Value Reference Range Interpretation Comments POTASSIUM (BEAKER) (test code = 4.0 meq/L 3.6-5.5 379) BLOOD GAS, [id number] 09:10:00 Test Item Value Reference Range Interpretation [...] 1819) 63.0 % HGB/HCT (H&H) - STAT [id number] 09:10:00 Test Item Value Reference Range Interpretation Comments HEMOGLOBIN (BEAKER) (test code = 10.1 g/dL 12.0-15.0 L 410) HEMATOCRIT (BEAKER) (test code = 30.0 % 36.0-45.0 L 411) POCT-GLUCOSE [id number] 06:20:00 Test Item Value Reference Range Interpretation Comments POC-GLUCOSE METER 80 mg/dL 70-110 : TESTED A T [facility] 6720 (BEAKER) (test code = [facility], 1538) 58376: Rod Puller/Techni marysol ID = [id number] for JORD AN, LACRYSTAL SARS-COV2/RT-PCR ([facility])2020-08-22 20:59:00 Test Item Value Reference Range Interpretation Comments SARS-COV2/RT-PCR (test Negative Not Detected, Negative, code = 4772275) See external report for linked test SARS-COV-2 PERFORMING LAB [facility] MARY JANE (test code = 4887674) Negative result for this test determines that SARS-CoV-2 RNA was not present in the specimen above the Limit of Detection (LOD). However, Negative results do not preclude SARS-CoV-2 infection and should not be used as the sole basis for treatment or patient management decisions. Negative results must be combined with clinical observations, patient history, and [...] justifying the authorization of the emergency use ofin vitro diagnostic tests for detection and/or diagnosis of COVID-19 is terminated under Section 564(b)(2) of the Act or the EUA is revoked under Section 564(g) of the Act.Fact Sheet for Healthcare Prov iders:https://www.[employer]/sites/default/files/product/documents/Fact_Sheet_HC _Jexiynvrn_Xyfl_JQSX-WkC-7.pdfFact Sheet for Healthcare Patients:https://www.[employer]/sites/default/files/product/docume nts/Qxoz_Bzbae_Bdwlebgb_Xtpu_IEUM-ElP-7.pdfPerforming Laboratory:[facility], [place] [address]ESDGDIRWPTYIA METABOLIC [id number] 12:48:00 Test Item Value Reference Range Interpretation [...] S NOT APPLICABLE FOR DIALYSIS PATIEN TS. Rod Puller ID - WINFRED FCBC W/PLT COUNT & AUTO [id number] 12:47:00 Test Item Value Reference Range Interpretation [...] (test code = 2801) RAD, CHEST, 2 [id number] 12:38:00Reason for exam:->Gastroesophageal reflux disease, esophagitis presence not specified [K21.9],Hiatal hernia [K44.9],Esophagitis [K20.9]FINAL REPORT History: Gastroesophageal reflux disease, esophagitis, hiatal hernia Comparison: MRI lumbar spine of 12/05/2018; no comparison chest imaging Findings: There are calcified granulomas in the right hilum and right lung. There are small foci of linear likely scar at the bilateral lung bases. A small moderate hiatal hernia projects in the retrocardiac region. No pleural effusions or pneumothorax. The heart shadow is normal in size. The thoracic aorta is tortuous and calcified. Moderate scoliotic and kyphotic changes are present in the lower thoracic/upper lumbar spine. A chronic T12 compression fracture is difficult to visualize due to the severity of the scoliosis. A mild age-indeterminate T7 superior endplate compression fracture is noted. IMPRESSION: 1. No evidence of active pneumonia. 2. Hiatal hernia. 3. Prior pulmonary granulomatous disease. 4. Age indeterminate mild T7 compression fracture. Limited visualization of the patient's known T12 compression fracture due to the underlying scoliosis/kyphosis in the spine. Signed: Hanh [facility]hepk[facility] Verified Date/Time: 08/22/2020 12:38:54 Reading Location: [facility] Radiology Reading Room [id number] 12:37:00 Test Item Value Reference Range Interpretation [...] thrombosis and/or pulmonary embolus.HIGH RISK: Target INR is 2.5-3.5 for patients wiht mechanical heart valves.TISSUE [id number] 16:08:00Surgical Pathology Report Case: [id number] Authorizing Provider: Lupe Emerson MD Collected:07/22/2020 12:06 PM Ordering Location: [facility] Endoscopy Received: 07/22/2020 02:33 PM Services Pathologist: Naomy Coelho MD Specimens: A) - Biopsy, Gastric B) - Biopsy, Gastroesophageal Junction A. STOMACH, BIOPSY: - GASTRIC [...] OR MALIGNANCY. Signing Pathologist Direct Phone Line: [phone] signed by Naomy Coelho MD on 07/25/2020 at 4:08 PMPart B. Basal cell hyperplasia and vascular lakes are among the non-specific features of reflux. Focal spongiosis is also present. No inflammation is seen. Clinical correlation is suggested.06760 x 2, 72623Tvfkrtlgmayr diagnosis: Gastroesophageal reflux disease, esophagitis.Procedure: Upper endoscopy, biopsy.A. Gastric biopsyB. Gastroesophageal junctionPart A. Received in formalin labeled with the patient's name, accession number and "gastric biopsy" are two soto-white soft tissue fragments [...] of immunohistochemistry or special stains.A1. Warthin starry, negativeControl Slides Examined: In-house known positive controls were evaluated along with the test tissue. These control slides run alongside of the patients sample show appropriate staining. Internal positive and negative cont rols when available are evaluated Immunohistochemistry technical testing was performed at [facility], Pathology Laboratory where it was developed and its performance characteristics were determined. It has not been cleared or approved by the U.S. Food and Drug Administration. TheFDA has determined that such clearance or approval is not necessary. The test is used for clinical purposes. It should not be regarded as investigational or for research. This laboratory is certified under the Clinical Laboratory Improvement Amendments of 1988 (CLIA-88) as qualified to perform high complexity clinical laboratory testing.[facility], Department of Pathology, [address] [place] [address], [facility], [address] [place] [address], [facility], [facility] of [facility], [address] [place] [address], YJYM-COV2/RT-PCR ([facility])2020-07-19 14:27:00 Test Item Value Reference Range Interpretation Comments SARS-COV2/RT-PCR (test Negative Not Detected, Negative, code = 9483519) See external report for linked test SARS-COV-[address] [facility] (test code = 9393810) Negative result for this test determines that SARS-CoV-2 RNA was not present in the specimen above the Limit of Detection (LOD). However, Negative results do not preclude SARS-CoV-2 infection and should not be used as the sole basis for treatment or patient management decisions. Negative results must be combined with clinical observations, patient history, and [...] justifying the authorization of the emergency use ofin vitro diagnostic tests for detection and/or diagnosis of COVID-19 is terminated under Section 564(b)(2) of the Act or the EUA is revoked under Section 564(g) of the Act.Fact Sheet for Healthcare Prov iders:https://www.[employer]/sites/default/files/product/documents/Fact_Sheet_HC _Xaiycbdob_Oxyx_HPTF-AyL-5.pdfFact Sheet for Healthcare Patients:https://www.[employer]/sites/default/files/product/docume nts/Ruaf_Wjmgz_Eidjxrsu_Tisr_NUEI-RlC-6.pdfPerforming Laboratory:[address] [place], [place] [address]GWBCUXL D 25 HYDROXY 2020-01-05 13:12:31 Test Item Value Reference Range Interpretation Comments VITAMIN D 25-HYDROXY SEE BELOW NG/ML L NOT E: (test code = 1989-01) 25-HYDR OXYVITAMIN D ASSAY INCLUDES 25-HYDROXYVITAM IN D2 AND D3. METHODO LOGY IS CHEMILUMINESCEN T IMMUNOASSAY. $$ $$$ INTERPRETIVE RA NGES $$$$$PEDIATRIC (<17 YEARS) . . . . . . . . . . . NG/ML 20-100ADULT: INSUFFICIENT . . . . . . . . . . . . . . NG/ML <20 SUBOPTIMAL . . . . . . . . . . . . . . . NG/ML 20-29 OPT IMAL . . . . . . . . . . . . . . . . . NG/ML 30- 100 Unless Otherwis e Indicated, All Testing Performed At: [facility] [address] [address] [place] Director: William ButtIA Number [id number] [place] o. [id number] Lab Interpretation Abnormal (test code = 99667-7) [facility] REFLEX TO FREE [id number] 10:15:59 Test Item Value Reference Range Interpretation Comments THYROID STIMULATING See_Comment Unless Otherwise HORMONE (test code = Indicat ed, All Testing 95351-3) Performed At: [facility], [address] [place] [address] Labora tory Director: Silvestre Tan M.D. CLIA Number [id number] Cap Accreditation [place] o. [id number] [Autom ated message] The sy stem which generated this result transmit dominick reference range : 0.400 - 4.100 UIU/ML. T he reference range was not used to interpr et this result as normal/abnormal . [facility] Center[facility]ERRITIN2020-[facility]-04 10:15:59 Test Item Value Reference Range Interpretation Comments FERRITIN (test code = See_Comment Unles s Otherwise 72290-7) Indicated, All Testing Performed At: [place] [address] Laborator y Director: Silvestre Tan M.D. CLIA Number [id number] [place] o. [id number] [Autom ated message] The sy stem which generated this result transmitted ref erence range: 13 - 200 NG/ML. The reference r shelley was not used to int erpret this result as normal/abnormal . [facility] CenterVITAMIN [id number] 10:15:59 Test Item Value Reference Range Interpretation Comments VITAMIN B-12 (test 388 PG/ML 200-950 Unless Otherwise code = 2132-9) Indicated, Al l Testing Performed At: [place] [address] Laborator y Director: Silvestre Tan M.D. CLIA Number [id number] [place] Accreditation [place] o. [id number] [facility] CenterCBC W/AUTO DIFF WITH [id number] 09:26:59 Test Item Value Reference Range Interpretation Comments WHITE BLOOD CELL COUNT See_Comment [Aut omated message] (test code = 84821-2) The sy stem which generated this result transmitted ref erence range: 4.0 - 11 .0 K/UL. The refer ence range was not u sed to interpret this result as normal/abnor mal. RED BLOOD CELL COUNT See_Comment H [Autom ated message] (test code = 60491-6) The sy stem which generated this result transmitted ref erence range: 3.80 - 5 .10 M/UL. The refer ence range was not u sed to interpret this result as normal/abnor mal. HEMOGLOBIN (test code = See_Comment [Au tomated message] 718-7) The system [employer] h generated this result transmitted ref erence range: 11.5 - 1 5.5 G/DL. The refer ence range was not u sed to interpret this result as normal/abnor mal. HEMATOCRIT (test code = 37.9 % 34-45 12986-7) MEAN CORPUSCULAR VOLUME 71.9 fL 80-100 L (test code = 52489-8) MEAN CORPUSCULAR 22.6 PG 27-34 L HEMOGLOBIN (test code = 69039-9) MEAN CORPUSCULAR See_Comment L [Automated message] HEMOGLOBIN CONC (test The sy stem which code = 00078-8) generated th is result transmitted ref erence range: 32.0 - 3 5.5 G/DL. The refer ence range was not u sed to interpret this result as normal/abnor mal. RED CELL DISTRIBUTION 20.0 % 11-15 H WIDTH (test code = 21027-3) NEUTROPHILS % (test code 60.0 % 40-74 = 92814-1) LYMPHOCYTES % (test code 21.3 % 19-48 = 51021-5) MONOCYTES % (test code = 16.6 % 4-13 H 42808-8) EOSINOPHILS % (test code 1.6 % 0-7 = 65783-2) BASOPHILS % (test code = 0.5 % 0-2 95183-4) PLATELET COUNT (test See_Comment Unless Otherwise code = 23418-6) Indicated, A ll Testing Perform ed At: [facility], [address] [place] [address] Laborator y Director: Silvestre Tan M.D. CLIA Number [id number] Cap Accreditation [place] o. [id number] [Autom ated message] The sy stem which generated this result transmit dominick reference range : 130 - 400 K/UL. The reference range was not used to int erpret this result as normal/abnormal . Lab Interpretation (test Abnormal code = 69099-2) [facility] CenterCOMPREHENSIVE METABOLIC [id number] 09:16:15 Test Item Value Reference Range Interpretation Comments GLUCOSE (test code = See_Comment [Autom ated message] 2345-7) The system [employer] generated this result transmitted ref erence range: [...] L [Au tomated message] 2160-0) The system [employer] generated this result transmitted ref erence range: 0.60 - 1 .30 MG/DL. The refe rence range was not u sed to interpret this result as normal/abnor mal. EGFR AA (test code = See_Comment [Autom ated message] 91033-3) The system [employer] generated this result transmitted ref erence range: >60 ML/MIN/1.73. Th e reference range was not used to int erpret this result as normal/abnormal . EGFR (test code = See_Comment [Automate d message] 41351-3) The system [employer] generated this result transmitted ref erence range: >60 ML/MIN/1.73. Th e reference range was not used to int erpret this result as normal/abnormal . BUN/CREAT RATIO (test See_Comment [Auto mated message] code = 3097-3) The system [employer] [facility] generated this result transmitted ref erence range: 6 - 28 R ATIO. The reference r shelley was not used to interpret this result as normal/abnor mal. SODIUM (test code = See_Comment [Automa dominick message] 2951-2) The system [employer] generated this result transmitted ref erence range: 133 - 14 6 MEQ/L. The refe rence range was not u sed to interpret this result as normal/abnor mal. POTASSIUM (test code = See_Comment [Aut omated message] 2823-3) The system [employer] generated this result transmitted ref erence range: 3.5 - 5. 4 MEQ/L. The refe rence range was not u sed to interpret this result as normal/abnor mal. CHLORIDE (test code = See_Comment [Auto mated message] 2074-0) The system [employer] generated this result transmitted ref erence range: 95 - 107 MEQ/L. The reference r shelley was not used to interpret this result as normal/abnor mal. CO2 (test code = See_Comment [Automated message] 1962-8) The system [employer] generated this result transmitted ref erence range: 19 - 31 MEQ/L. The reference r shelley was not used to interpret this result as normal/abnor mal. CALCIUM (test code = See_Comment [Autom ated message] 33967-9) The system [employer] generated this result transmitted ref erence range: 8.5 - 10 .5 MG/DL. The refe rence range was not u sed to interpret this result as normal/abnor mal. PROTEIN TOTAL (test See_Comment [Automa dominick message] code = 2885-2) The system [employer] generated this result transmitted ref erence range: 6.1 - 8. 3 G/DL. The reference r shelley was not used to interpret this result as normal/abnor mal. ALBUMIN (test code = See_Comment [Autom ated message] 29381-9) The system [employer] generated this result transmitted ref erence range: 3.5 - 5. 2 G/DL. The reference r shelley was not used to interpret this result as normal/abnor mal. GLOBULINS, SERUM, TOTAL See_Comment [Au tomated message] (test code = 42638-3) The sy stem which generated this result transmitted ref erence range: 1.9 - 3. 7 G/DL. The reference r shelley was not used to interpret this result as normal/abnor mal. A/G RATIO (test code = See_Comment [Aut omated message] 1069-0) The system [employer] generated this result transmitted ref erence range: 1.0 - 2. 6 RATIO. The refe rence range was not u sed to interpret this result as normal/abnor mal. BILIRUBIN TOTAL (test See_Comment [Auto mated message] code = 1975-2) The system [employer] generated this result transmitted ref erence range: <=1.2 MG /DL. The reference r shelley was not used to interpret this result as normal/abnor mal. ALKALINE PHOSPHATASE 78 U/L 40-142 (test code = 6768-6) AST (SGOT) (test code = 13 U/L 9-40 1920-8) ALT (SGPT) (test code = 10 U/L 5-40 Unl ess Otherwise 1744-2) Indicated, All Testing Performed At: [facility], [address] [facility] [place] [address] Laborato ry Director: Silvestre Tan M.D. CLIA Number [id number] Cap Accreditation N o. [id number] Lab Interpretation Abnormal (test code = 66443-8) [facility] [id number] 09:16:15 Test Item Value Reference Range Interpretation Comments CHOLESTEROL (test code = See_Comment [A utomated message] 2092-) The system [employer] generated this result transmitted ref erence range: <200 MG/ DL. The reference r shelley was not used to interpret this result as normal/abnor mal. TRIGLYCERIDES (test code See_Comment H [A utomated message] = 2571-8) The system [employer] generated this result transmitted ref erence range: <150 MG/ DL. The reference r shelley was not used to interpret this result as normal/abnor mal. HDL CHOLESTEROL (test See_Comment [Auto mated message] code = 2085-9) The system [employer] generated this result transmitted ref erence range: >39 MG/D L. The reference range was not used to int erpret this result as normal/abnormal . LDL CHOLESTEROL See_Comment [Automated message] CALCULATED (test code = The system which 74103-0) generated this result transmitted ref erence range: <100 MG/ DL. The reference r shelley was not used to interpret this result as normal/abnor mal. LDL/HDL RATIO, SERUM See_Comment Unless Otherwise (test code = 79426-2) Indica dominick, All Testing Perform ed At: [facility], [address] [facility], [place] [address] Laborator y Director: Silvestre Tan M.D. CLIA Number [id number] Cap Accreditation [place] o. [id number] [Autom ated message] The sy stem which generated this result transmit dominick reference range : <3.22 RATIO. Th e reference range was not used to int erpret this result as normal/abnormal . Lab Interpretation (test Abnormal code = 88291-7) [facility]+TIBC+[id number] 09:16:15 Test Item Value Reference Range Interpretation Comments IRON (test code = See_Comment [Automate d message] 2498-4) The system [employer] generated this result transmitted ref erence range: 37 - 145 UG/DL. The reference r shelley was not used to interpret this result as normal/abnor mal. UIBC (test code = See_Comment [Automate d message] 2501-5) The system [employer] generated this result transmitted ref erence range: 112 - 34 7 UG/DL. The refe rence range was not u sed to interpret this result as normal/abnor mal. TIBC (test code = See_Comment [Automate d message] 89073-6) The system [employer] generated this result transmitted ref erence range: 250 - 45 0 UG/DL. The refe rence range was not u sed to interpret this result as normal/abnor mal. IRON SATURATION % (test 13 % 20-50 L Unl ess Otherwise code = 2502-3) Indicated, Al l Testing Performed At: [facility], [address] [place] [id number] Laborator y Director: Silvestre Tan M.D. CLIA Number [id number] Cap Accreditation N o. [id number] Lab Interpretation Abnormal (test code = 04288-9) [facility] Center[facility]ISSUE [id number] 18:09:00Surgical Pathology Report Case: [id number] Authorizing Provider: Pauline Chatterjee MD Collected: 06/12/2019 0831 Ordering Location: [facility]COPY Received: 06/12/2019 1149 SERVICES Pathologist: Elsy Chin MD Specimens: A) - Stomach, stomach biopsy B) - Polyp, Colon - Right/Ascending A. STOMACH, BIOPSY: - MILD REACTIVE CHANGE - MILD CHRONIC INFLAMMATION - NO HELICOBACTER PYLORI MICROORGANISMS IDENTIFIEDB. RIGHT ASCENDING COLON POLYP, BIOPSY: - PIECE OF TUBULAR ADENOMA - NO HIGH GRADE DYSPLASIA CC/pl Signing Pathologist Direct Phone Line: [phone] signed by Elsy Chin MD on 06/17/2019 at 6:09 [id number] x2; 35231 x9Vuysxby diarrhea, weight loss, encounter for diagnostic colonoscopy due to change in bowel habits, early satiety, gastroesophageal reflux disease, esophagitispresence not specified A. Stomach biopsy. B. Polyp, colon-right ascendingThe case is received in twoparts both labeled with the patient's name, Lisa Cordero, date of 1940, and accession number, [id number], which corresponds to the accompanying requisition page labeled with the same name and accession number.Part A. Received in formalin labeled "stomach" are six white- soto irregular pieces of tissue ranging from 0.3 x 0.2 x 0.1 cm to 0.6 x 0.3 x 0.2 cm. The specimen is submitted in toto following filtration in cassette A1.Part B. Received in formalin labeled "polyp, colon-right/ascending" are three white-soto irregular pieces of tissue ranging from 0.2 x 0.2 x 0.1 cm to 0.5 x 0.3 x 0.1 cm. The specimen is submitted in toto following filtration in cassette B1. RP/ew A. The stomach biopsy consists of two pieces of oxyntic mucosa and three pieces of antral mucosa with mild lymphoplasmacytic infiltrate in the lamina propria and smooth muscle stranding into lamina propria. No acute inflamm ation, intestinal metaplasia or dysplasia is present. No Helicobacter pylori is identified by Warthin-starry stain. B. The right ascending colon polyp, deeper x2 show three pieces of colonic mucosa with focal adenomatous change, suggestive of tubular adenoma. No high grade dysplasia is seen. The interpretation of this case included the use of immunohistochemistry or special stains.Control Slides Examined: In-house known positive controls were evaluated along with the test tissue. These control slides run alongside of the patients sample show appropriate staining. Internal positive and negative controls when available are evaluated Immunohistochemistry technical testing was performed at [facility], Pathology Laboratory where it was developed and [...] qualified to perform high complexity clinical laboratory testing.RAD, KNEE, 3 VIEWS, [id number] 12:25:00Reason for Exam:->KNEE INJURYFINAL REPORT Exam: Left [...] Paige Verified Date/Time: 05/20/2019 12:25:05 Reading Location: [place] [address] RAD, KNEE, 3 VIEWS, RIGHT 2019-05-20 12:25:00Reason for Exam:->KNEE INJURYFINAL REPORT Exam: Left [...] Paige Verified Date/Time: 05/20/2019 12:25:05 Reading Location: [place] [address] MR, SPINE, LUMBAR, WITHOUT IV [id number] 14:47:00FINAL REPORT Exam: Lumbar spine MRI without IV contrastHistory: Evaluate for worsening compression fracture L5.Comparison studies: MR spine MRI 10/21. Technique: Sagittal and axial T2 , sagittal T1 and IR, axial spin density oblique coronal T2.Intravenous contrast: NoneFindings: Number of lumbar vertebral bodies: 5. Alignment: [...] Minimal retrolisthesis of L1 on L2 with associateddisc osteophyte complex asymmetric to the right and [...] at L5-S1. No significant canal stenosis Signed: Hanh Carroll Verified Date/Time: 12/05/2018 14:47:37 RAD, HIP, 2 VIEWS, [id number] 11:26:00Reason for Exam:->PAIN OF RIGHT HIP JOINTFINAL REPORT RIGHT HIP - TWO IMAGES HISTORY: Pain COMPARISON: None available. FINDINGS:Bones:Diffusely decreased mineralization of the osseous structures limits bone detail.Radiopaque densities bilaterally at the sacral alar, correlate for prior placement of augmentation cement.Noacute displaced fracture. Joints:Mild degenerative changes of the [...] Signed: Alok Dennison Verified Date/Time: 12/05/2018 11:26:48 [facility] [employer] DECORATOR IN OR/30 MINUTE [id number] 12:53:00Reason for exam:->BILATERAL GEINCULAR RADIOABLATIONFINAL REPORT Fluoroscopy nonspecific dated September 08, 2018 Comment: Fluoroscopywas provided to Dr. Mcdonald for intraoperative procedure. No radiologist was present during the examination. Total fluoroscopy time was 36.5 seconds. Total number of fluoroscopic images were 5. Signed: Teja Leonardo Verified Date/Time: 09/08/2018 12:53:53 Reading Location: [address] RadiologyReading Room PLATELET [id number] 09:06:00 Test Item Value Reference Range Interpretation Comments PLATELET COUNT (BEAKER) (test 200 K/CU MM 150-450 code = 756) [id number] 17:13:00 Test Item Value Reference Range Interpretation Comments SODIUM (BEAKER) (test 138 meq/L 136-145 code = 381) POTASSIUM (BEAKER) 4.4 meq/L 3.5-5.1 Specimen slightly (test code = 379) hemolyzed CHLORIDE (BEAKER) 102 meq/L 98-107 (test code = 382) CO2 (BEAKER) (test 27 meq/L 22-29 code = 355) [id number] 14:42:00 Test Item Value Reference Range Interpretation Comments GLUCOSE RANDOM (BEAKER) (test code = 84 mg/dL 70-105 652) BUN AND [id number] 14:42:00 Test Item Value Reference Range Interpretation [...] S NOT APPLICABLE FOR DIALYSIS PATIEN TS. [id number] 14:31:00 Test Item Value Reference Range Interpretation Comments HEMOGLOBIN (BEAKER) (test code = 13.3 GM/DL 11.2-15.7 410)
[2023-02-04 16:56] LABS: Hematocrit 38.3 % (36.0-45.0); Lymphocytes % 18.2 % (15.3-44.8); MCV 80.4 fL (80-100); MPV 8.6 fL (7.6-11.3); RBC Red Blood Cell Count 4.76 M/uL (3.86-4.86)
[2023-02-04 16:57] LABS: Protime INR 0.95
[2023-02-04 17:23] LABS: Albumin 3.8 g/dL (3.4-5.0); Bilirubin Direct 0.2 mg/dL (0-0.2); Bilirubin Total 0.8 mg/dL (0.2-1.0); Magnesium 2.1 mg/dL (1.6-2.4); Potassium 3.6 mmol/L (3.5-5.1); Protein, Total 6.7 g/dL (6.4-8.2); Troponin High Sensitivity 13.3 pg/mL (<58.9)
--- NOTE | 2023-02-04 18:58 | RAD REPORT ---
EXAM DESCRIPTION: CT - Thorax Wo Con - 02/04/2023 6:35 pm CLINICAL HISTORY: sob COMPARISON: 2017 TECHNIQUE: Computed axial tomography of the chest was obtained. Contrast was not requested. All CT scans are performed using dose optimization technique as appropriate and may include automated exposure control or mA/KV adjustment according to patient size. FINDINGS: The evaluation of mediastinum, rosa and vessels is limited secondary to lack of IV contras t administration. Lungs are moderately hyperaerated. Calcified granuloma right lung No mediastinal or hilar lymphadenopathy is seen. A pleural effusion is not present. No pericardial effusion. Coronary arterial calcifications. Small hiatal hernia Bilateral renal calculi. 9 millimeter calculus right renal pelvis Marked old compression fracture T12 IMPRESSION: Moderate COPD Bilateral renal calculi. 9 millimeter calculus right renal pelvis
--- NOTE | 2023-02-04 19:03 | RAD REPORT ---
EXAM DESCRIPTION: Jolly Single View02/04/2023 6:02 pm CLINICAL HISTORY: sob COMPARISON: 2018 FINDINGS: The lungs are moderately hyperaerated. A small hiatal hernia. The lungs appear clear of acute infiltrate. The heart is normal size IMPRESSION: No acute abnormalities displayed
[2023-02-04] MEDS ORDERED: LEVALBUTEROL 1.25 MG/3 ML NEB ONE ×2 (20:05→21:12)
[2023-02-04] MEDS ORDERED: MAGNESIUM SULFATE 1 gm IVPB 1 GM/100 ML BAG IV ONE (20:17)
[2023-02-04] MEDS ORDERED: IPRATROPIUM BROM 0.5MG/2.5ML ONE (21:12)
--- NOTE | 2023-02-04 21:58 | ER ---
Nurse's Notes [facility] Name: Lisa Cordero Age: 82 yrs Sex: Female : 1940 Arrival Date: 02/04/2023 Time: 16:05 Bed 12 Private MD: Diagnosis: COPD/ Chronic obstructive pulmonary disease with (acute) exacerbation Presentation: 02/04 16:34 Chief complaint: Patient states: SOB and cough that began Saturday. Pt also states "I aa5 also feel a little dizzy". Coronavirus screen: cough unrelated to allergies, shortness of breath. Ebola Screen: Patient denies travel to an Ebola-affected area in the 21 days before illness onset. Initial Sepsis Screen: Does the patient meet any 2 criteria? HR > 90 bpm. Does the patient have a suspected source of infection? No. Patient's initial sepsis screen is negative. Risk Assessment: Do you want to hurt yourself or someone else? Patient reports no desire to harm self or others. Onset of symptoms was January 2023. 16:34 Method Of Arrival: Ambulatory aa5 16:34 Acuity: SAMUEL 2 aa5 Historical: - Allergies: 16:34 Oral steroids; aa5 16:34 SHELLFISH; aa5 16:34 Strawberries; aa5 16:34 Sulfa (Sulfonamide Antibiotics); aa5 - PMHx: 16:34 Arthritis; COPD; aa5 - PSHx: 16:34 hernia repair; aa5 - Immunization history:: Adult Immunizations unknown. - Social history:: Smoking status: Patient/guardian denies using tobacco. Screenin:06 [facility] ED Fall Risk Assessment (Adult) History of falling in the last 3 months, mb9 including since admission No falls in past 3 months (0 pts) Confusion or Disorientation No (0 pts) Intoxicated or Sedated No (0 pts) Impaired Gait No (0 pts) Mobility Assist Device Used No (0 pt) Altered Elimination No (0 pt) Score/Fall Risk Level 0 - 2 = Low Risk Oriented to surroundings, Maintained a safe environment, Educated pt \\T\\ family on fall prevention, incl call for assistance when getting out of bed. Abuse screen: Denies threats or abuse. Nutritional screening: No deficits noted. Tuberculosis screening: No symptoms or risk factors identified. Assessment: 19:49 Reassessment: pt brought back to ER room. mb9 20:07 General: Appears in no apparent distress. Behavior is calm, cooperative, appropriate mb9 for age. Pain: Denies pain. Neuro: Level of Consciousness is awake, alert, confused, Oriented to person, place, time, situation, Appropriate for age. Cardiovascular: Rhythm is regular. Respiratory: Airway is patent Respiratory effort is even, unlabored, Respiratory pattern is regular, symmetrical, Breath sounds are clear bilaterally. Respiratory: Reports cough that is GI: No signs and/or symptoms were reported involving the gastrointestinal system. : No signs and/or symptoms were reported regarding the genitourinary system. EENT: No signs and/or symptoms were reported regarding the EENT system. Derm: Skin is pink, warm \\T\\ dry. 21:15 Reassessment: No changes from previously documented assessment. Patient and/or family mb9 updated on plan of care and expected duration. Pain level reassessed. Patient is alert, oriented x 3, equal unlabored respirations, skin warm/dry/pink. Patient states feeling better. Patient states symptoms have improved. Vital Signs: 16:34 BP 159 / 89; Pulse 98; Resp 20 S; Temp 97.8(TE); Pulse Ox 96% on R/A; Weight 47.63 kg aa5 (R); Height 4 ft. 11 in. (149.86 cm) (R); 20:06 BP 158 / 78; Pulse 91; Resp 16; Pulse Ox 99% on R/A; Pain 0/10; mb9 22:33 BP 144 / 59; Pulse 93; Resp 22; Pulse Ox 96% on R/A; kl 16:34 Body Mass Index 21.21 (47.63 kg, 149.86 cm) aa5 ED Course: 16:05 Patient arrived in ED. rg4 16:08 Chun Soriano PA is PHCP. jmm 16:08 Ino Santos MD is Attending Physician. jmm 16:30 Patient's name was called from ER lobby. No response. aa5 16:35 Triage completed. aa5 16:43 Initial lab(s) drawn, by me, sent to lab. Inserted saline lock: 20 gauge in right aa5 antecubital area, using aseptic technique. Blood collected. 16:51 EKG completed in triage. Results shown to MD. aa5 20:07 Placed in gown. Bed in low position. Call light in reach. Client placed on continuous mb9 cardiac and pulse oximetry monitoring. NIBP monitoring applied. site leader on. 20:24 PHCP role handed off by Chun Soriano PA kb 20:24 China Vitale FNP-C is PHCP. kb 21:34 Basic Metabolic Panel Sent. rv1 21:34 CBC with Diff Sent. rv1 21:34 LFT's Sent. rv1 21:34 Magnesium Sent. rv1 21:34 NT PRO-BNP Sent. rv1 21:34 PT-INR Sent. rv1 21:34 Troponin HS Sent. rv1 22:35 No provider procedures requiring assistance completed. IV discontinued, intact, kl bleeding controlled, No redness/swelling at site. Pressure dressing applied. Administered Medications: 20:06 Drug: Xopenex (levalbuterol) (3) 1.25 mg Route: Inhalation; mb9 22:34 Follow up: Response: No adverse reaction; Marked relief of symptoms kl 20:19 Drug: Magnesium Sulfate 1 grams Route: IVPB; Infused Over: 1 hrs; Site: right mb9 antecubital; 21:15 Follow up: IV Status: Completed infusion; IV Intake: 100ml kl 21:08 Drug: AtroVENT (ipratropium) Aerosol 0.5 mg Route: Inhalation; mb9 22:34 Follow up: Response: No adverse reaction; Marked relief of symptoms kl 21:08 Drug: Xopenex (levalbuterol) 1.25 mg Route: Inhalation; mb9 22:34 Follow up: Response: No adverse reaction; Marked relief of symptoms kl Medication: 20:08 VIS not applicable for this client. mb9 Intake: 21:15 IV: 100ml; Total: 100ml. kl Outcome: 21:57 Discharge ordered by MD. kb 22:35 Patient left the ED. kl Signatures: China Vitale FNP-C FNP-Ckb Lewis, Kimberly, RN RN kl Mickail, Joel, PA PA jmm Calderon, Audri, RN RN aa5 Garcia, Rubi rg4 Breneman, Mary Beth RN RN mb9 Katharine Kuhn rv1 Corrections: (The following items were deleted from the chart) 16:36 16:34 Acuity: SAMUEL 3 aa5 aa5
--- NOTE | 2023-02-04 21:58 | EDPHYS ---
Physician Documentation [facility] Name: Lisa Cordero Age: 82 yrs Sex: Female : 1940 Arrival Date: 02/04/2023 Time: 16:05 Bed 12 Private MD: ED Physician Ino Santos HPI: 02/04 16:20 This 82 yrs old Female presents to ER via Ambulatory with complaints of Breathing jmm Difficulty, Doesn't Feel Well. 16:20 The patient has shortness of breath at rest. Onset: The symptoms/episode began/occurred jmm gradually, 1 day(s) ago. Duration: The symptoms are continuous. The patient's shortness of breath is aggravated by nothing, is alleviated by nothing. Associated signs and symptoms: Pertinent negatives: fever. Is an 82-year-old female with history of COPD the presents emerged department with complaints of cough, congestion and shortness of breath worsening over the past day. Denies any fever, denies vomiting. Patient states she feels slightly dizzy after episodes of coughing.. Historical: - Allergies: 16:34 Oral steroids; aa5 16:34 SHELLFISH; aa5 16:34 Strawberries; aa5 16:34 Sulfa (Sulfonamide Antibiotics); aa5 - PMHx: 16:34 Arthritis; COPD; aa5 - PSHx: 16:34 hernia repair; aa5 - Immunization history:: Adult Immunizations unknown. - Social history:: Smoking status: Patient/guardian denies using tobacco. ROS: 16:20 Constitutional: Positive for fatigue. jmm 16:20 Respiratory: Positive for cough, shortness of breath. 16:20 All other systems are negative. Exam: 16:20 Constitutional: This is a well developed, well nourished patient who is awake, alert, jmm and in no acute distress. Head/Face: atraumatic. Eyes: EOMI, no conjunctival erythema appreciated ENT: Moist Mucus Membranes Neck: Trachea midline, Supple Chest/axilla: Normal chest wall appearance and motion. Cardiovascular: Regular rate and rhythm. No edema appreciated Respiratory: Normal respirations, no respiratory distress appreciated 16:20 Back: Normal ROM Skin: General appearance color normal MS/ Extremity: Moves all extremities, no obvious deformities appreciated, no edema noted to the lower extremities Neuro: Awake and alert Psych: Behavior is normal, Mood is normal, Patient is cooperative and pleasant 16:20 Respiratory: the patient does not display signs of respiratory distress, Respirations: normal, Breath sounds: wheezing: that is mild, is scattered. Vital Signs: 16:34 BP 159 / 89; Pulse 98; Resp 20 S; Temp 97.8(TE); Pulse Ox 96% on R/A; Weight 47.63 kg aa5 (R); Height 4 ft. 11 in. (149.86 cm) (R); 20:06 BP 158 / 78; Pulse 91; Resp 16; Pulse Ox 99% on R/A; Pain 0/10; mb9 22:33 BP 144 / 59; Pulse 93; Resp 22; Pulse Ox 96% on R/A; kl 16:34 Body Mass Index 21.21 (47.63 kg, 149.86 cm) aa5 MDM: 16:24 Patient medically screened. [facility] 19:36 Differential diagnosis: Pneumonia acute [place], COPD exacerbation. Data reviewed: vital [facility] signs, nurses notes. 20:11 I considered the following discharge prescriptions or medication management in the [facility] emergency department Medications were administered in the Emergency Department. See MAR. Independent interpretation of the following test(s) in the Emergency Department X-Ray: My interpretation is No infiltrate appreciated. Counseling: I had a detailed discussion with the patient and/or guardian regarding: the historical points, exam findings, and any diagnostic results supporting the discharge/admit diagnosis, lab results, radiology results, the need for outpatient follow up, to return to the emergency department if symptoms worsen or persist or if there are any questions or concerns that arise at home. 02/04 16:20 Order name: Basic Metabolic Panel [facility] 02/04 16:20 Order name: CBC with Diff [facility] 02/04 16:20 Order name: LFT's [facility] 02/04 16:20 Order name: Magnesium [facility] 02/04 16:20 Order name: NT PRO-BNP [facility] 02/04 16:20 Order name: PT-INR [facility] 02/04 16:20 Order name: Troponin HS [facility] 02/04 16:20 Order name: XRAY Chest (1 view) [facility] 02/04 16:20 Order name: EKG; Complete Time: 16:20 [facility] 02/04 16:20 Order name: Cardiac monitoring; Complete Time: 20:09 [facility] 02/04 16:20 Order name: EKG - Nurse/Tech; Complete Time: 16:52 [facility] 02/04 16:20 Order name: IV Saline Lock; Complete Time: 16:45 [facility] 02/04 16:20 Order name: Labs collected and sent; Complete Time: 16:45 [facility] 02/04 16:20 Order name: O2 Per Protocol; Complete Time: 20:09 [facility] 02/04 16:20 Order name: O2 Sat Monitoring; Complete Time: 20:09 [facility] 02/04 16:57 Order name: CBC with Automated Diff; Complete Time: 16:57 EDMS 02/04 16:57 Order name: Protime (+INR); Complete Time: 16:59 EDMS 02/04 17:24 Order name: Basic Metabolic Panel; Complete Time: 17:29 EDMS 02/04 17:24 Order name: Liver (Hepatic) Function; Complete Time: 17:29 EDMS 02/04 17:24 Order name: Troponin High Sensitivity; Complete Time: 17:29 EDMS 02/04 17:24 Order name: NT PRO-BNP; Complete Time: 17:29 EDMS 02/04 17:24 Order name: Magnesium; Complete Time: 17:29 EDMS 02/04 18:17 Order name: CT Chest Wo Con [facility] 02/04 18:59 Order name: CT; Complete Time: 19:01 EDMS 02/04 19:04 Order name: RAD; Complete Time: 19:04 EDMS Administered Medications: 20:06 Drug: Xopenex (levalbuterol) (3) 1.25 mg Route: Inhalation; 9 22:34 Follow up: Response: No adverse reaction; Marked relief of symptoms kl 20:19 Drug: Magnesium Sulfate 1 grams Route: IVPB; Infused Over: 1 hrs; Site: right mb9 antecubital; 21:15 Follow up: IV Status: Completed infusion; IV Intake: 100ml kl 21:08 Drug: AtroVENT (ipratropium) Aerosol 0.5 mg Route: Inhalation; mb9 22:34 Follow up: Response: No adverse reaction; Marked relief of symptoms kl 21:08 Drug: Xopenex (levalbuterol) 1.25 mg Route: Inhalation; 9 22:34 Follow up: Response: No adverse reaction; Marked relief of symptoms kl Disposition Summary: 02/04/23 21:57 Discharge Ordered Location: Home kb Condition: Stable kb Diagnosis - COPD/ Chronic obstructive pulmonary disease with (acute) exacerbation kb Followup: jmm - With: Private Physician - When: 1 - 2 days - Reason: Recheck today's complaints, Continuance of care, Re-evaluation by your physician Discharge Instructions: - Discharge Summary Sheet jmm - Chronic Obstructive Pulmonary Disease Exacerbation [facility] Forms: - Medication Reconciliation Form kb - Thank You Letter kb - Antibiotic Education kb - Prescription Opioid Use kb Prescriptions: - albuterol sulfate 90 mcg/actuation Inhalation HFA aerosol inhaler - inhale 2 puff by INHALATION route every 4 hours; 1 Pump; Refills: 0, Product jmm Selection Permitted - Advair Diskus 500-50 mcg/Dose Inhalation Disk with Device - inhale 1 puff by INHALATION route every 12 hours; 1 packet; Refills: 0, Product jmm Selection Permitted - Zithromax Z-Jonh 250 mg Oral Tablet - take 1 tablet by ORAL route as directed for 5 days Day 1 - take two (2) tablets [facility] one time. Day 2, 3, 4 , 5 take one (1) tablet once daily.; 6 tablet; Refills: 0, Product Selection Permitted Signatures: Dispatcher [employer] China Benton, [employer] RESEARCH ASSISTANT-Chun Quinn PA PA jmm Calderon, Audri, RN RN aa5 Tere Mcmahon RN RN mb9 Joyce Fernando RN kl
[2023-02-04 23:14] VITALS: TEMP 97.8
[2023-02-04 23:16] VITALS: BP 144/59; O2SAT 96
--- NOTE | 2023-02-06 13:06 | EKG ---
Test Date: 2023-02-04 Test Time: 16:51:39 Fish Cutter: REBECCA MEASUREMENT RESULTS: Intervals: Rate: 96 WV: 164 QRSD: 84 QT: 354 QTc: 447 Tyler: P: -84 WV: 164 QRS: -28 T: 100 INTERPRETIVE STATEMENTS: Unusual P axis, possible ectopic atrial rhythm Septal infarct, age undetermined Abnormal ECG Compared to ECG 04/10/2019 10:59:41 Myocardial infarct finding now present Sinus rhythm no longer present Left-axis deviation no longer present Electronically Signed On 02-06-23 13:03:32 BOBBIN TRUCKER by Martin Spears
== END 2023-02-04 22:35 | disposition home or self-care (01) ==
LOC: ER 16:03
DX: J44.1 Chronic obstructive pulmonary disease with (acute) exacerbation (principal); Z88.2 Allergy status to sulfonamides; Z88.8 Allergy status to other drugs, medicaments and biological substances; Z91.013 Allergy to seafood; Z91.018 Allergy to other foods
CPT/HCPCS: 96365; 93005; 85025; 80048; 36415; 83735; 85610; 80076; 84484; 83880; 71250; 71045; 99284; J3475; J7614 ×2; J7644

== ENCOUNTER 2024-05-17 21:30 | Emergency (ER) | payer OTHER, BC ==
[2024-05-17] MEDS ORDERED: FENTANYL CITR 100 MCG/2 ML ONE (21:59)
[2024-05-17] MEDS ORDERED: NA CHLORIDE 0.9% 500 ML ONE (21:59)
[2024-05-17] MEDS ORDERED: ONDANSETRON 4 MG/2 ML VIAL ONE (21:59)
--- NOTE | 2024-05-17 22:30 | RAD REPORT ---
EXAM DESCRIPTION: RAD - Pelvis - 05/17/2024 10:22 pm CLINICAL HISTORY: PAIN COMPARISON: No comparisons FINDINGS: Intratrochanteric fracture is present of the proximal right femur with varus angulation. N o dislocation seen.
--- NOTE | 2024-05-17 22:30 | RAD REPORT ---
EXAM DESCRIPTION: RAD - Chest Single View - 05/17/2024 10:22 pm CLINICAL HISTORY: COUGH Chest pain. COMPARISON: Chest Single View dated 02/04/2023; Chest Single View dated 04/10/2019; Chest Single View d ated 07/18/2017; Chest Pa And Lat (2 Views) dated 02/28/2017 FINDINGS: Portable technique limits examination quality. The lungs are mildly emphysematous but grossly clear. The heart is normal in size. No displaced fract ures. IMPRESSION: No acute intrathoracic process suspected.
--- NOTE | 2024-05-17 22:31 | RAD REPORT ---
EXAM DESCRIPTION: RAD - Femur Right - 05/17/2024 10:22 pm CLINICAL HISTORY: PAIN COMPARISON: No comparisons FINDINGS: Intratrochanteric fracture is present of the proximal right femur with mild varus angulati on. No dislocation is seen.
[2024-05-17 22:43] LABS: Absolute Eosinophils 0.1 K/uL (0-0.5); Absolute Lymphocytes (CBC) 1.3 K/uL (0.7-4.9); Basophils % 0.5 % (0-1.3); Eosinophils % 1.7 % (0-4.4); Hematocrit 34.4 % (36.0-45.0); Hemoglobin 11.2 g/dL (12.0-15.0); Lymphocytes % 15.5 % (15.3-44.8); MCH 25.9 pg (27.0-35.0); MCHC 32.4 g/dL (32.0-36.0); MCV 79.9 fL (80-100); MPV 8.9 fL (7.6-11.3); Monocytes % 11.4 % (3.3-12.3); Neutrophils % 70.9 % (41.7-73.7); Nucleated Red Blood Cells % 0.2 % (0-0); Platelets 226 thou/uL (152-406); RBC Red Blood Cell Count 4.31 M/uL (3.86-4.86); Red Cell Distribution Width 14.5 % (12.1-15.2)
[2024-05-17 22:59] LABS: Albumin 3.2 g/dL (3.4-5.0); Albumin/Globulin Ratio 1.2 (1.1-1.8); Anion Gap 7.1 mEq/L (5.0-15.0); Bilirubin Direct 0.2 mg/dL (0-0.2); Bilirubin Indirect, Calculated 0.5 mg/dL (0.2-0.8); Bilirubin Total 0.7 mg/dL (0.2-1.0); Globulin 2.7 g/dL (2.3-3.5); Magnesium 2.2 mg/dL (1.6-2.4); Potassium 4.1 mEq/L (3.5-5.1); Protein, Total 5.9 g/dL (6.4-8.2); Troponin High Sensitivity 13.7 pg/mL (<58.9)
--- NOTE | 2024-05-17 23:20 | EDPHYS ---
Physician Documentation [facility] Name: Lisa Cordero Age: 83 yrs Sex: Female : 1940 Arrival Date: 05/17/2024 Time: 21:30 Bed 20 Private MD: ED Physician Arpit Meyer HPI: 05/17 22:54 This 83 yrs old Female presents to ER via EMS with complaints of Fall Injury. lianna 22:54 Details of fall: The patient fell from an upright position, while walking. Onset: The lianna symptoms/episode began/occurred just prior to arrival. Associated injuries: The patient sustained right hip, decreased range of motion. Severity of symptoms: At their worst the symptoms were severe, in the emergency department the symptoms are unchanged. The patient has not experienced similar symptoms in the past. Historical: - Allergies: 21:47 Oral steroids; me1 21:47 SHELLFISH; me1 21:47 Strawberries; me1 21:47 Sulfa (Sulfonamide Antibiotics); me1 - PMHx: 21:47 Arthritis; COPD; Hypertensive disorder; me1 - PSHx: 21:47 hernia repair; me1 - Immunization history:: Adult Immunizations up to date. - Infectious Disease History:: Denies. - Social history:: Smoking status: Patient/guardian denies using tobacco, but has a distant history of tobacco abuse. ROS: 22:55 Constitutional: Negative for fever, chills, and weight loss, Eyes: Negative for injury, lianna pain, redness, and discharge, ENT: Negative for injury, pain, and discharge, Neck: Negative for injury, pain, and swelling, Cardiovascular: Negative for chest pain, palpitations, and edema, Respiratory: Negative for shortness of breath, cough, wheezing, and pleuritic chest pain, Abdomen/GI: Negative for abdominal pain, nausea, vomiting, diarrhea, and constipation, Back: Negative for injury and pain, : Negative for injury, bleeding, discharge, and swelling, Skin: Negative for injury, rash, and discoloration, Neuro: Negative for headache, weakness, numbness, tingling, and seizure, Psych: Negative for depression, anxiety, suicide ideation, homicidal ideation, and hallucinations, Allergy/Immunology: Negative for hives, rash, and allergies, Endocrine: Negative for neck swelling, polydipsia, polyuria, polyphagia, and marked weight changes, Hematologic/Lymphatic: Negative for swollen nodes, abnormal bleeding, and unusual bruising, 22:55 MS/extremity: Positive for injury or acute deformity, decreased range of motion, pain, of the right hip and right upper thigh, Exam: 22:55 Constitutional: This is a well developed, well nourished patient who is awake, alert, lianna and in no acute distress. Head/Face: Normocephalic, atraumatic. Eyes: Pupils equal round and reactive to light, extra-ocular motions intact. Lids and lashes normal. Conjunctiva and sclera are non-icteric and not injected. Cornea within normal limits. Periorbital areas with no swelling, redness, or edema. ENT: Nares patent. No nasal discharge, no septal abnormalities noted. Tympanic membranes are normal and external auditory canals are clear. Oropharynx with no redness, swelling, or masses, exudates, or evidence of obstruction, uvula midline. Mucous membranes moist. Neck: Trachea midline, no thyromegaly or masses palpated, and no cervical lymphadenopathy. Supple, full range of motion without nuchal rigidity, or vertebral point tenderness. No Meningismus. Chest/axilla: Normal chest wall appearance and motion. Nontender with no deformity. No lesions are appreciated. Cardiovascular: Regular rate and rhythm with a normal S1 and S2. No gallops, murmurs, or rubs. Normal PMI, no JVD. No pulse deficits. Respiratory: Lungs have equal breath sounds bilaterally, clear to auscultation and percussion. No rales, rhonchi or wheezes noted. No increased work of breathing, no retractions or nasal flaring. Abdomen/GI: Soft, non-tender, with normal bowel sounds. No distension or tympany. No guarding or rebound. No evidence of tenderness throughout. Back: No spinal tenderness. No costovertebral tenderness. Full range of motion. Skin: Warm, dry with normal turgor. Normal color with no rashes, no lesions, and no evidence of cellulitis. Neuro: Awake and alert, GCS 15, oriented to person, place, time, and situation. Cranial nerves II-XII grossly intact. Motor strength 5/5 in all extremities. Sensory grossly intact. Cerebellar exam normal. Normal gait. Psych: Awake, alert, with orientation to person, place and time. Behavior, mood, and affect are within normal limits. 22:55 ECG was reviewed by the Attending Physician. 22:55 Musculoskeletal/extremity: Extremities: grossly normal except: noted in the right hip and right upper thigh: decreased ROM, pain, ROM: intact in all extremities, limited active range of motion due to pain, limited passive range of motion due to pain, Circulation is intact in all extremities. Sensation intact. Compartment Syndrome exam of affected extremity: is normal. Weight bearing: is unable to bear weight, DVT Exam: negative Homans' sign noted on exam, no appreciated bluish discoloration, no erythema, no increased warmth, pain, swelling, tenderness, Vital Signs: 21:41 BP 180 / 87; Pulse 81; Resp 16; Temp 98.4; Pulse Ox 100% on R/A; Weight 46.72 kg; me1 Height 4 ft. 11 in. ; Pain 6/10; 22:28 Pain 2/10; me1 22:30 BP 155 / 84; Pulse 78; Resp 18; Pulse Ox 92% ; nh1 05/18 01:06 BP 181 / 97; Pulse 83; Resp 18; Temp 98.4; Pulse Ox 100% on R/A; Pain 4/10; bm8 05/17 21:41 Body Mass Index 20.80 (46.72 kg, 149.86 cm) [facility] 05/17 21:41 Pain Scale: Adult [facility] 22:28 Pain Scale: Adult nh1 05/18 01:06 Pain Scale: Adult bm8 [place] Coma Score: 01:06 Eye Response: spontaneous(4). Motor Response: obeys commands(6). Verbal Response: bm8 oriented(5). Total: 15. MDM: 05/17 21:39 Patient medically screened. [facility] 23:01 Differential diagnosis: hip fracture, intertrochanteric fracture, femoral neck lianna fracture, femoral shaft fracture. Differential diagnosis: multiple trauma, sprain, strain. Data reviewed: vital signs, nurses notes, EMS record, lab test result(s), EKG, radiologic studies, plain films. Consideration of Admission/Observation Escalation of care including admission/observation considered. I considered the following discharge prescriptions or medication management in the emergency department Medications were administered in the Emergency Department. See JAN. 05/17 21:44 Order name: Basic Metabolic Panel; Complete Time: 23:18 [facility] 05/17 21:44 Order name: CBC with Diff; Complete Time: 23:18 [facility] 05/17 21:44 Order name: LFT's; Complete Time: 23:18 [facility] 05/17 21:44 Order name: Magnesium; Complete Time: 23:18 [facility] 05/17 21:44 Order name: NT PRO-BNP; Complete Time: 23:18 [facility] 05/17 21:44 Order name: PT-INR; Complete Time: 23:52 [facility] 05/17 21:44 Order name: Troponin HS; Complete Time: 23:18 [facility] 05/17 21:44 Order name: XRAY Chest (1 view); Complete Time: 23:18 [facility] 05/17 21:44 Order name: Pelvis XRAY; Complete Time: 23:18 [facility] 05/17 21:44 Order name: Femur Right XRAY; Complete Time: 23:18 [facility] 05/17 21:44 Order name: Cardiac monitoring; Complete Time: 23:27 [facility] 05/17 21:44 Order name: EKG - Nurse/Tech; Complete Time: 23:27 [facility] 05/17 21:44 Order name: IV Saline Lock; Complete Time: 22:28 [facility] 05/17 21:44 Order name: Labs collected and sent; Complete Time: 22:28 [facility] 05/17 21:44 Order name: O2 Per Protocol; Complete Time: :28 [facility] 05/17 21:44 Order name: O2 Sat Monitoring; Complete Time: 22:28 lianna EC:55 Rate is 73 beats/min. Rhythm is regular. QRS [place] is Normal. TX interval is shortened lianna at 80 msec. QRS interval is normal. QT interval is normal. No Q waves. T waves are Normal. No ST changes noted. Clinical impression: NSR w/ Non-specific ST/T Changes and No evidence of ischemia. Interpreted by me. Reviewed by me. Administered Medications: 22:01 Drug: fentaNYL (PF) IVP 50 mcg IVP once Route: IVP; Site: left forearm; me1 22:28 Follow up: Pain 2/10 Adult; Response: No adverse reaction; Pain is decreased me1 22:28 Drug: NS 0.9% IV 500 ml IV at bolus once Route: IV; Rate: bolus; Site: left antecubital;me1 22:28 Drug: Ondansetron IVP 4 mg IVP once; over 2 minutes Route: IVP; Site: left antecubital; me1 22:28 Follow up: Response: No adverse reaction me1 23:44 Drug: HYDROmorphone IVP 0.5 mg IVP once Route: IVP; Site: left antecubital; me1 23:55 Follow up: Response: No adverse reaction; Pain is decreased me1 05/18 01:18 Drug: HYDROmorphone IVP 0.5 mg IVP once Route: IVP; Site: left forearm; lg3 01:18 Follow up: Response: No adverse reaction lg3 Disposition Summary: 05/17/24 23:20 Transfer Ordered Notes: Transfer Location: [facility] lianna Reason: Higher level of care lianna Condition: Stable lianna Problem: new lianna Symptoms: have improved lianna Accepting Physician: to ortho/ medicine [facility](05/18/24 01:19) lg3 Diagnosis - Fall on same level, unspecified lianna - Displaced intertrochanteric fracture of right femur lianna Forms: - Medication Reconciliation Form lianna - SBAR form lianna Signatures: Dispatcher [employer] EDArpit Amor MD MD cha Able, Lacie, RN RN lg3 Ruba Waters RN RN me1 Petar Chappell RN RN bm8 Corrections: (The following items were deleted from the chart) 05/17 21:45 21:45 BASIC METABOLIC PANEL+C.LAB.BRZ ordered. EDMS EDMS 21:45 21:45 CBC+H.LAB.BRZ ordered. EDMS EDMS 21:45 21:45 HEPATIC FUNCTION+C.LAB.BRZ ordered. EDMS EDMS 21:45 21:45 MAGNESIUM+C.LAB.BRZ ordered. EDMS EDMS 21:45 21:45 PROBNP+C.LAB.BRZ ordered. EDMS EDMS 21:45 21:45 PROTIME (+INR)+COAG.LAB.BRZ ordered. EDMS EDMS 21:45 21:45 Troponin High Sensitivity+C.LAB.BRZ ordered. EDMS EDMS 21:45 21:45 Urinalysis+U.LAB.BRZ ordered. EDMS EDMS 21:45 21:45 Chest Single View+RAD.RAD.BRZ ordered. EDMS EDMS 21:45 21:45 Pelvis+RAD.RAD.BRZ ordered. EDMS EDMS 21:45 21:45 Hip Right 2 View+RAD.RAD.BRZ ordered. EDMS EDMS 21:45 Femur Right+RAD.RAD.BRZ ordered. EDMS EDMS 05/18 01:10 05/17 23:20 to ortho/ medicine [place] [id number] 05/18 01:19 01:10 to ortho/ medicine [place] [id number] lg3
--- NOTE | 2024-05-17 23:20 | ER ---
Nurse's Notes [facility] Name: Lisa Cordero Age: 83 yrs Sex: Female : 1940 Arrival Date: 05/17/2024 Time: 21:30 Bed 20 Private MD: Diagnosis: Fall on same level, unspecified;Displaced intertrochanteric fracture of right femur Presentation: 05/17 21:41 Chief complaint: EMS states: toned out for fall. patient took her trash out and lost me1 her balance and fell onto the asphalt. c/o R hip pain 05/11. Coronavirus screen: Vaccine status: Patient reports being unvaccinated. Ebola Screen: No symptoms or risks identified at this time. Initial Sepsis Screen: Does the patient meet any 2 criteria? No. Patient's initial sepsis screen is negative. Does the patient have a suspected source of infection? No. Patient's initial sepsis screen is negative. Risk Assessment: Do you want to hurt yourself or someone else? Patient reports no desire to harm self or others. Onset of symptoms was May 17, 2024. Care prior to arrival: Medication(s) given: zofran 4 mg, Fentanyl 40 mcg IV initiated. 20 GA, in the left forearm. 21:41 Method Of Arrival: EMS: [place] [id number] 21:41 Acuity: SAMUEL 3 me1 Triage Assessment: 21:47 General: Appears uncomfortable, slender, well groomed, well developed, Behavior is me1 calm, cooperative, appropriate for age, Reports s/p fall. C/o L hip pain. Pain: Complains of pain in left hip Pain does not radiate. Pain currently is 6 out of 10 on a pain scale. Quality of pain is described as sharp, shooting, Pain began suddenly, Is continuous. EENT: No signs and/or symptoms were reported regarding the EENT system. Neuro: Level of Consciousness is awake, alert, obeys commands, Oriented to person, place, time, situation, Appropriate for age. Cardiovascular: Patient's skin is warm and dry. Respiratory: Airway is patent Respiratory effort is even, unlabored, Respiratory pattern is regular, symmetrical. GI: No signs and/or symptoms were reported involving the gastrointestinal system. : No signs and/or symptoms were reported regarding the genitourinary system. Derm: No signs and/or symptoms reported regarding the dermatologic system. Musculoskeletal: Reports pain in left hip. Injury Description: fall. Historical: - Allergies: 21:47 Oral steroids; me1 21:47 SHELLFISH; me1 21:47 Strawberries; me1 21:47 Sulfa (Sulfonamide Antibiotics); me1 - PMHx: 21:47 Arthritis; COPD; Hypertensive disorder; me1 - PSHx: 21:47 hernia repair; me1 - Immunization history:: Adult Immunizations up to date. - Infectious Disease History:: Denies. - Social history:: Smoking status: Patient/guardian denies using tobacco, but has a distant history of tobacco abuse. Screenin/17 01:06 [facility] ED Fall Risk Assessment (Adult) History of falling in the last 3 months, bm8 including since admission Yes- single mechanical fall (1 pt) Confusion or Disorientation No (0 pts) Intoxicated or Sedated No (0 pts) Impaired Gait Yes (1 pt) Mobility Assist Device Used No (0 pt) Altered Elimination No (0 pt) Score/Fall Risk Level 3 or more points = High Risk Oriented to surroundings, Maintained a safe environment, Educated pt \T\ family on fall prevention, incl call for assistance when getting out of bed, Assessed \T\ reinforced patient's understanding of fall precautions. Abuse screen: Denies threats or abuse. Nutritional screening: No deficits noted. Tuberculosis screening: No symptoms or risk factors identified. Assessment: 05/17 21:57 General: See triage assessment. . mo1 05/18 01:06 Reassessment: Patient appears in no apparent distress at this time. Patient and/or bm8 family updated on plan of care and expected duration. Pain level reassessed. Patient is alert, oriented x 3, equal unlabored respirations, skin warm/dry/pink. Patient states feeling better. Pain: Complains of pain in right upper thigh and right leg and right hip Pain does not radiate. Pain currently is 4 out of 10 on a pain scale. Quality of pain is described as aching, crampy. Neuro: Level of Consciousness is awake, alert, obeys commands, Oriented to person, place, time, situation, Appropriate for age. Cardiovascular: No deficits noted. Denies chest pain, Capillary refill < 3 seconds Patient's skin is warm and dry. Respiratory: Airway is patent Respiratory effort is even, unlabored, Respiratory pattern is regular, symmetrical. GI: No signs and/or symptoms were reported involving the gastrointestinal system. : No signs and/or symptoms were reported regarding the genitourinary system. EENT: No signs and/or symptoms were reported regarding the EENT system. Musculoskeletal: Range of motion: limited in right hip Reports pain in right upper thigh and right leg and right hip as long as I dont move I am fine with the pain, but moving is excrutiating. Vital Signs: 05/17 21:41 BP 180 / 87; Pulse 81; Resp 16; Temp 98.4; Pulse Ox 100% on R/A; Weight 46.72 kg; me1 Height 4 ft. 11 in. ; Pain 6/10; 22:28 Pain 2/10; me1 22:30 BP 155 / 84; Pulse 78; Resp 18; Pulse Ox 92% ; me1 05/18 01:06 BP 181 / 97; Pulse 83; Resp 18; Temp 98.4; Pulse Ox 100% on R/A; Pain 4/10; bm8 05/17 21:41 Body Mass Index 20.80 (46.72 kg, 149.86 cm) mo1 05/17 21:41 Pain Scale: Adult me1 22:28 Pain Scale: Adult mo1 05/18 01:06 Pain Scale: Adult bm8 [place] Coma Score: 01:06 Eye Response: spontaneous(4). Motor Response: obeys commands(6). Verbal Response: bm8 oriented(5). Total: 15. ED Course: 05/17 21:38 Patient arrived in ED. lg3 21:39 Arpit Meyer MD is Attending Physician. lianna 21:41 Ruba Waters, TONIA is Primary Nurse. me1 21:46 Triage completed. me1 21:47 Arm band placed on Patient placed in an exam room. me1 22:23 XRAY Chest (1 view) In Process Unspecified. EDMS 22:23 Pelvis XRAY In Process Unspecified. EDMS 22:23 Femur Right XRAY In Process Unspecified. EDMS 22:28 Basic Metabolic Panel Sent. me1 22:28 CBC with Diff Sent. me1 22:28 LFT's Sent. me1 22:28 Magnesium Sent. me1 22:28 NT PRO-BNP Sent. me1 22:28 PT-INR Sent. me1 22:28 Troponin HS Sent. me1 22:55 EKG done, by ED staff, reviewed by Arpit Meyer MD. ty 23:57 2320 called [facility] to start transfer. Talked to Tara. susan 05/18 00:19 Maintain EMS IV. Dressing intact. Good blood return noted. Site clean \T\ dry. Gauge \T\ me 1 site: 20g LFA. 00:[address] [facility]. Admin approval given by Tara Crisostomo \T\[id number]. Accepting md d[place] Patricia \T\[id number]. Room n735, number for nurse to nurse report [phone]. ENTERPISE EMS TO TRANSFER. 01:06 Patient has correct armband on for positive identification. Placed in gown. Bed in low bm8 position. Call light in reach. Side rails up X 1. Side rails up X2. Client placed on continuous cardiac and pulse oximetry monitoring. NIBP monitoring applied. shelter monitor on. Pulse ox on. NIBP on. Door closed. Warm blanket given. Verbal reassurance given. Head of bed elevated. 01:06 No provider procedures requiring assistance completed. Patient transferred, IV remains bm8 in place. 01:09 Provided Education on: need for transfer. bm8 01:11 Primary Nurse role handed off by Ruba Waters, RN bm8 Administered Medications: 05/17 22:01 Drug: fentaNYL (PF) IVP 50 mcg IVP once Route: IVP; Site: left forearm; me1 22:28 Follow up: Pain 2/10 Adult; Response: No adverse reaction; Pain is decreased me1 22:28 Drug: NS 0.9% IV 500 ml IV at bolus once Route: IV; Rate: bolus; Site: left antecubital;me1 22:28 Drug: Ondansetron IVP 4 mg IVP once; over 2 minutes Route: IVP; Site: left antecubital; me1 22:28 Follow up: Response: No adverse reaction me1 23:44 Drug: HYDROmorphone IVP 0.5 mg IVP once Route: IVP; Site: left antecubital; me1 23:55 Follow up: Response: No adverse reaction; Pain is decreased me1 05/18 01:18 Drug: HYDROmorphone IVP 0.5 mg IVP once Route: IVP; Site: left forearm; lg3 01:18 Follow up: Response: No adverse reaction lg3 Medication: 01:06 VIS not applicable for this client. bm8 Outcome: 05/17 23:20 ER care complete, transfer ordered by . lianna 05/18 01:06 Transferred by ground EMS to [facility], Transfer form completed. bm8 X-rays sent w/ patient. Condition: stable Instructed on the need for transfer, Demonstrated understanding of instructions, follow-up care, medications, 01:10 Patient left the ED. bm8 01:19 Patient left the ED. lg3 Signatures: Dispatcher [employer] EDArpit Amor MD MD cha Pinkerton, Shawna sp Able, Lacie, RN RN lg3 Ruba Waters, RN RN me1 Maryam Barone Tylor ty McDonald, Brad, RN RN bm8
[2024-05-17 23:30] LABS: PT Prothrombin Time 10.7 SECONDS (9.5-12.5); Protime INR 0.97
[2024-05-17] MEDS ORDERED: HYDROMORPHONE HCL 0.5 MG/0.5 ML INJ ONE (23:41)
[2024-05-18] MEDS ORDERED: HYDROMORPHONE HCL 0.5 MG/0.5 ML INJ ONE (01:12)
[2024-05-18 01:31] VITALS: BP 181/97; TEMP 98.4; O2SAT 100
--- NOTE | 2024-05-18 14:52 | EKG ---
Test Date: 2024-05-17 Test Time: 22:45:02 Box Hinge And Lock Attacher: SHANNAN MEASUREMENT RESULTS: Intervals: Rate: 73 WY: 80 QRSD: 78 QT: 420 QTc: 462 [place]: P: 38 WY: 80 QRS: 2 T: 52 INTERPRETIVE STATEMENTS: Sinus rhythm with short WY Anterior infarct, age undetermined Abnormal ECG Compared to ECG 02/04/2023 16:51:39 Short WY interval now present Myocardial infarct finding still present Electronically Signed On 05-18-24 14:50:46 CDT by Martin Spears
== END 2024-05-18 01:19 | disposition short-term general hospital (02) ==
LOC: ER 21:30
DX: S72.141A Displaced intertrochanteric fracture of right femur, initial encounter for closed fracture (principal); W18.30XA Fall on same level, unspecified, initial encounter
CPT/HCPCS: 93005; 85025; 80048; 36415; 83735; 85610; 80076; 84484; 83880; 71045; 72170; 73552; J3010; J1170 ×2; J2405; J7040; 99285

== ENCOUNTER 2025-03-27 23:55 | Inpatient (IN) | payer OTHER, BC ==
[2025-03-28] MEDS ORDERED: ONDANSETRON 4 MG/2 ML VIAL ONE ×2 (00:25→08:21)
[2025-03-28] MEDS ORDERED: MORPHINE 4 MG/ML SYR ONE (00:25)
[2025-03-28] MEDS ORDERED: KETOROLAC 30 MG/ML INJ ONE (00:25)
--- NOTE | 2025-03-28 02:23 | RAD REPORT ---
EXAMINATION: Thorax Wo Con CLINICAL INDICATION: Female, 84 years old. TRAUMA TECHNIQUE: Routine CT scan of the chest without intravenous contrast. One or more of the following do se reduction techniques were used: Automated exposure control, adjustment of the mA and/or kV according to patient size, and/or iterative reconstruction. Unless otherwise specified, incidental fi ndings do not require dedicated imaging follow-up. [id number]. COMPARISON: 02/04/2023 FINDINGS: LOWER NECK: Visualized thyroid gland and soft tissues are normal. MEDIASTINUM AND LYMPH NODES: No mediastinal mass or fluid collection. Normal size mediastinal, hilar, and axillary lymph nodes. Surgical changes at the gastroesophageal junction. THORACIC AORTA: No thoracic aortic aneurysm. Atherosclerotic changes are present. PULMONARY ARTERIES: Caliber is within normal limits. Unable to evaluate for pulmonary emboli due to e ither protocol or lack of contrast. HEART: Normal heart size. Moderate coronary artery calcifications.No significant pericardial effusion . LUNGS AND AIRWAYS: Airways are clear. No evidence of airspace or interstitial process.Mild emphysema. Calcified right upper lobe nodule. PLEURA: No pleural effusions. No pneumothorax. OSSEOUS STRUCTURES AND CHEST WALL: Remote compression fracture at T6, T9, and at T12. Acute nondispla christine right anterolateral third, possibly anterolateral fourth, and posterior seventh rib fracture. UPPER ABDOMEN: 2.2 cm stone at the right renal pelvis. This results in at least right upper pole hydr onephrosis. Left nephrolithiasis. Cholecystectomy. IMPRESSION: Nondisplaced right third, fourth, and seventh rib fractures. No pneumothorax. No other evidence of si gnificant trauma. 2.2 cm stone in the right renal pelvis with at least upper pole hydronephrosis and which is probably a chronic finding. The patient had a smaller stone at this location in 2022 which likely has subsequently enlarged.
[2025-03-28] MEDS ORDERED: MORPHINE 2 MG/ML SYR ONE (02:59)
--- NOTE | 2025-03-28 04:04 | ER ---
Nurse's Notes [facility] Name: Lisa Cordero Age: 84 yrs Sex: Female : 1940 Arrival Date: 03/27/2025 Time: 23:55 Bed 20 Private MD: Diagnosis: Nondisplaced fractures of right third, fourth, seventh ribs;Mechanical fall Presentation: 03/28 00:00 Chief complaint: Patient states: I FELL EARLY TODAY AND I HURT THE RIGHT SIDE OF MY ha1 CHEST. PAIN AT THE RIGHT UPPER QUADRANT . SOB. 00:00 Coronavirus screen: Client denies travel out of the [place] in the last 14 days. Ebola ha1 Screen: No symptoms or risks identified at this time. Initial Sepsis Screen: Does the patient meet any 2 criteria? No. Patient's initial sepsis screen is negative. Does the patient have a suspected source of infection? No. Patient's initial sepsis screen is negative. Risk Assessment: Do you want to hurt yourself or someone else? Patient reports no desire to harm self or others. Onset of symptoms was March 28, 2025. 00:00 Method Of Arrival: Wheelchair ha1 00:00 Acuity: SAMUEL 3 ha1 00:15 Care prior to arrival: None. rg5 00:15 Mechanism of Injury: Fall from standing position. Trauma event details: Injury occurred rg5 in the [facility]. Activity prior to arrival: None. Historical: - Allergies: 00:18 Oral steroids; ha1 00:18 SHELLFISH; ha1 00:18 Strawberries; ha1 00:18 Sulfa (Sulfonamide Antibiotics); ha1 - Home Meds: 00:18 aspirin 81 mg Oral TbEC [Active]; ha1 - PMHx: 00:18 Arthritis; COPD; Hypertensive disorder; ha1 - PSHx: 00:18 hernia repair; ha1 - Immunization history:: Adult Immunizations up to date. - Infectious Disease History:: Denies. - Immunization history: Last tetanus immunization: unknown. - Social history:: Smoking status: Patient denies any tobacco usage or history of. - Family history:: not pertinent. Screenin:15 [facility] ED Fall Risk Assessment (Adult) History of falling in the last 3 months, rg5 including since admission Yes- single mechanical fall (1 pt) Confusion or Disorientation No (0 pts) Intoxicated or Sedated No (0 pts) Impaired Gait No (0 pts) Mobility Assist Device Used Yes (1 pt) Altered Elimination No (0 pt) Score/Fall Risk Level 0 - 2 = Low Risk Oriented to surroundings, Maintained a safe environment, Hourly rounding (assess needs \T\ fall precautionary measures) done. Abuse screen: Denies threats or abuse. Nutritional screening: No deficits noted. Tuberculosis screening: No symptoms or risk factors identified. Primary Survey: 00:15 NO uncontrolled hemorrhage observed. A: The client is awake and alert. The airway is rg5 patent. Breathing/Chest: Spontaneous respiratory effort, equal unlabored respirations, breath sounds clear bilaterally, regular pattern, symmetrical chest rise and fall. Respiratory effort: spontaneous, Breath sounds: clear, bilaterally. Circulation: No external hemorrhage present. Regular and strong central pulse, skin warm/dry/normal color. Disability Pupils are equal, round, reactive to light and accommodation. Exposure/Environment: All clothing and personal items were removed. Forensic evidence collection is not deemed to be indicated at this time. Items placed in patient belonging bag. There is no evidence of uncontrolled external bleeding. No obvious injuries are noted at this time. 01:15 Reassessment Breathing: Spontaneous respiratory effort, equal unlabored respirations, rg5 breath sounds clear bilaterally, regular pattern with symmetrical chest rise and fall. Circulation: No external hemorrhage noted. Regular and strong central pulse, skin warm/dry/normal color. Disability: Pupils Pupils are equal, round, reactive to light and accomodation. Alert. Assessment: 00:15 General: Appears in no apparent distress. Behavior is calm, cooperative, appropriate rg5 for age. Pain: Complains of pain in right upper quadrant Quality of pain is described as aching. Neuro: Level of Consciousness is awake, alert, obeys commands, Oriented to person, place, time, situation. Cardiovascular: Denies chest pain, Patient's skin is warm and dry. Respiratory: Airway is patent Trachea midline Breath sounds are clear. GI: Abdomen is flat, non-distended, Abd is soft and non tender. : No signs and/or symptoms were reported regarding the genitourinary system. EENT: No signs and/or symptoms were reported regarding the EENT system. Derm: Skin is intact, Skin is dry, Skin is normal, Skin temperature is warm. Musculoskeletal: Circulation, motion, and sensation intact. Range of motion: intact in all extremities. 01:12 Reassessment: Patient and/or family updated on plan of care and expected duration. Pain rg5 level reassessed. Patient is alert, oriented x 3, equal unlabored respirations, skin warm/dry/pink. Patient states symptoms have improved. 02:12 Reassessment: No changes from previously documented assessment. Patient and/or family rg5 updated on plan of care and expected duration. Pain level reassessed. General: Appears in no apparent distress. Behavior is calm, cooperative, appropriate for age, sleeping. 03:36 Reassessment: No changes from previously documented assessment. Patient and/or family rg5 updated on plan of care and expected duration. Pain level reassessed. Patient is alert, oriented x 3, equal unlabored respirations, skin warm/dry/pink. 04:13 Reassessment: No changes from previously documented assessment. Patient and/or family rg5 updated on plan of care and expected duration. Pain level reassessed. Patient states feeling better. Respiratory: Reports pain with cough Breath sounds are clear. Vital Signs: 00:00 BP 192 / 75; Pulse 90; Resp 17 S; Temp 97.6; Pulse Ox 99% on R/A; Weight 48.53 kg; ha1 Height 5 ft. 0 in. ; 00:26 BP 158 / 108; Pulse 87; Resp 19; Temp 98; Pulse Ox 98% ; Pain 9/10; rg5 01:12 BP 116 / 64; Pulse 82; Resp 18; Pulse Ox 97% on R/A; Pain 5/10; rg5 02:12 BP 177 / 82; Pulse 87; Resp 17; Temp 98; Pulse Ox 97% ; rg5 03:35 BP 164 / 82; Pulse 70; Resp 17; Pulse Ox 98% on R/A; Pain 5/10; rg5 00:00 Body Mass Index 20.90 (48.53 kg, 152.4 cm) ha1 00:26 Pain Scale: Adult rg5 01:12 Pain Scale: Adult rg5 03:35 Pain Scale: Adult rg5 [place] Coma Score: 00:15 Eye Response: spontaneous(4). Motor Response: obeys commands(6). Verbal Response: rg5 oriented(5). Total: 15. Trauma Score (Adult): 00:15 Eye Response: spontaneous(1); Verbal Response: oriented(1); Motor Response: obeys rg5 commands(2); Systolic BP: > 89 mm Hg(4); Respiratory Rate: 10 to 29 per min(4); Betza[place] Score: 15; Trauma Score: 12 ED Course: 03/27 23:56 Patient arrived in ED. [email or web address] 03/28 00:03 Ino Santos MD is Attending Physician. rt 00:11 Rashaun Calloway, TONIA is Primary Nurse. rg5 00:15 Patient has correct armband on for positive identification. Door closed. Noise rg5 minimized. Warm blanket given. 00:15 Arm band placed on right wrist. rg5 00:15 EKG completed in triage. Results shown to MD. rg5 00:15 No provider procedures requiring assistance completed. Inserted saline lock: 20 gauge rg5 in right wrist, using aseptic technique. Blood collected. Flushed with 10 mL NS. 00:15 Patient maintains SpO2 saturation greater than 95% on room air. rg5 00:15 Thermoregulation: warm blanket given to patient. rg5 00:18 Triage completed. ha1 01:04 CT Chest Wo Con In Process Unspecified. EDMS 04:03 Prince Kaur MD is Hospitalizing Provider. rt 04:10 Provided Education on: needs for admit. rg5 04:10 Patient admitted, IV remains in place. intact, No redness/swelling at site. rg5 Administered Medications: 00:30 Drug: morphine IVP or IV 4 mg IVP once over 4 mins Route: IVP; Infused Over: 4 mins; rg5 Site: right wrist; 01:12 Follow up: Response: No adverse reaction; Pain is decreased rg5 00:30 Drug: Ondansetron IVP 4 mg IVP once; over 2 minutes Route: IVP; Site: right wrist; rg5 01:12 Follow up: Response: No adverse reaction rg5 00:30 Drug: Ketorolac IVP 15 mg IVP once Route: IVP; Site: right wrist; rg5 01:11 Follow up: Response: No adverse reaction; Pain is decreased rg5 03:06 Drug: morphine IVP or IV 2 mg IVP once over 4 mins Route: IVP; Infused Over: 4 mins; rg5 Site: right wrist; 04:13 Follow up: Response: No adverse reaction; Pain is decreased rg5 04:40 Drug: Lidocaine Topical Solution (4%) 1 application Topical once Route: Topical; Site: rg5 affected area; 05:18 Follow up: Response: No adverse reaction; Pain is decreased rg5 Medication: 00:15 VIS not applicable for this client. rg5 Intake: 00:15 PO: 0ml; Total: 0ml. rg5 Output: 00:15 Urine: 0ml; Total: 0ml. rg5 Outcome: 04:03 Decision to Hospitalize by Provider. rt 04:10 Admitted to ER Hold. Please see [facility] for further documentation. rg5 04:10 Condition: stable 04:10 Instructed on the need for admit, 04:11 Patient's length of stay was not longer than 2 hours. Patient's length of stay in the [facility] Emergency Department was greater than 2 hours. being admitted for OBS Patient's length of stay extended due to 14:51 Patient left the ED. ld1 Signatures: Dispatcher [employer] EDMS Marimar Koch RN RN ld1 Teresa Durán jj6 Queenie Quinteros RN RN ha1 Ino Santos MD MD rt Rashaun Calloway RN RN rg5
--- NOTE | 2025-03-28 04:04 | EDPHYS ---
Physician Documentation [facility] Name: Lisa Cordero Age: 84 yrs Sex: Female : 1940 Arrival Date: 03/27/2025 Time: 23:55 Bed 20 Private MD: ED Physician Ino Santos HPI: 03/28 00:35 This 84 yrs old Female presents to ER via Wheelchair with complaints of Fall Injury, rt Breathing Difficulty. 00:35 Patient presents to the ED with mechanical fall. She landed onto her right side, rt causing a pain to the lower ribs. Denies hitting her head, other injury, other acute complaints, symptoms are moderate in severity, aching nature, nonradiating, no other aggravating or alleviating factors.. Historical: - Allergies: 00:18 Oral steroids; ha1 00:18 SHELLFISH; ha1 00:18 Strawberries; ha1 00:18 Sulfa (Sulfonamide Antibiotics); ha1 - Home Meds: 00:18 aspirin 81 mg Oral TbEC [Active]; ha1 - PMHx: 00:18 Arthritis; COPD; Hypertensive disorder; ha1 - PSHx: 00:18 hernia repair; ha1 - Immunization history:: Adult Immunizations up to date. - Infectious Disease History:: Denies. - Immunization history: Last tetanus immunization: unknown. - Social history:: Smoking status: Patient denies any tobacco usage or history of. - Family history:: not pertinent. ROS: 00:35 Constitutional: Negative for fever, chills, and weight loss, Respiratory: Negative for rt shortness of breath, cough, wheezing, and pleuritic chest pain, Abdomen/GI: Negative for abdominal pain, nausea, vomiting, diarrhea, and constipation, MS/Extremity: Negative for injury and deformity, Skin: Negative for injury, rash, and discoloration, Neuro: Negative for headache, weakness, numbness, tingling, and seizure, 00:35 Cardiovascular: Positive for Chest wall pain, Exam: 00:35 Constitutional: This is a well developed, well nourished patient who is awake, alert, rt and in no acute distress. Head/Face: Normocephalic, atraumatic. Cardiovascular: Regular rate and rhythm with a normal S1 and S2. No gallops, murmurs, or rubs. Normal PMI, no JVD. No pulse deficits. Respiratory: Lungs have equal breath sounds bilaterally, clear to auscultation and percussion. No rales, rhonchi or wheezes noted. No increased work of breathing, no retractions or nasal flaring. Abdomen/GI: Soft, non-tender, with normal bowel sounds. No distension or tympany. No guarding or rebound. No evidence of tenderness throughout. Skin: Warm, dry with normal turgor. Normal color with no rashes, no lesions, and no evidence of cellulitis. MS/ Extremity: Pulses equal, no cyanosis. Neurovascular intact. Full, normal range of motion. Neuro: Awake and alert, GCS 15, oriented to person, place, time, and situation. Cranial nerves II-XII grossly intact. Motor strength 5/5 in all extremities. Sensory grossly intact. Cerebellar exam normal. Normal gait. 00:35 Chest/axilla: Tenderness to the right lower rib margin. 00:35 ECG was reviewed by the Attending Physician. Vital Signs: 00:00 BP 192 / 75; Pulse 90; Resp 17 S; Temp 97.6; Pulse Ox 99% on R/A; Weight 48.53 kg; ha1 Height 5 ft. 0 in. ; 00:26 BP 158 / 108; Pulse 87; Resp 19; Temp 98; Pulse Ox 98% ; Pain 9/10; rg5 01:12 BP 116 / 64; Pulse 82; Resp 18; Pulse Ox 97% on R/A; Pain 5/10; rg5 02:12 BP 177 / 82; Pulse 87; Resp 17; Temp 98; Pulse Ox 97% ; rg5 03:35 BP 164 / 82; Pulse 70; Resp 17; Pulse Ox 98% on R/A; Pain 5/10; rg5 00:00 Body Mass Index 20.90 (48.53 kg, 152.4 cm) ha1 00:26 Pain Scale: Adult rg5 01:12 Pain Scale: Adult rg5 03:35 Pain Scale: Adult rg5 Betzaida Coma Score: 00:15 Eye Response: spontaneous(4). Motor Response: obeys commands(6). Verbal Response: rg5 oriented(5). Total: 15. Trauma Score (Adult): 00:15 Eye Response: spontaneous(1); Verbal Response: oriented(1); Motor Response: obeys rg5 commands(2); Systolic BP: > 89 mm Hg(4); Respiratory Rate: 10 to 29 per min(4); T[place]on Score: 15; Trauma Score: 12 MDM: 00:12 Medical Screening Exam initiated rt 04:04 Differential diagnosis: Rib fracture, rib contusion. Data reviewed: vital signs, nurses rt notes, radiologic studies. Consideration of Admission/Observation Patient was admitted/placed on observation. Management of patient was discussed with the following: Hospitalist: Agrees to admit. I considered the following discharge prescriptions or medication management in the emergency department Medications were administered in the Emergency Department. See MAR. Independent interpretation of the following test(s) in the Emergency Department CT Scan: My interpretation is No pneumothorax seen on my interpretation of CT scan images. Test considered but Not performed: Other Details Patient reports clear mechanical fall, do not suspect syncopal event, labs, EKG are not indicated. She adamantly denies hitting her head, CT scan of the head is not indicated.. Care significantly affected by the following chronic conditions: Chronic Obstructive Pulmonary Disease. Counseling: I had a detailed discussion with the patient and/or guardian regarding the historical points, exam findings, and any diagnostic results supporting the discharge/admit diagnosis, radiology results, the need for further work-up and treatment in the hospital. Response to treatment: the patient's symptoms have mildly improved after treatment. 03/28 05:12 Order name: Lactate w/ 2H reflex if indic. EDCA 03/28 05:12 Order name: Magnesium EDCA 03/28 05:12 Order name: Phosphorus EDCA 03/28 05:12 Order name: Basic Metabolic Panel EDCA 03/28 05:12 Order name: Basic Metabolic Panel EDCA 03/28 05:12 Order name: CBC with Automated Diff EDMS 03/28 05:12 Order name: CBC with Automated Diff EDMS 03/28 05:48 Order name: Basic Metabolic Panel EDCA 03/28 05:48 Order name: CBC with Automated Diff EDCA 03/28 00:19 Order name: CT Chest Wo Con; Complete Time: 02:24 rt 03/28 05:16 Order name: Occupational Therapy Consult EDCA 03/28 05:16 Order name: Physical Therapy Consult EDCA EC:35 Rate is 89 beats/min. Rhythm is regular, Normal Sinus Rhythm with PACs. Left axis rt deviation noted. AR interval is normal. QRS interval is normal. QT interval is normal. No Q waves. Administered Medications: 00:30 Drug: morphine IVP or IV 4 mg IVP once over 4 mins Route: IVP; Infused Over: 4 mins; rg5 Site: right wrist; 01:12 Follow up: Response: No adverse reaction; Pain is decreased rg5 00:30 Drug: Ondansetron IVP 4 mg IVP once; over 2 minutes Route: IVP; Site: right wrist; rg5 01:12 Follow up: Response: No adverse reaction rg5 00:30 Drug: Ketorolac IVP 15 mg IVP once Route: IVP; Site: right wrist; rg5 01:11 Follow up: Response: No adverse reaction; Pain is decreased rg5 03:06 Drug: morphine IVP or IV 2 mg IVP once over 4 mins Route: IVP; Infused Over: 4 mins; rg5 Site: right wrist; 04:13 Follow up: Response: No adverse reaction; Pain is decreased rg5 04:40 Drug: Lidocaine Topical Solution (4%) 1 application Topical once Route: Topical; Site: rg5 affected area; 05:18 Follow up: Response: No adverse reaction; Pain is decreased rg5 Disposition Summary: 03/28/25 04:03 Hospitalization Ordered Notes: Hospitalization Status: Observation rt Provider: Prince Vincent rt Condition: Stable rt Problem: new rt Symptoms: have improved rt Bed/Room Type: Standard rt Location: Telemetry/MedSurg (observation)(03/28/25 13:46) Room Assignment: [facility](03/28/25 13:46) Diagnosis - Nondisplaced fractures of right third, fourth, seventh ribs rt - Mechanical fall rt Forms: - Medication Reconciliation Form rt - SBAR form rt - Leadership Thank You Letter rt Signatures: Dispatcher [employer] EDAbby Lira RN RN Theresa Perez RN RN Queenie Quinteros RN RN ha1 Ino Santos MD MD rt Rashaun Calloway RN RN rg5 Corrections: (The following items were deleted from the chart) 00:20 00:20 Thorax Wo Con+CT.RAD.BRZ ordered. EDMS EDMS 05:20 04:03 Telemetry/MedSurg (observation) rt cg 05:20 04:03 rt cg 13:46 05:20 [facility] ER HOLD cg ss 13:46 05:20 ERHOLD- cg ss
[2025-03-28] MEDS ORDERED: LIDOCAINE 4% PATCH ONE (04:35)
[2025-03-28] MEDS ORDERED: ACETAMINOPHEN 500 MG TAB PO PRN (05:08)
--- NOTE | 2025-03-28 05:14 | P.HP ---
Certification for Inpatient Patient admitted to: Observation With expected LOS: <2 Midnights Practitioner: I am a practitioner with admitting privileges, knowledge of patient current condition, hospital course, and medical plan of care. Services: Services provided to patient in accordance with Admission requirements found in Title 42 Section 412.3 of the Code of Federal Regulations Patient History Date of Service: 03/28/25 Reason for admission: fall, rib fx History of Present Illness: She is a 84-year-old female with a past medical history of rheumatoid arthritis, COPD and temporal arteritis. She presented to the ER after ground- level mechanical fall that resulted in right rib fracture. Patient denies loss of consciousness. She states that she was in the bathroom with her hand leaning onto the sink when she suddenly lost her strength and found herself on the floor. She fell onto her right side. Patient reports history of several fractures including recently a fracture involving her right pinky and ring finger. Trauma workup in the ER revealed multiple right-sided rib fracture. Patient is on room air but in a lot of pain upon deep inspiration. She is being admitted for pain control. Allergies shrimp Allergy (Verified 03/08/17 10:46) Anaphylaxis strawberry Allergy (Verified 03/08/17 10:46) Anaphylaxis Sulfa (Sulfonamide Antibiotics) Allergy (Verified 03/08/17 10:46) Anaphylaxis bee venom Allergy (Uncoded 03/08/17 10:46) Anaphylaxis SHELLFISH Allergy (Uncoded 07/18/17 20:49) Unknown Strawberri Allergy (Uncoded 07/17/18 18:13) Unknown Strawberrie Allergy (Uncoded 07/18/17 20:49) Unknown Home Medications: Esomeprazole Magnesium [Nexium] 20 mg PO DAILY 09/18/16 Albuterol Sulfate [Proair Hfa] 1 puff IH DAILY PRN 03/07/17 Albuterol Sulfate [Albuterol Sulfate 0.083% Neb Soln] 2.5 mg IH Q6H PRN #30 units 07/19/17 Aspirin [Aspirin EC 81 MG] 1 tab PO DAILY 07/19/17 Fluticasone/Vilanterol [Breo Ellipta 100-25 Mcg Inhalr] 1 puff IH DAILY 07/19/17 predniSONE [Prednisone] 1 tab PO DAILY 07/19/17 - Past Medical/Surgical History Diabetic: No -: reflux -: chronic back pain -: carpal tunnel syndrome -: COPD -: arthritis -: carpal tunnel SX -: hemorrhoidectomy -: R knee replacement -: cholecystectomy -: appendectomy -: hysterectomy -: facial sx - Social History Alcohol use: No CD- Drugs: No Caffeine use: Yes Physical Examination - Physical Exam General: Acute distress HEENT: Atraumatic, Normocephalic Respiratory: Clear to auscultation bilaterally, Normal air movement Cardiovascular: No edema, Normal pulses, Regular rate/rhythm, Normal S1 S2 Neurological: Normal speech Assessment and Plan - Problems (Diagnosis) (1) COPD with acute exacerbation Onset Date: 09/19/16 Current Visit: No Status: Acute (2) GERD (gastroesophageal reflux disease) Onset Date: 09/19/16 Current Visit: No Status: Acute (3) Rheumatoid arthritis Onset Date: 07/19/17 Current Visit: No Status: Chronic Qualifiers: (4) Temporal arteritis Onset Date: 07/19/17 Current Visit: No Status: Chronic - Plan Assessment This is a 84-year-old female who is being admitted for rib fracture after ground-level fall at home. Patient currently lives with her daughter in an apartment. She has a history of multiple fractures including the right pinky and ring fingers recently. During this current episode, she was leaning onto the bathroom sink when she suddenly lost her steel tester and fell onto her right side. No loss of consciousness reported Mechanical fall Multiple rib fractures COPD Rheumatoid arthritis Temporal arteritis Plan: Will admit under observation with telemetry IV fluid infusion Multimodal pain regimen including lidocaine patch Incentive spirometry PT/OT for discharge Resume rest of home medication upon reconciliation - Advance Directives Does patient have a Living Will: No Does patient have a Durable POA for Healthcare: No
[2025-03-28] MEDS: LIDOCAINE 4% PATCH TOP SCH (05:15)
[2025-03-28 06:00] LABS: Absolute Eosinophils 0.2 K/uL (0-0.5); Absolute Lymphocytes (CBC) 1.4 K/uL (0.7-4.9); Absolute Monocytes 1.1 K/uL (0.1-1.3); Absolute Neutrophil 6.5 K/uL (1.8-8.0); Basophils % 0.2 % (0-1.3); Eosinophils % 1.9 % (0-4.4); Hematocrit 38.1 % (36.0-45.0); Hemoglobin 12.8 g/dL (12.0-15.0); Lymphocytes % 15.6 % (15.3-44.8); MCH 26.6 pg (27.0-35.0); MCHC 33.6 g/dL (32.0-36.0); MCV 79.3 fL (80-100); MPV 9.2 fL (7.6-11.3); Monocytes % 11.8 % (3.3-12.3); Neutrophils % 70.5 % (41.7-73.7); Platelets 251 thou/uL (152-406); RBC Red Blood Cell Count 4.81 M/uL (3.86-4.86); Red Cell Distribution Width 14.4 % (12.1-15.2)
[2025-03-28 06:05] LABS: Anion Gap 7.8 mEq/L (5.0-15.0); Magnesium 2.1 mg/dL (1.6-2.4); Phosphorus 3.6 mg/dL (2.5-4.9); Potassium 3.8 mEq/L (3.5-5.1)
[2025-03-28] MEDS ORDERED: NA CHLORIDE 0.9% 1,000 ML ONE (06:32)
[2025-03-28] MEDS: NA CHLORIDE 0.9% 1,000 ML IV SCH (06:32)
[2025-03-28] MEDS ORDERED: ENOXAPARIN 40 MG/0.4 ML SQ ONE (08:21)
[2025-03-28] MEDS ORDERED: HYDROMORPHONE HCL 1 MG/ML INJ ONE (08:21)
[2025-03-28] MEDS: ENOXAPARIN 40 MG/0.4 ML SQ SCH (08:37)
[2025-03-28] MEDS: HYDROMORPHONE HCL 1 MG/ML INJ IV PRN (08:37)
[2025-03-28] MEDS: ONDANSETRON 4 MG/2 ML VIAL IV PRN (08:43)
[2025-03-28] MEDS: HYDROCODONE/APAP 7.5/325 MG TAB PO PRN (15:32)
[2025-03-29] MEDS: HYDROMORPHONE HCL 1 MG/ML INJ IV PRN (01:34)
[2025-03-29 05:26] LABS: Absolute Eosinophils 0.2 K/uL (0-0.5); Absolute Lymphocytes (CBC) 1.1 K/uL (0.7-4.9); Absolute Monocytes 0.8 K/uL (0.1-1.3); Absolute Neutrophil 5.1 K/uL (1.8-8.0); Basophils % 0.6 % (0-1.3); Eosinophils % 2.5 % (0-4.4); Hematocrit 34.7 % (36.0-45.0); Hemoglobin 11.7 g/dL (12.0-15.0); Lymphocytes % 15.3 % (15.3-44.8); MCH 27.1 pg (27.0-35.0); MCHC 33.8 g/dL (32.0-36.0); Monocytes % 11.5 % (3.3-12.3); Neutrophils % 70.1 % (41.7-73.7); Platelets 212 thou/uL (152-406); RBC Red Blood Cell Count 4.33 M/uL (3.86-4.86); Red Cell Distribution Width 14.4 % (12.1-15.2)
--- NOTE | 2025-03-29 12:42 | P.PN ---
Date of Service: 03/29/25 Subjective: Still having severe pain requiring IV medications No other acute events overnight Reports frequent falls in the past year ROS: 10 point ROS as noted above, otherwise negative Physical exam GEN: Alert, oriented, NAD HEENT: Normal conjunctiva, sclera anicteric CV: Regular rate and rhythm, no edema Pulm: Nonlabored respirations on room air ABD: Soft, nontender, nondistended MSK: No joint tenderness Integumentary: No rashes Neuro: Normal speech, normal affect Vitals reviewed Assessment: Multiple right rib fractures Fall/frequent falls History of COPD with exacerbation RA Temporal arteritis Plan: Multiple right rib fractures Fall/frequent falls Right 3rd, 4th and 7th rib fractures PT consultation, as needed pain medications Requiring IV pain medications, multimodal pain relief regimen Having a lot of difficulty with movement/arranging self in bed due to pain Incentive spirometry History of COPD with exacerbation As needed nebulizer treatments RA Temporal arteritis Continue home medications when verified DVT PPX: Lovenox Code status: Char Filter Tank Tender Head Spent Managing Pts Care (In Minutes): 35
--- NOTE | 2025-03-30 06:37 | P.PN ---
Date of Service: 03/30/25 Called to see patient because of concern the patient and a junctional heart rhythm. EKG shows sinus rhythm. Will continue with current medical management. Continue monitoring rhythm and if there is any change in the rhythm then we can get cardiology involved but at this time patient has clear P waves on his EKG recording with no substantial abnormalities noted.
[2025-03-30] MEDS: LOPERAMIDE HCL 2 MG CAPSULE PO ONE (08:55)
--- NOTE | 2025-03-30 11:45 | EKG ---
Test Date: 2025-03-30 Test Time: 02:14:37 Director Of Critical Care: GIANFRANCO MEASUREMENT RESULTS: Intervals: Rate: 73 WI: 136 QRSD: 76 QT: 384 QTc: 423 [place]: P: WI: 136 QRS: 35 T: 26 INTERPRETIVE STATEMENTS: Normal sinus rhythm Septal infarct, age undetermined Abnormal ECG Compared to ECG 03/28/2025 00:08:31 Myocardial infarct finding now present Atrial premature complex(es) no longer present Left-axis deviation no longer present ST (T wave) deviation no longer present Electronically Signed On 03-30-25 11:44:26 CDT by Erasto Ivory
--- NOTE | 2025-03-30 11:48 | EKG ---
Test Date: 2025-03-28 Test Time: 00:08:31 Polysomnography Technician: SOFÍA MEASUREMENT RESULTS: Intervals: Rate: 89 KS: 158 QRSD: 84 QT: 374 QTc: 455 [place]: P: [place]: 158 QRS: -38 T: 65 INTERPRETIVE STATEMENTS: Sinus rhythm with premature atrial complexes Left axis deviation Nonspecific ST and T wave abnormality Abnormal ECG Compared to ECG 05/17/2024 22:45:02 Atrial premature complex(es) now present Left-axis deviation now present ST (T wave) deviation now present Short [place] interval no longer present Myocardial infarct finding no longer present Electronically Signed On 03-30-25 11:47:41 CDT by Erasto Ivory
[2025-03-30 12:30] LABS: Barbiturates NEGATIVE (NEGATIVE); Benzodiazepines NEGATIVE (NEGATIVE); Cocaine NEGATIVE (NEGATIVE); METHAMPHETAM NEGATIVE (NEGATIVE); Methadone NEGATIVE (NEGATIVE); Opiates NEGATIVE (NEGATIVE); Phencyclidine NEGATIVE (NEGATIVE); THC Cannibis NEGATIVE (NEGATIVE)
[2025-03-30 12:38] LABS: Specific Gravity 1.009 (1.005-1.030); Sqamous Epithelial None Seen /HPF (None Seen); Urine Bacteria None Seen /HPF (<20); Urine Bilirubin NEGATIVE (Negative); Urine Blood 1+ (Negative); Urine Clarity Clear (Clear); Urine Color Colorless (Yellow); Urine Culture Reflex Order NOT NEEDED; Urine Glucose NEGATIVE (Negative); Urine Ketones NEGATIVE (Negative); Urine Microscopic Reflex YN ORDER UMIC; Urine Nitrite NEGATIVE (Negative); Urine Protein TRACE (Negative); Urine Urobilinogen Normal (Normal); Urine pH 5.5 (5.0-7.0)
--- NOTE | 2025-03-30 16:02 | P.PN ---
Date of Service: 03/30/25 Subjective: Still having severe pain requiring IV medications No other acute events overnight Reports frequent falls in the past year Still having a lot of trouble getting around with PT ROS: 10 point ROS as noted above, otherwise negative Physical exam GEN: Alert, oriented, NAD HEENT: Normal conjunctiva, sclera anicteric CV: Regular rate and rhythm, no edema Pulm: Nonlabored respirations on room air ABD: Soft, nontender, nondistended MSK: No joint tenderness Integumentary: No rashes Neuro: Normal speech, normal affect Vitals reviewed Assessment: Multiple right rib fractures Fall/frequent falls History of COPD with exacerbation RA Temporal arteritis Plan: Multiple right rib fractures Fall/frequent falls Right 3rd, 4th and 7th rib fractures PT consultation, as needed pain medications Requiring IV pain medications, multimodal pain relief regimen Having a lot of difficulty with movement/arranging self in bed due to pain Incentive spirometry Plan for inpatient rehab placement History of COPD with exacerbation As needed nebulizer treatments RA Temporal arteritis Continue home medications when verified DVT PPX: Lovenox 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
[2025-03-31 05:25] VITALS: BMI 20.9
--- NOTE | 2025-03-31 12:31 | P.PN ---
Date of Service: 03/31/25 Subjective: Still having severe pain requiring narcotic No other acute events overnight Reports frequent falls in the past year Still having a lot of trouble getting around with PT ROS: 10 point ROS as noted above, otherwise negative Physical exam GEN: Alert, oriented, NAD HEENT: Normal conjunctiva, sclera anicteric CV: Regular rate and rhythm, no edema Pulm: Nonlabored respirations on room air ABD: Soft, nontender, nondistended MSK: No joint tenderness Integumentary: No rashes Neuro: Normal speech, normal affect Vitals reviewed Assessment: Multiple right rib fractures Fall/frequent falls History of COPD with exacerbation RA Temporal arteritis Plan: Multiple right rib fractures Fall/frequent falls Right 3rd, 4th and 7th rib fractures PT consultation, as needed pain medications Requiring IV pain medications, multimodal pain relief regimen Having a lot of difficulty with movement/arranging self in bed due to pain Incentive spirometry Plan for inpatient rehab placement History of COPD with exacerbation As needed nebulizer treatments RA Temporal arteritis Continue home medications when verified DVT PPX: Lovenox 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
[2025-03-31] MEDS: ALBUTEROL 2.5 MG/3 ML NEB SOL NEB PRN (16:58)
[2025-03-31] MEDS: IPRATROPIUM BROM 0.5MG/2.5ML NEB PRN (16:58)
[2025-03-31 17:20] VITALS: O2SAT 96
[2025-03-31 22:16] VITALS: TEMP 98.1
[2025-04-01 00:27] VITALS: BP 178/79
--- NOTE | 2025-04-01 17:30 | P.DS ---
Admission Date: 03/29/25 Discharge Date: 04/01/25 Disposition: TRANSFER TO INPATIENT REHAB Discharge Condition: GOOD Reason for Admission: fall, rib fx Brief History of Present Illness: She is a 84-year-old female with a past medical history of rheumatoid arthritis, COPD and temporal arteritis. She presented to the ER after ground- level mechanical fall that resulted in right rib fracture. Patient denies loss of consciousness. She states that she was in the bathroom with her hand leaning onto the sink when she suddenly lost her strength and found herself on the floor. She fell onto her right side. Patient reports history of several fractures including recently a fracture involving her right pinky and ring finger. Trauma workup in the ER revealed multiple right-sided rib fracture. Patient is on room air but in a lot of pain upon deep inspiration. She is being admitted for pain control. Hospital Course: Assessment: Multiple right rib fractures Fall/frequent falls History of COPD with exacerbation RA Temporal arteritis Patient was admitted to hospital for multiple rib fractures, pain control. She worked with physical therapy and he was having a lot of difficulty and pain with gait and ADLs. She was accepted at inpatient rehab for further PT before discharge. Vital Signs/Physical Exam: Temp Pulse Resp BP Pulse Ox 98.1 F 79 18 178/79 H 94 04/01/25 00:00 04/01/25 00:00 04/01/25 00:00 04/01/25 00:00 04/01/25 00:00 General: Alert, In no apparent distress, Oriented x3 HEENT: Atraumatic, PERRLA Neck: Supple, JVD not distended Respiratory: Clear to auscultation bilaterally, Normal air movement Cardiovascular: Regular rate/rhythm, Normal S1 S2 Gastrointestinal: Normal bowel sounds, No tenderness Musculoskeletal: No tenderness Integumentary: No rashes Neurological: Normal speech Laboratory Data at Discharge: WBC 7.20 thou/uL (4.3-10.9) 03/29/25 05:13 Hgb 11.7 g/dL (12.0-15.0) L D 03/29/25 05:13 Hct 34.7 % (36.0-45.0) L 03/29/25 05:13 Plt Count 212 thou/uL (152-406) 03/29/25 05:13 Sodium 138 mEq/L (136-145) 03/29/25 05:13 Potassium 4.0 mEq/L (3.5-5.1) 03/29/25 05:13 BUN 12 mg/dL (7-18) 03/29/25 05:13 Creatinine 0.61 mg/dL (0.55-1.02) 03/29/25 05:13 Glucose 94 mg/dL (74-106) 03/29/25 05:13 Phosphorus 3.6 mg/dL (2.5-4.9) 03/28/25 05:30 Magnesium 2.1 mg/dL (1.6-2.4) 03/28/25 05:30 Home Medications: Levalbuterol [Xopenex] 3 puff IH BID PRN 03/29/25 Loperamide [Imodium] 2 mg PO DAILY 03/29/25 Ascorbic Acid [C-500] 500 mg PO DAILY 04/01/25 Cholecalciferol (Vitamin D3) [Vitamin D3] 1,000 unit PO DAILY 04/01/25 Physician Discharge Instructions: [facility] [employer] Call Gaby Abdi RN at [phone] for questions or concerns after discharge. Expect a call within 1-2 business days of discharge. Alternate: Cecilia Terry RN at [phone] Followup: ROSALINDA TELLEZ [Primary Care Provider] - Time spent managing pt's care (in minutes): 43
== END 2025-04-01 02:08 | DRG 185 ==
LOC: ER 23:55 → ERHOLD 03-28 05:08 → 2ND 03-28 14:05 → OBSVTOIN 03-29 15:24
PROVIDERS: ADMIT Internal Medicine; ATTEND Internal Medicine
DX: S22.41XA Multiple fractures of ribs, right side, initial encounter for closed fracture (principal); I10 Essential (primary) hypertension; M31.6 Other giant cell arteritis; M06.9 Rheumatoid arthritis, unspecified; J44.9 Chronic obstructive pulmonary disease, unspecified; K21.9 Gastro-esophageal reflux disease without esophagitis; Z88.2 Allergy status to sulfonamides; Z79.82 Long term (current) use of aspirin; Z79.52 Long term (current) use of systemic steroids; Z91.013 Allergy to seafood; Z91.018 Allergy to other foods; Z96.651 Presence of right artificial knee joint; W18.39XA Other fall on same level, initial encounter; Y93.9 Activity, unspecified; Y92.012 Bathroom of single-family (private) house as the place of occurrence of the external cause; Y99.9 Unspecified external cause status
CPT/HCPCS: 36415; 71250; 80048; 80307; 81001; 83605; 83735; 84100; 85025; 93005; 94010; 94640; 96374; 96375; 97116; 97161; 97165; 97530; 99285; G0378; J1171; J1650; J2003; J2270; J2405; J7030; J7613; J7644

== ENCOUNTER 2025-03-31 22:51 | Inpatient (IN) | payer OTHER, BC ==
[2025-04-01 02:26] VITALS: BMI 20.9
[2025-04-01] MEDS ORDERED: ACETAMINOPHEN 500 MG TAB PO PRN (02:42)
[2025-04-01] MEDS: HYDROCODONE/APAP 7.5/325 MG TAB PO PRN (04:15)
[2025-04-01 04:58] LABS: Specific Gravity 1.013 (1.005-1.030); Sqamous Epithelial <5 /HPF (None Seen); Urine Bacteria None Seen /HPF (<20); Urine Bilirubin NEGATIVE (Negative); Urine Blood Trace (Negative); Urine Clarity Clear (Clear); Urine Color Light-Yellow (Yellow); Urine Culture Reflex Order NOT NEEDED; Urine Glucose NEGATIVE (Negative); Urine Ketones NEGATIVE (Negative); Urine Microscopic Reflex YN ORDER UMIC; Urine Mucus Slight /HPF (None Seen); Urine Nitrite NEGATIVE (Negative); Urine Protein 1+ (Negative); Urine Urobilinogen Normal (Normal); Urine pH 6.5 (5.0-7.0)
[2025-04-01] MEDS ORDERED: IPRATROPIUM BROM 0.5MG/2.5ML NEB PRN (05:12)
[2025-04-01] MEDS ORDERED: ALBUTEROL 2.5 MG/3 ML NEB SOL NEB PRN (05:14)
[2025-04-01 05:53] LABS: Absolute Eosinophils 0.3 K/uL (0-0.5); Absolute Lymphocytes (CBC) 1.5 K/uL (0.7-4.9); Absolute Monocytes 1.1 K/uL (0.1-1.3); Absolute Neutrophil 5.1 K/uL (1.8-8.0); Basophils % 0.4 % (0-1.3); Eosinophils % 3.2 % (0-4.4); Hematocrit 37.1 % (36.0-45.0); Hemoglobin 12.4 g/dL (12.0-15.0); Lymphocytes % 18.3 % (15.3-44.8); MCH 26.7 pg (27.0-35.0); MCHC 33.6 g/dL (32.0-36.0); MCV 79.6 fL (80-100); MPV 8.6 fL (7.6-11.3); Monocytes % 13.5 % (3.3-12.3); Neutrophils % 64.6 % (41.7-73.7); Platelets 261 thou/uL (152-406); RBC Red Blood Cell Count 4.66 M/uL (3.86-4.86); Red Cell Distribution Width 14.4 % (12.1-15.2)
[2025-04-01 06:15] LABS: Albumin 2.9 g/dL (3.4-5.0); Anion Gap 7.5 mEq/L (5.0-15.0); Potassium 3.5 mEq/L (3.5-5.1); Prealbumin 13.2 mg/dL (20-40)
[2025-04-01] MEDS ORDERED: ALBUTEROL 2.5 MG/3 ML NEB SOL NEB SCH (08:00)
[2025-04-01] MEDS: CRANBERRY FRUIT EXTRACT 425 MG CAPSULE PO SCH (08:27)
[2025-04-01] MEDS: ENOXAPARIN 40 MG/0.4 ML SQ SCH (08:27)
[2025-04-01] MEDS: LOPERAMIDE HCL 2 MG CAPSULE PO SCH (08:28)
[2025-04-01] MEDS: LIDOCAINE 4% PATCH TOP SCH (08:28)
[2025-04-01] MEDS ORDERED: TRAMADOL HCL 50 MG TAB PO PRN ×2 (13:07→19:31)
[2025-04-01] MEDS ORDERED: GABAPENTIN 100 MG CAP PO SCH (20:00)
--- NOTE | 2025-04-02 01:14 | HP ---
Date of Admission: 04/01/2025 Time Of Service: 1:30 p.m. Chief Complaint: "I fell and broke my ribs." History Of Present Illness: Ms. Cordero is an 84-year-old patient with arthritis that is t reated, COPD, rheumatoid arthritis, who has a history of frequent falls despite being independent. S he came to [facility] after falling at the bathroom of the hotel that was staying. She deve loped severe pain on the right side ribs region and her evaluation showed fractures on third, fourth, and seventh ribs on the right. She had severe pain requiring IV Dilaudid, muscle relaxant. She rec eived incentive spirometry, nebulizers, and DVT prophylaxis. She required monitoring on ongoing basi s for reducing risk of infections such as pneumonia, evaluate her kidney function and liver function studies as well. Her shortness of breath is likely due to significant reduction and expansion of the chest wall due to the fracture related pain. She did have significantly elevated blood pressures as well as low hemoglobin and hematocrit, decreased glomerular filtration rate and low calcium levels, which required monitoring. Prior to falling, she was fully independent ambulating without the use of assistive device, driving, managing her affairs including household activities and activities of daily living. She cooked, mary maddie, and managed all of her ADLs without restrictions. As a result of the new pain and fracture, she required supervision to contact guard assistance for mobilization, doing activities of daily living, and was able to only ambulate about 20 feet with minimum assistance due to severe right-sided pain. She is referred to inpatient rehabilitation facility to receive physical, occupational, and if need b e speech therapy to help her to return to her prior level of functioning and reduce risk of rehospita lization. Furthermore, her comorbid conditions including pain management along with DVT prophylaxis and aspiration pneumonia will be attended to on ongoing basis. Past Medical History: As noted above. In addition, carpal tunnel syndrome, GE reflux, chronic back pain, arthritis. Past Surgical History: Cholecystectomy, appendectomy, right knee replacement, hysterectomy, and faci al surgery in addition to right hip replacement, most recently in 2023. Allergies: SHRIMP, STRAWBERRIES, SULFA DRUGS, GABAPENTIN, TRAMADOL, BEE VENOM, SHELLFISH, STRAWBERRI ES. Current Medications: Extra-strength Tylenol 500 mg every 6 hours as needed, albuterol nebulizer 2.5 mg every 6 hours as needed, Cymbalta 20 mg daily, Lovenox 40 mg subcutaneously daily, Atrovent nebuli zer 0.5 mg every 6 hours as needed, Emmaus 5/325 every 4 hours as needed, lidocaine patch, she will abdul ve that 2 packs applied to the right rib fractures daily, Imodium 2 mg daily, tramadol 50 mg daily. Family History: Noncontributory. Social History: The patient lives independently alone. Does not drink alcohol, smoke tobacco, cigar ettes, or use intravenous drugs. Review of Systems: She notes significant pain in the right breast and this limits her ability to breathe. She also says there is some pain in the shoulder, but no significant pain in the right rib and she denies any pain in the lower extremities or in the upper extremities. Laboratory Studies: White blood cell count 7.9, hemoglobin 12.4, platelets 261. Sodium 139, potassi um 3.5, chloride 105, carbon dioxide is 30, BUN 6, creatinine 0.56, glucose 95, calcium 8.7, magnesiu m 2.0, albumin 2.9, prealbumin 13.3. Urinalysis, trace blood, 25 esterase, 5 to 10 red blood cells, 1+ protein. X-ray/imaging: Chest x-ray on 03/28/2025 shows nondisplaced right third, fourth, and seventh rib fra ctures. No evidence of significant trauma otherwise such as pneumothorax. Incidental note made of a 2.2 cm stone in the right renal pelvis with at least upper pole hydronephrosis, probably chronic. A smaller stone was actually noted to be located in 2022 and that stone is likely the one that is now enlarged. Current Level Of Functioning: Currently, for eating at setup assistance, grooming is setup assistanc e, bathing contact guard assistance, for upper body dressing independent, lower body dressing moderat e assistance, donning and doffing footwear moderate assistance, toileting supervision, supervision fo r wheelchair bed transfer, toileting itself is also at a supervision level. Ambulation, she covered 230 feet with supervision with a rolling walker. Physical Examination: Vital Signs: Blood pressures 140 to 168/70 to 79, respiratory rate 16 to 18, pulse 80 to 87, tempera ture 98.2, oxygen saturation 96%. Weight 107 pounds, height 5 feet, BMI 20.9. General: Ms. Cordero is in her bed in between therapy sessions. Reporting significant pain in the [facility] lower rib region. Pain medications were adjusted. She is allergic to medications, however, she does have on board Emmaus 5/325, she will have the lidocaine patches to be applied, although there is report of allergies to tramadol. She actually received tramadol and will be resumed. HEENT: She also is normocephalic, atraumatic. Sclerae anicteric. Oropharynx is moist. Neck: Supple. Chest: Has good air movement. Abdomen: Soft. Extremities: Show no significant clubbing, cyanosis, or edema. Medical And Rehabilitation Assessment And Plan: Ms. Cordero is an 84-year-old patient in the rehabili tation unit with impairment category 09, other orthopedic. Impairment group code is 08.9, other orth opedic. Etiologic diagnosis, right third, fourth, and seventh rib fractures. Her comorbid condition s include gastroesophageal reflux, COPD, arthritis. She has decreased mobility, decreased physical f unctioning, and moderate pain with risk of DVT. Plan: 1. She will have physical, occupational, and if need be speech therapy for 3.5 hours, 5 of 7 days. 2. Tramadol will be scheduled in the morning for pain management, Emmaus 5/325 every 4 hours as needed along with Tylenol for pain management every 4 to 6 hours. She has duloxetine on board as well 20 m g daily, Lovenox 40 mg subcutaneously daily, ipratropium nebulizer 0.5 mg every 6 hours as needed, an d lidocaine patch. She has Imodium for loose stools. Comorbidities That Are Impacting Rehabilitation: At this point, the biggest factor is significant pa in and she again has scheduled pain management, may have muscle relaxant added. She has duloxetine w hich is neuromodulator. She has narcotic, but that will be as low level as possible. Tramadol was a lso scheduled and the patient will if need be have some ice packs placed on the right rib region. Sh e is at significant risk of falls, fall precautions to be adhered to at all times with if need be bed alarm and chair alarm in place. When ambulating, she will have the lower gait belt gently used with rolling walker and a chair and tow once the patient is ambulating. Rehab Specific Plan: Ms. Cordero will have physical and occupational therapy 3 hours a day, 5 of 7 da ys, to improve her ability to transfer from her bed to a chair and also to a rolling walker, to on an d off the toilet, in and out of shower, to work with therapy to maintain her balance and to dress upp er and lower body while she is medicated with pain medications. Ms. Cordero has a good understanding of the process of admission to the inpatient rehabilitation unit and how she will benefit from physical, occupational, and if need be speech therapy. She will have 2 4 hours a day, 7 days a week skilled rehabilitation and nursing, daily physician evaluation and manag ement, and social science manager evaluation and management for discharge planning, home equipment, and to c ontinue therapy as needed. If need be, additional help from Hospitalist Service will be sought. Barriers To Discharge: Her biggest barrier is significant pain and of course high risk of falling. She has multiple pain modality measures in place and as she is healing by secondary intention, no aiyana gical intervention is used in her rib fracture. She will likely be in pain for an extended time, whi ch may be beyond the time allotted for inpatient rehabilitation. I have made that the patient will h ave to go to [facility], however, the goal is for her to go home. Length Of Stay: About 12 days. Disposition: Expected to be home and continuing therapy via Home Health. Prognosis: Good. Code Status: Full code. Rehab Specific Goals: 1. Become independent with upper and lower body dressing. 2. Independently mobilize a wheelchair 250 feet. 3. Independently ambulate with a walker 250 feet. 4. Independently go up and down steps with bilateral handrails. 5. Independently perform all cognitive functioning and safety awareness issues. The above goals were reviewed with Ms. Cordero and she is in agreement. By signing this document, I acknowledge I personally performed a full physical examination on Ms. Chico hoffman no later than 24 hours after her admission to the inpatient rehabilitation unit and determined th at she is able to tolerate the above course of treatment at an intensive level for a reasonable perio d of time. A detailed individualized plan of care for her will be completed by hospital day 4 based on the preadmission screen, history and physical, and therapy evaluations. LB/MODL Voice ID: [id number]
[2025-04-02] MEDS: DULOXETINE 20 MG CAP PO SCH (08:00)
[2025-04-02] MEDS ORDERED: TRAMADOL HCL 50 MG TAB PO SCH (08:00)
--- NOTE | 2025-04-02 13:46 | P.RH.PN ---
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 Goal: Mobility, Transfers, Self Care Vital Signs: Last Vital Signs Temp 98.4 F 04/02/25 07:00 Pulse 83 04/02/25 07:00 Resp 18 04/02/25 07:00 BP 159/78 H 04/02/25 07:00 Pulse Ox 95 04/02/25 07:00 Laboratory: Laboratory Last Values WBC 7.90 thou/uL (4.3-10.9) 04/01/25 05:41 RBC 4.66 M/uL (3.86-4.86) 04/01/25 05:41 Hgb 12.4 g/dL (12.0-15.0) 04/01/25 05:41 Hct 37.1 % (36.0-45.0) 04/01/25 05:41 MCV 79.6 fL (80-100) L 04/01/25 05:41 MCH 26.7 pg (27.0-35.0) L 04/01/25 05:41 MCHC 33.6 g/dL (32.0-36.0) 04/01/25 05:41 RDW 14.4 % (12.1-15.2) 04/01/25 05:41 Plt Count 261 thou/uL (152-406) 04/01/25 05:41 MPV 8.6 fL (7.6-11.3) 04/01/25 05:41 Neutrophils % 64.6 % (41.7-73.7) 04/01/25 05:41 Lymphocytes % 18.3 % (15.3-44.8) 04/01/25 05:41 Monocytes % 13.5 % (3.3-12.3) H 04/01/25 05:41 Eosinophils % 3.2 % (0-4.4) 04/01/25 05:41 Basophils % 0.4 % (0-1.3) 04/01/25 05:41 Absolute Neutrophils 5.1 K/uL (1.8-8.0) 04/01/25 05:41 Absolute Lymphocytes 1.5 K/uL (0.7-4.9) 04/01/25 05:41 Absolute Monocytes 1.1 K/uL (0.1-1.3) 04/01/25 05:41 Absolute Eosinophils 0.3 K/uL (0-0.5) 04/01/25 05:41 Absolute Basophils 0.0 K/uL (0-0.5) 04/01/25 05:41 Sodium 139 mEq/L (136-145) 04/01/25 05:41 Potassium 3.5 mEq/L (3.5-5.1) 04/01/25 05:41 Chloride 105 mEq/L (98-107) 04/01/25 05:41 Carbon Dioxide 30 mEq/L (21-32) 04/01/25 05:41 Anion Gap 7.5 mEq/L (5.0-15.0) 04/01/25 05:41 BUN 6 mg/dL (7-18) L 04/01/25 05:41 Creatinine 0.56 mg/dL (0.55-1.02) 04/01/25 05:41 Est GFR (CKD-EPI) 91 ml/min (=/>90) 04/01/25 05:41 Glucose 95 mg/dL (74-106) 04/01/25 05:41 Calcium 8.7 mg/dL (8.5-10.1) 04/01/25 05:41 Magnesium 2.0 mg/dL (1.6-2.4) 04/01/25 05:41 Albumin 2.9 g/dL (3.4-5.0) L 04/01/25 05:41 Prealbumin 13.2 mg/dL (20-40) L 04/01/25 05:41 Urine Color Light-yellow (Yellow) 04/01/25 03:45 Urine Clarity Clear (Clear) 04/01/25 03:45 Urine pH 6.5 (5.0-7.0) 04/01/25 03:45 Ur Specific Christine 1.013 (1.005-1.030) 04/01/25 03:45 Glucose (UA)(Auto) Negative (Negative) 04/01/25 03:45 Urine Ketones Negative (Negative) 04/01/25 03:45 Urine Blood Trace (Negative) H 04/01/25 03:45 Urine Nitrite Negative (Negative) 04/01/25 03:45 Urine Bilirubin Negative (Negative) 04/01/25 03:45 Urine Urobilinogen Normal (Normal) 04/01/25 03:45 Ur Leukocyte Esterase 25 Filiberto/uL (Negative) H 04/01/25 03:45 Urine RBC 5-10 /HPF (None Seen) H 04/01/25 03:45 Urine WBC 5-10 /HPF (<5) 04/01/25 03:45 Ur Squamous Epith Cells <5 /HPF (None Seen) 04/01/25 03:45 Urine Bacteria None seen /HPF (<20) 04/01/25 03:45 Urine Mucus Slight /HPF (None Seen) 04/01/25 03:45 Urine Culture Reflexed Not needed 04/01/25 03:45 Urine Total Protein 1+ (Negative) H 04/01/25 03:45 Weight: 107 lb Negative Pressure Wound Therapy Present: No Physician Update: Labs reviewed and are stable. Her multiple right rib fracture pain control is better. She is impulsive and has a high fall risk. Will have chair alarm. CGA for PT activities. 500' with a rollator and supervision. Up and down 15 steps with min assist. WC 150' x 2 with CGA. 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 Please see the Rehabilitation Signature page for all necessary signatures.
[2025-04-03] MEDS: HYDROCODONE/APAP 5/325 MG TAB PO PRN (02:46)
[2025-04-05] MEDS: BENZONATATE 100 MG CAP PO PRN (14:30)
--- NOTE | 2025-04-06 00:12 | PN ---
Date of Progress Note: 04/05/2025 Time Of Service: 1:35 p.m. Subjective: Ms. Cordero is in a chair beside her bed. She does report some mild pain in her right si de of her chest, where she fractured multiple ribs after falling. She does have an abdominal binder in place. She has lidocaine patch as well. Objective: She denies any significant fevers, chills, nausea, vomiting. Still has pain on coughing or laughing in that right chest. She does have now Robitussin on board to help suppress the cough. Otherwise, no other positives on the systems review. Physical Examination: Vital Signs: Blood pressure 140/69, pulse 90, respiratory rate 18, temperature 98.2, oxygen saturati on 97%. Weight 107 pounds, height 5 feet, BMI 20.9. General: Again, Ms. Cordero is resting comfortably in a chair beside bed. HEENT: She is normocephalic, atraumatic. She has an abdominal binder in place. Sclerae anicteric. Oropharynx pink and moist. Neck: Supple. Chest: Clear. Laboratory Studies: No new laboratory studies today. X-ray/imaging: No new x-rays or imaging. Medications: Tylenol 500 mg every 6 hours as needed, Concrete 5/325 every 4 hours as needed, albuterol nebulizer 2.5 mg 4 times daily, Tessalon Perles 100 mg 3 times daily, Cymbalta 20 mg daily, Lovenox 4 0 mg subcutaneously daily, Imodium 2 mg daily, lidocaine patch can apply 2 daily, and she has ipratro pium 0.5 mg nebulizer every 6 hours as needed. Assessment: In terms of her assessment and plan again, she does have the multiple rib fractures on t he right. She has decreased mobility, decreased physical functioning, COPD, GE reflux. Plan: She will continue with physical, occupational, and speech therapy 3.5 hours, 5 of 7 days. She will continue with comorbid condition medication management including with Concrete, Tylenol for pain, duloxetine also for pain, Lovenox for DVT prophylaxis, nebulizer treatment for shortness of breath, l idocaine patch on board, and Imodium continued for loose stools as needed. SPARKLE/MARK Voice ID: [id number] Report ID: [id number]
[2025-04-06 05:28] LABS: Absolute Basophils 0.1 K/uL (0-0.5); Absolute Eosinophils 0.2 K/uL (0-0.5); Absolute Lymphocytes (CBC) 1.4 K/uL (0.7-4.9); Absolute Monocytes 1.2 K/uL (0.1-1.3); Absolute Neutrophil 7.7 K/uL (1.8-8.0); Basophils % 0.6 % (0-1.3); Eosinophils % 2.3 % (0-4.4); Hematocrit 37.6 % (36.0-45.0); Hemoglobin 12.5 g/dL (12.0-15.0); Lymphocytes % 12.9 % (15.3-44.8); MCH 26.5 pg (27.0-35.0); MCHC 33.3 g/dL (32.0-36.0); MCV 79.7 fL (80-100); MPV 8.6 fL (7.6-11.3); Monocytes % 11.4 % (3.3-12.3); Neutrophils % 72.8 % (41.7-73.7); Nucleated Red Blood Cells % 0.1 % (0-0); Platelets 273 thou/uL (152-406); RBC Red Blood Cell Count 4.72 M/uL (3.86-4.86); Red Cell Distribution Width 13.9 % (12.1-15.2)
[2025-04-06 05:49] LABS: Albumin 2.9 g/dL (3.4-5.0); Anion Gap 8.1 mEq/L (5.0-15.0); Magnesium 2.2 mg/dL (1.6-2.4); Potassium 4.1 mEq/L (3.5-5.1); Prealbumin 16.7 mg/dL (20-40)
[2025-04-06] MEDS: LIDOCAINE 4% PATCH TOP SCH (08:57)
--- NOTE | 2025-04-06 23:28 | PN ---
Date of Progress Note: 04/06/2025 Time Of Service: 1:40 p.m. Subjective: Ms. Cordero is resting comfortably. She is doing much better. Still has some pain in th e rib fracture sites on the right. She does have an abdominal binder in place. She has a towel also in between the abdominal binder and the chest wall. She is smiling, laughing at times, but that solano s produce some pain in the ribs as she laughs. Objective: No fevers, chills, nausea, vomiting. Mild myalgias, arthralgias, especially in the right chest wall. No other findings on the systems review. Physical Examination: Vital Signs: Blood pressure 149/70, pulse 77, respiratory rate 16, temperature 97.2, oxygen saturati on 98%. General: Again, Ms. Cordero is resting comfortably. Neuro: She has no focal neurological deficits and the abdominal binder is on board and she is doing fairly well with that and the lidocaine patches on the right chest wall. Laboratory Studies: White blood cell count 10.0, hemoglobin 12.5, platelets 273. Sodium 139, potass ium 4.1, chloride 106, carbon dioxide 29, BUN 70, creatinine 0.54, glucose 92, calcium 8.5, magnesium 2.2, albumin 2.9, prealbumin 16.7. X-ray/imaging: No new x-rays or imaging. Medications: Her medications have been reviewed and are unchanged. Progress Made With Physical And Occupational Therapy: With physical therapy today, bed mobility done with modified independence, completed multiple [id number] transfers and [id number] transfers w ith modified independence. She did ambulate 7500 feet with a Rollator with modified independence, in and outside 500 feet without an assistive device, up and down 15 steps with independence. With occu pational therapy, independent with bed mobility and sit to stand, toilet transfers, all independent. She is doing excellent with all her therapy. Assessment And Plan: Ms. Cordero is an 84-year-old patient in rehabilitation unit with rib fractures on the right. She is doing excellent with all physical and occupational therapy. She is going very close to her baseline and be ready for discharge home. Pain is still an issue, but is improving. Sh e still has mild decreased mobility, decreased physical functioning. In addition to some cough is im proved, depression is improved. She has Lovenox on board for her risk of DVT prophylaxis, shortness of breath addressed with nebulizer treatment, Imodium for any loose stools which have improved, and t he plan will be to continue with physical and occupational therapy until she is discharged that will be 3 hours a day. Continue with comorbid condition medications after discharge. Outpatient therapy is recommended. She is doing excellent. SPARKLE/MARK Voice ID: [id number] Report ID: [id number]
[2025-04-07 07:50] VITALS: BP 160/77; TEMP 98
== END 2025-04-07 13:29 | disposition home health service (06) | DRG 561 ==
LOC: 5TH 04-01 01:45
PROVIDERS: ADMIT Psychiatry & Neurology Neurology with Special Qualifications in Child Neurology; ATTEND Psychiatry & Neurology Neurology with Special Qualifications in Child Neurology
DX: S22.41XD Multiple fractures of ribs, right side, subsequent encounter for fracture with routine healing (principal); J44.9 Chronic obstructive pulmonary disease, unspecified; K21.9 Gastro-esophageal reflux disease without esophagitis; R05.9 Cough, unspecified; M06.9 Rheumatoid arthritis, unspecified; M54.9 Dorsalgia, unspecified; G89.29 Other chronic pain; G56.00 Carpal tunnel syndrome, unspecified upper limb; N20.0 Calculus of kidney; F32.A Depression, unspecified; Z91.81 History of falling; Z96.651 Presence of right artificial knee joint; Z96.641 Presence of right artificial hip joint
CPT/HCPCS: 36415; 80048; 81001; 82040; 83735; 84134; 85025; 92523; 97112; 97116; 97163; 97165; 97530; 97542; J1650; J2003